=== PATIENT | female | born 1970 | race Caucasian/White ===

== ENCOUNTER 2016-12-17 01:32 | Inpatient (IN) ==
--- OUTSIDE RECORDS SUMMARY | 2016-12-17 03:22 | External Medical Summary ---
:1970 Author Organization eClinicalWorks Care Team Providers Name Role Phone Inocencio Christian Provider Role Unavailable Allergies No Known Allergies Problems Problem Type Condition Code Onset Dates Condition Status Problem Suppurative otitis media of both 382.4 Active ears Problem Bronchitis 490 Active Problem DM type 2 (diabetes mellitus, type E11.9 Active 2) Problem Cellulitis and abscess of 682.9 Active unspecified site Problem Left ankle injury 959.7 Active Problem Left ankle swelling 719.07 Active Medications No Known Medications Results No Known Results Summary Purpose eClinicalWorks Submission
--- OUTSIDE RECORDS SUMMARY | 2016-12-17 03:22 | External Medical Summary ---
:1970 Author Organization [facility] Address [address] [place], [place] [address] Care Team Providers Name Role Phone Agata Khoury Unavailable Unavailable PROBLEMS Type Condition ICD9-CM [id number] Onset Condition SNOMED Code Code Code Dates Status Problem HLD E78.5 Active 85679371 (hyperlipidemia) Problem Sleep apnea G47.30 Active 76882019 Problem Diabetes type 2, E11.65 Active 987093527 uncontrolled Problem Heart murmur R01.1 Active 10196150 Problem Peripheral G62.9 Active 461186423 neuropathy Problem Diabetic ulcer of E11.621 Active 8768769323407 right foot Problem High blood I10 Active 90635842 pressure Problem Depression F32.9 Active 253407230 Problem Diabetic E11.43 Active 939827204 gastroparesis Problem High cholesterol E78.0 Active 30570334 Problem Acid reflux K21.9 Active 050607280 ALLERGIES Unknown Allergies SOCIAL HISTORY No smoking Hx information available PLAN OF CARE VITAL SIGNS MEDICATIONS Medication Instructions Dosage Frequency Start End Date Duration Status Date Bactrim DS Orally Twice a 1 tablet 12h 26 July, 5 Rubén, 10 day(s) Active 800-160 MG day 2016 2016 RESULTS No Results PROCEDURES No Known procedures IMMUNIZATIONS No Known Immunizations
--- OUTSIDE RECORDS SUMMARY | 2016-12-17 03:22 | External Medical Summary ---
:1970 Author Name [facility] Care Team Providers Name Role Phone FRIEND, DESIRAE JASMINE Primary Care Provider [phone] Reason For Visit Reason for Visit from 08/10/2016 1:04 PM:Pt Stated Reason for Adm : infusion Chief Complaint DIABETIC FOOT ULCER, INFECTED Social History Functional Status Functional Status from 08/16/2016 8:21 AM:LOC : AlertOriented To : Person,Place, Time,EventFunctional Status from 08/15/2016 8:08 AM:LOC : AlertOriented To : Person,Place,Time,EventFunctional Status from 08/14/2016 8:46 AM:LOC : AlertOriented To : Person,Place,Time,EventFunctional Status from 08/13/2016 8:20 PM:LOC : AlertOriented To : Person,Place,Time,EventFunctional Status from 2016 7:37 AM:LOC : AlertOriented To : Person,Place,Time,EventFunctional Status from 08/12/2016 8:10 PM:LOC : AlertOriented To : Person,Place,Time, EventFunctional Status from 08/12/2016 7:43 AM:LOC : AlertOriented To : Person, Place,Time,EventFunctional Status from 08/11/2016 10:09 AM:LOC : AlertOriented To : Person,Place,Time,EventFunctional Status from 08/10/2016 1:04 PM:LOC : AlertOriented To : Person,Place,Time,Event Vital Signs Hospital Vital Signs from 08/16/2016 8:28 PM:Height : 5/6 ft,inTemperature : 98.6 FPulse : 83Respirations : 18BP : 141/83Hospital Vital Signs from 08/16/2016 8:18 AM:Height : 5/6 ft,inTemperature : 97.0 FPulse : 84Respirations : 18BP : 144/76Hospital Vital Signs from 08/15/2016 8:08 AM:Height : 5/6 ft,inTemperature : 98.2 FPulse : 80Respirations : 18BP : 112/70Hospital Vital Signs from 2016 8:42 AM:Height : 5/6 ft,inTemperature : 97.3 FPulse : 98Respirations : 18BP : 130/81Hospital Vital Signs from 08/13/2016 8:20 PM:Height : 5/6 ft, inTemperature : 97.3 FPulse : 78Respirations : 18BP : 176/78Hospital Vital Signs from 08/13/2016 8:26 AM:Height : 5/6 ft,inTemperature : 96.9 FPulse : 70Respirations : 20BP : 132/67Hospital Vital Signs from 08/12/2016 8:10 PM: Height : 5/6 ft,inTemperature : 98.2 FPulse : 78Respirations : 20BP : 146/ 70Hospital Vital Signs from 08/12/2016 7:43 AM:Height : 5/6 ft,inTemperature : 96.9 FPulse : 70Respirations : 18BP : 147/83Hospital Vital Signs from 08/11/2016 11:25 PM:Height : 5/6 ft,inTemperature : 98.1 FPulse : 72Respirations : 18BP : 138/68Hospital Vital Signs from 08/11/2016 7:50 PM:Height : 5/6 ft,inTemperature : 98.9 FPulse : 96Respirations : 18BP : 134/62Hospital Vital Signs from 2016 7:43 AM:Height : 5/6 ft,inTemperature : 97.6 FPulse : 80Respirations : 18BP : 117/74Hospital Vital Signs from 08/11/2016 12:25 AM:Height : 5/6 ft, inTemperature : 97.8 FPulse : 76Respirations : 18BP : 121/63Hospital Vital Signs from 08/10/2016 8:10 PM:Height : 5/6 ft,inTemperature : 98.1 FPulse : 87Respirations : 18BP : 115/71Hospital Vital Signs from 08/10/2016 1:04 PM: Weight : 267/ lbs,ozHeight : 5/6 ft,inHospital Vital Signs from 08/10/2016 8:20 AM:Height : 5/6 ft,inTemperature : 97.8 FPulse : 105Respirations : 18BP : 134/81 Results Chemistry from 08/12/2016 8:03 [id number] MMOL/L (136-145 MMOL/L) POTASSIUM4.2 MMOL/L (3.5-5.1 MMOL/L) [id number] MMOL/L H (98-107 MMOL/L) MAV135.1 MMOL/L (21.0-32.0 MMOL/L) *ANION GAP10.9 MMOL/L (8.0-16.0 MMOL/L) BUN20 MG/DL H (7-18 MG/DL) CREATININE1.02 MG/DL (0.55-1.02 MG/DL) *BUN/CREATININE RATIO19.6 H (9.1-17.0 ) YBMACQV898 MG/DL H (65-99 MG/DL) *GFR EST NON AFR [id number] ML/MIN (Reference Range: not available) *GFR EST AFR AMER75 ML/MIN (Reference Range: not available) CALCIUM8.9 MG/DL (8.5-10.1 MG/DL) VANCOMYCIN TKEYSN08.8 MCG/ML (10.0-20.0 MCG/ML) Problems Encounter Diagnosis No relevant problems exist. Encounters Encounter Diagnosis No relevant problems exist. Plan of Care Procedures No relevant procedures performed. Immunizations No immunizations administered or ordered. Hospital Course Hospital Discharge Instructions Allergies, Adverse Reactions, Alerts This section is construction representative of the current allergy information, at the time of the CCD generation. In the case of regeneration of the CCD, the allergy information may not reflect the state of known allergies at the time of the CCD' s subject visit. clindamycin causes Moderate Hives.Penicillins causes unspecified.Tetracyclines causes unspecified.No Latex Allergy.No IV Contrast Allergy.No Known Food Allergies. Medication Medication reconciliation has not been performed.
--- OUTSIDE RECORDS SUMMARY | 2016-12-17 03:22 | External Medical Summary ---
:1970 Author Organization eClinicalWorks Care Team Providers Name Role Phone Friend, Lakisha Provider Role Unavailable Allergies, Adverse Reactions, Alerts Substance Reaction Event Type Tetracycline Info Not Available Non Drug Allergy Penicillins Info Not Available Non Drug Allergy Problems Problem Type Condition Code Onset Dates Condition Status Problem Heart murmur R01.1 Active Problem HLD (hyperlipidemia) E78.5 Active Problem Peripheral neuropathy G62.9 Active Problem High cholesterol E78.0 Active Problem Acid reflux K21.9 Active Problem High blood pressure I10 Active Problem Sleep apnea G47.30 Active Problem Diabetes type 2, uncontrolled E11.65 Active Problem Depression F32.9 Active Problem Diabetic gastroparesis E11.43 Active Assessment Diabetes type 2, uncontrolled E11.65 Active Assessment High blood pressure I10 Active Problem DM type 2 (diabetes mellitus, type E11.9 Active 2) Medications Medication Code Code Instructions Start End Date Status Dosage System Date Potassium [facility] 80569-29 550 MG Orally 1 tablet Gluconate 797 Once a day GlipiZIDE [facility] 39273-78 10 MG Orally Oct 12, 1 tablet 50-00 Once a day 2015 Stool Softener [facility] 34531-03 250 MG Orally 1 capsule as 64-01 Once a day needed Magnesium [facility] 23436-58 500 MG Orally 1 tablet 999 Once a day with a meal Vitamin B-12 [facility] 20345-96 1000 MCG Orally 5 tablet 17-01 Once a day Vitamin C [facility] 12429-37 1000 MG Orally 2 tablets 79-20 Once a day Lisinopril [facility] 99615-77 40 mg Orally Oct 12, 1 tablet 70-01 Once a day at 2016 bedtime Aspirin [facility] 81272-93 325 MG Orally 1 tablet 16-[address] [place] [address]-40 300 MG Orally 2 capsules 79-26 Once a day Lovastatin [facility] 55470-17 40 mg Orally Aug 12, 1 tablet 28-06 Once a day 2015 with a meal Metformin HCl [facility] 91693-65 1000 MG Orally Aug 12, 1 tablet 14-01 Twice a day 2015 with meals Cinnamon NDC 86123-05 500 MG Orally not defined 77-24 Fish Oil [facility] 78366-92 1200 MG Orally 1 capsule 922 Once a day Lisinopril [facility] 89444-56 40 MG Orally Oct 12, 1 tablet 70-01 Once a day at 2016 bedtime Ginkgo Biloba [facility] 90097-72 400 MG Orally not defined 092 Biotin [facility] 90914-84 1000 MCG Orally 1 tablet 900 Once a day Amlodipine [facility] 90921-77 5 MG Orally Once Dec 12, 1 tablet Besylate -22 a day at bedtime 2015 Procedures Procedure Coding System Code Date OFFICE VISIT EST PATIENT LEVEL 3 CPT-4 86134 Dec 13, 2015 Vital Signs Date/Time: Dec 13, 2015 BMI 45.03 Index Weight 279 lbs Height 5 ft 6 in in Blood Pressure Diastolic 102 mm Hg Blood Pressure Systolic 166 mm Hg Cardiac Monitoring Heart Rate 93 /min Temperature 98.1 F Oximetry 98 % Respiratory Rate 20 /min Results No Known Results Summary Purpose eClinicalWorks Submission
--- OUTSIDE RECORDS SUMMARY | 2016-12-17 03:22 | External Medical Summary ---
:1970 Author Organization [employer]ClinicalWorks Care Team Providers Name Role Phone Friend, Lakisha Provider Role Unavailable Allergies No Known Allergies Problems Problem Type Condition Code Onset Dates Condition Status Problem Heart murmur R01.1 Active Problem HLD (hyperlipidemia) E78.5 Active Problem Peripheral neuropathy G62.9 Active Problem DM type 2 (diabetes mellitus, type E11.9 Active 2) Problem High cholesterol E78.0 Active Problem Acid reflux K21.9 Active Problem High blood pressure I10 Active Problem Sleep apnea G47.30 Active Problem Diabetes type 2, uncontrolled E11.65 Active Problem Depression F32.9 Active Problem Diabetic gastroparesis E11.43 Active Medications Medication Code System Code Instructions Start Date End Date Status Dosage Cephalexin [facility] 74194-765 500 MG Orally Oct 17, capsule 7-01 Twice a day 2015 Results No Known Results Summary Purpose eClinicalWorks Submission
--- OUTSIDE RECORDS SUMMARY | 2016-12-17 03:22 | External Medical Summary ---
:1970 Author Organization eClinicalWorks Care Team Providers Name Role Phone Cecilia Monroy Provider Role Unavailable Allergies No Known Allergies [...]
--- OUTSIDE RECORDS SUMMARY | 2016-12-17 03:22 | External Medical Summary ---
:1970 Author Organization [facility] Address [address] [place], [place] [id number] Care Team Providers Name Role Phone Agata Khoury Unavailable Unavailable PROBLEMS Type Condition ICD9-CM [id number] Onset Condition SNOMED Code Code Code Dates Status Problem HLD E78.5 Active 79772700 (hyperlipidemia) Problem Sleep apnea G47.30 Active 73037522 Problem Diabetes type 2, E11.65 Active 617492333 uncontrolled Problem Heart murmur R01.1 Active 14459642 Problem Peripheral G62.9 Active 415836877 neuropathy Problem Diabetic ulcer of E11.621 Active 7137672952957 right foot Problem High blood I10 Active 25042611 pressure Problem Depression F32.9 Active 686417739 Problem Diabetic E11.43 Active 923356142 gastroparesis Problem High cholesterol E78.0 Active 02040072 Problem Acid reflux K21.9 Active 642247299 ALLERGIES Substance Reaction Event Type Date Status Clindamycin hivers over entire body Drug Allergy July, Active Tetracycline burning rash Non Drug Allergy July, Active Penicillins hives over 100% of body Non Drug Allergy July, Active SOCIAL HISTORY No smoking Hx information available PLAN OF CARE Activity Details Follow Up 1 Week Reason:null VITAL SIGNS Height 5 ft 6 in in 2016-07-30 Weight 273 lbs 2016-07-30 BMI 44.06 kg/m2 2016-07-30 Temperature 97.8 degrees Fahrenheit 2016-07-30 Heart Rate 122 /min 2016-07-30 Respiratory Rate 22 /min 2016-07-30 Oximetry 97 % 2016-07-30 Blood pressure systolic 136 mm Hg 2016-07-30 Blood pressure diastolic 76 mm Hg 2016-07-30 MEDICATIONS Medication Instructions Dosage Frequency Start End Duration Status Date Date Vitamin B-12 5000 MCG Orally Once a 1 tablet 24h Active day Stool Softener 250 MG Orally Once a 1 capsule as 24h Active day needed Lisinopril 20 MG Orally Once a 2 tablets 30 days Active day at bedtime Ginkgo Biloba 400 MG Orally once a 1 capsule 24h Active day Biotin 1000 MCG Orally Once a 1 tablet 24h Active day Lovastatin 40 mg Orally Once a 1 tablet with 24h 12 30 day(s) Active day a meal Oct, 2015 Aspirin 325 MG Orally Once a 1 tablet 24h Active day Nystatin 413437 Externally 1 application 12h 25 24 30 days Active UNIT/GM Twice a day to affected July, GlipiZIDE 10 MG Orally twice a 2 tablets am 12h Active day and 1 tablet pm Metformin HCl 1000 MG Orally Twice a 1 tablet with 12h 12 Active day meals Oct, 2015 Hydrochlorothiazide Orally Once a 1 tablet 14 30 day(s) Active 25 MG day in the Apr, Amlodipine Besylate Orally Once a 1 tablet 24h 15 30 day(s) Active 10 MG day Jan, 2016 [facility] [place] 300 MG Orally twice a 2 capsules am 12h Active day 1 capsule pm Bactrim DS 800-160 MG Orally Twice a 1 tablet 12h 26 5 10 day(s) Active day July,Aug, 20162016 Fish Oil 1200 MG Orally Once a 1 capsule 24h Active day Potassium Gluconate Orally Once a 1 tablet 24h Active 550 MG day Clindamycin HCl 300 Orally every 8 1 capsule 8h 22 1 10 days Active MG hrs July,Aug, 20162016 Vitamin C 1000 MG Orally Once a 2 tablets 24h Active day Magnesium 500 MG Orally Once a 1 tablet with 24h Active day a meal PredniSONE 20 MG Orally Once a 2 tablets 24h 30 4 05 days Active day July,Aug, 20162016 RESULTS No Results PROCEDURES Procedure Date Ordered Related Diagnosis Body Site OFFICE VISIT EST PATIENT LEVEL 3 July 30, 2016 IMMUNIZATIONS No Known Immunizations
--- OUTSIDE RECORDS SUMMARY | 2016-12-17 03:22 | External Medical Summary ---
:1970 Author Organization [facility] Address [address] [place], [place] [address] Care Team Providers Name Role Phone Cecilia Monroy Unavailable Unavailable PROBLEMS Type Condition ICD9-CM [id number] Onset Condition SNOMED Code Code Code Dates Status Problem HLD E78.5 Active 61435078 (hyperlipidemia) Problem Sleep apnea G47.30 Active 69617418 Problem Diabetes type 2, E11.65 Active 292663949 uncontrolled Problem Heart murmur R01.1 Active 29676657 Problem Peripheral G62.9 Active 356425888 neuropathy Problem Diabetic ulcer of E11.621 Active 3611020445377 right foot Problem High blood I10 Active 20780701 pressure Problem Depression F32.9 Active 249230032 Problem Diabetic E11.43 Active 239480130 gastroparesis Problem High cholesterol E78.0 Active 63099919 Problem Acid reflux K21.9 Active 234747089 ALLERGIES Unknown Allergies SOCIAL HISTORY No smoking Hx information available PLAN OF CARE VITAL SIGNS MEDICATIONS Unknown Medications RESULTS No Results PROCEDURES No Known procedures IMMUNIZATIONS No Known Immunizations
--- OUTSIDE RECORDS SUMMARY | 2016-12-17 03:22 | External Medical Summary ---
:1970 Author Name [facility] Care Team Providers Name Role Phone MD HOMA, FABRICIO MOSQUERA Primary Care Provider [phone] Reason For Visit Chief Complaint FOOT PAIN Social History Functional Status Vital Signs Results Chemistry from 08/06/2016 10:00 [id number] MMOL/L (136-145 MMOL/L) POTASSIUM4.4 MMOL/L (3.5-5.1 MMOL/L) [id number] MMOL/L (98-107 MMOL/L) GTK936.4 MMOL/L (21.0-32.0 MMOL/L) *ANION GAP9.6 MMOL/L (8.0-16.0 MMOL/L) BUN24 MG/DL H (7-18 MG/DL) CREATININE1.20 MG/DL H (0.55-1.02 MG/DL) *BUN/CREATININE RATIO20.0 H (9.1-17.0 ) SSVFFWE308 MG/DL H (65-99 MG/DL) *GFR EST NON AFR BEZLZZGV52 ML/MIN (Reference Range: not available) *GFR EST AFR AMER62 ML/MIN (Reference Range: not available) CALCIUM9.5 MG/DL (8.5-10.1 MG/DL) BILIRUBIN TOTAL0.40 MG/DL (0.20-1.00 MG/DL) TOTAL PROTEIN8.1 GM/DL (6.4-8.2 GM/DL) ALBUMIN4.1 GM/DL (3.4-5.0 GM/DL) *GLOBULIN4.0 GM/DL H (2.3-3.5 GM/DL) *A/G RATIO1.0 MG/DL L (1.5-2.2 MG/DL) ALK HRGF291 U/L H (46-116 U/L) ALT (SGPT)41 U/L (16-63 U/L) AST (SGOT)16 U/L (15-37 U/L) MAGNESIUM2.0 MG/DL (1.8-2.4 MG/DL) PHOSPHORUS4.0 MG/DL (2.6-4.7 MG/DL) LACTIC ACID1.3 mmol/L (0.9-1.7 mmol/L) PROCALCITONIN<0.05 NG/ML (0.05-0.50 NG/ML)Hematology from 08/06/2016 10:00 PMWBC15.3 X10e3/UL H (3.6-11.2 X10e3/UL) RBC4.53 X10e6/UL (3.63-4.92 X10e6/UL) FBKLFYBHJT42.8 G/DL (11.0-14.3 G/DL) PDAIZECJWS51.4 % (31.2-41.9 %) *MCV91.3 FL (79.0-98.0 FL) *MCH30.5 PG (27.0-33.0 PG) *MCHC33.5 G/DL (32.0-36.0 G/DL) *RDW13.1 % (12.3-17.0 %) *RDWSD42.0 (37.1-47.8 ) OTMYDNUJ438 X10e3/UL (159-386 X10e3/UL) *MPV9.2 FL (7.4-10.4 FL) *MANUAL DIFFPERFORMED (Reference Range: not available) SEGS40.0 % (Reference Range: not available) *BANDS2.0 % (Reference Range: not available) *KKNARJRRAMF07.0 % (Reference Range: not available) *MONOCYTES4.0 % (Reference Range: not available) *SWGLGSOLZPQ13.0 % (Reference Range: not available) *BASOPHILS1.0 % (Reference Range: not available) METAMYELOCYTES1.0 % (Reference Range: not available) *ABSOLUTE NEUTROPHILS6.58 X10e3/UL (1.80-7.80 X10e3/UL) *ABSOLUTE LYMPHOCYTES6.43 X10e3/UL H (1.00-3.00 X10e3/UL) *ABSOLUTE MONOCYTES0.61 X10e3/UL (0.30-1.00 X10e3/UL) *ABSOLUTE EOSINOPHILS1.53 X10e3/UL H (0.00-0.50 X10e3/UL) *ABSOLUTE BASOPHILS0.15 X10e3/UL (0.00-0.20 X10e3/UL)Microbiology from 08/06/2016 10:08 PMCULTURE BLOOD (Preliminary Result) Specimen Number: [id number] Sample Collection Date/Time: 08/06/2016 10:08 PM Specimen Source: Blood Peripheral CULTURE BLOOD: No growth after 24 hours of incubation, testing to continue for an additional 96 hours. Microbiology from 08/06/2016 10:00 PMCULTURE BLOOD (Preliminary Result) Specimen Number: [id number] Sample Collection Date/Time: 08/06/2016 10:00 PM Specimen Source: Blood Peripheral CULTURE BLOOD: No growth after 24 hours of incubation, testing to continue for an additional 96 hours. DX Radiology from 08/06/2016 11:27 PMCHEST 1 VIEWHistory: diabetic ulcer Priors: None Findings: The cardiac silhouette and pulmonary vasculature are within normal limits. There are no acute infiltrates or effusions. Impression: No acute cardiopulmonary disease. Electronically signed by: William Gusman MD Dictated: 08/07/2016 10:14 (Reference Range: not available) Problems Encounter Diagnosis No relevant problems exist. Encounters Encounter Diagnosis No relevant problems exist. Plan of Care Procedures No relevant procedures performed. Immunizations No immunizations administered or ordered. Hospital Course Hospital Discharge Instructions Allergies, Adverse Reactions, Alerts This section is sales representative marine supplies of the current allergy information, at the time of the CCD generation. In the case of regeneration of the CCD, the allergy information may not reflect the state of known allergies at the time of the CCD' s subject visit. clindamycin causes Moderate Hives.Penicillins causes unspecified.Tetracyclines causes unspecified.Latex Allergy has not been assessed.IV Contrast Allergy has not been assessed. Medication Medication reconciliation has not been performed.
--- OUTSIDE RECORDS SUMMARY | 2016-12-17 03:23 | External Medical Summary ---
:1970 Author Organization eClinicalWorks Care Team Providers Name Role Phone Cecilia Monroy Provider Role Unavailable Allergies, Adverse Reactions, Alerts Substance Reaction Event Type Tetracycline Info Not Available Non Drug Allergy Penicillins Info Not Available Non Drug Allergy Statin Info Not Available Non Drug Allergy Problems Problem Type Condition Code Onset Dates Condition Status Assessment DM type 2 (diabetes mellitus, type E11.9 Active 2) Problem Suppurative otitis media of both 382.4 Active ears Problem Bronchitis 490 Active Problem DM type 2 (diabetes mellitus, type E11.9 Active 2) Problem Cellulitis and abscess of 682.9 Active unspecified site Assessment Dysuria R30.0 Active Problem Left ankle injury 959.7 Active Problem Left ankle swelling 719.07 Active Medications Medication Code Code Instructions Start End Date Status Dos[place] [address]-59 500 MG Orally September 28, 1 tablet 48-01 Twice a day 2015 with meals Magnesium NDC 14956-88 500 MG Orally 1 tablet 999 Once a day with a meal Cinnamon NDC 25770-64 500 MG Orally not 77-24 defined Vitamin C NDC 31576-40 1000 MG Orally 1 tablet 79-20 Once a day Potassium NDC 09421-80 75 MG Orally 1 tablet 30-60 Once a day Aspirin NDC 84009-08 325 MG Orally 1 tablet 16-78 [place] [address]-69 400 MG Orally not 092 defined Stool Softener NDC 78535-57 250 MG Orally 1 capsule 64-01 Once a day as needed Fish Oil NDC 78943-82 1000 MG Orally 1 capsule 71-40 Once a day Ciprofloxacin HCl NDC 77785-28 500 MG Orally September 28Oct 03, 1 tablet 37-01 Twice a day [address] [place] W[place] NDC 00225-76 300 MG Orally 1 capsule 79-26 Once a day Procedures Procedure Coding System Code Date GLUCOSE BLOOD TEST CPT-4 26242 September 29, 2015 CAPILLARY BLOOD DRAW CPT-4 99899 September 29, 2015 URINALYSIS NONAUTO WO SCOPE CPT-4 22237 September 29, 2015 OFFICE VISIT EST PATIENT LEVEL 4 CPT-4 98528 September 29, 2015 URINE CULTURECOLONY COUNT CPT-4 16623 September 29, 2015 COMPLETE CBC WAUTO DIFF WBC CPT-4 15108 September 29, 2015 GLYCOSYLATED HEMOGLOBIN TEST CPT-4 34321 September 29, 2015 ROUTINE VENIPUNCTURE CPT-4 89211 September 29, 2015 COMPREHEN METABOLIC PANEL CPT-4 22388 September 29, 2015 Vital Signs Date/Time: September 29, 2015 BMI 44.42 Index Weight 275 lb 4 oz lbs Height 5 ft 6 in in Oximetry 98 % Blood Pressure Diastolic 98 mm Hg Blood Pressure Systolic 158 mm Hg Cardiac Monitoring Heart Rate 97 /min Results Name Result Date Reference Range Unit Abnormality Flag Venipuncture ACCU-CHECK GLUCOSE ----Glucose 391 20150929 Hemoglobin A1C - IH ----Hemoglobin A1c 12.5 19195559 4.0 - 6.0 Urinalysis (UA) - IH ----Nitrates neg 20150929 ----Specific [place] 1.025 20150929 ----Urobilirubin 0.2 31200336 0.2 - 1 ----Ketones 40mg 42625798 0 - 0 ----Leukocytes neg 20150929 ----Protein 100mg 92471638 0 - 0 ----pH 5.5 20150929 ----Glucose 500mg 72598763 0 - 0 ----Bilirubin neg 20150929 ----Character cloudy 20150929 ----Blood large 20150929 ----Color yellow 20150929 eGFR ----eGFR >60 46667553 >60 mL/min CBC With Platelet and Differential ----RDW 12.6 49363853 11.5-14.5 % ----MCHC 35.0 94912951 32.0-36.0 g/dL ----MCH 31.3 39429650 27.0-32.0 pg ----MCV 89.2 08958245 82.0-99.0 fL ----HCT 41.4 45364846 37.0-47.0 % ----HGB 14.5 36789169 12.0-18.0 g/dL ----Eosinophils 2 95902885 0-4 % ----RBC 4.64 11518154 4.00-5.20 10*6/uL ----WBC 8.8 08372597 4.8-10.8 K/uL ----Basophils 1 18315947 0-2 % ----Lymphocytes 37 30225913 20-46 % ----Absolute Monocytes 0.42 12051925 0.30-1.00 10*3 ----Monocytes 5 87436458 4-11 % ----Absolute Eosinophils 0.20 03727066 0.00-0.50 10*3 ----Absolute Basophils 0.04 80252048 0.00-0.20 10*3 ----Neutrophils 55 84967407 51-75 % ----Platelet Count 300 18010092 150-400 K/uL ----Immature Granulocytes 0.5 82472205 0.0-1.0 % ----Absolute Neutrophils 4.86 71999909 1.90-7.00 10*3 ----Absolute Lymphocytes 3.21 83656907 0.80-3.30 10*3 ----MPV 11.8 01526713 8.8-14.8 fL Comprehensive Metabolic Panel (CMP) ----Creatinine 0.81 62480623 0.57-1.11 mg/dL ----BUN 13 20150929 7-19 mg/dL ----Sodium 135 59450959 135-144 mEq/L ----Calcium 9.5 36748375 8.9-10.5 mg/dL ----Chloride 100 57229088 99-111 mEq/L ----Potassium 4.0 21077976 3.5-5.2 mEq/L ----Albumin 4.4 51721899 3.5-5.0 g/dL ----CO2 23 62227180 22-31 mEq/L ----Bilirubin Total 0.6 12817455 0.2-1.2 mg/dL ----Protein 7.0 74945841 6.1-7.7 g/dL ----Alkaline Phosphatase 117 36503238 40-150 U/L ----AST (SGOT) 15 80665609 5-34 U/L ----ALT (SGPT) 29 20150929 0-55 U/L ----Globulin 2.6 20150929 1.8-4.0 g/dL ----Glucose 464 20150929 70-99 mg/dL CH ----Anion Gap 12 20150929 3-20 Summary Purpose eClinicalWorks Submission
--- OUTSIDE RECORDS SUMMARY | 2016-12-17 03:23 | External Medical Summary ---
:[address] [facility] Address [address] [place], [place] [address] Care Team Providers Name Role Phone Agata Khoury Unavailable Unavailable PROBLEMS Type Condition ICD9-CM [id number] Onset Condition SNOMED Code Code Code Dates Status Problem HLD E78.5 Active 14044662 (hyperlipidemia) Problem Sleep apnea G47.30 Active 76238133 Problem Diabetes type 2, E11.65 Active 908005863 uncontrolled Problem Heart murmur R01.1 Active 24270672 Problem Peripheral G62.9 Active 419921766 neuropathy Problem Diabetic ulcer of E11.621 Active 1509299244126 right foot Problem High blood I10 Active 02549036 pressure Problem Depression F32.9 Active 186374680 Problem Diabetic E11.43 Active 548386791 gastroparesis Problem High cholesterol E78.0 Active 28457642 Problem Acid reflux K21.9 Active 557081886 ALLERGIES Unknown Allergies SOCIAL HISTORY No smoking Hx information available PLAN OF CARE VITAL SIGNS MEDICATIONS Unknown Medications RESULTS No Results PROCEDURES No Known procedures IMMUNIZATIONS No Known Immunizations
--- OUTSIDE RECORDS SUMMARY | 2016-12-17 03:23 | External Medical Summary ---
:1970 Author Organization [facility] Address [address] [place], [place] [address] Care Team Providers Name Role Phone Agata Khoury Unavailable Unavailable PROBLEMS Type Condition ICD9-CM [id number] Onset Condition SNOMED Code Code Code Dates Status Problem HLD E78.5 Active 46960685 (hyperlipidemia) Problem Sleep apnea G47.30 Active 10788329 Problem Diabetes type 2, E11.65 Active 911655356 uncontrolled Assessment Cutaneous B37.2 25 July, Active 173454866 candidiasis 2017 Assessment Diabetic ulcer of E11.621 25 July, Active 6275071821397 right foot 2017 Problem Heart murmur R01.1 Active 97221390 Problem Peripheral G62.9 Active 668009570 neuropathy Problem Diabetic ulcer of E11.621 Active 3780585972082 right foot Problem High blood I10 Active 98462887 pressure Problem Depression F32.9 Active 362087496 Problem Diabetic E11.43 Active 522679485 gastroparesis Problem High cholesterol E78.0 Active 39368541 Problem Acid reflux K21.9 Active 391465059 ALLERGIES Substance Reaction Event Type Date Status Tetracycline burning rash Non Drug Allergy July, Active Penicillins hives over 100% of body Non Drug Allergy July, Active SOCIAL HISTORY No smoking Hx information available PLAN OF CARE VITAL SIGNS MEDICATIONS Medication Instructions Dosage Frequency Start End Duration Status Date Date Fish Oil 1200 MG Orally Once a 1 capsule 24h Active day Amlodipine Besylate Orally Once a 1 tablet 24h 15 30 day(s) Active 10 MG day Jan, 2016 Vitamin C 1000 MG Orally Once a 2 tablets 24h Active day Ginkgo Biloba 400 MG Orally once a 1 capsule 24h Active day Vitamin B-12 5000 MCG Orally Once a 1 tablet 24h Active day Magnesium 500 MG Orally Once a 1 tablet with 24h Active day a meal GlipiZIDE 10 MG Orally twice a 2 tablets am 12h Active day and 1 tablet pm Metformin HCl 1000 MG Orally Twice a 1 tablet with 12h 12 Active day meals Oct, 2015 Biotin 1000 MCG Orally Once a 1 tablet 24h Active day Hydrochlorothiazide Orally Once a 1 tablet 14 30 day(s) Active 25 MG day in the Apr, Lovastatin 40 mg Orally Once a 1 tablet with 24h 12 30 day(s) Active day a meal Oct, 2015 [facility] [place] Wort 300 MG Orally twice a 2 capsules am 12h Active day 1 capsule pm Lisinopril 20 MG Orally Once a 2 tablets 30 days Active day at bedtime Stool Softener 250 MG Orally Once a 1 capsule as 24h Active day needed Potassium Gluconate Orally Once a 1 tablet 24h Active 550 MG day Clindamycin HCl 300 Orally every 8 1 capsule 8h 22 1 10 days Active MG hrs July,Aug, 20162016 Aspirin 325 MG Orally Once a 1 tablet 24h Active day Nystatin 269874 Externally 1 application 12h 25 24 30 days Active UNIT/GM Twice a day to affected July,, 2016 RESULTS No Results PROCEDURES Procedure Date Ordered Related Diagnosis Body Site Ceftriaxone (Rocephin) 1000mg July 25, 2016 THERPROPHDIAG INJ, SCIM July 25, 2016 IMMUNIZATIONS Vaccine Route Administration Date Status Ceftriaxone (Rocephin) 1000mg IM Intramuscular July 25, 2016 Administered
--- OUTSIDE RECORDS SUMMARY | 2016-12-17 03:23 | External Medical Summary ---
:1970 Author Organization eClinicalWorks Care Team Providers Name Role Phone Friend, Lakisha Provider Role Unavailable Allergies No Known Allergies Problems Problem Type Condition Code Onset Dates Condition Status Problem Heart murmur R01.1 Active Problem HLD (hyperlipidemia) E78.5 Active Problem Peripheral neuropathy G62.9 Active Assessment HTN (hypertension) I10 Active Problem DM type 2 (diabetes mellitus, type E11.9 Active 2) Problem High cholesterol E78.0 Active Problem Acid reflux K21.9 Active Problem High blood pressure I10 Active Problem Sleep apnea G47.30 Active Problem Diabetes type 2, uncontrolled E11.65 Active Problem Depression F32.9 Active Problem Diabetic gastroparesis E11.43 Active Medications Medication Code Code Instructions Start End Date Status Dosage System Date Magnesium [facility] 42368-75 500 MG Orally 1 tablet 999 Once [place] [address]-24 40 mg Orally Oct 12, 1 tablet 28-06 Once a day 2015 [place] [address]-35 Orally not defined [address] [facility] 01391-17 250 MG Orally 1 capsule as 64-01 Once a day needed Fish Oil [facility] 17254-28 1200 MG Orally 1 capsule [address] [facility] 10285-70 5 MG Orally Once Oct 12, 1 tablet 49-00 a day 2015 Vitamin B-12 [facility] 26649-28 1000 MCG Orally 5 tablet 17-01 Once a day Biotin [facility] 56937-27 1000 MCG Orally 1 tablet 900 [place] [address]-24 400 MG Orally not defined 092 [place] [address]-63 1000 MG Orally 2 tablets 79-20 [place] [address]-30 1000 MG Orally Oct 12, 1 tablet 14-01 Twice a day 2015 with meals Cinnamon NDC 53384-41 500 MG Orally not defined 77-[place] [address]-41 550 MG Orally 1 tablet Gluconate [address] [place] [address]-39 300 MG Orally 2 capsules 79-26 [address] [facility] 70308-01 20 MG Orally Oct 12, 1 tablet 68-01 Once a day at [address] [facility] 97583-45 325 MG Orally 1 tablet 16-78 Once a day Procedures Procedure Coding System Code Date NURSE VISIT- NO CHARGE CPT-4 76525 Dec 13, 2015 BLOOD PRESSURE, MEASURED CPT-4 2000F Dec 13, 2015 Vital Signs Date/Time: Dec 13, 2015 BMI 45.29 Index Weight 280.6 lbs Height 5 ft 6 in in Blood Pressure Diastolic 89 mm Hg Blood Pressure Systolic 174 mm Hg Cardiac Monitoring Heart Rate 87 /min Temperature 98.8 F Oximetry 99 % Respiratory Rate 20 /min Results No Known Results Summary Purpose eClinicalWorks Submission
--- OUTSIDE RECORDS SUMMARY | 2016-12-17 03:23 | External Medical Summary ---
[...] Active Problem Diabetic gastroparesis E11.43 Active Assessment Hypertension, uncontrolled I10 Active Assessment Peripheral neuropathy G62.9 Active Assessment Dysuria R30.0 Active Assessment Diabetes type 2, uncontrolled E11.65 Active Assessment HLD (hyperlipidemia) E78.5 Active Problem DM type 2 (diabetes mellitus, type E11.9 Active 2) Medications Medication Code Code Instructions Start End Date Status Dosage System Date Ginkgo Biloba [facility] 84539-78 400 MG Orally not defined 092 Fish Oil [facility] 46525-74 1200 MG Orally 1 capsule 922 Once a day Lisinopril [facility] 49211-56 20 MG Orally Oct 12, 1 tablet 68-01 Once a day at 2016 bedtime Biotin [facility] 20096-80 1000 MCG Orally 1 tablet [address] [place] Wort [facility] 18548-25 300 MG Orally 2 capsules 79-26 [place] [address]-43 40 mg Orally Oct 12, 1 tablet 28-06 Once a day 2016 [place] [address]-71 250 MG Orally 1 capsule as 64-01 Once a day needed GlipiZIDE [facility] 69476-34 5 MG Orally Once Oct 12, 1 tablet 49-00 a day 2016 Probiotic [facility] 38382-40 Orally not defined 543 [place] B-[place] [address]-88 1000 MCG Orally 5 tablet 17-01 [place] [address]-45 550 MG Orally 1 tablet Gluconate 797 Once a day Vitamin C [facility] 25620-79 1000 MG Orally 2 tablets 79-20 Once a day Aspirin [facility] 11287-62 325 MG Orally 1 tablet 16-78 Once a day Magnesium [facility] 61350-50 500 MG Orally 1 tablet 999 Once a day with a meal Cephalexin [facility] 50374-15 500 MG Orally Oct 17, 1 capsule 47-01 Twice a day 2015 Cinnamon [facility] 02115-07 500 MG Orally not defined 77-24 Metformin HCl [facility] 90399-81 1000 MG Orally Oct 12, 1 tablet 14-01 Twice a day 2016 with meals Procedures Procedure Coding System Code Date MICROALBUMIN, SEMIQUANT CPT-4 70972 Oct 13, 2015 OFFICE VISIT EST PATIENT LEVEL 4 CPT-4 45909 Oct 13, 2015 URINALYSIS NONAUTO WO SCOPE CPT-4 68747 Oct 13, 2015 URINE CULTURECOLONY COUNT CPT-4 74980 Oct 13, 2015 Vital Signs Date/Time: Oct 13, 2015 BMI 44.51 Index Weight 275.8 lbs Height 5 ft 6 in in Blood Pressure Diastolic 116 mm Hg Blood Pressure Systolic 182 mm Hg Cardiac Monitoring Heart Rate 105 /min Temperature 98.1 F Oximetry 98 % Respiratory Rate 20 /min Results Name Result Date Reference Range Unit Abnormality Flag Urinalysis (UA) - IH ----Nitrates neg 20151013 ----Protein 100mg 53302308 0 - 0 ----Blood small 20151013 ----Glucose 250mg 26789520 0 - 0 ----Bilirubin small 20151013 ----Ketones 15mg 70826776 0 - 0 ----Specific [place] 1.030 20151013 ----pH 5.5 20151013 ----Leukocytes trace 20151013 ----Color yellow 20151013 ----Urobilirubin 0.2 80258333 0.2 - 1 ----Character clear 20151013 Microalbumin ----Creatinine, Urine 300 20151013 ----Microalbum.,U,[place] 150 20151013 om ----Microalb/Creat 30-300 20151013 Ratio Urine Culture ----Urine Culture Source: Urine [id number] Collected: 10/13/15 14:17 Summary Purpose eClinicalWorks Submission
--- OUTSIDE RECORDS SUMMARY | 2016-12-17 03:23 | External Medical Summary ---
[...] Start End Date Status Dosage System Date Lovastatin [facility] 43496-95 40 mg Orally Oct 12, 1 tablet 28-06 Once a day 2015 [place] [address]-49 325 MG Orally 1 tablet 16-78 Once a day Potassium [facility] 43036-90 550 MG Orally 1 tablet Gluconate 797 Once a day Ginkgo Biloba [facility] 10246-51 400 MG Orally not defined 092 Metformin HCl [facility] 59469-43 1000 MG Orally Oct 12, 1 tablet 14-01 Twice a day 2015 [place] [address]-20 20 MG Orally Oct 12, 1 tablet 68-01 Once a day at 2016 bedtime Biotin [facility] 97911-49 1000 MCG Orally 1 tablet 900 [place] [address]-35 1000 MCG Orally 5 tablet 17-01 [place] [address]-63 250 MG Orally 1 capsule as 64-01 [place] [address]-77 1000 MG Orally 2 tablets 79-20 Once a day GlipiZIDE [facility] 21794-34 5 MG Orally Once Oct 12, 1 tablet 49-00 a day 2015 [place] [address]-27 500 MG Orally not defined 77-24 Probiotic [facility] 29769-83 Orally not defined [address] [place] [address]-11 500 MG Orally 1 tablet 999 Once a day with a meal [facility] Santos Wort [facility] 47602-90 300 MG Orally 2 capsules 79-26 Once a day Fish Oil [facility] 91852-21 1200 MG Orally 1 capsule 922 Once a day Procedures Procedure Coding System Code Date BLOOD PRESSURE, MEASURED CPT-4 Nov 10, 2015 Vital Signs Date/Time: Nov 10, 2015 BMI 44.67 Index Weight 276.8 lbs Height 5 ft 6 in in Blood Pressure Diastolic 105 mm Hg Blood Pressure Systolic 177 mm Hg Cardiac Monitoring Heart Rate 85 /min Temperature 99.4 F Oximetry 97 % Respiratory Rate 20 /min Results No Known Results Summary Purpose eClinicalWorks Submission
--- OUTSIDE RECORDS SUMMARY | 2016-12-17 03:23 | External Medical Summary ---
:1970 Author Organization [facility] Address [address] [place], [place] [address] Care Team Providers Name Role Phone Friend, Lakisha Unavailable Unavailable PROBLEMS Type Condition ICD9-CM [id number] Onset Condition SNOMED Code Code Code Dates Status Problem HLD E78.5 Active 44612218 (hyperlipidemia) Problem Sleep apnea G47.30 Active 34539605 Problem Diabetes type 2, E11.65 Active 343930979 uncontrolled Assessment Callus of foot L84 May, Active 692809137 2017 Assessment Upper respiratory J06.9 May, Active 08987299 infection 2017 Problem Heart murmur R01.1 Active 80450783 Problem Peripheral G62.9 Active 011723511 neuropathy Problem Diabetic ulcer of E11.621 Active 6917384270378 right foot Problem High blood I10 Active 02083574 pressure Problem Depression F32.9 Active 464607249 Problem Diabetic E11.43 Active 002294146 gastroparesis Problem High cholesterol E78.0 Active 00889718 Problem Acid reflux K21.9 Active 953205125 ALLERGIES Substance Reaction Event Type Date Status Tetracycline burning rash Non Drug Allergy May, Active Penicillins hives over 100% of body Non Drug Allergy May, Active SOCIAL HISTORY No smoking Hx information available PLAN OF CARE VITAL SIGNS Height 66 in 2016-05-10 Weight 270 lbs 2016-05-10 BMI 43.57 kg/m2 2016-05-10 Temperature 97.9 degrees Fahrenheit 2016-05-10 Heart Rate 114 /min 2016-05-10 Respiratory Rate 20 /min 2016-05-10 Oximetry 97 % 2016-05-10 Blood pressure systolic 142 mm Hg 2016-05-10 Blood pressure diastolic 90 mm Hg 2016-05-10 MEDICATIONS Medication Instructions Dosage Frequency Start End Duration Status Date Date Vitamin C 1000 MG Orally Once a 2 tablets 24h Active day Potassium Gluconate Orally Once a 1 tablet 24h Active 550 MG day Ginkgo Biloba 400 MG Orally once a 1 capsule 24h Active day Stool Softener 250 MG Orally Once a 1 capsule as 24h Active day needed Vitamin B-12 5000 MCG Orally Once a 1 tablet 24h Active day [facility] Wort 300 MG Orally twice a 2 capsules am 12h Active day 1 capsule pm Lisinopril 20 MG Orally Once a 2 tablets 30 days Active day at bedtime Silver Sulfadiazine 1 Externally 1 application 24h 14 15 30 days Active % Once a day to affected Apr,, 2016 Hydrochlorothiazide Orally Once a 1 tablet 14 30 day(s) Active 25 MG day in the Apr, Biotin 1000 MCG Orally Once a 1 tablet 24h Active day Lovastatin 40 mg Orally Once a 1 tablet with 24h 12 30 day(s) Active day a meal Oct, 2015 Azithromycin 250 MG Orally Once a 2 tablets on 24h 10 15 5 day(s) Active day the first May,, then 2016 tablet daily for 4 days GlipiZIDE 10 MG Orally twice a 2 tablets am 12h Active day and 1 tablet pm Fish Oil 1200 MG Orally Once a 1 capsule 24h Active day Aspirin 325 MG Orally Once a 1 tablet 24h Active day Amlodipine Besylate Orally Once a 1 tablet 24h 15 30 day(s) Active 10 MG day Jan, 2016 Magnesium 500 MG Orally Once a 1 tablet with 24h Active day a meal Metformin HCl 1000 MG Orally Twice a 1 tablet with 12h 12 Active day meals Oct, 2015 RESULTS No Results PROCEDURES Procedure Date Ordered Related Diagnosis Body Site SURG-TRIM SKIN LESION (CORN OR CALLUS); 2016-05-10 N/A SINGLE PARING OR CUTTING OF CORN OR CALLUS; May 10, 2016 SINGLE LESION OFFICE VISIT EST PATIENT LEVEL 3 May 10, 2016 IMMUNIZATIONS No Known Immunizations
--- OUTSIDE RECORDS SUMMARY | 2016-12-17 03:23 | External Medical Summary ---
[...] Instructions Start Date End Date Status Dosage Lisinopril [facility] 79912-732 20 MG Orally Once Dec 12, 2 tablets 8-01 a day at bedtime 2015 Results No Known Results Summary Purpose eClinicalWorks Submission
--- OUTSIDE RECORDS SUMMARY | 2016-12-17 03:23 | External Medical Summary ---
:1970 Author Organization e[employer] Care Team Providers Name Role Phone Friend, Lakisha Provider Role Unavailable Allergies, Adverse Reactions, Alerts Substance Reaction Event Type Tetracycline Info Not Available Non Drug Allergy Penicillins Info Not Available Non Drug Allergy Problems Problem Type Condition Code Onset Dates Condition Status Problem Peripheral neuropathy G62.9 Active Problem Diabetes type 2, uncontrolled E11.65 Active Problem HLD (hyperlipidemia) E78.5 Active Problem High blood pressure I10 Active Problem High cholesterol E78.0 Active Problem Hypertension, uncontrolled I10 Active Problem Diabetic gastroparesis E11.43 Active Problem Sleep apnea G47.30 Active Problem Acid reflux K21.9 Active Problem Depression F32.9 Active Assessment Diabetes type 2, uncontrolled E11.65 Active Assessment Peripheral neuropathy G62.9 Active Assessment Needs flu shot Z23 Active Problem DM type 2 (diabetes mellitus, type E11.9 Active 2) Assessment Hypertension, uncontrolled I10 Active Problem Heart murmur R01.1 Active Medications Medication Code Code Instructions Start End Date Status Dosage System Date Fish Oil [facility] 90517-00 1200 MG Orally 1 capsule 922 Once a day Ginkgo Biloba [facility] 10957-87 400 MG Orally not defined [address] [place] [address]-37 300 MG Orally 2 capsules 79-26 Once a day Amlodipine [facility] 89448-67 10 MG Orally Jan 15, 1 tablet Besylate - Once a day [address] [facility] 43503-77 325 MG Orally 1 tablet 16-78 [place] [address]-48 1000 MCG Orally 5 tablet 17-01 [place] [address]-25 500 MG Orally 1 tablet 999 Once [place] [address]-71 40 mg Orally Oct 12, 1 tablet 28-06 Once a day 2015 [place] [address]-37 10 MG Orally 1 tablet 50-00 [place] [address]-81 250 MG Orally 1 capsule as 64-01 Once a day needed Vitamin C [facility] 98755-40 1000 MG Orally 2 tablets 79-20 Once a day Lisinopril [facility] 90431-91 40 MG Orally 1 tablet 70-01 Once a day at bedtime Metformin HCl [facility] 27046-68 1000 MG Orally Oct 12, 1 tablet - Twice a day 2015 with meals Potassium [facility] 15810-40 550 MG Orally 1 tablet Gluconate 797 Once a day Biotin [facility] 03119-88 1000 MCG Orally 1 tablet 900 Once a day Procedures Procedure Coding System Code Date OFFICE VISIT EST PATIENT LEVEL 3 CPT-4 14987 Jan 16, 2016 IMMUNIZATION ADMIN CPT-4 11827 Jan 16, 2016 IN-H GLYCOSYLATED HEMOGLOBIN TEST CPT-4 04817 Jan 16, 2016 METABOLIC PANEL TOTAL CA CPT-4 78766 Jan 16, 2016 FLU VACC 4 ANTONIO 3 YRS PLUS IM CPT-4 27199 Jan 16, 2016 ROUTINE VENIPUNCTURE CPT-4 00431 Jan 16, 2016 Vital Signs Date/Time: Jan 16, 2016 BMI 44.61 Index Weight 276.4 lbs Height 5 ft 6 in in Blood Pressure Diastolic 98 mm Hg Blood Pressure Systolic 140 mm Hg Cardiac Monitoring Heart Rate 96 /min Temperature 97.9 F Oximetry 94 % Respiratory Rate 20 /min Results Name Result Date Reference Range Unit Abnormality Flag eGFR ----eGFR >60 [id number] >60 mL/min Venipuncture Hemoglobin A1C - IH ----Hemoglobin A1c 8.0 [id number] 4.0 - 6.0 Basic Metabolic Panel (BMP) ----Chloride 103 [id number] 99-111 mEq/L ----Potassium 4.1 [id number] 3.5-5.2 mEq/L ----Anion Gap 12 [id number] 3-20 ----CO2 25 [id number] 22-31 mEq/L ----Calcium 9.6 55489423 8.9-10.5 mg/dL ----Sodium 140 14715374 135-144 mEq/L ----BUN 14 71081948 7-19 mg/dL ----Creatinine 0.69 [id number] 0.57-1.11 mg/dL ----Glucose 202 96634375 70-99 mg/dL H OTHER-IMMUNIZATION ADMIN Immunizations Vaccine Administration Date *Fluzone, private, 3+ yrs, 0.5mL, quad vial, Jan 16, 2016 Summary Purpose eClinicalWorks Submission
--- OUTSIDE RECORDS SUMMARY | 2016-12-17 03:23 | External Medical Summary ---
:1970 Author Organization [facility] Address [address] [place], [place] [address] Care Team Providers Name Role Phone Agata Khoury Unavailable Unavailable PROBLEMS Type Condition ICD9-CM [id number] Onset Condition SNOMED Code Code Code Dates Status Problem HLD E78.5 Active 41007220 (hyperlipidemia) Problem Sleep apnea G47.30 Active 56049706 Problem Diabetes type 2, E11.65 Active 740818447 uncontrolled Assessment Infection of L08.9 22 July, Active 973006147 right foot 2017 Problem Heart murmur R01.1 Active 40336814 Problem Peripheral G62.9 Active 935423566 neuropathy Problem Diabetic ulcer of E11.621 Active 4527173769800 right foot Problem High blood I10 Active 90578949 pressure Problem Depression F32.9 Active 885551239 Problem Diabetic E11.43 Active 065823330 gastroparesis Problem High cholesterol E78.0 Active 39783291 Problem Acid reflux K21.9 Active 733058917 ALLERGIES Substance Reaction Event Type Date Status Tetracycline burning rash Non Drug Allergy July, Active Penicillins hives over 100% of body Non Drug Allergy July, Active SOCIAL HISTORY No smoking Hx information available PLAN OF CARE Activity Details Pending Test Wound Culture (Aerobic and Anaerobic) 1 Week,Reason: VITAL SIGNS Height 5 ft 6 in in 2016-07-22 Weight 174 lbs 2016-07-22 BMI 28.08 kg/m2 2016-07-22 Temperature 98.3 degrees Fahrenheit 2016-07-22 Heart Rate 116 /min 2016-07-22 Respiratory Rate 20 /min 2016-07-22 Oximetry 97 % 2016-07-22 Blood pressure systolic 136 mm Hg 2016-07-22 Blood pressure diastolic 82 mm Hg 2016-07-22 MEDICATIONS Medication Instructions Dosage Frequency Start End Duration Status Date Date Aspirin 325 MG Orally Once a 1 tablet 24h Active day Vitamin B-12 5000 MCG Orally Once a 1 tablet 24h Active day Stool Softener 250 MG Orally Once a 1 capsule 24h Active day as needed Vitamin C 1000 MG Orally Once a 2 tablets 24h Active day Biotin 1000 MCG Orally Once a 1 tablet 24h Active day Amlodipine Besylate Orally Once a 1 tablet 24h Jan, day(s) Active 10 MG day 2015 Metformin HCl 1000 MG Orally Twice a 1 tablet 12h 12 Oct, Active day with meals 2015 Potassium Gluconate Orally Once a 1 tablet 24h Active 550 MG day Lovastatin 40 mg Orally Once a 1 tablet 24h Oct, day(s) Active day with a 2015 meal Hydrochlorothiazide Orally Once a 1 tablet Apr, day(s) Active 25 MG day in the [address] [place] Wort 300 MG Orally twice a 2 capsules 12h Active day am 1 capsule pm Clindamycin HCl 300 Orally every 8 1 capsule 8h 22 July, 1 Aug, 10 days Active MG hrs 2016 2016 Ginkgo Biloba 400 MG Orally once a 1 capsule 24h Active day Fish Oil 1200 MG Orally Once a 1 capsule 24h Active day Lisinopril 20 MG Orally Once a 2 tablets 30 days Active day at bedtime Magnesium 500 MG Orally Once a 1 tablet 24h Active day with a meal GlipiZIDE 10 MG Orally twice a 2 tablets 12h Active day am and 1 tablet pm RESULTS No Results PROCEDURES Procedure Date Ordered Related Diagnosis Body Site X-RAY EXAM OF FOOT July 22, 2016 CULTR BACTERIA, EXCEPT BLOOD July 22, 2016 OFFICE VISIT EST PATIENT LEVEL 3 July 22, 2016 CULTURE OTHR SPECIMN AEROBIC July 22, 2016 IMMUNIZATIONS No Known Immunizations
--- OUTSIDE RECORDS SUMMARY | 2016-12-17 03:23 | External Medical Summary ---
:1970 Author Name GENERATED, SYSTEM Care Team Providers Name Role Phone MD HOMA, FABRICOI MOSQUERA Primary Care Provider [phone] Reason For Visit Chief Complaint HYPERTENSIVE URGENCY Social History Functional Status Vital Signs Results Chemistry from 12/12/2015 11:15 PMTROPONIN-I<0.017 NG/ML (0.000-0.056 NG/ML) Chemistry from 12/12/2015 8:25 [id number] MMOL/L (136-145 MMOL/L) POTASSIUM3.6 MMOL/L (3.5-5.1 MMOL/L) [id number] MMOL/L (98-107 MMOL/L) IAO019.5 MMOL/L (21.0-32.0 MMOL/L) *ANION GAP8.5 MMOL/L (8.0-16.0 MMOL/L) BUN16 MG/DL (7-18 MG/DL) CREATININE0.69 MG/DL (0.55-1.02 MG/DL) *BUN/CREATININE RATIO23.2 H (9.1-17.0 ) [id number] MG/DL H (65-99 MG/DL) *GFR EST NON AFR SPANISH>90 ML/MIN *GFR EST AFR AMER>90 ML/MIN CALCIUM9.3 MG/DL (8.5-10.1 MG/DL) BILIRUBIN TOTAL0.40 MG/DL (0.20-1.00 MG/DL) TOTAL PROTEIN7.7 GM/DL (6.4-8.2 GM/DL) ALBUMIN4.1 GM/DL (3.4-5.0 GM/DL) *GLOBULIN3.6 GM/DL H (2.3-3.5 GM/DL) *A/G RATIO1.1 MG/DL L (1.5-2.2 MG/DL) ALK PHOS90 U/L (46-116 U/L) ALT (SGPT)29 U/L (16-63 U/L) AST (SGOT)15 U/L (15-37 U/L) TROPONIN-I<0.017 NG/ML (0.000-0.056 NG/ML)Hematology from 12/12/2015 8:25 PMWBC11.0 X10e3/UL (3.6-11.2 X10e3/UL) RBC4.53 X10e6/UL (3.63-4.92 X10e6/UL) JHQZWGUPNY19.5 G/DL H (11.0-14.3 G/DL) ULBBCSLTWC77.6 % (31.2-41.9 %) *MCV91.7 FL (79.0-98.0 FL) *MCH32.1 PG (27.0-33.0 PG) *MCHC35.0 G/DL (32.0-36.0 G/DL) *RDW12.6 % (12.3-17.0 %) *RDWSD40.3 (37.1-47.8 ) [id number] X10e3/UL (159-386 X10e3/UL) *MPV8.9 FL (7.4-10.4 FL) AUTOMATED DIFFPERFORMED SEGS46.8 % *SVEWYPIHAPL31.5 % *MONOCYTES5.2 % *EOSINOPHILS2.7 % *BASOPHILS0.8 % *ABSOLUTE NEUTROPHILS5.10 X10e3/UL (1.80-7.80 X10e3/UL) *ABSOLUTE LYMPHOCYTES4.90 X10e3/UL H (1.00-3.00 X10e3/UL) *ABSOLUTE MONOCYTES0.60 X10e3/UL (0.30-1.00 X10e3/UL) *ABSOLUTE EOSINOPHILS0.30 X10e3/UL (0.00-0.50 X10e3/UL) *ABSOLUTE BASOPHILS0.10 X10e3/UL (0.00-0.20 X10e3/UL)Urinalysis from 12/12/2015 9:05 PM*URINE COLORYELLOW (STRAW/YELL/DK YELL ) *URINE APPEARANCECLEAR (CLEAR ) URINE PH5.5 (5.0-8.0 ) URINE SPECIFIC GRAVITY>1.030 (<=1.005->=1.030 ) *URINE GLUCOSENEGATIVE MG/DL (NEGATIVE MG/DL) *URINE BILIRUBINNEGATIVE (NEGATIVE ) *URINE KETONESTRACE MG/DL A (NEGATIVE MG/DL) *URINE BLOODNEGATIVE (NEGATIVE ) *URINE PROTEINNEGATIVE MG/DL (NEGATIVE MG/DL) *URINE UROBILINOGEN1.0 EU/DL (0.2-1.0 EU/DL) *URINE NITRITESNEGATIVE (NEGATIVE ) *URINE LEUKOCYTESNEGATIVE (NEGATIVE ) *MICROSCOPIC EXAM PERFORMEDPERFORMED *WBC URINE0-1 /HPF (0-5 /HPF) *SQUAMOUS EP. CELLSMANY /LPF A (NEG-FEW /LPF) *MUCOUS THREADSMANY /LPF A (NEGATIVE /LPF) *BACTERIAFEW /HPF A (NEGATIVE /HPF) *CALCIUM OXAL. FIDELINA.MODERATE /HPF A (NEGATIVE /HPF) Problems Encounter Diagnosis No relevant problems exist. Encounters Encounter Diagnosis No relevant problems exist. Plan of Care Procedures No relevant procedures performed. Immunizations No immunizations administered or ordered. Hospital Course Hospital Discharge Instructions Allergies, Adverse Reactions, Alerts Latex Allergy has not been assessed.IV Contrast Allergy has not been assessed. Medication Medication reconciliation has not been performed.
--- OUTSIDE RECORDS SUMMARY | 2016-12-17 03:23 | External Medical Summary ---
[...] Active Problem Diabetic gastroparesis E11.43 Active Assessment Encounter for screening colonoscopy Z12.11 Active Assessment Visit for screening mammogram Z12.31 Active Problem DM type 2 (diabetes mellitus, type E11.9 Active 2) Medications No Known Medications Results Name Result Date Reference Range Unit Abnormality Flag Mammogram, screening bilat (12586, non-Medicare) Colonoscopy Summary Purpose eClinicalWorks Submission
--- OUTSIDE RECORDS SUMMARY | 2016-12-17 03:23 | External Medical Summary ---
:1970 Author Organization [facility] Address [address] [place], [place] [address] Care Team Providers Name Role Phone Friend, Lakisha Unavailable Unavailable PROBLEMS Type Condition ICD9-CM [id number] Onset Condition SNOMED Code Code Code Dates Status Problem HLD E78.5 Active 17233291 (hyperlipidemia) Problem Sleep apnea G47.30 Active 94923421 Problem Diabetes type 2, E11.65 Active 922928958 uncontrolled Assessment High blood I10 Apr, Active 73580630 pressure 2017 Problem Heart murmur R01.1 Active 72858836 Problem Peripheral G62.9 Active 560129812 neuropathy Problem Diabetic ulcer of E11.621 Active 9861508693600 right foot Problem High blood I10 Active 06320836 pressure Problem Depression F32.9 Active 814895176 Problem Diabetic E11.43 Active 572974213 gastroparesis Problem High cholesterol E78.0 Active 27613190 Problem Acid reflux K21.9 Active 791476569 ALLERGIES Substance Reaction Event Type Date Status Tetracycline burning rash Non Drug Allergy Apr, Active Penicillins hives over 100% of body Non Drug Allergy Apr, Active SOCIAL HISTORY No smoking Hx information available PLAN OF CARE VITAL SIGNS Height 66 in 2016-04-30 Weight 269.4 lbs 2016-04-30 BMI 43.48 kg/m2 2016-04-30 Temperature 98.0 degrees Fahrenheit 2016-04-30 Heart Rate 80 /min 2016-04-30 Respiratory Rate 20 /min 2016-04-30 Blood pressure systolic 138 mm Hg 2016-04-30 Blood pressure diastolic 86 mm Hg 2016-04-30 MEDICATIONS Medication Instructions Dosage Frequency Start End Duration Status Date Date Metformin HCl 1000 MG Orally Twice a 1 tablet with 12h 12 Active day meals Oct, 2015 Vitamin C 1000 MG Orally Once a 2 tablets 24h Active day GlipiZIDE 10 MG Orally twice a 2 tablets am 12h Active day and 1 tablet pm Silver Sulfadiazine 1 Externally 1 application 24h 14 15 30 days Active % Once a day to affected Apr, Stool Softener 250 MG Orally Once a 1 capsule as 24h Active day needed Lovastatin 40 mg Orally Once a 1 tablet with 24h 12 30 day(s) Active day a meal Oct, 2015 Biotin 1000 MCG Orally Once a 1 tablet 24h Active day Ginkgo Biloba 400 MG Orally once a 1 capsule 24h Active day Fish Oil 1200 MG Orally Once a 1 capsule 24h Active day Aspirin 325 MG Orally Once a 1 tablet 24h Active day Amlodipine Besylate Orally Once a 1 tablet 24h 15 30 day(s) Active 10 MG day Jan, 2016 Potassium Gluconate Orally Once a 1 tablet 24h Active 550 MG day Magnesium 500 MG Orally Once a 1 tablet with 24h Active day a meal [facility] [place] Wort 300 MG Orally twice a 2 capsules am 12h Active day 1 capsule pm Hydrochlorothiazide Orally Once a 1 tablet 14 30 day(s) Active 25 MG day in the Apr, Lisinopril 20 MG Orally Once a 2 tablets 30 days Active day at bedtime Vitamin B-12 5000 MCG Orally Once a 1 tablet 24h Active day RESULTS No Results PROCEDURES Procedure Date Ordered Related Diagnosis Body Site OFFICE VISIT EST PATIENT LEVEL 3 Apr 30, 2016 IMMUNIZATIONS No Known Immunizations
--- NOTE | 2016-12-17 03:52 | History & Physical Report ---
<Kevyn Gilbert - Last Filed: 12/17/16 03:49> History of Present Illness Date: 12/17/16 Chief complaint: foot wound HPI: The pt is a noncompliant diabetic 46 yo with a one month hx of a non-healing wound on the plantar aspect of the right foot. She has a several year hx of the foot having wounds but this wound / ulcer started about a month ago and she has been trying to heal it at home until she says the drainage of yellow and smell became too bad and so she went to her PCP, Dr. Au in [place], [place]. She was placed on Bactrim one week ago DS BID, and came to the [facility], to have it evaluated. Review of Systems All systems PM: 10-point ROS was reviewed, no additional remarkable complaints except - Constitutional Constitutional: Present: chills, fever(s), night sweats, weight loss Comments: fevers of 103 at home - Cardiovascular Cardiovascular: Absent: chest pain, edema - Respiratory Respiratory: Present: cough. Absent: wheezing - Gastrointestinal Gastrointestinal: Absent: abdominal pain, change in bowel habits, constipation, diarrhea, nausea, vomiting - Musculoskeletal Musculoskeletal: Present: joint swelling, muscle weakness. Absent: back pain - Integumentary/Breasts Integumentary: Present: non-healing lesions, wounds PFSH IDDM, last hgb A1C was one week ago and was 10.1 HTN, GONZALEZ, Dyslipidemia, ENEDINA, Diabetic gastroparesis Family History: diabetes in both parents with complications - Social History Smoking status: Never smoker Substance use type: does not use Alcohol intake frequency: does not drink Housing: apartment Household members: none Current occupational status: unemployed Exam - Constitutional Present: no acute distress, well nourished, well developed - Routine Neck Exam Present: supple - Routine Respiratory Exam Present: CTA bilaterally. Absent: wheezes - Routine Cardiovascular Exam Present: RRR, no murmur - Routine Abdominal Exam Present: soft, normoactive bowel sounds - Routine Extremities Exam Present: joint swelling Comments: right foot with changes consistant with Charcot rodrigue foot, nonhealing, mildly erythematous plantar surgace with large 3 cm nonhealing, drainage ulceration - Routine Skin Exam Present: wounds - Routine Neurological Exam Present: alert, oriented X3 Assessment and Plan (1) Cellulitis of foot without toes, right Current visit: Yes Status: Acute 12/17/16 03:59 starting on IVF< IV vanco with pharmacy consulted, wound nurse, MRI of foot, consider ortho/ gen surgery consult, or ID consult. (2) Diabetes mellitus, insulin dependent (IDDM), uncontrolled Current visit: Yes Status: Acute 12/17/16 04:00 consistent carb diet, insulin SS, will not repeat A1C due to recently checked and elevated, consider further diabetic education. (3) HTN (hypertension) Current visit: Yes Status: Acute 12/17/16 04:01 monitor, restart home med. (4) Gastroparesis due to DM Current visit: Yes Status: Acute DVT Prophylaxis: SCD's, Lovenox GI Prophylaxis: Protonix Resuscitation Status: Full Code Hospital Course Summary Disclaimer: The visit summary below is not to be considered part of the above Progress Note. <Cassius Disla - Last Filed: 12/17/16 10:53> History of Present Illness Date: 12/17/16 [facility] Patient Stated Medical History Peripheral Neuropathy Yes Other HEENT Yes: RECENT CHANGES IN VISION Heart Murmur Yes Other Cardiology Yes: ENLARGED HEART Bronchitis Yes Sleep Apnea Yes: POSSIBLY RESOLVED Diabetes Mellitus Type 2 Yes Other GI Yes: DIABETIC GASTROPARESIS Hx Incontinence Yes MRSA Yes Depression Yes Painful Menstruation Yes Other Reproductive Yes: CURRENTLY MENOPAUSAL Exam Vital Signs: Temperature 97.6 F 12/17/16 07:47 Pulse Rate 88 12/17/16 07:47 Respiratory Rate 20 12/17/16 07:47 Blood Pressure 137/66 12/17/16 07:47 Pulse Oximetry 97 12/17/16 07:47 Height/Weight/BMI: Height 1.7 m Weight 126.5 kg Body Mass Index 43.7 Results - Labs CBC & Chem 7: 12/17/16 03:53 12/17/16 03:53 Microbiology Results: Microbiology 12/17/16 04:56 Foot,Right Gram Stain - Final 12/17/16 04:56 Foot,Right Superficial Wound Culture - Preliminary Culture Initiated - Results Pending Assessment and Plan (1) Cellulitis of foot without toes, right Current visit: Yes Status: Acute (2) Diabetes mellitus, insulin dependent (IDDM), uncontrolled Current visit: Yes Status: Acute (3) HTN (hypertension) Current visit: Yes Status: Acute (4) Gastroparesis due to DM Current visit: Yes Status: Acute Assessment and Plan: I have independently interviewed and examined pt. Chart reviewed. Reviewed above note and concur. CC: Right foot wound with increased drainage and odor, fever chills. HPI: 46 y/o female with uncontrolled DM admitted secondary to diabetic foot wound failing outpatient treatment. Developed ulcer on right foot about 1 month ago. Progressive with time. Did see PCP 1 week ago as wound was starting to have increased drainage and smelling. Started on Bactrim DS for antimicrobial coverage. By the started to have fever which increased on the . [place] very weak, like she would pass out. More sick at stomach. Symptoms progressed and presented to ED in [place] yesterday evening (does NOT like [facility] ). Admitted to [facility] as no Wound Care at [facility]. PMHx: Type II DM, Gastroparesis, HTN, HDL, GONZALEZ, ENEDINA, Morbid obesity ALL: clinda, penicillin, tetracycline Meds: see MAY - patient was to start on Toujeo Shx: Single. No smoke/Etoh, Lives in [facility] Dr Friend PCP FHx: Father at 67 of supranuclear palsy 10 years after Dx. Mother of kidney failure from DM. Brother suicide 2 years ago. ROS: As above. Notes cough for last month-tickle in throat. Increased acid reflux for the past year. Urinary urgency with incontinence in afternoon. Stools variable but stable. No chest pain or pressure. Remainder of 10 point ROS discussed and negative Exam Gen: WDWNWF awake and alert HEENT: NC/AT PERRLA EOMI MMM Neck: supple, midline. No tracheal deviation Lungs: clear bilaterally. No crackles, wheezes, or distress CV: regular rate and rhythm without murmur AB: soft Obese nt/nd BS decreased EXT: Radial pulses normal bilaterally. Trace LE edema. Right food wound wrapped. NEURO: CN II-XII intact, no focal motor deficits Psych: awake alert appropriate. Thoughts linear. MS: normal muscle strength ant mass in all ext Lab: reviewed, TSH normal. Assessment Right diabetic foot ulcer with surrounding cellulitis failing outpatient treatment Leukocytosis Type II DM - uncontrolled Diabetic gastroparesis HTN HDL GERD Morbid Obesity with BMI 43.7 Plan Inpatient admission to [facility] for treatment of diabetic foot ulcer failing outpatient treatment, anticipate greater than 2 midnights of care needed. Vancomycin for antimicrobial coverage. Wound Team consult for help with would care. Will consult Dr Richter to potential debridement. MRI of foot to assess for osteomyelitis. Continue home medications. Monitor sugars - ISS ordered to help with glycemic control. Will consult Diabetic education and dietary. Lovenox 40mg SQ daily with SCD for DVT prevention. Start Protonix 40mg daily due to persistent reflux. Initiate Lisinopril 10mg at night due to HTN and DM. Monitor lab. Discussed code status with patient - requests full resuscitation. Order written. Care to return to Dr Au at time of discharge from [facility]. Hospital Course Summary Disclaimer: The visit summary below is not to be considered part of the above Progress Note. Hospital Course: 12/17/16 Admission Assessment Right diabetic foot ulcer with surrounding cellulitis failing outpatient treatment Leukocytosis Type II DM - uncontrolled Diabetic gastroparesis HTN HDL GERD Morbid Obesity with BMI 43.7 Plan Inpatient admission to [facility] for treatment of diabetic foot ulcer failing outpatient treatment, anticipate greater than 2 midnights of care needed. Vancomycin for antimicrobial coverage. Wound Team consult for help with would care. Will consult Dr Richter to potential debridement. MRI of foot to assess for osteomyelitis. Continue home medications. Monitor sugars - ISS ordered to help with glycemic control. Will consult Diabetic education and dietary. Lovenox 40mg SQ daily with SCD for DVT prevention. Start Protonix 40mg daily due to persistent reflux. Initiate Lisinopril 10mg at night due to HTN and DM. Monitor lab. Discussed code status with patient - requests full resuscitation. Order written. Care to return to Dr Au at time of discharge from [facility].
[2016-12-17 03:58] VITALS: BMI 43.7
[2016-12-17] MEDS ORDERED: DEXTROSE 50% SYRINGE 50ml (1 AMP) IVP PRN (04:02)
[2016-12-17] MEDS: NS 1,000 ML IV SCH (04:33)
[2016-12-17] MEDS: PANTOPRAZOLE 40 MG TABLET PO SCH (06:24)
[2016-12-17] MEDS: INSULIN REGULAR, HUMAN 100 UNIT/ML INJECTION SQ PRN ×4 (06:24→21:08)
[2016-12-17] MEDS ORDERED: VANCOMYCIN - PHARMACY CONSULT MC ONE (08:30)
[2016-12-17] MEDS ORDERED: ENOXAPARIN 120 MG/0.8 ML INJECTION SQ SCH (09:00)
[2016-12-17] MEDS: BISACODYL 10 MG SUPPOSITORY RECTALLY SCH ×2 (09:58→09:59)
[2016-12-17] MEDS ORDERED: BISACODYL 10 MG SUPPOSITORY RECTALLY PRN (10:19)
[2016-12-17] MEDS ORDERED: POLYETHYL GLYCOL 3350 17gm PACKET PO PRN (10:20)
[2016-12-17] MEDS: MAGNESIUM OXIDE 400 MG TABLET PO SCH (11:01)
[2016-12-17] MEDS: AMLODIPINE 10 MG TABLET PO SCH (11:01)
[2016-12-17] MEDS: ENOXAPARIN 40 MG/0.4 ML INJECTION SQ SCH (11:02)
--- NOTE | 2016-12-17 11:26 | Pharmacy Consult-Antibiotics ---
Pharmacy Consult-Vancomycin - Laboratory Information WBC 14.6 T/MM3 (4.5-11.0) H 12/17/16 03:53 BUN 21.0 MG/DL (7-17) H 12/17/16 03:53 Creatinine 0.9 MG/DL (0.7-1.2) 12/17/16 03:53 VANCOMYCIN CONSULT: Dx: Diabetic Foot Ulcer The pt is a noncompliant diabetic 46 yo with a one month hx of a non-healing wound on the plantar aspect of the right foot. She has a several year hx of the foot having wounds but this wound / ulcer started about a month ago and she has been trying to heal it at home until she says the drainage of yellow and smell became too bad and so she went to her PCP, Dr. Au in [place], [place]. She was placed on Bactrim one week ago DS BID, and came to the [facility], to have it evaluated. Current Renal Function: S Cr = 0.9 mg/dL. Estimated Cr Cl ~ 105 mL/min WBC's = 14.6 T/mm3 (elevated) 24-h T-max = 97.6 I will continue the Vancomycin @ 1,250 mg IV q8hrs (0100/0900/1700). I will order a Vancomycin trough before the 0900 dose tomorrow.The pharmacy will continue to monitor and adjust regimen to maintain therapeutic levels. Thank you for the Vancomycin Consult, Ridge Álvarez, Pharmacist.
--- NOTE | 2016-12-17 11:52 | General Surgery Consult Note ---
Consult date: 12/18/16 Attending Physician: Cassius Disla MD Reason for consult: wound care [facility] Patient Stated Medical History Peripheral Neuropathy Yes Other HEENT Yes: RECENT CHANGES IN VISION Heart Murmur Yes Other Cardiology Yes: ENLARGED HEART Bronchitis Yes Sleep Apnea Yes: POSSIBLY RESOLVED Diabetes Mellitus Type 2 Yes Other GI Yes: DIABETIC GASTROPARESIS Hx Incontinence Yes MRSA Yes Depression Yes Painful Menstruation Yes Other Reproductive Yes: CURRENTLY MENOPAUSAL Gastroparesis Charcot foot right Family History: Father -Progressive supranuclear palsy Mother - DM, stroke. 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 Current residence: Apartment/Private Home Medications Home Medications Medication Instructions Recorded Confirmed Type Amlodipine [Norvasc] 10 mg PO DAILY 12/17/16 12/17/16 History Aspirin [ASA] 325 mg PO 12/17/16 History GlipiZIDE 10 mg BIDWM 12/17/16 12/17/16 History HydroCHLOROthiazide [Hydrodiuril] 1 tab PO WB 12/17/16 12/17/16 History Lovastatin [Mevacor] 40 mg PO HS 12/17/16 12/17/16 History Magnesium Oxide [Magnesium] 1 tab PO DAILY 12/17/16 12/17/16 History Mecobalamin [B-12] 5,000 mcg PO 12/17/16 History Metformin [Glucophage] 1 tab PO BIDWM 12/17/16 12/17/16 History Potassium Gluconate [Potassium] 99 mg PO 12/17/16 History [place]'s Wort 12/17/16 History Vit C/Ascorbate Calcium,Sodium 500 mg PO 12/17/16 History [Vitamin C 500 mg/15 ml Liquid] Allergies Allergy/AdvReac Type Severity Reaction Status Date / Time clindamycin Allergy Verified 12/17/16 04:00 Penicillins Allergy Verified 12/17/16 04:00 tetracycline Allergy Verified 12/17/16 04:00 Review of Systems 10-point ROS: negative except for HPI and the following: - General General: Present: fever, chills - Gastrointestinal Gastrointestinal: Present: diarrhea, other (gastoparesis) - Musculoskeletal Musculoskeletal: Present: back pain (ifshe standsforlongperiodsoftime,states"my lowest disc is bulging), joint pain - Neurological Neurological: Present: muscle weakness - Endocrine Endocrine: Present: diabetes - Vital Signs Last Vital Signs Temp 97.6 F 12/17/16 07:47 Pulse 88 12/17/16 07:47 Resp 20 12/17/16 07:47 BP 137/66 12/17/16 07:47 Pulse Ox 97 12/17/16 07:47 - Laboratory Result Diagrams: 12/18/16 03:56 12/18/16 03:56 - Microbiogy Microbiology 12/17/16 04:56 Foot,Right Gram Stain - Final 12/17/16 04:56 Foot,Right Superficial Wound Culture - Preliminary Culture Initiated - Results Pending Wound/Stoma/Drain Assessment - Wound Management Right Foot Wound Type: Diabetic Foot Ulcer Wound Present on Admission?: Yes Wound Staging: Stage III Wound Length: 1 Wound Width: 1 Tunneling: Yes (>2 CM) Wound Surrounding Tissue Appearance: Tunnelling Wound Drainage Description: Yellow Wound Drainage Amount: Large Wound Drainage Odor: Foul Odor Wound Dressing Status: Changed Primary Dressing: Drain Sponge Secondary Dressing: Gauze Roll/Wrap Dressing Change Patient Tolerance: Tolerated Well General Surgery Results - Results Labs: 12/17/16 03:53 12/17/16 03:53 Microbiology: Microbiology 12/17/16 04:56 Foot,Right Gram Stain - Final 12/17/16 04:56 Foot,Right Superficial Wound Culture - Preliminary Culture Initiated - Results Pending Hospital Course Summary Disclaimer: The visit summary below is not to be considered part of the above Progress Note. Hospital Course: 12/17/16 Admission Assessment Right diabetic foot ulcer with surrounding cellulitis failing outpatient treatment Leukocytosis Type II DM - uncontrolled Diabetic gastroparesis HTN HDL GERD Morbid Obesity with BMI 43.7 Plan Inpatient admission to [facility] [place] treatment of diabetic foot ulcer failing outpatient treatment, anticipate greater than 2 midnights of care needed. Vancomycin for antimicrobial coverage. Wound Team consult for help with would care. Will consult Dr Richter to potential debridement. MRI of foot to assess for osteomyelitis. Continue home medications. Monitor sugars - ISS ordered to help with glycemic control. Will consult Diabetic education and dietary. Lovenox 40mg SQ daily with SCD for DVT prevention. Start Protonix 40mg daily due to persistent reflux. Initiate Lisinopril 10mg at night due to HTN and DM. Monitor lab. Discussed code status with patient - requests full resuscitation. Order written. Care to return to Dr Au at time of discharge from [facility].
[2016-12-17] MEDS: ACETAMINOPHEN 325 MG TABLET PO PRN ×2 (12:12→23:59)
[2016-12-17] MEDS ORDERED: INFLUENZA VAC QIV 2017-18 (Fluarix*)(>=3yo) 0.5ml IM ONE (12:39)
[2016-12-17] MEDS ORDERED: PNEUMOCOCCAL 13 VACCINE 0.5ml INJECTION IM ONE (12:39)
[2016-12-17] MEDS ORDERED: INFLUENZA VAC. INJ. ADMIN CHARGE INJ ONE (13:00)
[2016-12-17] MEDS ORDERED: PNEUMOCOCCAL VAC ADMIN CHARGE INJ ONE (13:00)
[2016-12-17] MEDS ORDERED: GADOTERIDOL 279.3mg/ml - 17ml SYRINGE IVP ONE (15:33)
[2016-12-17] MEDS ORDERED: SALINE FLUSH 10ml SYRINGE ONE (15:33)
--- NOTE | 2016-12-17 17:17 | Magnetic Resonance Report ---
Indication: cellulitis-diabetic foot PROCEDURE: MR foot RT wo/w con: Encounter: Initial Comparison: Radiographs dated December 17, 2016 Technique: Multiplanar multisequence MR imaging of the right foot was performed with and without contrast. Contrast: 25 mL ProHance Findings: Abnormal alignment with a divergent Lisfranc dislocation. Second through fifth metatarsal shafts are dislocated laterally relative to the tarsal bones. First metatarsal is dislocated dorsally with abnormal rotation of the medial cuneiform bone. There are pockets of hypointense signal adjacent to the fifth metatarsal shaft corresponding with apparent subcutaneous gas seen on the radiographic comparison study. There is diffuse abnormal T2 hyperintense signal in the bones of the midfoot involving the cuneiform bones and metatarsal bases. Skin ulcer is marked underlying the second metatarsal base region. There is diffuse soft tissue induration and edema overlying this area of defect. There is diffuse edema throughout the foot musculature especially in the midfoot. There are pockets of rim-enhancing fluid seen in the plantar aspect of the midfoot above the area of wound which tracks to the cuboid bone. The largest fluid pocket seen on coronal postcontrast image #4 measures 2.4 x 1.4 cm in size. Impression: Mid foot ulcer with plantar abscesses and osteomyelitis of the mid foot. Osteomyelitis definitely involves the cuboid bone. There is disorganization of the mid foot with a Lisfranc dislocation. It is difficult to determine how much of the other mid foot signal abnormalities are from the dislocation or could be due to a neuropathic foot or osteomyelitis. .
[2016-12-17] MEDS: METOCLOPRAMIDE 10mg/2ml INJECTION IVP PRN (17:55)
[2016-12-17] MEDS: GlipiZIDE 5 MG TABLET PO SCH (17:56)
[2016-12-17] MEDS: METFORMIN 1,000 MG TABLET PO SCH (17:56)
[2016-12-17] MEDS: HYDROCODONE/APAP 7.5 MG/325 MG TABLET PO PRN (18:22)
[2016-12-17] MEDS: NS IV SCH (21:05)
[2016-12-17] MEDS: CEFTAROLINE IV SCH (21:05)
[2016-12-17] MEDS: INSULIN GLARGINE 100unit/ml INJECTION SQ SCH (21:07)
[2016-12-17] MEDS: LISINOPRIL 5 MG TABLET PO SCH (21:08)
[2016-12-17] MEDS: LOVASTATIN 40 MG TABLET PO SCH (21:08)
[2016-12-18] MEDS: HYDROCODONE/APAP 7.5 MG/325 MG TABLET PO PRN ×3 (03:36→22:58)
[2016-12-18] MEDS: METOCLOPRAMIDE 10mg/2ml INJECTION IVP PRN ×3 (03:43→22:35)
[2016-12-18] MEDS: PANTOPRAZOLE 40 MG TABLET PO SCH (06:39)
--- NOTE | 2016-12-18 08:49 | Consultation ---
DATE OF CONSULTATION 12/17/2016 FINDINGS Mrs. Aguirre is a 46-year-old female whom I was asked to see earlier today as a result of her history for a right diabetic foot ulcer. The patient informs me that she has had diabetes mellitus over the last 14 years. She has had the misfortune of developing osteoarthropathy/Charcot's foot. The patient states that in August of this year her "foot fell apart." The patient states that she has been "walking a little bit on the side of the foot" as a result of this deformity involving her right foot. The patient states she has recently obtained some new shoes which does help with ambulation. The patient states that about a month ago she began to notice some drainage coming forth from the right foot as well as a small wound. The patient states over the last month this wound has progressively become more severe in nature. The patient states that she then began to develop some fever and chills. She states that she was going to go into the [facility] but that they required "money up front." The patient states that she did not have these resources and therefore presented to [facility] for further evaluation. She states that [facility] told her that that she needed to be admitted to the hospital but that they did not have a "wound team." The patient subsequently presented to our facility for further care. The patient states that her blood sugars have been elevated over the last several days. She states that she did have a fever recently to 102.9. The patient also has had a fair amount of chills. As a result of her significant neuropathy, the patient denies severe pain involving her right foot. PAST MEDICAL HISTORY Performed by my nurse practitionerRu. PAST SURGICAL HISTORY Performed by my nurse practitionerRu. MEDICATIONS Performed by my nurse practitionerRu. ALLERGIES Performed by my nurse practitionerRu. SOCIAL HISTORY Performed by my nurse practitionerRu. FAMILY HISTORY Performed by my nurse practitionerRu. REVIEW OF SYSTEMS Performed by my nurse practitionerRu. PHYSICAL EXAMINATION Mrs. Aguirre is a 46-year-old female who this evening does not appear to be in acute distress. VITALS: Temperature 99.0, pulse 97, respirations 18, blood pressure 147/71, SaO2 98% on room air. HEENT: Normocephalic. Pupils are equal, round and reactive to light and accommodation. CHEST: Clear to auscultation bilaterally. HEART: Regular rate and rhythm. Normal S1 and S2 without gallops, murmurs or clicks. ABDOMEN: Palpation of the abdomen reveals it to be soft and nontender. I do not appreciate any evidence for hepatosplenomegaly or abnormal masses. EXTREMITIES: Attention was focused to her right foot. The foot is quite erythematous and edematous in nature. She does have osteoarthropathy/Charcot deformity of her foot and ankle. Her foot is medially rotated. Upon the plantar aspect of the foot somewhat out laterally, the patient does have an open wound which is draining judson purulent material. The open portion of the wound is on the order of about 8 mm in diameter. A sterile Q-tip was placed within the wound and the Q-tip was able be advanced proximally and distally perhaps about 3-4 cm in both directions. The foot is edematous enough that I am unable to palpate any evidence for dorsalis pedis or posterior tibial pulse. NEURO: Cranial nerves II-XII grossly intact. Patient with decreased sensation involving her lower extremities as a result of peripheral neuropathy. LABORATORY/RADIOGRAPH EVALUATION CBC was obtained on admission and her white count was elevated at 14.6. Hemoglobin is low at 10.8. CMP was obtained and her glucose was elevated at 357. Hemoglobin A1c was elevated at 11.4. CRP was obtained and elevated at 237.4. The patient had an MRI obtained of her foot. MRI did return revealing evidence for plantar abscesses and osteomyelitis of the midfoot. Gram stain and wound cultures have been obtained. Gram stain did reveal gram-positive cocci in pairs well as gram-positive rods. ASSESSMENT 46-year-old diabetic female with a Gonzalez grade 3 right diabetic foot ulcer. PLAN At the bedside this evening I did place a sterile hemostat within the wound and the opening of the wound was extended both anteriorly and posteriorly to allow better drainage of the underlying purulent material. This was carried out with a 15-blade. The wound was then packed with Nu Gauze moistened in normal saline. Tomorrow we will obtain an arterial duplex scan to assess her vascularity. Will go ahead make the patient n.p.o. in preparation for surgery tomorrow. It would be my recommendation that we explore the wound and proceed with excisional surgical debridement as indicated tomorrow. Would then recommend applying a VeraFlo wound VAC. I agree with the current management of this patient. She has been placed on broad-spectrum antibiotic therapy consisting of vancomycin. May wish to add Zosyn in addition to vancomycin. Will change antibiotics pending culture results. The above plan was discussed with the patient. She understood and agreed. JENNIFER
[2016-12-18] MEDS ORDERED: VANCOMYCIN - PHARMACY CONSULT MC ONE (09:21)
[2016-12-18] MEDS ORDERED: ENOXAPARIN 40 MG/0.4 ML INJECTION SQ ONE (09:30)
[2016-12-18] MEDS: GlipiZIDE 5 MG TABLET PO SCH ×2 (09:32→17:34)
[2016-12-18] MEDS: MAGNESIUM OXIDE 400 MG TABLET PO SCH (09:32)
[2016-12-18] MEDS: AMLODIPINE 10 MG TABLET PO SCH (09:32)
[2016-12-18] MEDS: METFORMIN 1,000 MG TABLET PO SCH ×2 (09:32→17:34)
[2016-12-18] MEDS: NS IV SCH (09:33)
[2016-12-18] MEDS: CEFTAROLINE IV SCH (09:33)
--- NOTE | 2016-12-18 10:01 | Ultrasound Report ---
Indication: oseomyeliltis with necrotic diabetic foot ulcer PROCEDURE: US arterial duplex LE RT: Technique: Grayscale color and duplex Doppler imaging was performed of the arterial tree of the right leg. Findings: RIGHT LEG (cm/sec) Common Femoral 174 Superficial Femoral Proximal 172 Mid 182 Distal 162 Popliteal 147 JOSE ROBERTO-prox 126 GATE WATCH-prox 128 JOSE ROBERTO-dist 72 GATE WATCH-dist 121 Mildly dampened waveforms seen throughout the right lower extremity arteries without focal velocity elevation. No arterial occlusion. IMPRESSION: Dampened waveforms throughout the right lower extremity arteries suggesting a more proximal mild to moderate stenosis in the pelvis. No focal stenosis seen in the leg. .
[2016-12-18] MEDS: INSULIN REGULAR, HUMAN 100 UNIT/ML INJECTION SQ PRN ×3 (11:24→21:00)
[2016-12-18] MEDS ORDERED: TETANUS, DIPHTHERIA, a PERTUSSIS (Tdap) 0.5ml INJECTION IM ONE (11:24)
--- NOTE | 2016-12-18 11:43 | Progress Note ---
- Date 12/18/16 Subjective: The patient was seen at 11:15 AM. She reports she is feeling much better today. She reports yesterday she was having fevers, chills, nausea and vomiting. She reports that the symptoms have resolved. She does not have recorded fevers on her vital sign flow sheet from admission. Her surgery for today has been postponed until tomorrow. She is scheduled to have an excisional surgical debridement by Dr. Richter tomorrow. She reports her blood sugars remain high, her last one was 290. Her blood sugars have been high at home as well. She does report she is current on her flu vaccine and pneumococcal vaccine which were both given yesterday. She does not recall when her last Tdap was. 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 She does report she has intermittent problems with constipation and her last bowel movement was on Friday. She acknowledged since she is on [place] that she may need something for bowel movement today. She does report she has an occasional dry cough which has started recently. She reports allergies to penicillin, tetracyclines, and clindamycin. She reports that she took amoxicillin in the 1980s and had hives involving her throat, and the other meds cause hives as well. She denies having tried any other penicillin derivatives since that time. She reports a year ago she was hospitalized with a foot infection as well and received vancomycin and trimethoprim sulfa at that time. Blood cultures sent in [place] on December 16 are growing a gram-positive cocci appears in chains, it is unclear how many blood cultures were drawn. The luminary identification is enterococcus. Objective Vital signs: Temperature 96.8 F 12/18/16 08:00 Pulse Rate 88 12/18/16 08:00 Respiratory Rate 18 12/18/16 08:00 Blood Pressure 133/68 12/18/16 08:00 Pulse Oximetry 95 12/18/16 08:00 Height/Weight/BMI: Height 5 ft 7 in Weight 278 lb 14.156 oz Body Mass Index 43.7 - Additional findings Additional findings: In general, the patient is alert and oriented 3, cooperative with exam, and in no respiratory distress. HEENT: Head is atraumatic, normocephalic, no conjunctival petechiae, no oral thrush, mucous membranes are moist and pink. Lungs: Clear to auscultation without wheezes, crackles or rhonchi CV: Regular rate and rhythm without obvious murmur Abdomen: Soft, nontender, bowel sounds are present, there is no guarding no rebound. She is obese. Extremities: No clubbing, no cyanosis, no edema. Right foot dressing in place, this was not removed. Skin: Warm and dry, no sign of rash Neuro: Patient is alert Results - Labs CBC & Chem 7: 12/18/16 03:56 12/18/16 03:56 Labs: Laboratory Tests 12/17/16 12/17/16 12/17/16 03:53 03:53 10:12 WBC 14.6 H Hgb 10.8 L Plt Count 283 Glucometer 298 Hemoglobin A1c 11.4 H C-Reactive Protein 237.4 H 12/17/16 12/17/16 12/18/16 16:13 20:36 03:56 WBC 13.6 H Hgb 10.3 L Plt Count 313 Glucometer 197 295 Hemoglobin A1c C-Reactive Protein 12/18/16 06:12 WBC Hgb Plt Count Glucometer 210 Hemoglobin A1c C-Reactive Protein Microbiology Results: Microbiology 12/18/16 09:34 Peripheral/Iv Start Blood Culture - Preliminary Culture Initiated - Results Pending 12/18/16 09:35 Peripheral/Iv Start Blood Culture - Preliminary Culture Initiated - Results Pending 12/17/16 04:56 Foot,Right Gram Stain - moderate gram-positive cocci in pairs , few gram-positive rods, few epithelial cells seen, moderate neutrophils seen 12/17/16 04:56 Foot,Right Superficial Wound Culture - Preliminary No Growth After 1 Day Blood culture done in [place] on December 16-with gram-positive cocci in pairs and chains suggestive of enterococcus. - Impressions US arterial duplex lower extremity right: Mildly dampened waveforms seen throughout the right lower extremity arteries without local velocity elevation. No arterial occlusion. Impression: Dampened waveforms throughout the right lower extremity arteries suggesting a more proximal mild to moderate stenosis in the pelvis. No focal stenosis in the leg. MRI done 12/17/2016 of the right foot with and without contrast: Midfoot ulcer with plantar abscesses and osteomyelitis of the mid foot. Osteomyelitis definitely involves cuboid bone. There is disorganization of the mid foot with a Lisfranc dislocation. It is difficult to determine how much of the other midfoot signal abnormalities are from the dislocation or could be due to a neuropathic foot or osteomyelitis. The MRI was reviewed by me. Assessment and Plan (1) Diabetes mellitus, insulin dependent (IDDM), uncontrolled Current visit: Yes Status: Chronic 12/18/16 12:00 blood sugars remain elevated and erratic secondary to NPO for surgery which has subsequently been delayed until tomorrow. (2) HTN (hypertension) Current visit: Yes Status: Chronic (3) Gastroparesis due to DM Current visit: Yes Status: Chronic (4) Osteomyelitis of ankle or foot Current visit: Yes Status: Acute (5) Bacteremia due to Enterococcus Current visit: Yes Status: Acute DVT Prophylaxis: Lovenox Resuscitation Status: Full Code Assessment and Plan: Assessment Right diabetic foot ulcer with surrounding cellulitis and osteomyelitis with subsequent enterococcus bacteremia, failing outpatient treatment Leukocytosis secondary to above Penicillin allergy causing hives Type II DM - uncontrolled Diabetic gastroparesis HTN HDL GERD Morbid Obesity with BMI 43.7 Plan Will have pharmacy dose vancomycin to treat enterococcus as the patient is allergic to penicillin. Repeat blood cultures to rule out persistent enterococcus bacteremia. Await further microbiology results, and meantime we'll discontinue ceftaroline and change to ceftriaxone for gram-negative rods and metronidazole for anaerobes. Wound Team consult for help with would care. Scheduled for wound debridement tomorrow Continue home medications. Monitor sugars - ISS ordered to help with glycemic control. Diabetic education and dietary consulted. Lovenox 40mg SQ daily with SCD for DVT prevention. On Protonix 40mg daily due to persistent reflux. On Lisinopril 10mg at night due to HTN and DM. Monitor lab. Because of persistent cough will check chest x-ray We'll obtain baseline plain films of both feet to rule out foreign body Patient needs a Tdap Hospital Course Summary Disclaimer: The visit summary below is not to be considered part of the above Progress Note. Hospital Course: 12/17/16 Admission Assessment Right diabetic foot ulcer with surrounding cellulitis failing outpatient treatment Leukocytosis Type II DM - uncontrolled Diabetic gastroparesis HTN HDL GERD Morbid Obesity with BMI 43.7 Plan Inpatient admission to [facility] for treatment of diabetic foot ulcer failing outpatient treatment, anticipate greater than 2 midnights of care needed. Vancomycin for antimicrobial coverage. Wound Team consult for help with would care. Will consult Dr Richter to potential debridement. MRI of foot to assess for osteomyelitis. Continue home medications. Monitor sugars - ISS ordered to help with glycemic control. Will consult Diabetic education and dietary. Lovenox 40mg SQ daily with SCD for DVT prevention. Start Protonix 40mg daily due to persistent reflux. Initiate Lisinopril 10mg at night due to HTN and DM. Monitor lab. Discussed code status with patient - requests full resuscitation. Order written. Care to return to Dr Au at time of discharge from [facility]. 12/18/16 12:14 Assessment Right diabetic foot ulcer with surrounding cellulitis and osteomyelitis with subsequent enterococcus bacteremia, failing outpatient treatment Leukocytosis secondary to above Penicillin allergy causing hives Type II DM - uncontrolled Diabetic gastroparesis HTN HDL GERD Morbid Obesity with BMI 43.7 Plan Will have pharmacy dose vancomycin to treat enterococcus as the patient is allergic to penicillin. Repeat blood cultures to rule out persistent enterococcus bacteremia. Await further microbiology results, and meantime we'll discontinue ceftaroline and change to ceftriaxone for gram-negative rods and metronidazole for anaerobes. Wound Team consult for help with would care. Scheduled for wound debridement tomorrow Continue home medications. Monitor sugars - ISS ordered to help with glycemic control. Diabetic education and dietary consulted. Lovenox 40mg SQ daily with SCD for DVT prevention. On Protonix 40mg daily due to persistent reflux. On Lisinopril 10mg at night due to HTN and DM. Monitor lab. Because of persistent cough will check chest x-ray We'll obtain baseline plain films of both feet to rule out foreign body Patient needs a Tdap
--- NOTE | 2016-12-18 13:09 | XRay Report ---
INDICATION: cough PROCEDURE: CHEST 2-VIEWS UPRIGHT (PA & LAT) Encounter: Initial COMPARISON: December 16, 2016 FINDINGS: Increased density in the retrocardiac region seen on the lateral view. This is not definitely confirmed on the frontal view. The remaining lung laird are clear. No pleural effusion or pneumothorax. Heart size and mediastinal contours are stable. Pulmonary vascularity appears normal. Mild degenerative change in the spine. Impression: Mild retrocardiac airspace opacity could represent prominent pulmonary vasculature or a small region of acute infiltrate. Radiographic follow-up is recommended. .
--- NOTE | 2016-12-18 13:14 | XRay Report ---
Indication: osteomyelitis of right foot PROCEDURE: XR foot BI 3V: Encounter: Initial Comparison: Right foot radiographs dated December 17, 2016 and MRI from the same date Findings: Right foot: Divergent Lisfranc dislocation is redemonstrated. There is subcutaneous gas along the fifth metatarsal base. There is also gas seen in the plantar and dorsal soft tissues with severe soft tissue swelling. Gas tracks to the region of the cuboid bone on the lateral view. First metatarsal is dislocated dorsally with abnormal position and dislocation of the medial cuneiform bone as well. Chronic appearing deformity in the second toe proximal phalanx. Left foot: Irregularity of the second toe proximal phalanx base appears to represent subacute fracture. No additional area concerning for acute or subacute fracture. No dislocation. Mild degenerative change in the midfoot. Calcaneal spurs. Impression: Right foot: Findings as above Left foot: Subacute fracture of the second toe proximal phalanx. .
[2016-12-18] MEDS: CEFTRIAXONE 1 G in NS 100 ML IV SCH ×2 (13:34→23:44)
[2016-12-18] MEDS ORDERED: Tdap VACCINE ADMINISTR CHARGE INJ ONE (13:35)
--- NOTE | 2016-12-18 14:11 | Progress Note ---
DATE 12/18/2016 FINDINGS Mrs. Aguirre was in good spirits today. She did state that she has noted a little bit more discomfort involving her right ankle, especially with standing. The patient has been up to go to the bathroom. OBJECTIVE VITALS: Afebrile. Normotensive. Last recorded vitals include temperature 96.8 , pulse 80, respirations 18, blood pressure 133/68, SaO2 95% on room air. HEENT: Normocephalic. Pupils are equally round and react to light and accommodation. CHEST: Clear to auscultation bilaterally. HEART: Regular rate and rhythm. Normal S1, S2, without gallops, murmurs or clicks. EXTREMITIES: Attention was focused to the right foot. Dressing is in place. Dressing was pulled back. The erythema and edema have begun to slowly dissipate. There is ongoing purulent drainage from the opening upon the plantar aspect of her foot. LABORATORY/RADIOGRAPHIC EVALUATION The patient's white count is slightly down today at 13.6. BMP was obtained and found to be within normal limits. Blood sugar is improved at 178. Patient did undergo an arterial duplex scan today. There was some dampening of the waveforms suggesting a possible more proximal occlusion. There was however no evidence for stenosis or vascular disease involving the right lower extremity. ASSESSMENT 46-year-old female with Gonzalez grade 3 right diabetic foot ulcer. PLAN I had initially planned on proceeding with surgical intervention today. Scheduling-barrera this was not able to be accomplished. I do not feel that we are dealing with that of an emergent issue and the patient was placed on the OR schedule tomorrow to undergo exploration of her right foot with excisional surgical debridement and application of wound VAC. I do believe the patient has made clinical progress from yesterday after initiating broad-spectrum antibiotics. Will continue with current care at this time. JENNIFER
[2016-12-18] MEDS: MetroNIDAZOLE PB 500 MG/100 ML BAG IV SCH (14:52)
[2016-12-18] MEDS: NS 1,000 ML IV SCH ×2 (16:42)
[2016-12-18] MEDS: ACETAMINOPHEN 325 MG TABLET PO PRN ×2 (16:44→22:35)
[2016-12-18] MEDS: LISINOPRIL 5 MG TABLET PO SCH (20:59)
[2016-12-18] MEDS: LOVASTATIN 40 MG TABLET PO SCH (20:59)
[2016-12-18] MEDS: INSULIN GLARGINE 100unit/ml INJECTION SQ SCH (20:59)
[2016-12-19] MEDS: MetroNIDAZOLE PB 500 MG/100 ML BAG IV SCH ×2 (00:40→14:55)
[2016-12-19] MEDS: PANTOPRAZOLE 40 MG TABLET PO SCH (05:48)
[2016-12-19] MEDS: SALINE FLUSH 10ml SYRINGE IV PRN ×3 (06:10→23:37)
[2016-12-19] MEDS: METOCLOPRAMIDE 10mg/2ml INJECTION IVP PRN ×3 (06:10→22:32)
[2016-12-19] MEDS: NS 1,000 ML IV SCH ×3 (07:24→14:54)
[2016-12-19] MEDS: GlipiZIDE 5 MG TABLET PO SCH ×2 (08:42→17:56)
[2016-12-19] MEDS: METFORMIN 1,000 MG TABLET PO SCH ×2 (08:42→17:56)
[2016-12-19] MEDS: MAGNESIUM OXIDE 400 MG TABLET PO SCH (08:43)
[2016-12-19] MEDS: HYDROCODONE/APAP 7.5 MG/325 MG TABLET PO PRN ×2 (08:43→17:07)
[2016-12-19] MEDS: AMLODIPINE 10 MG TABLET PO SCH (08:43)
[2016-12-19] MEDS: INSULIN REGULAR, HUMAN 100 UNIT/ML INJECTION SQ PRN ×2 (10:45→21:46)
[2016-12-19] MEDS: CEFTRIAXONE 1 G in NS 100 ML IV SCH ×2 (11:22→23:37)
--- NOTE | 2016-12-19 11:56 | Anesthesia Preoperative Report ---
Anesthesia Preoperative Record - Date and Time Date: 12/19/16 Preoperative Diagnosis: Diabetic wound ulcer,sepsis Proposed Procedure: Right foot I&D with wound vac NPO Since Date: 12/19/16 NPO Since Time: 00:00 Allergies/Adverse Reactions: Allergies Allergy/AdvReac Type Severity Reaction Status Date / Time clindamycin Allergy Verified 12/17/16 04:00 Penicillins Allergy Verified 12/17/16 04:00 tetracycline Allergy Verified 12/17/16 04:00 - Vital Signs Vital Signs: Temperature 99.7 F 12/19/16 07:17 Pulse Rate 91 12/19/16 07:17 Respiratory Rate 16 12/19/16 07:17 Blood Pressure 131/68 12/19/16 07:17 Pulse Oximetry 98 12/19/16 07:17 Height and Weight: Height 1.7 m Weight 127.8 kg Body Mass Index 43.7 - Medications Inpatient Medications: Current Medications Acetaminophen (Tylenol) 325 - 650 mg PO Q5H PRN PRN Reason: Discomfort Last Admin: 12/18/16 22:35 Dose: 650 mg Hydrocodone Bitart/Acetaminophen (Alford 7.5/325) 1 tab PO Q6H PRN PRN Reason: Pain Last Admin: 12/19/16 08:43 Dose: 1 tab Amlodipine Besylate (Norvasc) 10 mg PO DAILY [facility] Last Admin: 12/19/16 08:43 Dose: 10 mg Bisacodyl (Dulcolax) 10 mg RECTALLY DAILY PRN PRN Reason: Constipation Dextrose (D50%W) 1 ml IVP PRN PRN PRN Reason: Hypoglycemia Enoxaparin Sodium (Lovenox) 40 mg SQ DAILY [facility] Last Admin: 12/17/16 11:02 Dose: 40 mg Glipizide (Glucotrol) 10 mg PO BIDWM [facility] Last Admin: 12/19/16 08:42 Dose: 10 mg Sodium Chloride (Normal Saline) 1,000 mls @ 75 mls/hr IV .[id number] [facility] Last Admin: 12/19/16 08:06 Dose: 75 mls/hr Ceftriaxone Sodium 1 g/ Sodium (Chloride) 100 mls @ 200 mls/hr IV Q12H [facility] Last Admin: 12/19/16 11:22 Dose: 200 mls/hr Metronidazole/Sodium Chloride (Flagyl Iv Premix) 500 mg in 100 mls @ 100 mls/ hr IV Q12H [facility] Last Infusion: 12/19/16 01:40 Dose: Infused Insulin Glargine (Lantus) 15 unit SQ HS [facility] Last Admin: 12/18/16 20:59 Dose: 15 unit Insulin Human Regular (Novolin R) 0 unit SQ SS PRN; Protocol PRN Reason: Hyperglycemia Last Admin: 12/19/16 10:45 Dose: 7 unit Lisinopril (Prinivil) 5 mg PO HS [facility] Last Admin: 12/18/16 20:59 Dose: 5 mg Lovastatin (Mevacor) 40 mg PO HS [facility] Last Admin: 12/18/16 20:59 Dose: 40 mg Magnesium Hydroxide (Mom) 30 ml PO DAILY PRN PRN Reason: Constipation Last Admin: 12/18/16 19:44 Dose: 30 ml Magnesium Oxide (Magox) 400 mg PO DAILY [facility] Last Admin: 12/19/16 08:43 Dose: 400 mg Metformin HCl (Glucophage) 1,000 mg PO BIDWM [facility] Last Admin: 12/19/16 08:42 Dose: 1,000 mg Metoclopramide HCl (Reglan) 5 mg IVP Q6H PRN Last Admin: 12/19/16 06:10 Dose: 5 mg Morphine Sulfate (Morphine Sulfate Inj) 1 - 2 mg IVP Q2H PRN PRN Reason: Pain Pantoprazole Sodium (Protonix Tab) 40 mg PO ACB [facility] Last Admin: 12/19/16 05:48 Dose: 40 mg Polyethylene Glycol (Miralax) 17 gm PO DAILY PRN PRN Reason: Constipation Senna/Docusate Sodium (Senna Plus Tablet) 1 tab PO BID PRN PRN Reason: Constipation Sodium Chloride (Iv Flush) 10 - 80 ml IV PRN PRN PRN Reason: Flushing Last Admin: 12/19/16 06:10 Dose: 20 ml Home Medications: Home Medications Medication Instructions Recorded Confirmed Type Amlodipine [Norvasc] 10 mg PO DAILY 12/17/16 12/17/16 History Aspirin [ASA] 325 mg PO 12/17/16 History GlipiZIDE 10 mg BIDWM 12/17/16 12/17/16 History HydroCHLOROthiazide [Hydrodiuril] 1 tab PO WB 12/17/16 12/17/16 History Lovastatin [Mevacor] 40 mg PO HS 12/17/16 12/17/16 History Magnesium Oxide [Magnesium] 1 tab PO DAILY 12/17/16 12/17/16 History Mecobalamin [B-12] 5,000 mcg PO 12/17/16 History Metformin [Glucophage] 1 tab PO BIDWM 12/17/16 12/17/16 History Potassium Gluconate [Potassium] 99 mg PO 12/17/16 History [place]'s Wort 12/17/16 History Vit C/Ascorbate Calcium,Sodium 500 mg PO 12/17/16 History [Vitamin C 500 mg/15 ml Liquid] Is Patient on Beta Marlena?: No - Medical History Cardiovascular: Reports: Hypertension, High Cholesterol Gastrointestional: Reports: Morbid Obesity Renal/Endocrine: Reports: Diabetes Mellitus Type 1 (With vision issues and lower extremity neuropathy) - Surgical History Respiratory Surgery/Treatments: Reports: CPAP Use (PREVIOUSLY) Musculoskeletal Surgery/Tx: Reports: Other (LEFT ULNA NERVE RELEASE) Anesthesia Reactions: None Hx Family Anesthesia Reaction: No History of Motion Sickness: No - Social History Smoking Status: Never smoker Hx Chewing Tobacco Use: No Second Hand Exposure: No Substance Use Type: does not use Alcohol Intake Frequency: does not drink - Pertinent Findings Laboratory: CBC and BMP 12/19/16 04:24 12/19/16 04:24 BMP 12/19/16 04:24 Sodium 140 Potassium 4.0 Chloride 104 Carbon Dioxide 27 BUN 11.0 Creatinine 0.7 Glucose 266 H Calcium 8.8 EKG: Sinus Rhythm - Physical Exam Respiratory Exam: Present: lungs clear Cardiovascular Exam: Present: regular rate and rhythm - Airway Assessment Mallampati Score: II TMD: 3 Fingerbreadths Neck Extension: fair Overall Assessment: may be difficult mask vent, may be difficult intubation - ASA ASA Score: 3 - Plan Anesthesia: General TIVA - Discussion Discussion: Discussed risks/options/alternatives of anesthesia and questions answered. Patient consents. Nursing pain assessment noted. Present for Discussion: family member Attestation Statement: Prior to the delivery of any anesthetic medication, I examined the patient, developed the plan, obtained the patient's consent and discussed the risk and benefits of the procedure with the patient/guardian. - Additional Information Seen by Anesthesia: Yes
[2016-12-19] MEDS ORDERED: BUPIVACAINE 0.5%/EPI 1:200,000 INJ 30ml SDV ONE (12:25)
[2016-12-19] MEDS ORDERED: PROPOFOL 500 MG/50 ML VIAL IV ONE (12:46)
[2016-12-19] MEDS ORDERED: PROPOFOL 20 ML ONE (12:46)
[2016-12-19] MEDS ORDERED: PROPOFOL 40 ML ONE (13:10)
[2016-12-19] MEDS ORDERED: BUPIVACAINE 0.5%/EPI 1:200,000 INJ 30ml SDV INFIL ONE (13:59)
--- NOTE | 2016-12-19 14:32 | General Surgery Procedure Note ---
Date of Procedure: 12/19/16 Surgeon: Rober Postoperative Diagnosis: right foot necrotic diabetic foot ulcer with osteomyelitis Procedure: Debridement right foot muscle and bone. Estimated Blood Loss: See Anesthesia Record.
--- NOTE | 2016-12-19 15:37 | Operative Note ---
DATE OF SERVICE 12/19/2016 SURGEON Mac Richter MD PREOPERATIVE DIAGNOSIS Gonzalez grade 3 right diabetic foot ulcer. POSTOPERATIVE DIAGNOSIS Gonzalez grade 3 right diabetic foot ulcer. PROCEDURE Exploration of right diabetic foot ulceration with excisional surgical debridement of skin, subcutaneous tissues, fascia and bone. ANESTHESIA TIVA/local. BRIEF HISTORY/INDICATIONS Mrs. Aguirre is a 46-year-old female who has a longstanding history for diabetes mellitus. She unfortunately has developed significant neuropathic osteoarthropathy/Charcot's foot. She does have a Lisfranc dislocation. The patient recently had developed an ulceration involving the plantar aspect of her foot about a month ago. Lately this ulceration became more severe and the patient developed significant surrounding cellulitis and swelling of her right foot. Patient began also to develop a component of fever and chills and presented to our facility for further evaluation. The patient was subsequently admitted. MRI has been obtained and the patient was found to have evidence for osteomyelitis. One can place a sterile Q-tip within the opening upon the plantar aspect of the foot. The opening itself is only on the order of about 1 cm in diameter. The sterile Q-tip, however, can be advanced in both an anterior and posterior fashion several centimeters. It was recommended to the patient that she undergo exploration of this wound with excisional surgical debridement as indicated pending intraoperative findings. For completeness please refer to notes included in the patient's chart. NARRATIVE OF PROCEDURE After informed consent was obtained the patient was brought to the operative suite and placed on the table in supine fashion. The right lower extremity was then prepped and draped in sterile fashion. 0.25% Marcaine with epinephrine was injected adjacent to the opening upon the midportion of the plantar aspect of the foot. Hemostat was then introduced into the opening and advanced posteriorly towards the calcaneus. A 4-5 cm incision was then made overlying the area of analgesia as well as overlying the hemostat. The Hemostat was then advanced into the wound and advanced anteriorly towards the base of the metatarsals. Additional 0.25% Marcaine with epinephrine was injected at this location and the incision was then extended in this fashion overlying the hemostat. Underlying subcutaneous tissues and muscle were then carefully inspected. Nonviable tissues were debrided sharply. It did appear that the cuboid bone was somewhat dislocated and protruding into the wound to a greater extent than the surrounding structures. The cuboid bone did appear to have a component of osteomyelitis involving the outer cortex. Utilizing a rongeur, the bone which appeared to be consistent with that of osteomyelitis was debrided sharply until normal-appearing bone began to be present/visible. The bone that was debrided was sent for pathologic evaluation as well as for bone culture. Once all grossly infected subcutaneous tissues, fascia and bone had been debrided sharply, attention was then direct towards closure. Meticulous hemostasis was obtained with use of electrocautery. A VeraFlo was then applied. Foam was placed within the depth of the wound followed by Steri- Drape. The patient is in the process of awakening from her anesthetic will be sent back to the recovery room once deemed in stable condition. JENNIFER
--- NOTE | 2016-12-19 17:17 | Progress Note ---
<Maryam Collazo V - Last Filed: 12/19/16 17:13> - Date 12/19/16 Subjective: Alona is seen this afternoon following surgical debridement of foot wound and placement of wound VAC. She is having significant nausea currently but she attributes to her foot pain. She denies feeling short of breath or chest pain. Wound Vac intact. Objective Vital signs: Temperature 99.4 F 12/19/16 15:55 Pulse Rate 97 12/19/16 16:25 Respiratory Rate 18 12/19/16 16:25 Blood Pressure 148/79 H 12/19/16 16:25 Pulse Oximetry 94 12/19/16 16:25 Height/Weight/BMI: Height 1.7 m Weight 127.8 kg Body Mass Index 43.7 - Constitutional Present: mild distress, well nourished, well developed - Routine HEENT Exam Eye: Present: EOMI ENT: Present: mucous membranes moist, dentition normal - Routine Respiratory Exam Present: CTA bilaterally. Absent: wheezes - Routine Cardiovascular Exam Present: RRR, S1, S2. Absent: murmur - Routine Abdominal Exam Present: soft, non distended. Absent: normoactive bowel sounds (hypoactive), tenderness - Routine Extremities Exam Present: edema (right foot), pulses intact Comments: Wound Vac intact to the right foot - Routine Skin Exam Present: dry, warm - Routine Neurological Exam Present: alert, oriented X3, CN II-XII intact - Routine Lymphatic Exam Lymphatic: Absent: adenopathy - Routine Psychiatric Exam Present: normal affect, cooperative Results - Labs CBC & Chem 7: 12/19/16 04:24 12/19/16 04:24 Microbiology Results: Microbiology 12/19/16 13:20 Foot, Right, Bone Surgical Culture - Preliminary Culture Initiated - Results Pending 12/17/16 04:56 Foot,Right Gram Stain - Final 12/17/16 04:56 Foot,Right Superficial Wound Culture - Preliminary Enterococcus species Streptococcus viridans group 12/18/16 09:34 Peripheral/Iv Start Blood Culture - Preliminary No Growth After 1 Day 12/18/16 09:35 Peripheral/Iv Start Blood Culture - Preliminary No Growth After 1 Day Assessment and Plan (1) Diabetes mellitus, insulin dependent (IDDM), uncontrolled Current visit: Yes Status: Chronic 12/18/16 12:00 blood sugars remain elevated and erratic secondary to NPO for surgery which has subsequently been delayed until tomorrow. (2) HTN (hypertension) Current visit: Yes Status: Chronic 12/17/16 04:01 monitor, restart home med. (3) Gastroparesis due to DM Current visit: Yes Status: Chronic (4) Osteomyelitis of ankle or foot Current visit: Yes Status: Acute (5) Bacteremia due to Enterococcus Current visit: Yes Status: Acute Assessment and Plan: Assessment Right diabetic foot ulcer with surrounding cellulitis and osteomyelitis with subsequent enterococcus bacteremia, failing outpatient treatment Leukocytosis secondary to above Penicillin allergy causing hives Type II DM - uncontrolled Diabetic gastroparesis HTN HDL GERD Morbid Obesity with BMI 43.7 Plan Continue with IV Rocephin and IV Flagyl for antimicrobial coverage. Surgical debridement and specimen culture were completed by Dr. Richter today. Will work on glycemic control. Continue with oral agents as well as sliding scale insulin Diabetic education and dietary consulted given elevated A1c at time of admission. Given. Acute nausea. Will give IV Zofran and Reglan. May utilize IV morphine and Soper for pain control Monitor blood pressure and continue on home dose of lisinopril. Lovenox 40mg SQ daily with SCD for DVT prevention. Recheck CBC and BMP tomorrow morning to follow blood counts, renal function and electrolytes Plan of care discussed with attending, Dr. Wood Hospital Course Summary Disclaimer: The visit summary below is not to be considered part of the above Progress Note. Hospital Course: 12/17/16 Admission Assessment Right diabetic foot ulcer with surrounding cellulitis failing outpatient treatment Leukocytosis Type II DM - uncontrolled Diabetic gastroparesis HTN HDL GERD Morbid Obesity with BMI 43.7 Plan Inpatient admission to [facility] for treatment of diabetic foot ulcer failing outpatient treatment, anticipate greater than 2 midnights of care needed. Vancomycin for antimicrobial coverage. Wound Team consult for help with would care. Will consult Dr Richter to potential debridement. MRI of foot to assess for osteomyelitis. Continue home medications. Monitor sugars - ISS ordered to help with glycemic control. Will consult Diabetic education and dietary. Lovenox 40mg SQ daily with SCD for DVT prevention. Start Protonix 40mg daily due to persistent reflux. Initiate Lisinopril 10mg at night due to HTN and DM. Monitor lab. Discussed code status with patient - requests full resuscitation. Order written. Care to return to Dr Au at time of discharge from [facility]. 12/18/16 12:14 Assessment Right diabetic foot ulcer with surrounding cellulitis and osteomyelitis with subsequent enterococcus bacteremia, failing outpatient treatment Leukocytosis secondary to above Penicillin allergy causing hives Type II DM - uncontrolled Diabetic gastroparesis HTN HDL GERD Morbid Obesity with BMI 43.7 Plan Will have pharmacy dose vancomycin to treat enterococcus as the patient is allergic to penicillin. Repeat blood cultures to rule out persistent enterococcus bacteremia. Await further microbiology results, and meantime we'll discontinue ceftaroline and change to ceftriaxone for gram-negative rods and metronidazole for anaerobes. Wound Team consult for help with would care. Scheduled for wound debridement tomorrow Continue home medications. Monitor sugars - ISS ordered to help with glycemic control. Diabetic education and dietary consulted. Lovenox 40mg SQ daily with SCD for DVT prevention. On Protonix 40mg daily due to persistent reflux. On Lisinopril 10mg at night due to HTN and DM. Monitor lab. Because of persistent cough will check chest x-ray We'll obtain baseline plain films of both feet to rule out foreign body 12/19/16 Plan Continue with IV Rocephin and IV Flagyl for antimicrobial coverage. Surgical debridement and specimen culture were completed by Dr. Richter today. Will work on glycemic control. Continue with oral agents as well as sliding scale insulin Diabetic education and dietary consulted given elevated A1c at time of admission. Given. Acute nausea. Will give IV Zofran and Reglan. May utilize IV morphine and Soper for pain control Monitor blood pressure and continue on home dose of lisinopril. Lovenox 40mg SQ daily with SCD for DVT prevention. Recheck CBC and BMP tomorrow morning to follow blood counts, renal function and electrolytes Plan of care discussed with attending, Dr. Wood <Pat Wood - Last Filed: 12/19/16 17:48> - Date 12/19/16 Objective Vital signs: Temperature 99.0 F 12/19/16 17:25 Pulse Rate 90 12/19/16 17:25 Respiratory Rate 18 12/19/16 17:25 Blood Pressure 152/89 H 12/19/16 17:25 Pulse Oximetry 96 12/19/16 17:25 Height/Weight/BMI: Height 5 ft 7 in Weight 281 lb 12.012 oz Body Mass Index 43.7 Results - Labs CBC & Chem 7: 12/19/16 04:24 12/19/16 04:24 Microbiology Results: Microbiology 12/19/16 13:20 Foot, Right, Bone Surgical Culture - Preliminary Culture Initiated - Results Pending 12/17/16 04:56 Foot,Right Gram Stain - Final 12/17/16 04:56 Foot,Right Superficial Wound Culture - Preliminary Enterococcus species Streptococcus viridans group 12/18/16 09:34 Peripheral/Iv Start Blood Culture - Preliminary No Growth After 1 Day 12/18/16 09:35 Peripheral/Iv Start Blood Culture - Preliminary No Growth After 1 Day Assessment and Plan (1) Diabetes mellitus, insulin dependent (IDDM), uncontrolled Current visit: Yes Status: Chronic (2) HTN (hypertension) Current visit: Yes Status: Chronic (3) Gastroparesis due to DM Current visit: Yes Status: Chronic (4) Osteomyelitis of ankle or foot Current visit: Yes Status: Acute (5) Bacteremia due to Enterococcus Current visit: Yes Status: Acute Assessment and Plan: I have independently evaluated and examined this patient. I reviewed the chart, the patient's history, and the FOUNDER CEO & PRESIDENT/PA's documented findings as above. We discussed and formulated the assessment and plan as above with additions as below. Patient was seen at 1710. Pt seen post operatively- currently feels warm, nauseated and complains of foot pain. Her sister is at bedside In general, the patient is alert and oriented 3, cooperative with exam, and in no respiratory distress. HEENT: Head is atraumatic, normocephalic, no conjunctival petechiae, no oral thrush, mucous membranes are moist and pink. Lungs: Clear to auscultation without wheezes, crackles or rhonchi CV: Regular rate and rhythm without murmur Abdomen: Soft, nontender, bowel sounds are present, there is no guarding no rebound. Extremities: No clubbing, no cyanosis, no edema. Dressing on right foot. Skin: Warm and dry, no sign of rash Neuro: Patient is alert Surgical cultures reviewed microbiology data pending. Plan: Agree with above. Apparently the patient has not received her IV Vanco as ordered yesterday, this was discussed with pharmacy. The initial dose will be given stat. Because of the patient's nausea will reassess her insulin needs in the morning. Hospital Course Summary Disclaimer: The visit summary below is not to be considered part of the above Progress Note.
[2016-12-19] MEDS: ONDANSETRON 4 MG/2 ML INJECTION IVP PRN (17:21)
[2016-12-19] MEDS: MORPHINE SULFATE 4mg INJECTION IVP PRN (17:21)
[2016-12-19] MEDS ORDERED: SCOPOLAMINE 1.5 MG PATCH TD SCH (18:30)
[2016-12-19] MEDS: ACETAMINOPHEN 325 MG TABLET PO PRN (18:57)
[2016-12-19] MEDS: LISINOPRIL 5 MG TABLET PO SCH (21:44)
[2016-12-19] MEDS: LOVASTATIN 40 MG TABLET PO SCH (21:45)
[2016-12-19] MEDS: INSULIN GLARGINE 100unit/ml INJECTION SQ SCH (21:45)
--- NOTE | 2016-12-19 22:50 | Progress Note ---
DATE OF SERVICE 12/19/2016 FINDINGS Ms. Aguirre was seen on evening rounds. She denied much in the way of right foot pain. Her primary complaint was that of a headache. EXAM VITAL SIGNS: Afebrile, normotensive. Please refer to EMR. EXTREMITIES: Attention was focused to the right foot. Wound VAC is in place and functioning. No evidence for significant bleeding. 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 Status post excisional surgical debridement. Application of wound VAC. Patient currently doing well. PLAN I did review her plain films today for her right foot as well as assess the degree of her neuropathic osteoarthropathy at the time of her surgery. I question whether or not the patient will have a stable foot for ambulation purposes given the degree of her neuropathic osteoarthropathy noted radiographically and intraoperatively. The patient does have fairly significant dislocation and her cuboid bone is quite displaced. We will consult Orthopedics for a "second opinion" in regards to this difficult case. From an infectious standpoint I do believe that her foot is "salvageable". I am more concerned, as stated above, in regards to the degree of neuropathic osteoarthropathy/dislocation. Will consult Dr. Lee from an orthopedic standpoint. The patient may ultimately best be served by undergoing a right [id number] amputation. JENNIFER
[2016-12-20] MEDS: ONDANSETRON 4 MG/2 ML INJECTION IVP PRN ×4 (00:11→21:36)
[2016-12-20] MEDS: MetroNIDAZOLE PB 500 MG/100 ML BAG IV SCH ×2 (00:14→13:36)
[2016-12-20] MEDS: METOCLOPRAMIDE 10mg/2ml INJECTION IVP PRN ×2 (04:28→18:24)
[2016-12-20] MEDS: INSULIN REGULAR, HUMAN 100 UNIT/ML INJECTION SQ PRN ×2 (06:33→12:08)
[2016-12-20] MEDS: PANTOPRAZOLE 40 MG TABLET PO SCH (06:34)
[2016-12-20] MEDS: GlipiZIDE 5 MG TABLET PO SCH ×3 (07:47→18:13)
[2016-12-20] MEDS: METFORMIN 1,000 MG TABLET PO SCH ×2 (07:47→18:12)
[2016-12-20] MEDS: SALINE FLUSH 10ml SYRINGE IV PRN ×2 (07:58→21:38)
[2016-12-20] MEDS: MORPHINE SULFATE 4mg INJECTION IVP PRN ×3 (07:58→23:57)
[2016-12-20] MEDS: NS 1,000 ML IV SCH (09:44)
[2016-12-20] MEDS: AMLODIPINE 10 MG TABLET PO SCH (09:47)
[2016-12-20] MEDS: MAGNESIUM OXIDE 400 MG TABLET PO SCH (09:47)
[2016-12-20] MEDS: HYDROCODONE/APAP 7.5 MG/325 MG TABLET PO PRN (09:49)
--- NOTE | 2016-12-20 11:43 | Orthopedic Consult Note ---
Orthopedic Consultation HPI - Consultation Info Consult Date: 12/20/16 Attending Physician: Pat Wood MD Consult Reason: other (right foot diabetic foot ulcer with osteomyelitis and Charcot neuropathy) Review of Systems - Constitutional Constitutional: Absent: chills, fever(s), night sweats - Cardiovascular Cardiovascular: Absent: chest pain, palpitations - Respiratory Respiratory: Absent: cough, dyspnea - Gastrointestinal Gastrointestinal: Absent: abdominal pain, nausea, vomiting - Genitourinary Genitourinary Female: Absent: dysuria - Musculoskeletal Musculoskeletal: Present: as per HPI - Integumentary/Breasts Integumentary: Present: lesions. Absent: rash - Neurological Neurological: Present: numbness PFSH Patient Stated Medical History Peripheral Neuropathy Yes Other HEENT Yes: RECENT CHANGES IN VISION Heart Murmur Yes Hypertension Yes Other Cardiology Yes: ENLARGED HEART Bronchitis Yes Sleep Apnea Yes: YEARS AGO-HAD A CPAP Diabetes Mellitus Type 1 Yes: With vision issues and lower extremity neuropathy Diabetes Mellitus Type 2 Yes Other GI Yes: DIABETIC GASTROPARESIS Hx Incontinence Yes MRSA Yes Depression Yes Painful Menstruation Yes Other Reproductive Yes: CURRENTLY MENOPAUSAL - Social History Smoking status: Never smoker Does patient use chewing tobacco?: No Medications Home Medications Medication Instructions Recorded Confirmed Type Amlodipine [Norvasc] 10 mg PO DAILY 12/17/16 12/17/16 History Aspirin [ASA] 325 mg PO 12/17/16 History GlipiZIDE 10 mg BIDWM 12/17/16 12/17/16 History HydroCHLOROthiazide [Hydrodiuril] 1 tab PO WB 12/17/16 12/17/16 History Lovastatin [Mevacor] 40 mg PO HS 12/17/16 12/17/16 History Magnesium Oxide [Magnesium] 1 tab PO DAILY 12/17/16 12/17/16 History Mecobalamin [B-12] 5,000 mcg PO 12/17/16 History Metformin [Glucophage] 1 tab PO BIDWM 12/17/16 12/17/16 History Potassium Gluconate [Potassium] 99 mg PO 12/17/16 History Alden's Wort 12/17/16 History Vit C/Ascorbate Calcium,Sodium 500 mg PO 12/17/16 History [Vitamin C 500 mg/15 ml Liquid] Allergies Allergy/AdvReac Type Severity Reaction Status Date / Time clindamycin Allergy Verified 12/17/16 04:00 Penicillins Allergy Verified 12/17/16 04:00 tetracycline Allergy Verified 12/17/16 04:00 Orthopedic Exam Vital signs: Temperature 97.4 F 12/20/16 07:44 Pulse Rate 97 12/20/16 07:44 Respiratory Rate 20 12/20/16 07:44 Blood Pressure 156/83 H 12/20/16 07:44 Pulse Oximetry 92 12/20/16 07:44 - Constitutional General Appearance: Present: no acute distress, well developed, well nourished - Respiratory Exam Present: non-labored - Extremities Exam Present: edema (right foot) Comments: Severe rocker bottom deformity to right foot with wound VAC and placed the plantar wound. Wound VAC has a good suction. Severe edema dorsally on the foot. - Integumentary Exam Present: pink, warm, dry - Lymphatic Lymphatic: Absent: adenopathy - Neurological Exam Present: intact to light touch, no deficits - Psychiatric Exam Present: alert, normal affect - Labs Result Diagrams: 12/20/16 04:11 12/20/16 04:11 Abnormal lab results 12/19/16 12/20/16 12/20/16 Range/Units 04:24 04:11 04:11 WBC 14.9 H (4.5-11.0) T/MM3 RBC 3.09 L (4.00-5.20) M/MM3 Hgb 9.3 L (12-16) GM/DL Hct 29.2 L (36-46) % Neut % (Auto) 78.3 H (33-66) % Lymph % (Auto) 14.9 L (23-45) % Neut # (Auto) 11.7 H (1.8-7.7) T/MM3 Abs Immat Gran (auto) 0.07 H (0.00-0.03) T/MM3 ESR 112 H (0-23) mm/h Creatinine 0.6 L (0.7-1.2) MG/DL Glucose 189 H (65-110) MG/DL Specimen Hemolysis 32 H (0-25) H & H 12/17/16 12/18/16 12/19/16 Range/Units 03:53 03:56 04:24 Hgb 10.8 L 10.3 L 9.7 L (12-16) GM/DL Hct 32.3 L 32.2 L 30.0 L (36-46) % 12/20/16 Range/Units 04:11 Hgb 9.3 L (12-16) GM/DL Hct 29.2 L (36-46) % - Diagnostic results Ankle/Foot x-ray: image reviewed Ankle/Foot MRI: image reviewed Impression and Recommendation (1) Osteomyelitis of ankle or foot Current visit: Yes Status: Acute Given her age I recommended everything be tried to save her from a below-the- knee amputation at this time. I do feel she will likely require a below-the- knee amputation in the future. I recommended continued treatment of the osteomyelitis with IV antibiotics and surgical debridements as needed. Once she is stable and does not need to be an inpatient I would have her follow up with foot and ankle specialist to discuss surgical options including exostectomy and fusion. She also needs to be seen by an orthopedist for fitting a [place] walker. If she feels the same processes starting on her left foot a total contact cast would be appropriate. Hospital Course Summary Disclaimer: The visit summary below is not to be considered part of the above Progress Note. Hospital Course: 12/17/16 Admission Assessment Right diabetic foot ulcer with surrounding cellulitis failing outpatient treatment Leukocytosis Type II DM - uncontrolled Diabetic gastroparesis HTN HDL GERD Morbid Obesity with BMI 43.7 Plan [place] [facility] [place] diabetic foot ulcer failing outpatient treatment, anticipate greater than 2 midnights of care needed. Vancomycin for antimicrobial coverage. Wound Team consult for help with would care. Will consult Dr Richter to potential debridement. MRI of foot to assess for osteomyelitis. Continue home medications. Monitor sugars - ISS ordered to help with glycemic control. Will consult Diabetic education and dietary. Lovenox 40mg SQ daily with SCD for DVT prevention. Start Protonix 40mg daily due to persistent reflux. Initiate Lisinopril 10mg at night due to HTN and DM. Monitor lab. Discussed code status with patient - requests full resuscitation. Order written. Care to return to Dr Au at time of discharge [place] [facility] [place] 12/18/16 12:14 Assessment Right diabetic foot ulcer with surrounding cellulitis and osteomyelitis with subsequent enterococcus bacteremia, failing outpatient treatment Leukocytosis secondary to above Penicillin allergy causing hives Type II DM - uncontrolled Diabetic gastroparesis HTN HDL GERD Morbid Obesity with BMI 43.7 Plan Will have pharmacy dose vancomycin to treat enterococcus as the patient is allergic to penicillin. Repeat blood cultures to rule out persistent enterococcus bacteremia. Await further microbiology results, and meantime we'll discontinue ceftaroline and change to ceftriaxone for gram-negative rods and metronidazole for anaerobes. Wound Team consult for help with would care. Scheduled for wound debridement tomorrow Continue home medications. Monitor sugars - ISS ordered to help with glycemic control. Diabetic education and dietary consulted. Lovenox 40mg SQ daily with SCD for DVT prevention. On Protonix 40mg daily due to persistent reflux. On Lisinopril 10mg at night due to HTN and DM. Monitor lab. Because of persistent cough will check chest x-ray We'll obtain baseline plain films of both feet to rule out foreign body 12/19/16 Plan Continue with IV Rocephin and IV Flagyl for antimicrobial coverage. Surgical debridement and specimen culture were completed by Dr. Richter today. Will work on glycemic control. Continue with oral agents as well as sliding scale insulin Diabetic education and dietary consulted given elevated A1c at time of admission. Given. Acute nausea. Will give IV Zofran and Reglan. May utilize IV morphine and [place] for pain control Monitor blood pressure and continue on home dose of lisinopril. Lovenox 40mg SQ daily with SCD for DVT prevention. Recheck CBC and BMP tomorrow morning to follow blood counts, renal function and electrolytes Plan of care discussed with attending, Dr. Wood
[2016-12-20] MEDS: CEFTRIAXONE 1 G in NS 100 ML IV SCH (12:07)
[2016-12-20] MEDS: ENOXAPARIN 40 MG/0.4 ML INJECTION SQ SCH (13:36)
--- NOTE | 2016-12-20 15:45 | Progress Note ---
- Date 12/20/16 Subjective: The patient was seen at 1530. She complains of nausea and vomiting. The nurses at her bedside. She has been able to keep a few clear liquids down today. She also complains of constipation and requests a suppository. Her temperatures [place] better. Objective Vital signs: Temperature 97.2 F 12/20/16 12:00 Pulse Rate 85 12/20/16 12:00 Respiratory Rate 16 12/20/16 12:00 Blood Pressure 137/85 12/20/16 12:00 Pulse Oximetry 94 12/20/16 12:00 Height/Weight/BMI: Height 5 ft 7 in Weight 281 lb 12.012 oz Body Mass Index 43.7 - Additional findings Additional findings: In general, the patient is alert and oriented 3, cooperative with exam, and in no respiratory distress. She does however have a large amount of emesis at the end of the exam. HEENT: Head is atraumatic, normocephalic, no conjunctival petechiae, no oral thrush, mucous membranes dry. Lungs: Clear to auscultation without wheezes, crackles or rhonchi CV: Regular rate and rhythm without murmur Abdomen: Soft, nontender, bowel sounds are present, there is no guarding no rebound. She is obese, slightly distended with slight tenderness in the midepigastric area. Extremities: No clubbing, no cyanosis, no edema. She has a wound VAC on her right foot with marked swelling noted of her foot and ankle, there is no erythema and no fluctuance. She has deformities of her left leg suggestive of Charcot joint as well. Skin: Warm and dry no sign of rash Neuro: Patient is alert Results - Labs CBC & Chem 7: 12/20/16 04:11 12/20/16 04:11 Microbiology Results: Microbiology 12/19/16 13:20 Foot, Right, Bone Gram Stain - Final 12/19/16 13:20 Foot, Right, Bone Surgical Culture - Preliminary Culture Initiated - Results Pending 12/18/16 09:34 Peripheral/Iv Start Blood Culture - Preliminary No Growth After 2 Days 12/18/16 09:35 Peripheral/Iv Start Blood Culture - Preliminary No Growth After 2 Days 12/17/16 04:56 Foot,Right Gram Stain - Final 12/17/16 04:56 Foot,Right Superficial Wound Culture - Final Enterococcus faecalis Streptococcus viridans group Coag negative Staphylococcus Assessment and Plan (1) Diabetes mellitus, insulin dependent (IDDM), uncontrolled Current visit: Yes Status: Chronic (2) HTN (hypertension) Current visit: Yes Status: Chronic (3) Gastroparesis due to DM Current visit: Yes Status: Chronic (4) Osteomyelitis of ankle or foot Current visit: Yes Status: Acute (5) Bacteremia due to Enterococcus Current visit: Yes Status: Acute Assessment and Plan: Impression: Right diabetic foot ulcer with surrounding cellulitis and osteomyelitis with subsequent enterococcus bacteremia, failing outpatient treatment Enterococcus bacteremia secondary to above Leukocytosis secondary to above Penicillin allergy causing hives Type II DM - uncontrolled Diabetic gastroparesis with severe nausea and vomiting postoperatively. HTN stable HDL GERD Morbid Obesity with BMI 43.7 Plan: Persistent nausea, we'll continue Zofran and Reglan. Recheck lab in the morning including a lipase. Appreciate Dr. Lee's consult. We'll continue vancomycin, metronidazole, and ceftriaxone for treatment of her right diabetic foot ulcer. She may benefit from consultation Dr. Peggy Flores next week to facilitate outpatient follow-up. Hospital Course Summary Disclaimer: The visit summary below is not to be considered part of the above Progress Note. Hospital Course: 12/17/16 Admission Assessment Right diabetic foot ulcer with surrounding cellulitis failing outpatient treatment Leukocytosis Type II DM - uncontrolled Diabetic gastroparesis HTN HDL GERD Morbid Obesity with BMI 43.7 Plan [place]patient admission [place] [facility] [place] of diabetic foot ulcer failing outpatient treatment, anticipate greater than 2 midnights of care needed. Vancomycin for antimicrobial coverage. Wound Team consult for help with would care. Will consult Dr Richter to potential debridement. MRI of foot to assess for osteomyelitis. Continue home medications. Monitor sugars - ISS ordered to help with glycemic control. Will consult Diabetic education and dietary. Lovenox 40mg SQ daily with SCD for DVT prevention. Start Protonix 40mg daily due to persistent reflux. Initiate Lisinopril 10mg at night due to HTN and DM. Monitor lab. Discussed code status with patient - requests full resuscitation. Order written. Care to return to Dr Au at time of discharge from [facility] [place] 12/18/16 12:14 Assessment Right diabetic foot ulcer with surrounding cellulitis and osteomyelitis with subsequent enterococcus bacteremia, failing outpatient treatment Leukocytosis secondary to above Penicillin allergy causing hives Type II DM - uncontrolled Diabetic gastroparesis HTN HDL GERD Morbid Obesity with BMI 43.7 Plan Will have pharmacy dose vancomycin to treat enterococcus as the patient is allergic to penicillin. Repeat blood cultures to rule out persistent enterococcus bacteremia. Await further microbiology results, and meantime we'll discontinue ceftaroline and change to ceftriaxone for gram-negative rods and metronidazole for anaerobes. Wound Team consult for help with would care. Scheduled for wound debridement tomorrow Continue home medications. Monitor sugars - ISS ordered to help with glycemic control. Diabetic education and dietary consulted. Lovenox 40mg SQ daily with SCD for DVT prevention. On Protonix 40mg daily due to persistent reflux. On Lisinopril 10mg at night due to HTN and DM. Monitor lab. Because of persistent cough will check chest x-ray We'll obtain baseline plain films of both feet to rule out foreign body 12/19/16 Plan Continue with IV Rocephin and IV Flagyl for antimicrobial coverage. Surgical debridement and specimen culture were completed by Dr. Richter today. Will work on glycemic control. Continue with oral agents as well as sliding scale insulin Diabetic education and dietary consulted given elevated A1c at time of admission. Given. Acute nausea. Will give IV Zofran and Reglan. May utilize IV morphine and [place] for pain control Monitor blood pressure and continue on home dose of lisinopril. Lovenox 40mg SQ daily with SCD for DVT prevention. Recheck CBC and BMP tomorrow morning to follow blood counts, renal function and electrolytes Plan of care discussed with attending, Dr. Wood
--- NOTE | 2016-12-20 17:06 | Progress Note ---
DATE OF SERVICE 12/20/2016 FINDINGS Ms. Aguirre this late afternoon was complaining of a component of nausea. She denies significant pain involving her foot. EXAM VITAL SIGNS: T-max 100.1. Current vitals include temperature 97.2, pulse 85, respirations 16, blood pressure 137/85. CHEST: Clear to auscultation bilaterally. HEART: Regular rate and rhythm. Normal S1 and S2 without gallops, murmurs or clicks. EXTREMITIES: Attention was focused to the right foot. Right foot continues to be quite edematous and erythematous in nature. Wound VAC is in place and functioning without difficulty. I do believe that perhaps some of the erythema has begun to dissipate. LABORATORY/RADIOGRAPHIC EVALUATION Initial gram stain is revealing enterococcus, streptococcus and coag-negative staph. Peripheral blood cultures have been negative to date. CBC was obtained and her white count is stable at 14.9. BMP obtained and found to be without marked abnormalities. ASSESSMENT 46-year-old female with Gonzalez grade 3 right diabetic foot ulcer. Patient with significant neuropathic osteoarthropathy/Charcot's foot. Wound cultures polymicrobial in nature. PLAN Continue with current antibiotic regimen. Antibiotics have been switched to Rocephin and Flagyl. Dr. Lee did see the patient as a second opinion from an orthopedic standpoint. He has recommended that we continue with current treatment and on an outpatient basis have the patient see a foot/ankle surgeon for further evaluation of her severe neuropathic osteoarthropathy/Charcot's foot. Will continue with ongoing negative wound pressure therapy with fluid instillation. I am not planning on seeing the patient over the course of the weekend. Will see the patient upon my return on Friday. If any surgical care is needed, please contact Dr. Chaudhari who will be covering for me over the course of the weekend. [facility]
[2016-12-20] MEDS: INSULIN GLARGINE 100unit/ml INJECTION SQ SCH (23:19)
[2016-12-20] MEDS: LOVASTATIN 40 MG TABLET PO SCH (23:20)
[2016-12-20] MEDS: LISINOPRIL 5 MG TABLET PO SCH (23:20)
[2016-12-21] MEDS: HYDROCODONE/APAP 7.5 MG/325 MG TABLET PO PRN ×5 (02:37→23:11)
[2016-12-21] MEDS: MetroNIDAZOLE PB 500 MG/100 ML BAG IV SCH ×2 (02:39→13:31)
[2016-12-21] MEDS: PANTOPRAZOLE 40 MG TABLET PO SCH (06:41)
[2016-12-21] MEDS: NS 1,000 ML IV SCH ×2 (06:42→07:05)
[2016-12-21] MEDS: METFORMIN 1,000 MG TABLET PO SCH ×3 (06:59→16:32)
[2016-12-21] MEDS: SALINE FLUSH 10ml SYRINGE IV PRN ×4 (08:28→20:35)
[2016-12-21] MEDS: ONDANSETRON 4 MG/2 ML INJECTION IVP PRN ×3 (08:28→23:16)
[2016-12-21] MEDS: GlipiZIDE 5 MG TABLET PO SCH ×2 (10:14→16:32)
[2016-12-21] MEDS: INSULIN REGULAR, HUMAN 100 UNIT/ML INJECTION SQ PRN ×2 (10:19→14:15)
[2016-12-21] MEDS: ENOXAPARIN 40 MG/0.4 ML INJECTION SQ SCH (10:20)
[2016-12-21] MEDS: MAGNESIUM OXIDE 400 MG TABLET PO SCH (10:20)
[2016-12-21] MEDS: AMLODIPINE 10 MG TABLET PO SCH (10:20)
[2016-12-21] MEDS: CEFTRIAXONE 1 G in NS 100 ML IV SCH ×3 (12:33→23:17)
--- NOTE | 2016-12-21 13:59 | Progress Note ---
<Maryam Collazo V - Last Filed: 12/21/16 13:52> - Date 12/21/16 Subjective: Alona seen this morning in follow-up while resting. She needs to have persistent nausea, however, is able to eat some dried Cheerios today. She reports that she changed dosing times and this helped some with nausea however it is persistence. Denies abdominal pain. Patient reports that her bowels did move, however, only a small smear is charted. Wound VAC remains intact to foot. Objective Vital signs: Temperature 97.7 F 12/21/16 07:39 Pulse Rate 85 12/21/16 07:39 Respiratory Rate 18 12/21/16 07:39 Blood Pressure 145/71 H 12/21/16 07:39 Pulse Oximetry 91 12/21/16 07:39 Height/Weight/BMI: Height 1.7 m Weight 129.5 kg Body Mass Index 43.7 - Constitutional Present: no acute distress, well nourished, well developed - Routine HEENT Exam Eye: Present: EOMI ENT: Present: mucous membranes moist, dentition normal - Routine Respiratory Exam Present: CTA bilaterally. Absent: wheezes - Routine Cardiovascular Exam Present: RRR, S1, S2. Absent: murmur - Routine Abdominal Exam Present: soft, normoactive bowel sounds, non distended. Absent: tenderness - Routine Extremities Exam Present: edema (Right foot swelling), pulses intact Comments: Wound vac to right foot - Routine Skin Exam Present: intact, dry, warm - Routine Neurological Exam Present: alert, oriented X3, CN II-XII intact - Routine Lymphatic Exam Lymphatic: Absent: adenopathy - Routine Psychiatric Exam Present: normal affect Results - Labs CBC & Chem 7: 12/21/16 05:37 12/21/16 05:37 Microbiology Results: Microbiology 12/18/16 09:34 Peripheral/Iv Start Blood Culture - Preliminary No Growth After 3 Days 12/18/16 09:35 Peripheral/Iv Start Blood Culture - Preliminary No Growth After 3 Days 12/19/16 13:20 Foot, Right, Bone Gram Stain - Final 12/19/16 13:20 Foot, Right, Bone Surgical Culture - Preliminary Early growth 12/17/16 04:56 Foot,Right Gram Stain - Final 12/17/16 04:56 Foot,Right Superficial Wound Culture - Final Enterococcus faecalis Streptococcus viridans group Coag negative Staphylococcus Assessment and Plan (1) Diabetes mellitus, insulin dependent (IDDM), uncontrolled Current visit: Yes Status: Chronic 12/18/16 12:00 blood sugars remain elevated and erratic secondary to NPO for surgery which has subsequently been delayed until tomorrow. (2) HTN (hypertension) Current visit: Yes Status: Chronic 12/17/16 04:01 monitor, restart home med. (3) Gastroparesis due to DM Current visit: Yes Status: Chronic (4) Osteomyelitis of ankle or foot Current visit: Yes Status: Acute (5) Bacteremia due to Enterococcus Current visit: Yes Status: Acute Assessment and Plan: Impression Right diabetic foot ulcer with surrounding cellulitis and osteomyelitis with subsequent enterococcus bacteremia, failing outpatient treatment Enterococcus bacteremia secondary to above Leukocytosis secondary to above Penicillin allergy causing hives Type II DM - uncontrolled Diabetic gastroparesis with severe nausea and vomiting postoperatively. HTN stable HDL GERD Morbid Obesity with BMI 43.7 Plan Nausea, appears to be slightly better controlled. Continue with Reglan, Zofran and scopolamine patch Persistent nausea, we'll continue Zofran and Reglan. Continue with wound vac care and appreciate Dr Lee orthopedic consultation for wound management Continue with vancomycin, metronidazole, and ceftriaxone for to microbial coverage. Continue with glycemic management, glipizide, Lantus, sliding scale insulin. Monitor blood pressure and continue on lisinopril and Norvasc- 145/71 this am Persistent leukocytosis, Recheck CBC and BMP tomorrow morning to follow blood counts, renal function and electrolytes. Hospital Course Summary Disclaimer: The visit summary below is not to be considered part of the above Progress Note. Hospital Course: 12/17/16 Admission Assessment Right diabetic foot ulcer with surrounding cellulitis failing outpatient treatment Leukocytosis Type II DM - uncontrolled Diabetic gastroparesis HTN HDL GERD Morbid Obesity with BMI 43.7 Plan Inpatient admission to [facility] for treatment of diabetic foot ulcer failing outpatient treatment, anticipate greater than 2 midnights of care needed. Vancomycin for antimicrobial coverage. Wound Team consult for help with would care. Will consult Dr Richter to potential debridement. MRI of foot to assess for osteomyelitis. Continue home medications. Monitor sugars - ISS ordered to help with glycemic control. Will consult Diabetic education and dietary. Lovenox 40mg SQ daily with SCD for DVT prevention. Start Protonix 40mg daily due to persistent reflux. Initiate Lisinopril 10mg at night due to HTN and DM. Monitor lab. Discussed code status with patient - requests full resuscitation. Order written. Care to return to Dr Au at time of discharge from [facility]. 12/18/16 12:14 Assessment Right diabetic foot ulcer with surrounding cellulitis and osteomyelitis with subsequent enterococcus bacteremia, failing outpatient treatment Leukocytosis secondary to above Penicillin allergy causing hives Type II DM - uncontrolled Diabetic gastroparesis HTN HDL GERD Morbid Obesity with BMI 43.7 Plan Will have pharmacy dose vancomycin to treat enterococcus as the patient is allergic to penicillin. Repeat blood cultures to rule out persistent enterococcus bacteremia. Await further microbiology results, and meantime we'll discontinue ceftaroline and change to ceftriaxone for gram-negative rods and metronidazole for anaerobes. Wound Team consult for help with would care. Scheduled for wound debridement tomorrow Continue home medications. Monitor sugars - ISS ordered to help with glycemic control. Diabetic education and dietary consulted. Lovenox 40mg SQ daily with SCD for DVT prevention. On Protonix 40mg daily due to persistent reflux. On Lisinopril 10mg at night due to HTN and DM. Monitor lab. Because of persistent cough will check chest x-ray We'll obtain baseline plain films of both feet to rule out foreign body 12/19/16 Plan Continue with IV Rocephin and IV Flagyl for antimicrobial coverage. Surgical debridement and specimen culture were completed by Dr. Richter today. Will work on glycemic control. Continue with oral agents as well as sliding scale insulin Diabetic education and dietary consulted given elevated A1c at time of admission. Given. Acute nausea. Will give IV Zofran and Reglan. May utilize IV morphine and [place] for pain control Monitor blood pressure and continue on home dose of lisinopril. Lovenox 40mg SQ daily with SCD for DVT prevention. Recheck CBC and BMP tomorrow morning to follow blood counts, renal function and electrolytes Plan of care discussed with attending, Dr. Wood 12/21/16 Plan Nausea, appears to be slightly better controlled. Continue with Reglan, Zofran and scopolamine patch Persistent nausea, we'll continue Zofran and Reglan. Continue with wound vac care and appreciate Dr Lee orthopedic consultation for wound management Continue with vancomycin, metronidazole, and ceftriaxone for to microbial coverage. Continue with glycemic management, glipizide, Lantus, sliding scale insulin. Monitor blood pressure and continue on lisinopril and Norvasc- 145/71 this am Persistent leukocytosis, Recheck CBC and BMP tomorrow morning to follow blood counts, renal function and electrolytes. <Pat Wood - Last Filed: 12/21/16 16:59> - Date 12/21/16 Objective Vital signs: Temperature 97.8 F 12/21/16 15:25 Pulse Rate 80 12/21/16 15:25 Respiratory Rate 20 12/21/16 15:25 Blood Pressure 159/69 H 12/21/16 15:25 Pulse Oximetry 90 12/21/16 15:25 Height/Weight/BMI: Height 5 ft 7 in Weight 285 lb 7.978 oz Body Mass Index 43.7 Results - Labs CBC & Chem 7: 12/21/16 05:37 12/21/16 05:37 Microbiology Results: Microbiology 12/18/16 09:34 Peripheral/Iv Start Blood Culture - Preliminary No Growth After 3 Days 12/18/16 09:35 Peripheral/Iv Start Blood Culture - Preliminary No Growth After 3 Days 12/19/16 13:20 Foot, Right, Bone Gram Stain - Final 12/19/16 13:20 Foot, Right, Bone Surgical Culture - Preliminary Early growth 12/17/16 04:56 Foot,Right Gram Stain - Final 12/17/16 04:56 Foot,Right Superficial Wound Culture - Final Enterococcus faecalis Streptococcus viridans group Coag negative Staphylococcus Assessment and Plan (1) Diabetes mellitus, insulin dependent (IDDM), uncontrolled Current visit: Yes Status: Chronic (2) HTN (hypertension) Current visit: Yes Status: Chronic (3) Gastroparesis due to DM Current visit: Yes Status: Chronic (4) Osteomyelitis of ankle or foot Current visit: Yes Status: Acute (5) Bacteremia due to Enterococcus Current visit: Yes Status: Acute Assessment and Plan: I have independently evaluated and examined this patient. I reviewed the chart, the patient's history, and the [employer]/PA's documented findings as above. We discussed and formulated the assessment and plan as above with additions as below. The patient continues to have problems with nausea and vomiting. She is just returned from the bathroom and had a small episode of emesis during my visit. She has had difficulty taking her oral hypoglycemic agents secondary to her nausea and vomiting she agrees to taking her Lantus this evening. Plans a pain in her right foot and has just taken her [place]. In general, the patient is obese, alert and oriented 3, cooperative with exam, and in no respiratory distress sitting on the edge of the bed. HEENT: Head is atraumatic, normocephalic, no conjunctival petechiae, no oral thrush Lungs: Clear to auscultation without wheezes, crackles or rhonchi CV: Regular rate and rhythm without murmur Abdomen: Soft, nontender, bowel sounds are present, there is no guarding no rebound. Extremities: Wound VAC to right foot, Charcot joint changes noted in both feet Skin: Warm and dry no sign of rash Neuro: Patient is alert Agree with plans as outlined above. We'll continue current therapy for her nausea and vomiting suspect her gastroparesis is playing a role in this as well. Hospital Course Summary Disclaimer: The visit summary below is not to be considered part of the above Progress Note.
[2016-12-21] MEDS: METOCLOPRAMIDE 10mg/2ml INJECTION IVP PRN (14:15)
[2016-12-21] MEDS: METOCLOPRAMIDE 10mg/2ml INJECTION IVP SCH ×2 (15:33→20:34)
[2016-12-21] MEDS: INSULIN GLARGINE 100unit/ml INJECTION SQ SCH (16:37)
[2016-12-21] MEDS: LISINOPRIL 5 MG TABLET PO SCH (21:36)
[2016-12-21] MEDS: LOVASTATIN 40 MG TABLET PO SCH (21:36)
[2016-12-22] MEDS: MetroNIDAZOLE PB 500 MG/100 ML BAG IV SCH ×2 (00:54→12:42)
[2016-12-22] MEDS: NS 1,000 ML IV SCH ×2 (02:49→02:50)
[2016-12-22] MEDS: METOCLOPRAMIDE 10mg/2ml INJECTION IVP SCH ×4 (04:52→20:55)
[2016-12-22] MEDS: HYDROCODONE/APAP 7.5 MG/325 MG TABLET PO PRN ×2 (04:56→14:37)
[2016-12-22] MEDS: PANTOPRAZOLE 40 MG TABLET PO SCH (06:53)
[2016-12-22] MEDS: METFORMIN 1,000 MG TABLET PO SCH ×2 (08:57→17:11)
[2016-12-22] MEDS: MAGNESIUM OXIDE 400 MG TABLET PO SCH (08:57)
[2016-12-22] MEDS: ENOXAPARIN 40 MG/0.4 ML INJECTION SQ SCH (08:57)
[2016-12-22] MEDS: GlipiZIDE 5 MG TABLET PO SCH ×2 (08:57→17:11)
[2016-12-22] MEDS: AMLODIPINE 10 MG TABLET PO SCH (08:57)
[2016-12-22] MEDS: ONDANSETRON 4 MG/2 ML INJECTION IVP PRN (09:48)
[2016-12-22] MEDS: SALINE FLUSH 10ml SYRINGE IV PRN ×2 (09:49→14:38)
--- NOTE | 2016-12-22 09:52 | Progress Note ---
<Maryam Collazo V - Last Filed: 12/22/16 09:49> - Date 12/22/16 Subjective: Alona is seen today in follow up following a bed bath. She is up on the side of the bed today, states that overall her nausea feels a little better. She denies having any abdominal pain or shortness of breath. Right foot continues to have 2-3+ edema. Wound VAC is intact and draining. We did discuss importance of elevating the foot. The pressure this morning was slightly elevated 162/72. Objective Vital signs: Temperature 97.4 F 12/22/16 08:28 Pulse Rate 77 12/22/16 08:28 Respiratory Rate 16 12/22/16 08:28 Blood Pressure 161/72 H 12/22/16 08:28 Pulse Oximetry 90 12/22/16 08:28 Height/Weight/BMI: Height 1.7 m Weight 130.5 kg Body Mass Index 43.7 - Constitutional Present: no acute distress, well nourished, well developed - Routine HEENT Exam Eye: Present: EOMI ENT: Present: mucous membranes moist, dentition normal - Routine Respiratory Exam Present: CTA bilaterally. Absent: wheezes - Routine Cardiovascular Exam Present: RRR, S1, S2. Absent: murmur - Routine Abdominal Exam Present: soft, normoactive bowel sounds, non distended. Absent: tenderness - Routine Extremities Exam Present: normal capillary refill Comments: 2-3+ edema right foot, wound VAC intact medially - Routine Back/Spine/Pelvis Exam Back/Spine: Present: full ROM - Routine Skin Exam Present: intact, dry, warm - Routine Neurological Exam Present: alert, oriented X3, CN II-XII intact - Routine Lymphatic Exam Lymphatic: Absent: adenopathy - Routine Psychiatric Exam Present: normal affect, cooperative Results - Labs CBC & Chem 7: 12/21/16 05:37 12/21/16 05:37 Microbiology Results: Microbiology 12/18/16 09:34 Peripheral/Iv Start Blood Culture - Preliminary No Growth After 4 Days 12/18/16 09:35 Peripheral/Iv Start Blood Culture - Preliminary No Growth After 4 Days 12/19/16 13:20 Foot, Right, Bone Gram Stain - Final 12/19/16 13:20 Foot, Right, Bone Surgical Culture - Preliminary Early growth 12/17/16 04:56 Foot,Right Gram Stain - Final 12/17/16 04:56 Foot,Right Superficial Wound Culture - Final Enterococcus faecalis Streptococcus viridans group Coag negative Staphylococcus Assessment and Plan (1) Diabetes mellitus, insulin dependent (IDDM), uncontrolled Current visit: Yes Status: Chronic 12/18/16 12:00 blood sugars remain elevated and erratic secondary to NPO for surgery which has subsequently been delayed until tomorrow. (2) HTN (hypertension) Current visit: Yes Status: Chronic 12/17/16 04:01 monitor, restart home med. (3) Gastroparesis due to DM Current visit: Yes Status: Chronic (4) Osteomyelitis of ankle or foot Current visit: Yes Status: Acute (5) Bacteremia due to Enterococcus Current visit: Yes Status: Acute Assessment and Plan: Impression Right diabetic foot ulcer with surrounding cellulitis failing outpatient treatment Leukocytosis Type II DM - uncontrolled Diabetic gastroparesis HTN HDL GERD Morbid Obesity with BMI 43.7 Plan Overall, nausea, appears to be slightly better today. Will continue on scheduled Reglan is suspicion nausea may be related to gastroparesis. Continue with scopolamine patch, and Zofran. At this time continue with IV Vanco, Rocephin and IV Flagyl for coverage of gram -negative and anaerobes. This may also be contributing to some of her nausea. Lucy with management of foot wound as per wound team and Dr. Lee. Monitor Accu-Cheks and continue with metformin, glipizide, Lantus 15 units at at bedtime and sliding scale insulin. Monitor blood pressure. She was borderline elevated this morning. May need to consider increasing lisinopril dose. At this time will continue to monitor. Olin for pain control Lovenox subcutaneous daily for DVT prophylaxis Orders and plan of care discussed with attending, Dr. Parker Hospital Course Summary Disclaimer: The visit summary below is not to be considered part of the above Progress Note. Hospital Course: 12/17/16 Admission Assessment Right diabetic foot ulcer with surrounding cellulitis failing outpatient treatment Leukocytosis Type II DM - uncontrolled Diabetic gastroparesis HTN HDL GERD Morbid Obesity with BMI 43.7 Plan Inpatient admission to [facility] for treatment of diabetic foot ulcer failing outpatient treatment, anticipate greater than 2 midnights of care needed. Vancomycin for antimicrobial coverage. Wound Team consult for help with would care. Will consult Dr Richter to potential debridement. MRI of foot to assess for osteomyelitis. Continue home medications. Monitor sugars - ISS ordered to help with glycemic control. Will consult Diabetic education and dietary. Lovenox 40mg SQ daily with SCD for DVT prevention. Start Protonix 40mg daily due to persistent reflux. Initiate Lisinopril 10mg at night due to HTN and DM. Monitor lab. Discussed code status with patient - requests full resuscitation. Order written. Care to return to Dr Au at time of discharge from [facility]. 12/18/16 12:14 Assessment Right diabetic foot ulcer with surrounding cellulitis and osteomyelitis with subsequent enterococcus bacteremia, failing outpatient treatment Leukocytosis secondary to above Penicillin allergy causing hives Type II DM - uncontrolled Diabetic gastroparesis HTN HDL GERD Morbid Obesity with BMI 43.7 Plan Will have pharmacy dose vancomycin to treat enterococcus as the patient is allergic to penicillin. Repeat blood cultures to rule out persistent enterococcus bacteremia. Await further microbiology results, and meantime we'll discontinue ceftaroline and change to ceftriaxone for gram-negative rods and metronidazole for anaerobes. Wound Team consult for help with would care. Scheduled for wound debridement tomorrow Continue home medications. Monitor sugars - ISS ordered to help with glycemic control. Diabetic education and dietary consulted. Lovenox 40mg SQ daily with SCD for DVT prevention. On Protonix 40mg daily due to persistent reflux. On Lisinopril 10mg at night due to HTN and DM. Monitor lab. Because of persistent cough will check chest x-ray We'll obtain baseline plain films of both feet to rule out foreign body 12/19/16 Plan Continue with IV Rocephin and IV Flagyl for antimicrobial coverage. Surgical debridement and specimen culture were completed by Dr. Richter today. Will work on glycemic control. Continue with oral agents as well as sliding scale insulin Diabetic education and dietary consulted given elevated A1c at time of admission. Given. Acute nausea. Will give IV Zofran and Reglan. May utilize IV morphine and Olin for pain control Monitor blood pressure and continue on home dose of lisinopril. Lovenox 40mg SQ daily with SCD for DVT prevention. Recheck CBC and BMP tomorrow morning to follow blood counts, renal function and electrolytes Plan of care discussed with attending, Dr. Wood 12/21/16 Plan Nausea, appears to be slightly better controlled. Continue with Reglan, Zofran and scopolamine patch Persistent nausea, we'll continue Zofran and Reglan. Continue with wound vac care and appreciate Dr Lee orthopedic consultation for wound management Continue with vancomycin, metronidazole, and ceftriaxone for to microbial coverage. Continue with glycemic management, glipizide, Lantus, sliding scale insulin. Monitor blood pressure and continue on lisinopril and Norvasc- 145/71 this am Persistent leukocytosis, Recheck CBC and BMP tomorrow morning to follow blood counts, renal function and electrolytes. 12/22/16Plan Overall, nausea, appears to be slightly better today. Will continue on scheduled Reglan is suspicion nausea may be related to gastroparesis. Continue with scopolamine patch, and Zofran. At this time continue with IV Vanco, Rocephin and IV Flagyl for coverage of gram -negative and anaerobes. This may also be contributing to some of her nausea. Lucy with management of foot wound as per wound team and Dr. Lee. Monitor Accu-Cheks and continue with metformin, glipizide, Lantus 15 units at at bedtime and sliding scale insulin. Monitor blood pressure. She was borderline elevated this morning. May need to consider increasing lisinopril dose. At this time will continue to monitor. Olin for pain control Lovenox subcutaneous daily for DVT prophylaxis Orders and plan of care discussed with attending, Dr. Parker <Bhanu Parker - Last Filed: 12/22/16 14:04> - Date 12/22/16 Objective Vital signs: Temperature 97.4 F 12/22/16 08:28 Pulse Rate 77 12/22/16 08:28 Respiratory Rate 16 12/22/16 08:28 Blood Pressure 161/72 H 12/22/16 08:28 Pulse Oximetry 90 12/22/16 08:28 Height/Weight/BMI: Height 1.7 m Weight 130.5 kg Body Mass Index 43.7 Results - Labs CBC & Chem 7: 12/22/16 10:29 12/22/16 10:29 Microbiology Results: Microbiology 12/19/16 13:20 Foot, Right, Bone Gram Stain - Final 12/19/16 13:20 Foot, Right, Bone Surgical Culture - Preliminary Corynebacterium species 12/18/16 09:34 Peripheral/Iv Start Blood Culture - Preliminary No Growth After 4 Days 12/18/16 09:35 Peripheral/Iv Start Blood Culture - Preliminary No Growth After 4 Days 12/17/16 04:56 Foot,Right Gram Stain - Final 12/17/16 04:56 Foot,Right Superficial Wound Culture - Final Enterococcus faecalis Streptococcus viridans group Coag negative Staphylococcus Assessment and Plan Assessment and Plan: Patient evaluated [id number], Maryam hickey also evaluated patient. We then discussed the patient and plan of care was created in agreement. Patient was resting comfortably with wound VAC in place. Lungs are clear to auscultation, cardiac regular rate and rhythm with no murmur heard. Wound is covered, foot and leg do not appear to be cellulitic. Plan was developed conjunction with Maryam Collazo. We both are in agreement with this. Overall, nausea, appears to be slightly better today. Will continue on scheduled Reglan is suspicion nausea may be related to gastroparesis. Continue with scopolamine patch, and Zofran. At this time continue with IV Vanco, Rocephin and IV Flagyl for coverage of gram -negative and anaerobes. This may also be contributing to some of her nausea. Lucy with management of foot wound as per wound team and Dr. Lee. Monitor Accu-Cheks and continue with metformin, glipizide, Lantus 15 units at at bedtime and sliding scale insulin. Monitor blood pressure. She was borderline elevated this morning. May need to consider increasing lisinopril dose. At this time will continue to monitor. Olin for pain control Lovenox subcutaneous daily for DVT prophylaxis Bhanu Parker M.D. Hospital Course Summary Disclaimer: The visit summary below is not to be considered part of the above Progress Note.
[2016-12-22] MEDS: INSULIN REGULAR, HUMAN 100 UNIT/ML INJECTION SQ PRN ×2 (11:25→14:38)
[2016-12-22] MEDS: CEFTRIAXONE 1 G in NS 100 ML IV SCH ×2 (12:07→23:31)
--- NOTE | 2016-12-22 13:23 | Pharmacy Consult-Antibiotics ---
Pharmacy Consult-Vancomycin - Laboratory Information WBC 14.7 T/MM3 (4.5-11.0) H 12/22/16 10:29 BUN 9.0 MG/DL (7-17) 12/22/16 10:29 Creatinine 0.5 MG/DL (0.7-1.2) L 12/22/16 10:29 Vancomycin Trough 11.78 UG/ML (15-20) L 12/21/16 10:00 VANCOMYCIN CONSULT: (Late Entry from 12/21/16) EMILIANA is a 46 yo female, who is a non-complaint diabetic with a one month history of on a non-healing wound on the plantar aspect of the right food. Vancomycin Trough = 11.78 mcg/ml. Today's S Cr = 0.5 mg/dl. Estimated Cr Cl > 120 I changed the Vancomycin to 2,000 mg IV q8hrs. The new estimated trough should be around 16.5 mcg/mL. The pharmacy will continue to monitor and make adjustments accordingly. Thank you for Vancomycin Protocol, Ridge Álvarez, Pharmacist.
[2016-12-22] MEDS: INSULIN GLARGINE 100unit/ml INJECTION SQ SCH (20:54)
[2016-12-22] MEDS: LISINOPRIL 5 MG TABLET PO SCH (20:55)
[2016-12-22] MEDS: LOVASTATIN 40 MG TABLET PO SCH (20:56)
[2016-12-22] MEDS: ACETAMINOPHEN 325 MG TABLET PO PRN (20:56)
[2016-12-23] MEDS: MetroNIDAZOLE PB 500 MG/100 ML BAG IV SCH ×2 (00:18→14:10)
[2016-12-23] MEDS: METOCLOPRAMIDE 10mg/2ml INJECTION IVP SCH ×4 (03:43→22:06)
[2016-12-23] MEDS: NS 1,000 ML IV SCH ×2 (05:13→08:37)
[2016-12-23] MEDS: SALINE FLUSH 10ml SYRINGE IV PRN ×2 (05:29→18:00)
[2016-12-23] MEDS: PANTOPRAZOLE 40 MG TABLET PO SCH (05:30)
[2016-12-23] MEDS: HYDROCODONE/APAP 7.5 MG/325 MG TABLET PO PRN (07:28)
[2016-12-23] MEDS: AMLODIPINE 10 MG TABLET PO SCH (08:38)
[2016-12-23] MEDS: ENOXAPARIN 40 MG/0.4 ML INJECTION SQ SCH (08:38)
[2016-12-23] MEDS: METFORMIN 1,000 MG TABLET PO SCH (08:38)
[2016-12-23] MEDS: MAGNESIUM OXIDE 400 MG TABLET PO SCH (08:38)
[2016-12-23] MEDS: GlipiZIDE 5 MG TABLET PO SCH ×2 (08:38→18:00)
[2016-12-23] MEDS: INSULIN REGULAR, HUMAN 100 UNIT/ML INJECTION SQ PRN (10:32)
[2016-12-23] MEDS: CEFTRIAXONE 1 G in NS 100 ML IV SCH (13:14)
--- NOTE | 2016-12-23 13:30 | Pharmacy Consult-Antibiotics ---
Pharmacy Consult-Vancomycin - Laboratory Information WBC 14.0 T/MM3 (4.5-11.0) H 12/23/16 04:32 BUN 7.0 MG/DL (7-17) 12/23/16 04:32 Creatinine 0.5 MG/DL (0.7-1.2) L 12/23/16 04:32 Vancomycin Trough 18.88 UG/ML (15-20) 12/23/16 09:10 VANCOMYCIN CONSULT: AK is a 46 yo female, who is a non-complaint diabetic with a one month history of on a non-healing wound on the plantar aspect of the right food. Vancomycin Trough = 18.88 mcg/ml. Today's S Cr = 0.5 mg/dl. Estimated Cr Cl > 120 mL/min I continued the Vancomycin 2,000 mg IV q8hrs. The trough was a little higher at 18.88 mcg/mL than the 16.5 mcg/mL predicted, but I will continue the vancomycin as ordered. The pharmacy will continue to monitor and make adjustments accordingly. Thank you for Vancomycin Protocol, Ridge Álvarez, Pharmacist.
--- NOTE | 2016-12-23 15:24 | Progress Note ---
- Date 12/23/16 Subjective: F/U: Right diabetic foot ulcer with surrounding cellulitis and osteomyelitis, uncontrolled Type II DM Doing better this afternoon-notes less nausea. Oral drive still decreased, but not feeling as sick at stomach. No stools. Breathing stable-SOA overnight, needing O2. No chest pain. Foot pain varies, tries to use [place] sparingly. No F/ C. Objective Vital signs: Temperature 97.8 F 12/22/16 23:38 Pulse Rate 93 12/23/16 07:03 Respiratory Rate 24 12/23/16 07:03 Blood Pressure 141/63 H 12/22/16 23:38 Pulse Oximetry 93 12/23/16 07:03 Height/Weight/BMI: Height 1.7 m Weight 129.9 kg Body Mass Index 43.7 - Constitutional Present: well nourished, well developed, morbidly obese, cooperative - Routine HEENT Exam Head: Present: normocephalic, atraumatic Eye: Present: EOMI, PERRL ENT: Present: mucous membranes moist - Routine Respiratory Exam Present: CTA bilaterally. Absent: rales, respiratory distress, rhonchi, wheezes , crackles - Routine Cardiovascular Exam Present: RRR, no murmur - Routine Abdominal Exam Present: soft, normoactive bowel sounds, non distended, non tender - Routine Extremities Exam Present: edema (+1 BLE ), pulses intact. Absent: cyanosis, clubbing - Routine Musculoskeletal Exam Musculoskeletal: Present: no clubbing or cyanosis, normal strength - Routine Skin Exam Present: intact, dry, warm, wounds (LE wound wrapped with JOHNATHON ) - Routine Neurological Exam Present: alert, oriented X3, CN II-XII intact, moving all extremities, vision grossly intact, hearing grossly intact. Absent: motor deficit, altered mental status - Routine Psychiatric Exam Present: normal affect, normal thought process, cooperative. Absent: anxious Results - Labs CBC & Chem 7: 12/23/16 04:32 12/23/16 04:32 Microbiology Results: Microbiology 12/18/16 09:34 Peripheral/Iv Start Blood Culture - Final No Growth After 5 Days 12/18/16 09:35 Peripheral/Iv Start Blood Culture - Final No Growth After 5 Days 12/19/16 13:20 Foot, Right, Bone Gram Stain - Final 12/19/16 13:20 Foot, Right, Bone Surgical Culture - Preliminary Coag negative Staphylococcus Corynebacterium species 12/17/16 04:56 Foot,Right Gram Stain - Final 12/17/16 04:56 Foot,Right Superficial Wound Culture - Final Enterococcus faecalis Streptococcus viridans group Coag negative Staphylococcus Assessment and Plan (1) Osteomyelitis of ankle or foot Current visit: Yes Status: Acute (2) Bacteremia due to Enterococcus Current visit: Yes Status: Acute (3) Diabetes mellitus, insulin dependent (IDDM), uncontrolled Current visit: Yes Status: Chronic (4) HTN (hypertension) Current visit: Yes Status: Chronic (5) Gastroparesis due to DM Current visit: Yes Status: Chronic DVT Prophylaxis: Lovenox Resuscitation Status: Full Code Assessment and Plan: Assessment Right diabetic foot ulcer with surrounding cellulitis and osteomyelitis with subsequent enterococcus bacteremia, failing outpatient treatment Enterococcus bacteremia secondary to above (positive BC from [facility]) Leukocytosis secondary to above Penicillin allergy causing hives Type II DM - uncontrolled Diabetic gastroparesis with severe nausea and vomiting postoperatively. HTN HDL GERD Hypokalemia (not POA) Elevated LFT (not POA) Morbid Obesity with BMI 43.7 Plan Continue IV Vanco, Rocephin and IV Flagyl for coverage of gram-negative and anaerobes. Continue wound vac and wound care. Will increase lisinopril to 10mg nightly to help blood pressure control. Oral potassium given this am as potassium decreased to 3.2. Will recheck in am and check Mg. D/C IVF - weight up from admission. Blood sugars stable - continue current medications. Consult with Dr Flores for antibiotic recommendation and course length. Monitor lab. Time spent with patient care 25 minutes. - Time spent with patient Time with patient PN: 25 minutes Hospital Course Summary Disclaimer: The visit summary below is not to be considered part of the above Progress Note. Hospital Course: 12/17/16 Admission Assessment Right diabetic foot ulcer with surrounding cellulitis failing outpatient treatment Leukocytosis Type II DM - uncontrolled Diabetic gastroparesis HTN HDL GERD Morbid Obesity with BMI 43.7 Plan [place] [facility] [place] of diabetic foot ulcer failing outpatient treatment, anticipate greater than 2 midnights of care needed. Vancomycin for antimicrobial coverage. Wound Team consult for help with would care. Will consult Dr Richter to potential debridement. MRI of foot to assess for osteomyelitis. Continue home medications. Monitor sugars - ISS ordered to help with glycemic control. Will consult Diabetic education and dietary. Lovenox 40mg SQ daily with [facility] for DVT prevention. Start Protonix 40mg daily due to persistent reflux. Initiate Lisinopril 10mg at night due to HTN and DM. Monitor lab. Discussed code status with patient - requests full resuscitation. Order written. Care to return to Dr Au at time of discharge [place] [facility] 12/18/16 Dr Nina MEDINA from [facility] positive. Will have pharmacy dose vancomycin to treat enterococcus as the patient is allergic to penicillin. Repeat blood cultures to rule out persistent enterococcus bacteremia. Await further microbiology results, and meantime we'll discontinue ceftaroline and change to ceftriaxone for gram-negative rods and metronidazole for anaerobes. Wound Team consult for help with would care. Scheduled for wound debridement tomorrow Continue home medications. Monitor sugars - ISS ordered to help with glycemic control. Diabetic education and dietary consulted. Lovenox 40mg SQ daily with [facility] for DVT prevention. On Protonix 40mg daily due to persistent reflux. On Lisinopril 10mg at night due to HTN and DM. Monitor lab. Because of persistent cough will check chest x-ray We'll obtain baseline plain films of both feet to rule out foreign body 12/19/16 Continue with IV Rocephin and IV Flagyl for antimicrobial coverage. Surgical debridement and specimen culture were completed by Dr. Richter today. Will work on glycemic control. Continue with oral agents as well as sliding scale insulin Diabetic education and dietary consulted given elevated A1c at time of admission. Given. Acute nausea. Will give IV Zofran and Reglan. May utilize IV morphine and [place] for pain control Monitor blood pressure and continue on home dose of lisinopril. Lovenox 40mg SQ daily with [facility] for DVT prevention. Recheck CBC and BMP tomorrow morning to follow blood counts, renal function and electrolytes 12/20/16 Persistent nausea, we'll continue Zofran and Reglan. Recheck lab in the morning including a lipase. Appreciate Dr. Lee's consult. We'll continue vancomycin, metronidazole, and ceftriaxone for treatment of her right diabetic foot ulcer. She may benefit from consultation Dr. Peggy Flores next week to facilitate outpatient follow-up. 12/21/16 Nausea, appears to be slightly better controlled. Continue with Reglan, Zofran and scopolamine patch Persistent nausea, we'll continue Zofran and Reglan. Continue with wound vac care and appreciate Dr Lee orthopedic consultation for wound management. Continue with vancomycin, metronidazole, and ceftriaxone for to microbial coverage. Continue with glycemic management, glipizide, Lantus, sliding scale insulin. Monitor blood pressure and continue on lisinopril and Norvasc - 145/71 this am. Persistent leukocytosis, Recheck CBC and BMP tomorrow morning to follow blood counts, renal function and electrolytes. 12/22/16 Overall, nausea, appears to be slightly better today. Will continue on scheduled Reglan is suspicion nausea may be related to gastroparesis. Continue with scopolamine patch, and Zofran. At this time continue with IV Vanco, Rocephin and IV Flagyl for coverage of gram -negative and anaerobes. This may also be contributing to some of her nausea. Lucy with management of foot wound as per wound team and Dr. Lee. Monitor Accu-Cheks and continue with metformin, glipizide, Lantus 15 units at at bedtime and sliding scale insulin. Monitor blood pressure. She was borderline elevated this morning. May need to consider increasing lisinopril dose. At this time will continue to monitor. [place] for pain control Lovenox subcutaneous daily for DVT prophylaxis 12/23/16 Continue IV Vanco, Rocephin and IV Flagyl for coverage of gram-negative and anaerobes. WBC persistently elevated at 14. Continue wound vac and wound care. Will increase lisinopril to 10mg nightly to help blood pressure control. Oral potassium given this am as potassium decreased to 3.2. Will recheck in am and check Mg. D/C IVF - weight up from admission. Nausea decreasing. Blood sugars stable - continue current medications. Consult with Dr Flores for antibiotic recommendation and course length.
--- NOTE | 2016-12-23 16:44 | Wound Care Progress Note ---
Wound Management - Wound Right Foot Wound Type: Diabetic Foot Ulcer Wound Present on Admission?: Yes Length: 8.5 Width: 2.5 Depth: 3.5 Wound Bed Appearance: Beefy Red, Slough Aura Wound Appearance: Macerated Tunneling: Yes (3 oclock - 5cm) Undermining: No Drainage Description: Serosanguineous Drainage Odor: No Odor Dressing Status: Changed Packing Type: Woundvac Sponge Number of Packing Pieces Placed?: 4 Primary Dressing: Transparent Drape Secondary Dressing: Trac Pad Dressing Change Date: 12/23/16 (n) Dressing Change Time: 16:43 Dressing Change Patient Tolerance: Tolerated Well Microbiology: Microbiology 12/18/16 09:34 Peripheral/Iv Start Blood Culture - Final No Growth After 5 Days 12/18/16 09:35 Peripheral/Iv Start Blood Culture - Final No Growth After 5 Days 12/19/16 13:20 Foot, Right, Bone Gram Stain - Final 12/19/16 13:20 Foot, Right, Bone Surgical Culture - Preliminary Coag negative Staphylococcus Corynebacterium species
--- NOTE | 2016-12-23 17:33 | Progress Note ---
DATE 12/23/2016 FINDINGS Ms. Aguirre today stated that she was feeling better than she has for several days. She was upright and sitting in the chair. She was more conversant than she has been in the past. EXAM VITAL SIGNS: Afebrile, normotensive. Please refer to EMR. EXTREMITIES: Attention was focused to the right lower extremity. VAC is in place and remains functioning. The edema and erythema are beginning to dissipate to some extent. LABORATORY/RADIOGRAPHIC EVALUATION The patient has CBC and her white count is stable at 14,000. Slight left shift with 68% neutrophils. CRP was elevated at 125.4. IMPRESSION 46-year-old diabetic female status post excisional surgical debridement of Gonzalez grade 3 right diabetic foot ulcer. Patient showing slow improvement. PLAN I reviewed pathology report that revealed mild acute chronic inflammation with focal necrosis. There was inflammatory infiltrate extending into small fragments of bone tissue consistent with osteomyelitis. Will continue with intravenous antibiotics and negative wound pressure therapy. As stated previously, the patient will need to see a foot/ankle surgeon on an outpatient basis once she has been discharged from our facility for further evaluation and recommendations. Given her degree of neuropathic osteoarthropathy, the patient may ultimately require amputation. JENNIFER
[2016-12-23] MEDS: INSULIN GLARGINE 100unit/ml INJECTION SQ SCH (20:54)
[2016-12-23] MEDS ORDERED: LISINOPRIL 10 MG TABLET PO SCH (21:00)
[2016-12-24] MEDS: CEFTRIAXONE 1 G in NS 100 ML IV SCH ×3 (00:34→23:57)
[2016-12-24] MEDS: SALINE FLUSH 10ml SYRINGE IV PRN ×5 (00:34→20:11)
[2016-12-24] MEDS: NS FLUSH BAG 500ml IV PRN (00:35)
[2016-12-24] MEDS: MetroNIDAZOLE PB 500 MG/100 ML BAG IV SCH ×2 (01:28→12:42)
[2016-12-24] MEDS: METOCLOPRAMIDE 10mg/2ml INJECTION IVP SCH ×4 (03:09→20:30)
[2016-12-24] MEDS: PANTOPRAZOLE 40 MG TABLET PO SCH (06:06)
[2016-12-24] MEDS: ENOXAPARIN 40 MG/0.4 ML INJECTION SQ SCH (09:10)
[2016-12-24] MEDS: AMLODIPINE 10 MG TABLET PO SCH (09:10)
[2016-12-24] MEDS: GlipiZIDE 5 MG TABLET PO SCH ×2 (09:10→17:21)
[2016-12-24] MEDS: MAGNESIUM OXIDE 400 MG TABLET PO SCH (09:11)
[2016-12-24] MEDS: INSULIN REGULAR, HUMAN 100 UNIT/ML INJECTION SQ PRN ×2 (10:14→14:52)
--- NOTE | 2016-12-24 11:23 | CT Scan Report ---
Indication: Slurred speech CT head/brain wo con: Comparison: None Technique: Nonenhanced axial imaging with brain and bone window evaluation and dose reduction imaging technology. Findings: Patient shows normal size ventricles, cisterns and sulci. No hemorrhage, midline shift or mass is identified. The bone windows showed no acute bony abnormality. Sinuses and mastoids were clear. Impression: 1. No acute findings appreciated. 2. No suggestion of hemorrhage, midline shift, mass or bony skull fracture seen. .
--- NOTE | 2016-12-24 12:48 | Progress Note ---
DATE 12/24/2016 FINDINGS Ms. Aguirre this morning informed me that she was slurring her speech and had some weakness in her right hand. Nurse informs me that she had just gotten back from an MRI of her brain. The patient denied much in way of pain involving her right foot. OBJECTIVE VITALS: Afebrile. Normotensive. Please refer to EMR. EXTREMITIES: Attention was focused to her right foot. The erythema and edema continue to improve. Wound VAC is in place and functioning. ASSESSMENT 46-year-old female with right diabetic foot ulceration, Gonzalez grade 3. PLAN The patient is stable from a wound standpoint. Will defer further evaluation of TIA symptomatology to hospitalist system. Will continue to follow along from a wound standpoint. JENNIFER
--- NOTE | 2016-12-24 17:06 | Progress Note ---
- Date 12/24/16 Subjective: F/U: Right diabetic foot ulcer with surrounding cellulitis and osteomyelitis, uncontrolled Type II DM had rough afternoon. Was eating lunch and felt weak to right hand/arm and speech slurred. Improving, but right hand still not feeling 100%. No headache or head pain. No associated nausea. Oral drive has been increasing. No stool output. Less flatus today. Urinating well. Feels edema with slight decrease since IVF stopped. Breathing well-not SOA or congested. No f/c. Objective Vital signs: Temperature 97.7 F 12/24/16 14:45 Pulse Rate 82 12/24/16 14:45 Respiratory Rate 18 12/24/16 14:45 Blood Pressure 159/86 H 12/24/16 14:45 Pulse Oximetry 94 12/24/16 14:45 Height/Weight/BMI: Height 1.7 m Weight 132.2 kg Body Mass Index 43.7 - Constitutional Present: well nourished, well developed, morbidly obese, cooperative. Absent: combative, agitated - Routine HEENT Exam Head: Present: normocephalic, atraumatic Eye: Present: EOMI ENT: Present: mucous membranes moist - Routine Respiratory Exam Present: CTA bilaterally. Absent: rales, respiratory distress, rhonchi, wheezes , crackles - Routine Cardiovascular Exam Present: RRR, no murmur - Routine Abdominal Exam Present: soft, normoactive bowel sounds, non distended, non tender - Routine Extremities Exam Present: edema (+1 BLE ). Absent: cyanosis, clubbing - Routine Musculoskeletal Exam Musculoskeletal: Present: no clubbing or cyanosis, normal strength - Routine Skin Exam Present: warm, wounds (Wound on foot wrapped ) - Routine Neurological Exam Present: alert, oriented X3, CN II-XII intact, moving all extremities, vision grossly intact, hearing grossly intact. Absent: motor deficit, altered mental status - Routine Psychiatric Exam Present: normal affect, normal thought process, cooperative, good insight, good judgment Results - Labs CBC & Chem 7: 12/24/16 03:45 12/24/16 03:45 Microbiology Results: Microbiology 12/19/16 13:20 Foot, Right, Bone Gram Stain - Final 12/19/16 13:20 Foot, Right, Bone Surgical Culture - Final Coag negative Staphylococcus Corynebacterium species 12/18/16 09:34 Peripheral/Iv Start Blood Culture - Final No Growth After 5 Days 12/18/16 09:35 Peripheral/Iv Start Blood Culture - Final No Growth After 5 Days 12/17/16 04:56 Foot,Right Gram Stain - Final 12/17/16 04:56 Foot,Right Superficial Wound Culture - Final Enterococcus faecalis Streptococcus viridans group Coag negative Staphylococcus Assessment and Plan (1) Osteomyelitis of ankle or foot Current visit: Yes Status: Acute (2) Bacteremia due to Enterococcus Current visit: Yes Status: Acute (3) Diabetes mellitus, insulin dependent (IDDM), uncontrolled Current visit: Yes Status: Chronic (4) HTN (hypertension) Current visit: Yes Status: Chronic (5) Gastroparesis due to DM Current visit: Yes Status: Chronic Assessment and Plan: Assessment Right diabetic foot ulcer with surrounding cellulitis and osteomyelitis with subsequent enterococcus bacteremia, failing outpatient treatment Enterococcus bacteremia secondary to above (positive BC from [facility]) Leukocytosis secondary to above Penicillin allergy causing hives Type II DM - uncontrolled Diabetic gastroparesis with severe nausea and vomiting postoperatively. HTN HDL GERD Hypokalemia (not POA) Elevated LFT (not POA) Transient weakness to right hand/arm and slurred speech. ? TIA (12/24/16) Constipation Morbid Obesity with BMI 43.7 Plan Transient weakness to right hand/arm and slurred speech. ? TIA CT scan of brain not showing any acute bleed or mass. Will check Lipid profile due to DM. Check carotid doppler and Echo. Continue IV Vanco, Rocephin and IV Flagyl for coverage of gram-negative and anaerobes. WBC with decrease to 12.1. Continue wound vac and wound care. Blood pressure still showing elevation. Will increase lisinopril to 20mg nightly. Potassium decreased to 3.1. Oral potassium at noon and evening meal today. Start routine Mirlax for constipation - PRN medications not being used. Repeat CBC in am due to leukocytosis. Check BMP due to medication use and hypokalemia. Case discussed with CM. Time spent with patient care 25 minutes. DVT Prophylaxis: Lovenox Resuscitation Status: Full Code Hospital Course Summary Disclaimer: The visit summary below is not to be considered part of the above Progress Note. Hospital Course: 12/17/16 Admission Assessment Right diabetic foot ulcer with surrounding cellulitis failing outpatient treatment Leukocytosis Type II DM - uncontrolled Diabetic gastroparesis HTN HDL GERD Morbid Obesity with BMI 43.7 Plan [place] [facility] [place] foot ulcer failing outpatient treatment, anticipate greater than 2 midnights of care needed. Vancomycin for antimicrobial coverage. Wound Team consult for help with would care. Will consult Dr Richter to potential debridement. MRI of foot to assess for osteomyelitis. Continue home medications. Monitor sugars - ISS ordered to help with glycemic control. Will consult Diabetic education and dietary. Lovenox 40mg SQ daily with [facility] for DVT prevention. Start Protonix 40mg daily due to persistent reflux. Initiate Lisinopril 10mg at night due to HTN and DM. Monitor lab. Discussed code status with patient - requests full resuscitation. Order written. Care to return to Dr Au at [place] of [place] [facility] 12/18/16 Dr Nina MEDINA from [facility] positive. Will have pharmacy dose vancomycin to treat enterococcus as the patient is allergic to penicillin. Repeat blood cultures to rule out persistent enterococcus bacteremia. Await further microbiology results, and meantime we'll discontinue ceftaroline and change to ceftriaxone for gram-negative rods and metronidazole for anaerobes. Wound Team consult for help with would care. Scheduled for wound debridement tomorrow Continue home medications. Monitor sugars - ISS ordered to help with glycemic control. Diabetic education and dietary consulted. Lovenox 40mg SQ daily with [facility] for DVT prevention. On Protonix 40mg daily due to persistent reflux. On Lisinopril 10mg at night due to HTN and DM. Monitor lab. Because of persistent cough will check chest x-ray We'll obtain baseline plain films of both feet to rule out foreign body 12/19/16 Continue with IV Rocephin and IV Flagyl for antimicrobial coverage. Surgical debridement and specimen culture were completed by Dr. Richter today. Will work on glycemic control. Continue with oral agents as well as sliding scale insulin Diabetic education and dietary consulted given elevated A1c at time of admission. Given. Acute nausea. Will give IV Zofran and Reglan. May utilize IV morphine and [place] for pain control Monitor blood pressure and continue on home dose of lisinopril. Lovenox 40mg SQ daily with [facility] for DVT prevention. Recheck CBC and BMP tomorrow morning to follow blood counts, renal function and electrolytes 12/20/16 Persistent nausea, we'll continue Zofran and Reglan. Recheck lab in the morning including a lipase. Appreciate Dr. Lee's consult. We'll continue vancomycin, metronidazole, and ceftriaxone for treatment of her right diabetic foot ulcer. She may benefit from consultation Dr. Peggy Flores next week to facilitate outpatient follow-up. 12/21/16 Nausea, appears to be slightly better controlled. Continue with Reglan, Zofran and scopolamine patch Persistent nausea, we'll continue Zofran and Reglan. Continue with wound vac care and appreciate Dr Lee orthopedic consultation for wound management. Continue with vancomycin, metronidazole, and ceftriaxone for to microbial coverage. Continue with glycemic management, glipizide, Lantus, sliding scale insulin. Monitor blood pressure and continue on lisinopril and Norvasc - 145/71 this am. Persistent leukocytosis, Recheck CBC and BMP tomorrow morning to follow blood counts, renal function and electrolytes. 12/22/16 Overall, nausea, appears to be slightly better today. Will continue on scheduled Reglan is suspicion nausea may be related to gastroparesis. Continue with scopolamine patch, and Zofran. At this time continue with IV Vanco, Rocephin and IV Flagyl for coverage of gram -negative and anaerobes. This may also be contributing to some of her nausea. Lucy with management of foot wound as per wound team and Dr. Lee. Monitor Accu-Cheks and continue with metformin, glipizide, Lantus 15 units at at bedtime and sliding scale insulin. Monitor blood pressure. She was borderline elevated this morning. May need to consider increasing lisinopril dose. At this time will continue to monitor. [place] for pain control Lovenox subcutaneous daily for DVT prophylaxis 12/23/16 Continue IV Vanco, Rocephin and IV Flagyl for coverage of gram-negative and anaerobes. WBC persistently elevated at 14. Continue wound vac and wound care. Will increase lisinopril to 10mg nightly to help blood pressure control. Oral potassium given this am as potassium decreased to 3.2. Will recheck in am and check Mg. D/C IVF - weight up from admission. Liver enzymes with slight elevation - hold metformin and lovastatin. Nausea decreasing. Blood sugars stable. Consult with Dr Flores for antibiotic recommendation and course length. 12/24/16 Transient weakness to right hand/arm and slurred speech. ? TIA CT scan of brain not showing any acute bleed or mass. Will check Lipid profile due to DM. Check carotid doppler and Echo. Continue IV Vanco, Rocephin and IV Flagyl for coverage of gram-negative and anaerobes. WBC with decrease to 12.1. Continue wound vac and wound care. Blood pressure still showing elevation. Will increase lisinopril to 20mg nightly. Potassium decreased to 3.1. Oral potassium at noon and evening meal today. Start routine Mirlax for constipation - PRN medications not being used.
[2016-12-24] MEDS: LISINOPRIL 20 MG TABLET PO SCH (20:07)
[2016-12-24] MEDS: INSULIN GLARGINE 100unit/ml INJECTION SQ SCH (20:07)
[2016-12-25] MEDS: MetroNIDAZOLE PB 500 MG/100 ML BAG IV SCH ×2 (00:38→14:17)
[2016-12-25] MEDS: METOCLOPRAMIDE 10mg/2ml INJECTION IVP SCH ×4 (04:51→21:58)
[2016-12-25] MEDS: PANTOPRAZOLE 40 MG TABLET PO SCH (06:04)
--- NOTE | 2016-12-25 08:06 | General Surgery Progress Note ---
Subjective Narrative: She had some TIA like symptoms yesterday, right hand and arm weakness and slurred speech. She indicates the speech is a little better but the right side weakness is no better and she feels that the right hand and arm are "less coordinated" today. 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 Right arm wants to drift down more than left when held in front of her. - Normal Exam General: awake, alert, oriented Cardiovascular: regular rhythm, regular rate Respiratory: clear bilaterally, equal bilaterally, no labored breathing Abdominal: soft, non-tender Psychiatric: normal affect Wound/Stoma/Drain Assessment - Wound Management Right Foot Wound Type: Diabetic Foot Ulcer Wound Present on Admission?: Yes Wound Staging: Stage III Wound Length: 8.5 Wound Width: 2.5 Wound Depth: 3.5 Wound Packing Type: Woundvac Sponge (in tact and not removed) Number of Packing Pieces Placed?: 4 Primary Dressing: Transparent Drape Secondary Dressing: Trac Pad Dressing Change Date: 12/23/16 (n) Dressing Change Time: 16:43 Assessment and Plan (1) Cellulitis of foot without toes, right Current Visit: Yes Status: Acute (2) Osteomyelitis of ankle or foot Current Visit: Yes Status: Acute Plan: Continue wound vac and ABX. Appreciate Hospitalist team addressing medical concerns. Hospital Course Summary Disclaimer: The visit summary below is not to be considered part of the above Progress Note. Hospital Course: 12/17/16 Admission Assessment Right diabetic foot ulcer with surrounding cellulitis failing outpatient treatment Leukocytosis Type II DM - uncontrolled Diabetic gastroparesis HTN HDL GERD Morbid Obesity with BMI 43.7 Plan Inpatient admission to [facility] for treatment of diabetic foot ulcer failing outpatient treatment, anticipate greater than 2 midnights of care needed. Vancomycin for antimicrobial coverage. Wound Team consult for help with would care. Will consult Dr Richter to potential debridement. MRI of foot to assess for osteomyelitis. Continue home medications. Monitor sugars - ISS ordered to help with glycemic control. Will consult Diabetic education and dietary. Lovenox 40mg SQ daily with SCD for DVT prevention. Start Protonix 40mg daily due to persistent reflux. Initiate Lisinopril 10mg at night due to HTN and DM. Monitor lab. Discussed code status with patient - requests full resuscitation. Order written. Care to return to Dr Au at time of discharge from [facility]. 12/18/16 Dr Wood BC from [place] ED positive. Will have pharmacy dose vancomycin to treat enterococcus as the patient is allergic to penicillin. Repeat blood cultures to rule out persistent enterococcus bacteremia. Await further microbiology results, and meantime we'll discontinue ceftaroline and change to ceftriaxone for gram-negative rods and metronidazole for anaerobes. Wound Team consult for help with would care. Scheduled for wound debridement tomorrow Continue home medications. Monitor sugars - ISS ordered to help with glycemic control. Diabetic education and dietary consulted. Lovenox 40mg SQ daily with SCD for DVT prevention. On Protonix 40mg daily due to persistent reflux. On Lisinopril 10mg at night due to HTN and DM. Monitor lab. Because of persistent cough will check chest x-ray We'll obtain baseline plain films of both feet to rule out foreign body 12/19/16 Continue with IV Rocephin and IV Flagyl for antimicrobial coverage. Surgical debridement and specimen culture were completed by Dr. Richter today. Will work on glycemic control. Continue with oral agents as well as sliding scale insulin Diabetic education and dietary consulted given elevated A1c at time of admission. Given. Acute nausea. Will give IV Zofran and Reglan. May utilize IV morphine and Oliver for pain control Monitor blood pressure and continue on home dose of lisinopril. Lovenox 40mg SQ daily with SCD for DVT prevention. Recheck CBC and BMP tomorrow morning to follow blood counts, renal function and electrolytes 12/20/16 Persistent nausea, we'll continue Zofran and Reglan. Recheck lab in the morning including a lipase. Appreciate Dr. Lee's consult. We'll continue vancomycin, metronidazole, and ceftriaxone for treatment of her right diabetic foot ulcer. She may benefit from consultation Dr. Peggy Flores next week to facilitate outpatient follow-up. 12/21/16 Nausea, appears to be slightly better controlled. Continue with Reglan, Zofran and scopolamine patch Persistent nausea, we'll continue Zofran and Reglan. Continue with wound vac care and appreciate Dr Lee orthopedic consultation for wound management. Continue with vancomycin, metronidazole, and ceftriaxone for to microbial coverage. Continue with glycemic management, glipizide, Lantus, sliding scale insulin. Monitor blood pressure and continue on lisinopril and Norvasc - 145/71 this am. Persistent leukocytosis, Recheck CBC and BMP tomorrow morning to follow blood counts, renal function and electrolytes. 12/22/16 Overall, nausea, appears to be slightly better today. Will continue on scheduled Reglan is suspicion nausea may be related to gastroparesis. Continue with scopolamine patch, and Zofran. At this time continue with IV Vanco, Rocephin and IV Flagyl for coverage of gram -negative and anaerobes. This may also be contributing to some of her nausea. Lucy with management of foot wound as per wound team and Dr. Lee. Monitor Accu-Cheks and continue with metformin, glipizide, Lantus 15 units at at bedtime and sliding scale insulin. Monitor blood pressure. She was borderline elevated this morning. May need to consider increasing lisinopril dose. At this time will continue to monitor. Oliver for pain control Lovenox subcutaneous daily for DVT prophylaxis 12/23/16 Continue IV Vanco, Rocephin and IV Flagyl for coverage of gram-negative and anaerobes. WBC persistently elevated at 14. Continue wound vac and wound care. Will increase lisinopril to 10mg nightly to help blood pressure control. Oral potassium given this am as potassium decreased to 3.2. Will recheck in am and check Mg. D/C IVF - weight up from admission. Liver enzymes with slight elevation - hold metformin and lovastatin. Nausea decreasing. Blood sugars stable. Consult with Dr Flores for antibiotic recommendation and course length. 12/24/16 Transient weakness to right hand/arm and slurred speech. ? TIA CT scan of brain not showing any acute bleed or mass. Will check Lipid profile due to DM. Check carotid doppler and Echo. Continue IV Vanco, Rocephin and IV Flagyl for coverage of gram-negative and anaerobes. WBC with decrease to 12.1. Continue wound vac and wound care. Blood pressure still showing elevation. Will increase lisinopril to 20mg nightly. Potassium decreased to 3.1. Oral potassium at noon and evening meal today. Start routine Mirlax for constipation - PRN medications not being used.
[2016-12-25] MEDS ORDERED: SALINE FLUSH *Sterile* 10 ML SYRINGE ONE (08:17)
[2016-12-25] MEDS: AMLODIPINE 10 MG TABLET PO SCH (08:33)
[2016-12-25] MEDS: ENOXAPARIN 40 MG/0.4 ML INJECTION SQ SCH (08:33)
[2016-12-25] MEDS: GlipiZIDE 5 MG TABLET PO SCH ×2 (08:33→17:50)
[2016-12-25] MEDS: MAGNESIUM OXIDE 400 MG TABLET PO SCH (08:33)
[2016-12-25] MEDS: SALINE FLUSH 10ml SYRINGE IV PRN ×4 (08:56→22:10)
[2016-12-25] MEDS: SENNA + DOCUSATE TABLET PO PRN (09:06)
[2016-12-25] MEDS: ACETAMINOPHEN 325 MG TABLET PO PRN (09:06)
--- NOTE | 2016-12-25 09:21 | Infectious Disease Consult ---
Infectious Disease Consult Date of Consultation: 12/25/16 Requesting Physician: Cassius Disla Reason for Consultation: antibiotic recs History of Present Illness: Ms. Aguirre is a 46 yo diabetic woman who reports that she's had a wound on her right foot for at least a month. She's not sure how this started. It continued to worsen, so she went to her PCP, Dr. Au in [place], [place]. She was placed on Bactrim one week prior to admission. It continued to worsen, so she presented to the ED in [place] on 12/16 to have it evaluated. She was transferred here for admission. One of her blood cultures drawn in [place] is positive for Enterococcus per report. She's been on Vancomycin, ceftaroline , and flagyl, and is currently on Vanco, ceftriaxone and flagyl. Blood cultures here on 12/18 are negative. Wound cultures are noted below. She was taken to the OR on 12/19 for debridement and was noted to have osteo involving the cuboid bone. Bone cultures grew CoNS and corynebacterium. There has been some discussion regarding referring her to a Foot and Ankle Orthopedic surgeon. She has been seen by Dr. Lee, who recommends trying to avoid a BKA. I've been asked to help with IV antibiotics. Medications Home Medications Medication Instructions Recorded Confirmed Type Amlodipine [Norvasc] 10 mg PO DAILY 12/17/16 12/17/16 History Aspirin [ASA] 325 mg PO 12/17/16 History GlipiZIDE 10 mg BIDWM 12/17/16 12/17/16 History HydroCHLOROthiazide [Hydrodiuril] 1 tab PO WB 12/17/16 12/17/16 History Lovastatin [Mevacor] 40 mg PO HS 12/17/16 12/17/16 History Magnesium Oxide [Magnesium] 1 tab PO DAILY 12/17/16 12/17/16 History Mecobalamin [B-12] 5,000 mcg PO 12/17/16 History Metformin [Glucophage] 1 tab PO BIDWM 12/17/16 12/17/16 History Potassium Gluconate [Potassium] 99 mg PO 12/17/16 History Olga's Wort 12/17/16 History Vit C/Ascorbate Calcium,Sodium 500 mg PO 12/17/16 History [Vitamin C 500 mg/15 ml Liquid] Allergies Allergy/AdvReac Type Severity Reaction Status Date / Time clindamycin Allergy Verified 12/17/16 04:00 Penicillins Allergy Verified 12/17/16 04:00 tetracycline Allergy Verified 12/17/16 04:00 [facility]LY [facility] Patient Stated Medical History Peripheral Neuropathy Yes Other HEENT Yes: RECENT CHANGES IN VISION Heart Murmur Yes Hypertension Yes Other Cardiology Yes: ENLARGED HEART Bronchitis Yes Sleep Apnea Yes: YEARS AGO-HAD A CPAP Diabetes Mellitus Type 1 Yes: With vision issues and lower extremity neuropathy Diabetes Mellitus Type 2 Yes Other GI Yes: DIABETIC GASTROPARESIS Hx Incontinence Yes MRSA Yes Depression Yes Painful Menstruation Yes Other Reproductive Yes: CURRENTLY MENOPAUSAL IDDM, last hgb A1C was one week ago and was 10.1 HTN, GONZALEZ, Dyslipidemia, ENEDINA, Diabetic gastroparesis Surgical History: I&D R foot ulcer/osteo 12/19/16 Family History: diabetes in both parents with complications - Social History Smoking status: Never smoker Does patient use chewing tobacco?: No Review of Systems All systems PM: 10-point ROS was reviewed, no additional remarkable complaints except - Constitutional Constitutional: Absent: chills, fever(s) - EENMT Eyes: Absent: change in vision Mouth/Throat: Absent: sore throat - Cardiovascular Cardiovascular: Absent: chest pain - Respiratory Respiratory: Absent: cough, dyspnea - Gastrointestinal Gastrointestinal: Present: nausea (improved), vomiting (improved). Absent: diarrhea - Genitourinary Genitourinary: Absent: dysuria - Musculoskeletal Musculoskeletal: Present: deformity (R foot, Charcot deformity). Absent: myalgias - Integumentary/Breasts Integumentary: Absent: rash - Neurological Neurological: Absent: headache(s) Neurological Comments: Yesterday she had difficulty using her R hand and had difficulty speaking, so she had a CT head Exam Vital Signs: Temperature 96.8 F 12/25/16 08:23 Pulse Rate 86 12/25/16 09:01 Respiratory Rate 18 12/25/16 08:23 Blood Pressure 157/98 H 12/25/16 09:01 Pulse Oximetry 98 12/25/16 08:23 Height/Weight/BMI: Height 1.7 m Weight 130.4 kg Body Mass Index 43.7 - Constitutional Present: no acute distress, well nourished, well developed - Routine HEENT Exam Head: Present: normocephalic, atraumatic Eye: Present: EOMI, PERRL ENT: Present: mucous membranes moist, dentition normal - Routine Neck Exam Present: supple - Routine Respiratory Exam Present: CTA bilaterally. Absent: accessory muscle use - Routine Cardiovascular Exam Present: RRR. Absent: murmur - Routine Abdominal Exam Present: soft, normoactive bowel sounds, non distended, non tender. Absent: rebound, guarding - Routine Extremities Exam Present: edema (R foot). Absent: cyanosis, clubbing Comments: R foot is wrapped with wound VAC in place - Routine Skin Exam Present: intact. Absent: rash - Routine Neurological Exam Present: alert, oriented X3, CN II-XII intact. Absent: motor deficit - Routine Psychiatric Exam Present: normal affect Results - Labs CBC & Chem 7: 12/25/16 04:17 12/25/16 04:17 Microbiology Results: Microbiology 12/19/16 13:20 Foot, Right, Bone Gram Stain - Final 12/19/16 13:20 Foot, Right, Bone Surgical Culture - Final Coag negative Staphylococcus Corynebacterium species 12/18/16 09:34 Peripheral/Iv Start Blood Culture - Final No Growth After 5 Days 12/18/16 09:35 Peripheral/Iv Start Blood Culture - Final No Growth After 5 Days 12/17/16 04:56 Foot,Right Gram Stain - Final 12/17/16 04:56 Foot,Right Superficial Wound Culture - Final Enterococcus faecalis Streptococcus viridans group Coag negative Staphylococcus - Impressions MRI: Mid foot ulcer with plantar abscesses and osteomyelitis of the mid foot. Osteomyelitis definitely involves the cuboid bone. There is disorganization of the mid foot with a Lisfranc dislocation. It is difficult to determine how much of the other mid foot signal abnormalities are from the dislocation or could be due to a neuropathic foot or osteomyelitis. Impression: Right diabetic foot ulcer with surrounding cellulitis and osteomyelitis of the cuboid bone, s/p I&D 12/19, bone culture with CoNS Enterococcus bacteremia, presumed secondary to skin/musculoskeletal source. (+ BC from 12/16). Leukocytosis Penicillin allergy causing hives Type II DM, IR, poorly controlled Diabetic gastroparesis with severe nausea and vomiting postoperatively. HTN HLD GERD Transient weakness to right hand/arm and slurred speech. ? TIA (12/24/16) Constipation Morbid Obesity with BMI 43.7 Recommendation: Continue Vancomycin, ceftriaxone and flagyl for now. I discussed with her that osteomyelitis is typically treated with debridement and 6 weeks of IV antibiotics. I'm not very optimistic that a long course of IV antibiotics will cure this infection, and she might need a BKA. PICC has been ordered for today.
--- NOTE | 2016-12-25 10:28 | Ultrasound Report ---
EXAM: US carotid doppler LOCATION OF DICTATION: [facility]. HISTORY: ? TIA COMPARISON: None available. TECHNIQUE: Ultrasound evaluation of both the right and left carotid arteries was performed using 2D, chavira-scale imaging and realtime, color Doppler flow, and spectral analysis. FINDINGS: There is mild atherosclerotic plaquing noted. PEAK VELOCITIES (cm/s) CCA: RIGHT: 108 cm/s LEFT: 90 cm/s ICA: RIGHT: 100 cm/s LEFT: 132 cm/s ECA: RIGHT: 162 cm/s LEFT: 179 cm/s ICA/CCA Ratio: RIGHT: 0.9 LEFT: 1.5 VERT: RIGHT: Antegrade. LEFT: Antegrade. COMMENTS: The velocities obtained are in the less than 50% stenosis range ARTERIES. This is based on the consensus panel criteria. IMPRESSION: No hemodynamically significant stenosis within either ICA. .
[2016-12-25] MEDS: INSULIN REGULAR, HUMAN 100 UNIT/ML INJECTION SQ PRN ×3 (11:08→21:57)
--- NOTE | 2016-12-25 12:06 | Progress Note ---
<Maryam Collazo V - Last Filed: 12/25/16 12:02> - Date 12/25/16 Subjective: Alona is seen today in follow up. She continues to reports having right arm weakness. She is able to lift arms bilaterally in the air on command. Hand grasp is slightly weaker on the right. She is unable to do [id number]. All CN 2-12 are intact otherwise. No visual changes, She does think that her speech is slurred. I do not appreciate any slurring during exam. Denies nausea or abdominal pain. Objective Vital signs: Temperature 96.8 F 12/25/16 08:23 Pulse Rate 86 12/25/16 09:01 Respiratory Rate 18 12/25/16 08:23 Blood Pressure 157/98 H 12/25/16 09:01 Pulse Oximetry 98 12/25/16 08:23 Height/Weight/BMI: Height 1.7 m Weight 130.4 kg Body Mass Index 43.7 - Constitutional Present: no acute distress, well nourished, well developed - Routine HEENT Exam Eye: Present: EOMI ENT: Present: mucous membranes moist, dentition normal - Routine Respiratory Exam Present: CTA bilaterally. Absent: wheezes - Routine Cardiovascular Exam Present: RRR, S1, S2. Absent: murmur - Routine Abdominal Exam Present: soft, normoactive bowel sounds, non distended. Absent: tenderness - Routine Extremities Exam Present: pulses intact Comments: Right arm strength- 2/5 Left arm strength- 5/5 - Routine Back/Spine/Pelvis Exam Back/Spine: Present: full ROM - Routine Skin Exam Present: intact, dry, warm - Routine Neurological Exam Present: alert, oriented X3, CN II-XII intact, motor deficit (right hand weakness), vision grossly intact, hearing grossly intact - Routine Lymphatic Exam Lymphatic: Absent: adenopathy - Routine Psychiatric Exam Present: normal affect, cooperative Results - Labs CBC & Chem 7: 12/25/16 04:17 12/25/16 04:17 Microbiology Results: Microbiology 12/19/16 13:20 Foot, Right, Bone Gram Stain - Final 12/19/16 13:20 Foot, Right, Bone Surgical Culture - Final Coag negative Staphylococcus Corynebacterium species 12/18/16 09:34 Peripheral/Iv Start Blood Culture - Final No Growth After 5 Days 12/18/16 09:35 Peripheral/Iv Start Blood Culture - Final No Growth After 5 Days 12/17/16 04:56 Foot,Right Gram Stain - Final 12/17/16 04:56 Foot,Right Superficial Wound Culture - Final Enterococcus faecalis Streptococcus viridans group Coag negative Staphylococcus Assessment and Plan (1) Diabetes mellitus, insulin dependent (IDDM), uncontrolled Current visit: Yes Status: Chronic (2) HTN (hypertension) Current visit: Yes Status: Chronic (3) Gastroparesis due to DM Current visit: Yes Status: Chronic (4) Osteomyelitis of ankle or foot Current visit: Yes Status: Acute (5) Bacteremia due to Enterococcus Current visit: Yes Status: Acute Assessment and Plan: Assessment Right diabetic foot ulcer with surrounding cellulitis and osteomyelitis with subsequent enterococcus bacteremia, failing outpatient treatment Enterococcus bacteremia secondary to above (positive BC from [facility]) Leukocytosis secondary to above Penicillin allergy causing hives Type II DM - uncontrolled Diabetic gastroparesis with severe nausea and vomiting postoperatively. HTN HDL GERD Hypokalemia (not POA) Elevated LFT (not POA) Transient weakness to right hand/arm and slurred speech. ? TIA (12/24/16) Constipation Morbid Obesity with BMI 43.7 Plan Transient weakness to right hand/arm and slurred speech continue intermittent. CT head and carotid doppler were negative. Lipid panel pending ECHO pending read Have placed PT/OT consults to evaluate right hand weakness Continue with IV vancomycin, Rocephin and Flagyl for coverage of gram-negative and anaerobes. Appreciate Dr Flores consultation Wound Vac as per wound team Continue to monitor blood sugars. Recheck CBC and CMP tomorrow Hospital Course Summary Disclaimer: The visit summary below is not to be considered part of the above Progress Note. Hospital Course: 12/17/16 Admission Assessment Right diabetic foot ulcer with surrounding cellulitis failing outpatient treatment Leukocytosis Type II DM - uncontrolled Diabetic gastroparesis HTN HDL GERD Morbid Obesity with BMI 43.7 Plan Inpatient admission to [facility] [place] of diabetic foot ulcer failing outpatient treatment, anticipate greater than 2 midnights of care needed. Vancomycin for antimicrobial coverage. Wound Team consult for help with would care. Will consult Dr Richter to potential debridement. MRI of foot to assess for osteomyelitis. Continue home medications. Monitor sugars - ISS ordered to help with glycemic control. Will consult Diabetic education and dietary. Lovenox 40mg SQ daily with SCD for DVT prevention. Start Protonix 40mg daily due to persistent reflux. Initiate Lisinopril 10mg at night due to HTN and DM. Monitor lab. Discussed code status with patient - requests full resuscitation. Order written. Care to return to Dr Au at time of discharge from [facility]. 12/18/16 Dr Nina MEDINA from [facility] positive. Will have pharmacy dose vancomycin to treat enterococcus as the patient is allergic to penicillin. Repeat blood cultures to rule out persistent enterococcus bacteremia. Await further microbiology results, and meantime we'll discontinue ceftaroline and change to ceftriaxone for gram-negative rods and metronidazole for anaerobes. Wound Team consult for help with would care. Scheduled for wound debridement tomorrow Continue home medications. Monitor sugars - ISS ordered to help with glycemic control. Diabetic education and dietary consulted. Lovenox 40mg SQ daily with SCD for DVT prevention. On Protonix 40mg daily due to persistent reflux. On Lisinopril 10mg at night due to HTN and DM. Monitor lab. Because of persistent cough will check chest x-ray We'll obtain baseline plain films of both feet to rule out foreign body 12/19/16 Continue with IV Rocephin and IV Flagyl for antimicrobial coverage. Surgical debridement and specimen culture were completed by Dr. Richter today. Will work on glycemic control. Continue with oral agents as well as sliding scale insulin Diabetic education and dietary consulted given elevated A1c at time of admission. Given. Acute nausea. Will give IV Zofran and Reglan. May utilize IV morphine and [place] for pain control Monitor blood pressure and continue on home dose of lisinopril. Lovenox 40mg SQ daily with SCD for DVT prevention. Recheck CBC and BMP tomorrow morning to follow blood counts, renal function and electrolytes 12/20/16 Persistent nausea, we'll continue Zofran and Reglan. Recheck lab in the morning including a lipase. Appreciate Dr. Lee's consult. We'll continue vancomycin, metronidazole, and ceftriaxone for treatment of her right diabetic foot ulcer. She may benefit from consultation Dr. Peggy Flores next week to facilitate outpatient follow-up. 12/21/16 Nausea, appears to be slightly better controlled. Continue with Reglan, Zofran and scopolamine patch Persistent nausea, we'll continue Zofran and Reglan. Continue with wound vac care and appreciate Dr Lee orthopedic consultation for wound management. Continue with vancomycin, metronidazole, and ceftriaxone for to microbial coverage. Continue with glycemic management, glipizide, Lantus, sliding scale insulin. Monitor blood pressure and continue on lisinopril and Norvasc - 145/71 this am. Persistent leukocytosis, Recheck CBC and BMP tomorrow morning to follow blood counts, renal function and electrolytes. 12/22/16 Overall, nausea, appears to be slightly better today. Will continue on scheduled Reglan is suspicion nausea may be related to gastroparesis. Continue with scopolamine patch, and Zofran. At this time continue with IV Vanco, Rocephin and IV Flagyl for coverage of gram -negative and anaerobes. This may also be contributing to some of her nausea. Lucy with management of foot wound as per wound team and Dr. Lee. Monitor Accu-Cheks and continue with metformin, glipizide, Lantus 15 units at at bedtime and sliding scale insulin. Monitor blood pressure. She was borderline elevated this morning. May need to consider increasing lisinopril dose. At this time will continue to monitor. [place] for pain control Lovenox subcutaneous daily for DVT prophylaxis 12/23/16 Continue IV Vanco, Rocephin and IV Flagyl for coverage of gram-negative and anaerobes. WBC persistently elevated at 14. Continue wound vac and wound care. Will increase lisinopril to 10mg nightly to help blood pressure control. Oral potassium given this am as potassium decreased to 3.2. Will recheck in am and check Mg. D/C IVF - weight up from admission. Liver enzymes with slight elevation - hold metformin and lovastatin. Nausea decreasing. Blood sugars stable. Consult with Dr Flores for antibiotic recommendation and course length. 12/24/16 Transient weakness to right hand/arm and slurred speech. ? TIA CT scan of brain not showing any acute bleed or mass. Will check Lipid profile due to DM. Check carotid doppler and Echo. Continue IV Vanco, Rocephin and IV Flagyl for coverage of gram-negative and anaerobes. WBC with decrease to 12.1. Continue wound vac and wound care. Blood pressure still showing elevation. Will increase lisinopril to 20mg nightly. Potassium decreased to 3.1. Oral potassium at noon and evening meal today. Start routine Mirlax for constipation - PRN medications not being used. 12/25/16- Consult to PT/OT for right hand weakness. Continue with ABX, awaiting of recommendations by Dr Flores. ECHO pending. <Cassius Disla D - Last Filed: 12/25/16 19:19> - Date 12/25/16 Objective Vital signs: Temperature 97.7 F 12/25/16 16:01 Pulse Rate 87 12/25/16 16:57 Respiratory Rate 18 12/25/16 15:43 Blood Pressure 166/91 H 12/25/16 16:57 Pulse Oximetry 99 12/25/16 15:43 Height/Weight/BMI: Height 1.7 m Weight 130.4 kg Body Mass Index 43.7 Results - Labs CBC & Chem 7: 12/25/16 04:17 12/25/16 04:17 Microbiology Results: Microbiology 12/19/16 13:20 Foot, Right, Bone Gram Stain - Final 12/19/16 13:20 Foot, Right, Bone Surgical Culture - Final Coag negative Staphylococcus Corynebacterium species 12/18/16 09:34 Peripheral/Iv Start Blood Culture - Final No Growth After 5 Days 12/18/16 09:35 Peripheral/Iv Start Blood Culture - Final No Growth After 5 Days 12/17/16 04:56 Foot,Right Gram Stain - Final 12/17/16 04:56 Foot,Right Superficial Wound Culture - Final Enterococcus faecalis Streptococcus viridans group Coag negative Staphylococcus Assessment and Plan (1) Osteomyelitis of ankle or foot Current visit: Yes Status: Acute (2) Bacteremia due to Enterococcus Current visit: Yes Status: Acute (3) Diabetes mellitus, insulin dependent (IDDM), uncontrolled Current visit: Yes Status: Chronic (4) HTN (hypertension) Current visit: Yes Status: Chronic (5) Gastroparesis due to DM Current visit: Yes Status: Chronic Assessment and Plan: Assessment Right diabetic foot ulcer with surrounding cellulitis and osteomyelitis with subsequent enterococcus bacteremia, failing outpatient treatment Enterococcus bacteremia secondary to above (positive BC from [facility]) Leukocytosis secondary to above Penicillin allergy causing hives Type II DM - uncontrolled Diabetic gastroparesis with severe nausea and vomiting postoperatively. HTN HDL GERD Hypokalemia (not POA) Elevated LFT (not POA) Weakness to right hand/arm and slurred speech - MRI showing CVA (10/25) Constipation Morbid Obesity with BMI 43.7 Have independently interviewed and examined pt. Chart reviewed. Case discussed with CM and my [employer] SUPERVIS[employer]. Care plan developed with my supervision; agree with above. Still having weakness and coordination problems to right arm. Speech off. MRI does show stroke changes. Nausea decreasing-able to eat better. Pt report BP higher as upset with sister (had arguments on phone). Breathing stable. Lungs: clear, no distress CV: regular MSE: awake alert Neuro: incoordination and weakness to RUE Lab: Potassium normal at 3.6. WBC with decrease to 11.6 and CRP decreasing. Plan: Add Plavix to to CVA. PT/OT to help functional status. Will restart lovastatin due to stroke. Consult with Neurology. PICC line placed today. ID recommending 6 weeks of IV antibiotics. Continue wound vac. Monitor lab. DVT Prophylaxis: Lovenox Resuscitation Status: Full Code Hospital Course Summary Disclaimer: The visit summary below is not to be considered part of the above Progress Note.
[2016-12-25] MEDS: CEFTRIAXONE 1 G in NS 100 ML IV SCH (13:42)
--- NOTE | 2016-12-25 14:14 | Fluoroscopy Report ---
Indication:IV ANTIBIOTICS Procedure:FL guided PICC insertion PICC LINE INSERTION: After discussing the details of the procedure, including risks, the patient wished to proceed. Informed consent was obtained. A preprocedural timeout was performed to confirm the correct patient and procedure. Sterile technique, local Xylocaine anesthesia, and sonographic guidance was used to access the left basilic vein. A .018 guidewire was advanced into the vein. Then using fluoroscopic guidance, a single lumen 4 Fr PICC line was advanced with the tip placed within the SVC. Catheter length is 50 cm. A fluoroscopic image was then taken and archived. I was able to aspirate blood and inject freely through the port. The procedure was completed without complication. Following this, the patient was taken back to her room on the medical floor in stable condition. Impression:Successful left-sided PICC line placement with the tip residing near the cavoatrial junction. Fluoroscopy dose: 8.12 mGy (Cumulative air kerma) Keron Stubbs RPA/DANIS performed this under my personal supervision. .
--- NOTE | 2016-12-25 17:46 | Magnetic Resonance Report ---
Indication: ? CVA, Right hand weakness, slurred speech PROCEDURE: MR head/brain wo con: Encounter: Initial Comparisons: Head CT dated December 24, 2016 Technique: Multiplanar, multisequence, MR imaging of the head without contrast was acquired. FINDINGS: The ventricles are of normal size, shape, and contour for the patient's age. Multifocal small areas of acute diffusion restriction in the left frontal and parietal lobes involving the periventricular and subcortical white matter. Some of the territory involved is in the watershed between the MCA and CANDY BUTCHER. No areas of diffusion restriction noted in the right cerebral hemisphere. The areas of acute infarction have expected T2/FLAIR hyperintensity. There is an area of T1 and T2 hyperintensity in the right posterior aspect of the external capsule best seen on axial FLAIR image #13 measuring 7 mm in anteroposterior length. This corresponds to an area of high attenuation on the comparison CT study on axial image #22 of that exam. The brain stem, cerebellum, and cerebral hemispheres have a normal morphologic appearance as well as MR signal intensity on all pulse sequences. There is no evidence of an intracranial mass lesion, intracranial hemorrhage, or hydrocephalus. The visualized portions of the orbits, calvarium, paranasal sinuses, and skull base demonstrate no significant abnormality. IMPRESSION: 1. Areas of acute infarct predominantly in the left MCA territory involving the frontal and parietal lobes with some areas of watershed ischemia. 2. Area of T1 and T2 hyperintensity which had a hyperdense appearance on recent CT scan. This could represent a punctate area of hemorrhage or calcification. Follow-up head CT may be helpful to document stability. .
[2016-12-25] MEDS: POLYETHYL GLYCOL 3350 17gm PACKET PO SCH (17:50)
[2016-12-25] MEDS: CLOPIDOGREL 75 MG TABLET PO SCH (18:20)
[2016-12-25] MEDS: INSULIN GLARGINE 100unit/ml INJECTION SQ SCH (21:57)
[2016-12-25] MEDS: LISINOPRIL 20 MG TABLET PO SCH (22:02)
[2016-12-25] MEDS: LOVASTATIN 40 MG TABLET PO SCH (22:08)
[2016-12-26] MEDS: CEFTRIAXONE 1 G in NS 100 ML IV SCH ×2 (00:22→11:58)
[2016-12-26] MEDS: ACETAMINOPHEN 325 MG TABLET PO PRN (00:54)
[2016-12-26] MEDS: MetroNIDAZOLE PB 500 MG/100 ML BAG IV SCH ×2 (01:08→12:46)
[2016-12-26] MEDS: METOCLOPRAMIDE 10mg/2ml INJECTION IVP SCH ×4 (03:55→22:14)
[2016-12-26] MEDS: PANTOPRAZOLE 40 MG TABLET PO SCH (05:37)
[2016-12-26] MEDS: INSULIN REGULAR, HUMAN 100 UNIT/ML INJECTION SQ PRN ×4 (07:29→22:25)
[2016-12-26] MEDS: CLOPIDOGREL 75 MG TABLET PO SCH (08:31)
[2016-12-26] MEDS: AMLODIPINE 10 MG TABLET PO SCH (08:31)
[2016-12-26] MEDS: POLYETHYL GLYCOL 3350 17gm PACKET PO SCH ×2 (08:31→15:55)
[2016-12-26] MEDS: MAGNESIUM OXIDE 400 MG TABLET PO SCH (08:32)
[2016-12-26] MEDS: GlipiZIDE 5 MG TABLET PO SCH ×2 (08:32→16:58)
[2016-12-26] MEDS: ENOXAPARIN 40 MG/0.4 ML INJECTION SQ SCH (08:33)
[2016-12-26] MEDS: SALINE FLUSH 10ml SYRINGE IV PRN ×3 (08:41→22:29)
[2016-12-26] MEDS: LISINOPRIL 20 MG TABLET PO SCH ×2 (09:44→22:14)
--- NOTE | 2016-12-26 10:41 | Pharmacy Consult-Antibiotics ---
Pharmacy Consult-Vancomycin - Laboratory Information WBC 12.6 T/MM3 (4.5-11.0) H 12/26/16 04:33 BUN 5.0 MG/DL (7-17) L 12/26/16 04:33 Creatinine 0.5 MG/DL (0.7-1.2) L 12/26/16 04:33 Vancomycin Trough 20.68 UG/ML (15-20) H 12/26/16 01:37 - Consult Information Reduced vancomycin to 1750mg IV q8h. Will continue to monitor and adjust if necessary. Thank you.
--- NOTE | 2016-12-26 10:52 | CT Scan Report ---
EXAM: CT head/brain wo con HISTORY: concern for bleeding COMPARISON: Prior examination dated 12/24/2016. Contiguous axial images of the brain without intravenous contrast were performed. The current CT scan was performed using radiation dose-reduction techniques. FINDINGS: The cortical sulci are well-maintained. The ventricles are midline and appear normal in size and configuration demonstrating no evidence of mass effect or midline shift. Normal chavira-white matter differentiation is seen and there is no evidence of acute intracranial hemorrhage or acute transcortical infarct. There is a stable tiny hyperdense focus in the right basal ganglia likely representing physiologic calcification. There is mild periventricular white matter hypoattenuation likely reflecting mild chronic small vessel ischemic change. No extra-axial masses or fluid collections are identified. The visualized bony calvarium appears intact and the paranasal sinuses are clear. There are stable subcentimeter lymph nodes along the posterior occipital scalp region and in the region of both parotid glands. When compared to the prior examination is no significant interval change. IMPRESSION: 1. Stable appearance of the noncontrast CT scan of the head again showing no definite acute intracranial process. 2. Mild periventricular white matter chronic small vessel ischemic change. .
[2016-12-26] MEDS: HYDRALAZINE 10 MG TABLET PO PRN (11:00)
--- NOTE | 2016-12-26 12:00 | Consultation ---
DATE: 12/26/16 REFERRING PHYSICIAN: Dr. Disla CHIEF COMPLAINT: Right-sided weakness and dysarthria. HISTORY OF PRESENT ILLNESS Patient is a 46-year-old female who was initially admitted to [facility] for right foot wound treatment and amputation associated with history of diabetes. The patient is known to have diabetic neuropathy and hypertension. During her admission the patient had sudden onset of right upper extremity weakness and coordination problem. She also had dysarthria and difficulty finding words. Her symptoms gradually improved over the course of her admission. She had a CT of the head initially that showed a small calcification or bleeding in the right hemisphere. The patient then had an MRI of the brain that showed acute ischemic stroke involving the left middle cerebral artery distribution. The potential bleed or calcification did increase slightly in size since then. The patient was having increased blood pressure in the 180/90 range. This had been triggered by stress and anxiety. The patient described having a moderate headache which later improved. Currently the patient continues to have some mild right upper extremity weakness and coordination problem. Her speech is still dysarthric and slow. She reports no headache at present time. PHYSICAL EXAMINATION The patient was awake, alert, oriented x3. Pupils were round, reactive and equal. Extraocular muscles were intact. Visual field was full. Speech was slow and dysarthric. Facial motor and sensory were affected on the right compared to the left. Her motor examination on the right upper extremity was 4/ 5; on the left upper extremity was 5-/5, on the lower extremities on the right it was 4+ to 5-/5, on the left it was 5-/5. Sensory was diminished in the legs up to the knees and in the hands bilaterally. Deep tendon reflexes were 2/4. Plantar reflex on the left was normal. On the right it was not obtained due to amputation of the foot. Coordination for [id number] was abnormal on the right compared to the left. ASSESSMENT 1. Acute ischemic stroke involving the left middle cerebral artery distribution. This has been complicated by a potential bleed or calcification in the right hemisphere. This could have been also the result of morbid hypertension. The patient was taking a regular aspirin at home prior to her admission for stroke prevention. She was started on Plavix in addition to Lovenox for DVT prophylaxis. She continues to have problem with blood pressure. The patient had her stroke after the wound cleaning surgery which can introduce a risk for fatty embolus. The patient is known to have a history of heart murmur and no known PFOs or other opening is in the heart. PLAN 1. Obtain a CT scan of the head to assess any increase in the bleed size or change in the calcification size. 2. Continue Plavix if the CT of the head is unremarkable. 3. Switch from Plavix to baby aspirin if there is evidence of a small hemorrhage. 4. Avoid any anticoagulation if there is any increase in the size of bleed until problem resolves. 5. Optimize treatment for hypertension and keep it in the 150/80 range. 6. Follow up on the results of the echocardiogram and consider having a NILS to check for PFOs and other heart opening problems. 7. Monitored the patient for any potential risk for arrhythmia in the heart which can increase her risk for stroke. JENNIFER
--- NOTE | 2016-12-26 12:06 | Progress Note ---
<aMryam Collazo V - Last Filed: 12/26/16 12:03> - Date 12/26/16 Subjective: Alona is seen today in follow up this morning. She reports overall she is feeling good. She does having some mild slurred speech and does continue to have right hand weakness. No chest pain or shortness of breath. No abdominal pain or nausea. BP has continued to be increased 170's-180's. Objective Vital signs: Temperature 97.3 F 12/26/16 08:00 Pulse Rate 83 12/26/16 09:32 Respiratory Rate 16 12/26/16 08:00 Blood Pressure 178/81 H 12/26/16 10:44 Pulse Oximetry 98 12/26/16 08:00 Height/Weight/BMI: Height 1.7 m Weight 125.7 kg Body Mass Index 43.7 - Constitutional Present: no acute distress, well nourished, well developed - Routine HEENT Exam Eye: Present: EOMI ENT: Present: mucous membranes moist, dentition normal - Routine Respiratory Exam Present: CTA bilaterally. Absent: wheezes - Routine Cardiovascular Exam Present: RRR, S1, S2. Absent: murmur - Routine Abdominal Exam Present: soft, normoactive bowel sounds, non distended. Absent: tenderness - Routine Extremities Exam Present: pulses intact Comments: Right foot wound vac - Routine Skin Exam Present: dry, warm - Routine Neurological Exam Present: alert, oriented X3, CN II-XII intact, motor deficit (Right hand), moving all extremities, vision grossly intact, hearing grossly intact Slurred speech - Routine Lymphatic Exam Lymphatic: Absent: adenopathy - Routine Psychiatric Exam Present: normal affect Results - Labs CBC & Chem 7: 12/26/16 04:33 12/26/16 04:33 Microbiology Results: Microbiology 12/19/16 13:20 Foot, Right, Bone Gram Stain - Final 12/19/16 13:20 Foot, Right, Bone Surgical Culture - Final Coag negative Staphylococcus Corynebacterium species 12/18/16 09:34 Peripheral/Iv Start Blood Culture - Final No Growth After 5 Days 12/18/16 09:35 Peripheral/Iv Start Blood Culture - Final No Growth After 5 Days 12/17/16 04:56 Foot,Right Gram Stain - Final 12/17/16 04:56 Foot,Right Superficial Wound Culture - Final Enterococcus faecalis Streptococcus viridans group Coag negative Staphylococcus Assessment and Plan (1) Diabetes mellitus, insulin dependent (IDDM), uncontrolled Current visit: Yes Status: Chronic (2) HTN (hypertension) Current visit: Yes Status: Chronic (3) Gastroparesis due to DM Current visit: Yes Status: Chronic (4) Osteomyelitis of ankle or foot Current visit: Yes Status: Acute (5) Bacteremia due to Enterococcus Current visit: Yes Status: Acute Assessment and Plan: Assessment Right diabetic foot ulcer with surrounding cellulitis and osteomyelitis with subsequent enterococcus bacteremia, failing outpatient treatment Enterococcus bacteremia secondary to above (positive BC from [facility]) Leukocytosis secondary to above Penicillin allergy causing hives Type II DM - uncontrolled Diabetic gastroparesis with severe nausea and vomiting postoperatively. HTN HDL GERD Hypokalemia (not POA) Elevated LFT (not POA) Weakness to right hand/arm and slurred speech - MRI showing CVA (12/25) Constipation Morbid Obesity with BMI 43.7 Plan Appreciate neurology consultation by Dr Saenz. He recommended recheck CT head to rule out hemorrhage. Fortunately this is normal without evidence of intracranial bleeding. He recommends continuing on Lovenox and Plavix. Will work on blood pressure control. Control on Norvasc 10 milligrams and lisinopril 20 milligrams. We will increased the Cymbalta 20 milligrams twice a day and start that now. Will also add hydralazine as needed for persistent systolic blood pressure greater than 170. Dr. Saenz recommends goal blood pressure 150-160 systolic. Mild Hypokalemia will give oral potassium supplementation- 20 MEQ now then continue [address] Flores recommends to continue vancomycin, Rocephin and Flagyl, will likely need 6 weeks. Encourage ongoing work with PT/OT for strengthening of right hand weakness Will need to discuss discharge plans with Hospital Course Summary Disclaimer: The visit summary below is not to be considered part of the above Progress Note. Hospital Course: 12/17/16 Admission Assessment Right diabetic foot ulcer with surrounding cellulitis failing outpatient treatment Leukocytosis Type II DM - uncontrolled Diabetic gastroparesis HTN HDL GERD Morbid Obesity with BMI 43.7 Plan [place]patient [place] [facility] [place] of diabetic foot ulcer failing outpatient treatment, anticipate greater than 2 midnights of care needed. Vancomycin for antimicrobial coverage. Wound Team consult for help with would care. Will consult Dr Richter to potential debridement. MRI of foot to assess for osteomyelitis. Continue home medications. Monitor sugars - ISS ordered to help with glycemic control. Will consult Diabetic education and dietary. Lovenox 40mg SQ daily with [facility] for D[place] prevention. Start Protonix 40mg daily due to persistent reflux. Initiate Lisinopril 10mg at night due to HTN and DM. Monitor lab. Discussed code status with patient - requests full resuscitation. Order written. Care to return to Dr Au at time of discharge from [facility]. 12/18/16 Dr Nina MEDINA from [facility] positive. Will have pharmacy dose vancomycin to treat enterococcus as the patient is allergic to penicillin. Repeat blood cultures to rule out persistent enterococcus bacteremia. Await further microbiology results, and meantime we'll discontinue ceftaroline and change to ceftriaxone for gram-negative rods and metronidazole for anaerobes. Wound Team consult for help with would care. Scheduled for wound debridement tomorrow Continue home medications. Monitor sugars - ISS ordered to help with glycemic control. Diabetic education and dietary consulted. Lovenox 40mg SQ daily with [facility] for DVT prevention. On Protonix 40mg daily due to persistent reflux. On Lisinopril 10mg at night due to HTN and DM. Monitor lab. Because of persistent cough will check chest x-ray We'll obtain baseline plain films of both feet to rule out foreign body 12/19/16 Continue with IV Rocephin and IV Flagyl for antimicrobial coverage. Surgical debridement and specimen culture were completed by Dr. Richter today. Will work on glycemic control. Continue with oral agents as well as sliding scale insulin Diabetic education and dietary consulted given elevated A1c at time of admission. Given. Acute nausea. Will give IV Zofran and Reglan. May utilize IV morphine and [place] for pain control Monitor blood pressure and continue on home dose of lisinopril. Lovenox 40mg SQ daily with [facility] for DVT prevention. Recheck CBC and BMP tomorrow morning to follow blood counts, renal function and electrolytes 12/20/16 Persistent nausea, we'll continue Zofran and Reglan. Recheck lab in the morning including a lipase. Appreciate Dr. Lee's consult. We'll continue vancomycin, metronidazole, and ceftriaxone for treatment of her right diabetic foot ulcer. She may benefit from consultation Dr. Peggy Flores next week to facilitate outpatient follow-up. 12/21/16 Nausea, appears to be slightly better controlled. Continue with Reglan, Zofran and scopolamine patch Persistent nausea, we'll continue Zofran and Reglan. Continue with wound vac care and appreciate Dr Lee orthopedic consultation for wound management. Continue with vancomycin, metronidazole, and ceftriaxone for to microbial coverage. Continue with glycemic management, glipizide, Lantus, sliding scale insulin. Monitor blood pressure and continue on lisinopril and Norvasc - 145/71 this am. Persistent leukocytosis, Recheck CBC and BMP tomorrow morning to follow blood counts, renal function and electrolytes. 12/22/16 Overall, nausea, appears to be slightly better today. Will continue on scheduled Reglan is suspicion nausea may be related to gastroparesis. Continue with scopolamine patch, and Zofran. At this time continue with IV Vanco, Rocephin and IV Flagyl for coverage of gram -negative and anaerobes. This may also be contributing to some of her nausea. Lucy with management of foot wound as per wound team and Dr. Lee. Monitor Accu-Cheks and continue with metformin, glipizide, Lantus 15 units at at bedtime and sliding scale insulin. Monitor blood pressure. She was borderline elevated this morning. May need to consider increasing lisinopril dose. At this time will continue to monitor. [place] for pain control Lovenox subcutaneous daily for DVT prophylaxis 12/23/16 Continue IV Vanco, Rocephin and IV Flagyl for coverage of gram-negative and anaerobes. WBC persistently elevated at 14. Continue wound vac and wound care. Will increase lisinopril to 10mg nightly to help blood pressure control. Oral potassium given this am as potassium decreased to 3.2. Will recheck in am and check Mg. D/C IVF - weight up from admission. Liver enzymes with slight elevation - hold metformin and lovastatin. Nausea decreasing. Blood sugars stable. Consult with Dr Flores for antibiotic recommendation and course length. 12/24/16 Transient weakness to right hand/arm and slurred speech. ? TIA CT scan of brain not showing any acute bleed or mass. Will check Lipid profile due to DM. Check carotid doppler and Echo. Continue IV Vanco, Rocephin and IV Flagyl for coverage of gram-negative and anaerobes. WBC with decrease to 12.1. Continue wound vac and wound care. Blood pressure still showing elevation. Will increase lisinopril to 20mg nightly. Potassium decreased to 3.1. Oral potassium at noon and evening meal today. Start routine Mirlax for constipation - PRN medications not being used. 12/25/16- Consult to PT/OT for right hand weakness. Continue with ABX, awaiting of recommendations by Dr Flores. ECHO pending. 12/26/16 Plan Appreciate neurology consultation by Dr Saenz. He recommended recheck CT head to rule out hemorrhage. Fortunately this is normal without evidence of intracranial bleeding. He recommends continuing on Lovenox and Plavix. Will work on blood pressure control. Control on Norvasc 10 milligrams and lisinopril 20 milligrams. We will increased the Cymbalta 20 milligrams twice a day and start that now. Will also add hydralazine as needed for persistent systolic blood pressure greater than 170. Dr. Saenz recommends goal blood pressure 150-160 systolic. Mild Hypokalemia will give oral potassium supplementation- 20 MEQ now then continue [address] Flores recommends to continue vancomycin, Rocephin and Flagyl, will likely need 6 weeks. Encourage ongoing work with PT/OT for strengthening of right hand weakness Will need to discuss discharge plans with CM <Michael Davidson IV - Last Filed: 12/26/16 15:43> - Date 12/26/16 Objective Vital signs: Temperature 97.3 F 12/26/16 08:00 Pulse Rate 83 12/26/16 09:32 Respiratory Rate 16 12/26/16 08:00 Blood Pressure 178/81 H 12/26/16 10:44 Pulse Oximetry 98 12/26/16 08:00 Height/Weight/BMI: Height 5 ft 7 in Weight 125.7 kg Body Mass Index 43.7 Results - Labs CBC & Chem 7: 12/26/16 04:33 12/26/16 04:33 Microbiology Results: Microbiology 12/19/16 13:20 Foot, Right, Bone Gram Stain - Final 12/19/16 13:20 Foot, Right, Bone Surgical Culture - Final Coag negative Staphylococcus Corynebacterium species 12/18/16 09:34 Peripheral/Iv Start Blood Culture - Final No Growth After 5 Days 12/18/16 09:35 Peripheral/Iv Start Blood Culture - Final No Growth After 5 Days 12/17/16 04:56 Foot,Right Gram Stain - Final 12/17/16 04:56 Foot,Right Superficial Wound Culture - Final Enterococcus faecalis Streptococcus viridans group Coag negative Staphylococcus Assessment and Plan (1) Diabetes mellitus, insulin dependent (IDDM), uncontrolled Current visit: Yes Status: Chronic (2) HTN (hypertension) Current visit: Yes Status: Chronic (3) Gastroparesis due to DM Current visit: Yes Status: Chronic (4) Osteomyelitis of ankle or foot Current visit: Yes Status: Acute (5) Bacteremia due to Enterococcus Current visit: Yes Status: Acute Assessment and Plan: I have independently interviewed and examined the patient. I have reviewed the medical record. The plan has been discussed and formulated with BRACELET FORMER as above with the additions below. Patient c/o right side weakness and difficulty speaking. She denies right foot pain. Says she is not eating much. Says her last stool was Friday. Lungs clear Heart regular abdomen s/nt/nd neuro ax0, weakness RUE, RLE MRI reveals L MCA stroke. Repeat CT does not show bleed. Continue Plavix. Lisinopril increased and hydralazine added to better control BP. Continue metformin and sliding scale Hospital Course Summary Disclaimer: The visit summary below is not to be considered part of the above Progress Note. Hospital Course: CT did not show bleeding 12/26/16 15:43
--- NOTE | 2016-12-26 16:25 | Wound Care Progress Note ---
Wound Management - Patient Status Premedicated Prior to Dressing Change: No - Wound Posterior Foot Wound Type: Diabetic Foot Ulcer Wound Present on Admission?: No Length: 8 Width: 3.2 Depth: 3 Tunneling Location (o'clock): 2 (5.5) Wound Bed Appearance: Beefy Red, [place], [place] Aura Wound Appearance: Edematous, Macerated Tunneling: Yes Undermining: No Drainage Description: Serosanguineous Drainage Amount: Moderate Drainage Odor: Slight Odor Dressing Status: Changed Packing Type: Woundvac Sponge Number of Packing Pieces Removed?: 2 Number of Packing Pieces Placed?: 2 Primary Dressing: Transparent Drape Secondary Dressing: Trac Pad Dressing Change Date: 12/26/16 Dressing Change Time: 16:27
[2016-12-26] MEDS: INSULIN GLARGINE 100unit/ml INJECTION SQ SCH (22:13)
[2016-12-26] MEDS: LOVASTATIN 40 MG TABLET PO SCH (22:14)
[2016-12-26] MEDS: NS FLUSH BAG 500ml IV PRN (22:26)
[2016-12-27] MEDS: CEFTRIAXONE 1 G in NS 100 ML IV SCH ×3 (00:46→23:57)
[2016-12-27] MEDS: MetroNIDAZOLE PB 500 MG/100 ML BAG IV SCH ×2 (01:23→12:44)
[2016-12-27] MEDS: METOCLOPRAMIDE 10mg/2ml INJECTION IVP SCH ×4 (02:38→21:37)
[2016-12-27] MEDS: SALINE FLUSH 10ml SYRINGE IV PRN ×2 (04:38→21:39)
[2016-12-27] MEDS: PANTOPRAZOLE 40 MG TABLET PO SCH (06:37)
[2016-12-27] MEDS: INSULIN REGULAR, HUMAN 100 UNIT/ML INJECTION SQ PRN ×2 (06:37→21:53)
[2016-12-27] MEDS: GlipiZIDE 5 MG TABLET PO SCH ×2 (08:48→17:58)
[2016-12-27] MEDS: CLOPIDOGREL 75 MG TABLET PO SCH (08:49)
[2016-12-27] MEDS: AMLODIPINE 10 MG TABLET PO SCH (08:49)
[2016-12-27] MEDS: POLYETHYL GLYCOL 3350 17gm PACKET PO SCH ×2 (08:50→10:00)
[2016-12-27] MEDS: MAGNESIUM OXIDE 400 MG TABLET PO SCH (08:50)
[2016-12-27] MEDS: ENOXAPARIN 40 MG/0.4 ML INJECTION SQ SCH (08:50)
[2016-12-27] MEDS ORDERED: POLYETHYL. GLYCOL 3350 BOTTLE 238 GM PO SCH (09:00)
[2016-12-27] MEDS: LISINOPRIL 20 MG TABLET PO SCH ×2 (10:00→21:37)
--- NOTE | 2016-12-27 10:00 | Progress Note ---
Subjective Date: 12/27/16 Subjective: Ms. Aguirre states she's doing ok. Thinks the redness on her foot is better. She is still having weakness in her R arm. Denies nausea, vomiting or diarrhea. Reports pain from her neuropathy. Exam Vital Signs: Temperature 96.5 F L 12/27/16 08:00 Pulse Rate 93 12/27/16 08:00 Respiratory Rate 16 12/27/16 08:00 Blood Pressure 173/69 H 12/27/16 08:00 Pulse Oximetry 98 12/27/16 08:00 Height/Weight/BMI: Height 1.7 m Weight 124.3 kg Body Mass Index 43.7 - Constitutional Present: no acute distress, well nourished, well developed, obese - Routine HEENT Exam Head: Present: normocephalic, atraumatic Eye: Present: EOMI, PERRL ENT: Present: mucous membranes moist - Routine Neck Exam Present: supple - Routine Respiratory Exam Present: CTA bilaterally. Absent: accessory muscle use - Routine Cardiovascular Exam Present: RRR - Routine Abdominal Exam Present: soft, normoactive bowel sounds, non distended, non tender. Absent: rebound, guarding - Routine Extremities Exam Present: edema (trace LE). Absent: cyanosis, clubbing - Routine Skin Exam Present: wounds (R foot, wrapped and covered with a VAC). Absent: rash - Routine Neurological Exam Present: alert, oriented X3, CN II-XII intact speech seems slightly slurred - Routine Psychiatric Exam Present: normal affect Results - Labs CBC & Chem 7: 12/27/16 04:30 12/27/16 04:30 Microbiology Results: Microbiology 12/19/16 13:20 Foot, Right, Bone Gram Stain - Final 12/19/16 13:20 Foot, Right, Bone Surgical Culture - Final Coag negative Staphylococcus Corynebacterium species 12/18/16 09:34 Peripheral/Iv Start Blood Culture - Final No Growth After 5 Days 12/18/16 09:35 Peripheral/Iv Start Blood Culture - Final No Growth After 5 Days 12/17/16 04:56 Foot,Right Gram Stain - Final 12/17/16 04:56 Foot,Right Superficial Wound Culture - Final Enterococcus faecalis Streptococcus viridans group Coag negative Staphylococcus Impression: Right diabetic foot ulcer with surrounding cellulitis and osteomyelitis of the cuboid bone, s/p I&D 12/19, bone culture with CoNS Enterococcus bacteremia, presumed secondary to skin/musculoskeletal source. (+ BC from 12/16). Leukocytosis Penicillin allergy causing hives Type II DM, IR, poorly controlled Diabetic gastroparesis with severe nausea and vomiting postoperatively. HTN HLD GERD Acute ischemic stroke involving the left middle cerebral artery distribution. Constipation Morbid Obesity with BMI 43.7 Recommendation: Continue Vancomycin, ceftriaxone and flagyl for now. I discussed with her that osteomyelitis is typically treated with debridement and 6 weeks of IV antibiotics. I'm not very optimistic that a long course of IV antibiotics will cure this infection, and she might need a BKA.
--- NOTE | 2016-12-27 11:05 | Progress Note ---
<Monae Valdes D - Last Filed: 12/27/16 10:55> - Date 12/27/16 Subjective: Alona is slowly improving. She is still weak in the right arm and has decreased fine motor control (of course, she's right hand dominant). She thinks her speech is improving, though still slurs and admits to having some mild expressive aphasia from time to time. She noticed increased RLE pain and realized that she hasn't been on her usual Vitamin B12 that helps control her neuropathic pain. She has gastroparesis but denies nausea/vomiting. She started developing loose stools and she reports that sometimes it's a balancing act between loose stools and constipation. Objective Vital signs: Temperature 96.5 F L 12/27/16 08:00 Pulse Rate 93 12/27/16 08:00 Respiratory Rate 16 12/27/16 08:00 Blood Pressure 163/72 H 12/27/16 10:07 Pulse Oximetry 98 12/27/16 08:00 Height/Weight/BMI: Height 1.7 m Weight 124.3 kg Body Mass Index 43.7 - Constitutional Present: no acute distress, well nourished, well developed, morbidly obese - Routine HEENT Exam ENT: Present: mucous membranes moist, oropharynx clear - Routine Respiratory Exam Present: CTA bilaterally - Routine Cardiovascular Exam Present: RRR, S1, S2, murmur (2/6) - Routine Abdominal Exam Present: soft, normoactive bowel sounds, non distended, non tender - Routine Extremities Exam Present: edema (b/l) - Routine Skin Exam Present: dry, warm, wounds (rt foot wound vac) - Routine Neurological Exam Present: alert, oriented X3, motor deficit (rt arm weakness; decreased fine motor control right hand). Absent: normal speech (dysarthria) - Routine Psychiatric Exam Present: normal affect, normal thought process, cooperative Results - Labs CBC & Chem 7: 12/27/16 04:30 12/27/16 04:30 Microbiology Results: Microbiology 12/19/16 13:20 Foot, Right, Bone Gram Stain - Final 12/19/16 13:20 Foot, Right, Bone Surgical Culture - Final Coag negative Staphylococcus Corynebacterium species 12/18/16 09:34 Peripheral/Iv Start Blood Culture - Final No Growth After 5 Days 12/18/16 09:35 Peripheral/Iv Start Blood Culture - Final No Growth After 5 Days 12/17/16 04:56 Foot,Right Gram Stain - Final 12/17/16 04:56 Foot,Right Superficial Wound Culture - Final Enterococcus faecalis Streptococcus viridans group Coag negative Staphylococcus Assessment and Plan (1) Diabetes mellitus, insulin dependent (IDDM), uncontrolled Current visit: Yes Status: Chronic (2) HTN (hypertension) Current visit: Yes Status: Chronic (3) Gastroparesis due to DM Current visit: Yes Status: Chronic (4) Osteomyelitis of ankle or foot Current visit: Yes Status: Acute (5) Bacteremia due to Enterococcus Current visit: Yes Status: Acute Assessment and Plan: Assessment Right diabetic foot ulcer with surrounding cellulitis and osteomyelitis with subsequent enterococcus bacteremia, failing outpatient treatment Enterococcus bacteremia secondary to above (positive BC from [place] ED) Leukocytosis secondary to above Penicillin allergy causing hives Type II DM - uncontrolled (A1c 10.1%) Diabetic gastroparesis with severe nausea and vomiting postoperatively. HTN HDL GERD Hypokalemia (not POA) Elevated LFT (not POA) Weakness to right hand/arm, dysarthria, mild expressive aphasia - MRI showing CVA (12/25) Constipation Morbid Obesity with BMI 43.7 Plan BP still elevated - will increase BB dose (HR would tolerate an increase). Continue lisinopril and amlodipine. Hydralazine PRN. Decrease frequency of MiraLAX d/t loose stools. Vitamin B12 5000 mcg daily per home dose (reports this helps with neuropathy). Continue secondary prevention for stroke (Plavix, statin); echo pending. Leukocytosis resolved. Continue Flagyl + Rocephin + wound vac. Chemistry panel stable; K up to normal range. Persistently elevated BG >200 yesterday. She's getting routine SSI between 4-7 U. Start regular insulin 5U with meals. Consider endocrinology consult. D/W CM - looking into IRU in [place]. Hospital Course Summary Disclaimer: The visit summary below is not to be considered part of the above Progress Note. Hospital Course: Hospital Course: 12/17/16 Admission Assessment Right diabetic foot ulcer with surrounding cellulitis failing outpatient treatment Leukocytosis Type II DM - uncontrolled Diabetic gastroparesis HTN HDL GERD Morbid Obesity with BMI 43.7 Plan Inpatient admission to [facility] for treatment of diabetic foot ulcer failing outpatient treatment, anticipate greater than 2 midnights of care needed. Vancomycin for antimicrobial coverage. Wound Team consult for help with would care. Will consult Dr Richter to potential debridement. MRI of foot to assess for osteomyelitis. Continue home medications. Monitor sugars - ISS ordered to help with glycemic control. Will consult Diabetic education and dietary. Lovenox 40mg SQ daily with [facility] for DVT prevention. Start Protonix 40mg daily due to persistent reflux. Initiate Lisinopril 10mg at night due to HTN and DM. Monitor lab. Discussed code status with patient - requests full resuscitation. Order written. Care to return to Dr Au at time of discharge from [facility]. 12/18/16 Dr Nina MEDINA from [place] ED positive. Will have pharmacy dose vancomycin to treat enterococcus as the patient is allergic to penicillin. Repeat blood cultures to rule out persistent enterococcus bacteremia. Await further microbiology results, and meantime we'll discontinue ceftaroline and change to ceftriaxone for gram-negative rods and metronidazole for anaerobes. Wound Team consult for help with would care. Scheduled for wound debridement tomorrow Continue home medications. Monitor sugars - ISS ordered to help with glycemic control. Diabetic education and dietary consulted. Lovenox 40mg SQ daily with [facility] for DVT prevention. On Protonix 40mg daily due to persistent reflux. On Lisinopril 10mg at night due to HTN and DM. Monitor lab. Because of persistent cough will check chest x-ray We'll obtain baseline plain films of both feet to rule out foreign body 12/19/16 Continue with IV Rocephin and IV Flagyl for antimicrobial coverage. Surgical debridement and specimen culture were completed by Dr. Richter today. Will work on glycemic control. Continue with oral agents as well as sliding scale insulin Diabetic education and dietary consulted given elevated A1c at time of admission. Given. Acute nausea. Will give IV Zofran and Reglan. May utilize IV morphine and [place] for pain control Monitor blood pressure and continue on home dose of lisinopril. Lovenox 40mg SQ daily with [facility] for DVT prevention. Recheck CBC and BMP tomorrow morning to follow blood counts, renal function and electrolytes 12/20/16 Persistent nausea, we'll continue Zofran and Reglan. Recheck lab in the morning including a lipase. Appreciate Dr. Lee's consult. We'll continue vancomycin, metronidazole, and ceftriaxone for treatment of her right diabetic foot ulcer. She may benefit from consultation Dr. Peggy Flores next week to facilitate outpatient follow-up. 12/21/16 Nausea, appears to be slightly better controlled. Continue with Reglan, Zofran and scopolamine patch Persistent nausea, we'll continue Zofran and Reglan. Continue with wound vac care and appreciate Dr Lee orthopedic consultation for wound management. Continue with vancomycin, metronidazole, and ceftriaxone for to microbial coverage. Continue with glycemic management, glipizide, Lantus, sliding scale insulin. Monitor blood pressure and continue on lisinopril and Norvasc - 145/71 this am. Persistent leukocytosis, Recheck CBC and BMP tomorrow morning to follow blood counts, renal function and electrolytes. 12/22/16 Overall, nausea, appears to be slightly better today. Will continue on scheduled Reglan is suspicion nausea may be related to gastroparesis. Continue with scopolamine patch, and Zofran. At this time continue with IV Vanco, Rocephin and IV Flagyl for coverage of gram -negative and anaerobes. This may also be contributing to some of her nausea. Lucy with management of foot wound as per wound team and Dr. Lee. Monitor Accu-Cheks and continue with metformin, glipizide, Lantus 15 units at at bedtime and sliding scale insulin. Monitor blood pressure. She was borderline elevated this morning. May need to consider increasing lisinopril dose. At this time will continue to monitor. [place] for pain control Lovenox subcutaneous daily for DVT prophylaxis 12/23/16 Continue IV Vanco, Rocephin and IV Flagyl for coverage of gram-negative and anaerobes. WBC persistently elevated at 14. Continue wound vac and wound care. Will increase lisinopril to 10mg nightly to help blood pressure control. Oral potassium given this am as potassium decreased to 3.2. Will recheck in am and check Mg. D/C IVF - weight up from admission. Liver enzymes with slight elevation - hold metformin and lovastatin. Nausea decreasing. Blood sugars stable. Consult with Dr Flores for antibiotic recommendation and course length. 12/24/16 Transient weakness to right hand/arm and slurred speech. ? TIA CT scan of brain not showing any acute bleed or mass. Will check Lipid profile due to DM. Check carotid doppler and Echo. Continue IV Vanco, Rocephin and IV Flagyl for coverage of gram-negative and anaerobes. WBC with decrease to 12.1. Continue wound vac and wound care. Blood pressure still showing elevation. Will increase lisinopril to 20mg nightly. Potassium decreased to 3.1. Oral potassium at noon and evening meal today. Start routine Mirlax for constipation - PRN medications not being used. 12/25/16- Consult to PT/OT for right hand weakness. Continue with ABX, awaiting of recommendations by Dr Flores. ECHO pending. 12/26/16 Appreciate neurology consultation by Dr Saenz. He recommended recheck CT head to rule out hemorrhage. Fortunately this is normal without evidence of intracranial bleeding. He recommends continuing on Lovenox and Plavix. Will work on blood pressure control. Control on Norvasc 10 milligrams and lisinopril 20 milligrams. We will increased the Cymbalta 20 milligrams twice a day and start that now. Will also add hydralazine as needed for persistent systolic blood pressure greater than 170. Dr. Saenz recommends goal blood pressure 150-160 systolic. Mild Hypokalemia will give oral potassium supplementation- 20 MEQ now then continue [address] Flores recommends to continue vancomycin, Rocephin and Flagyl, will likely need 6 weeks. 12/27/16 BP still elevated - will increase BB dose (HR would tolerate an increase). Continue lisinopril and amlodipine. Hydralazine PRN. Decrease frequency of MiraLAX d/t loose stools. Vitamin B12 5000 mcg daily per home dose (reports this helps with neuropathy). Continue secondary prevention for stroke (Plavix, statin); echo pending. Leukocytosis resolved. Continue Flagyl + Rocephin + wound vac. Chemistry panel stable; K up to normal range. Persistently elevated BG >200 yesterday. She's getting routine SSI between 4-7 U. Start regular insulin 5U with meals. Consider endocrinology consult. D/W CM - looking into IRU in [place]. <Michael Davidson IV - Last Filed: 12/27/16 13:51> - Date 12/27/16 Objective Vital signs: Temperature 96.5 F L 12/27/16 08:00 Pulse Rate 81 12/27/16 08:00 Respiratory Rate 16 12/27/16 08:00 Blood Pressure 163/72 H 12/27/16 10:07 Pulse Oximetry 98 12/27/16 08:00 Height/Weight/BMI: Height 5 ft 7 in Weight 124.3 kg Body Mass Index 43.7 Results - Labs CBC & Chem 7: 12/27/16 04:30 12/27/16 04:30 Microbiology Results: Microbiology 12/19/16 13:20 Foot, Right, Bone Gram Stain - Final 12/19/16 13:20 Foot, Right, Bone Surgical Culture - Final Coag negative Staphylococcus Corynebacterium species 12/18/16 09:34 Peripheral/Iv Start Blood Culture - Final No Growth After 5 Days 12/18/16 09:35 Peripheral/Iv Start Blood Culture - Final No Growth After 5 Days 12/17/16 04:56 Foot,Right Gram Stain - Final 12/17/16 04:56 Foot,Right Superficial Wound Culture - Final Enterococcus faecalis Streptococcus viridans group Coag negative Staphylococcus Assessment and Plan (1) Diabetes mellitus, insulin dependent (IDDM), uncontrolled Current visit: Yes Status: Chronic (2) HTN (hypertension) Current visit: Yes Status: Chronic (3) Gastroparesis due to DM Current visit: Yes Status: Chronic (4) Osteomyelitis of ankle or foot Current visit: Yes Status: Acute (5) Bacteremia due to Enterococcus Current visit: Yes Status: Acute Assessment and Plan: I have independently interviewed and examined the patient. I have reviewed the medical record. The plan has been discussed and formulated with [employer] as above with the additions below. Patient up to a chair and says she is feeling better. Says she is tired after working with therapy. Says she had 2 stools yesterday, and she does not need scheduled Miralax now. Lungs clear. Heart regular. Abdomen s/nt/nd +BS. +edema. Increase BB for HTN. Schedule insulin for uncontrolled DM2 Hospital Course Summary Disclaimer: The visit summary below is not to be considered part of the above Progress Note.
--- NOTE | 2016-12-27 11:21 | Echocardiogram ---
DATE 12/25/2016 INDICATION TIA. TECHNICAL QUALITY: Technically good 2D, M-mode and Doppler echocardiographic images were submitted for interpretation. FINDINGS 1. CARDIAC CHAMBERS. All cardiac chamber measurements are normal except mild left atrial enlargement, measures 4.7 cm. Aortic root diameter is normal. RV size and contractility appear normal. 2. LV FUNCTION. Analysis reveals concentric LVH. The septal wall measured 14.5 mm. Posterior wall measured 14.2 mm. Wall motion analysis is normal. LV systolic function is normal. EF of 60-65%. Diastolic function parameters show E /A ratio of 1.1, E/E' of 16.7, MVDT 245 milliseconds. These findings, combined with the left atrial enlargement, are suggestive of Grade II/IV diastolic dysfunction (pseudo-normal pattern). 3. VALVES. Aortic and tricuspid valves structure and motion appear normal, normal valve excursion. There is posterior mitral annular calcification present. Very mild anterior annular calcification is present and leaflet exhibits minimal sclerosis with normal valve opening. 4. DOPPLER. Doppler shows trace pulmonic insufficiency, trace tricuspid regurgitation with PA pressure estimated at 48 mmHg suggestive of mild pulmonary hypertension. Trace mitral regurgitation. There is trace aortic regurgitation present. Mean gradient across the mitral valve of only 3 mmHg. No significant aortic valve stenosis or mitral stenosis present. 5. No evidence of intracardial masses, thrombi, vegetations or shunts. Bubble study was not performed. Central venous pressure is estimated to be high normal. IMPRESSION 1. Normal cardiac chamber size except for mild left atrial enlargement, measures 4.7 cm. 2. Mild concentric LVH with normal systolic function. 3. Diastolic dysfunction Grade II/IV is present (pseudo-normal pattern). 4. Mitral annular calcification without significant valvular dysfunction. 5. Mild pulmonary hypertension with normal RV size and systolic function. 6. No evidence of intracardiac masses, thrombi, vegetations or shunts. 7. Patient is in sinus rhythm during the study. 8. If cardiac source of embolus is suspected, transesophageal echocardiogram may have a better sensitivity and specificity. [facility]
[2016-12-27] MEDS ORDERED: CYANOCOBALAMIN (B-12) 500mcg TABLET PO SCH (11:30)
[2016-12-27] MEDS: CYANOCOBALAMIN (B-12) 500mcg TABLET PO SCH ×4 (13:14→21:37)
[2016-12-27] MEDS: INSULIN ASPART 100unit/ml INJECTION SQ SCH ×2 (13:14→18:30)
--- NOTE | 2016-12-27 14:40 | Progress Note ---
DATE OF VISIT 12/27/2016 FINDINGS Mrs. Aguirre was sitting upright in the recliner today. She denied much in the way of pain involving her right foot. The patient states that she believes that her right foot is improving. She still is experiencing some weakness involving her right hand. VITALS: Afebrile. Normotensive. Please refer to EMR. EXTREMITIES: Attention was focused to the right foot. Bg wrap was removed and the foot was inspected. The edema and erythema has markedly improved involving the dorsum of the foot. The wound VAC is in place and functioning without difficulty. Periwound area adjacent to the VAC is without evidence for necrosis or marked erythema. ASSESSMENT 46-year-old female with Gonzalez Grade 3 diabetic foot ulceration. Status post excisional surgical debridement and application of wound VAC. The patient is improving from a wound standpoint. PLAN From a wound standpoint I would recommend that we continue with ongoing antibiotic therapy given her finding of osteomyelitis and continuation of negative wound pressure therapy. I do believe the patient would be best served by going to a long-term acute care type of facility for her ongoing care. As stated previously, the patient would also benefit from seeing a foot and ankle specialist for further evaluation of her severe neuropathic osteoarthropathy. JENNIFER
[2016-12-27] MEDS: LOVASTATIN 40 MG TABLET PO SCH (21:37)
[2016-12-27] MEDS: INSULIN GLARGINE 100unit/ml INJECTION SQ SCH (21:38)
[2016-12-27] MEDS: NS FLUSH BAG 500ml IV PRN (21:39)
[2016-12-28] MEDS: MetroNIDAZOLE PB 500 MG/100 ML BAG IV SCH ×2 (00:42→12:18)
[2016-12-28] MEDS: SALINE FLUSH 10ml SYRINGE IV PRN ×2 (03:13→04:57)
[2016-12-28] MEDS: METOCLOPRAMIDE 10mg/2ml INJECTION IVP SCH ×4 (03:13→21:33)
[2016-12-28] MEDS: INSULIN REGULAR, HUMAN 100 UNIT/ML INJECTION SQ PRN ×4 (06:49→21:36)
[2016-12-28] MEDS: PANTOPRAZOLE 40 MG TABLET PO SCH (06:49)
[2016-12-28] MEDS: LISINOPRIL 20 MG TABLET PO SCH ×2 (08:11→21:35)
[2016-12-28] MEDS: GlipiZIDE 5 MG TABLET PO SCH ×2 (08:11→17:10)
[2016-12-28] MEDS: ENOXAPARIN 40 MG/0.4 ML INJECTION SQ SCH (08:11)
[2016-12-28] MEDS: CYANOCOBALAMIN (B-12) 500mcg TABLET PO SCH ×5 (08:12→21:34)
[2016-12-28] MEDS: MAGNESIUM OXIDE 400 MG TABLET PO SCH (08:12)
[2016-12-28] MEDS: CLOPIDOGREL 75 MG TABLET PO SCH (08:12)
[2016-12-28] MEDS: AMLODIPINE 10 MG TABLET PO SCH (08:13)
[2016-12-28] MEDS: INSULIN ASPART 100unit/ml INJECTION SQ SCH ×3 (09:38→18:09)
[2016-12-28] MEDS: CEFTRIAXONE 1 G in NS 100 ML IV SCH ×2 (11:25→23:53)
--- NOTE | 2016-12-28 13:04 | Progress Note ---
<Monae Valdes D - Last Filed: 12/28/16 12:59> - Date 12/28/16 Subjective: Alona is seeing some neurovascular improvements today. For example, she has better control of her right hand, and was able to use her fork and spoon at breakfast with greater dexterity. She also reports that she was able to brush her hair with her right hand. She thinks her speech is also improving, and hasn' t noticed as much slurring. She states that she went on a walk yesterday evening , but cut short because she was worried she might get in trouble by Dr. Richter. Her neuropathic pain has improved since starting back on vitamin B12. Denies any shortness of breath, chest pain, or new abdominal symptoms. She continues to have loose stools today. Objective Vital signs: Temperature 97.4 F 12/28/16 08:00 Pulse Rate 83 12/28/16 08:00 Respiratory Rate 18 12/28/16 08:00 Blood Pressure 155/94 H 12/28/16 08:00 Pulse Oximetry 96 12/28/16 08:00 Height/Weight/BMI: Height 1.7 m Weight 88 kg Body Mass Index 43.7 - Constitutional Present: no acute distress, well nourished, well developed, obese - Routine HEENT Exam Head: Present: normocephalic ENT: Present: oropharynx clear - Routine Respiratory Exam Present: CTA bilaterally - Routine Cardiovascular Exam Present: RRR, S1, S2 - Routine Abdominal Exam Present: soft, normoactive bowel sounds, non tender - Routine Extremities Exam Present: edema (b/l, R>L) - Routine Skin Exam Present: dry, warm, wounds (wound vac and kerlex dressing to right foot) - Routine Neurological Exam Present: alert, oriented X3, facial asymmetry (subtle loss of right nasolabial fold), normal speech (no slurring noted today. Rarely she had subtle difficulty finding the right word.). 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 compared to left), tremors b/l amblyopia - chronic per pt Still has difficulty with rapid alternating/finger to thumb on right hand - Routine Psychiatric Exam Present: normal affect, normal thought process, cooperative Results - Labs CBC & Chem 7: 12/28/16 04:19 12/28/16 04:19 Microbiology Results: Microbiology 12/19/16 13:20 Foot, Right, Bone Gram Stain - Final 12/19/16 13:20 Foot, Right, Bone Surgical Culture - Final Coag negative Staphylococcus Corynebacterium species 12/18/16 09:34 Peripheral/Iv Start Blood Culture - Final No Growth After 5 Days 12/18/16 09:35 Peripheral/Iv Start Blood Culture - Final No Growth After 5 Days 12/17/16 04:56 Foot,Right Gram Stain - Final 12/17/16 04:56 Foot,Right Superficial Wound Culture - Final Enterococcus faecalis Streptococcus viridans group Coag negative Staphylococcus Assessment and Plan (1) Diabetes mellitus, insulin dependent (IDDM), uncontrolled Current visit: Yes Status: Chronic (2) HTN (hypertension) Current visit: Yes Status: Chronic (3) Gastroparesis due to DM Current visit: Yes Status: Chronic (4) Osteomyelitis of ankle or foot Current visit: Yes Status: Acute (5) Bacteremia due to Enterococcus Current visit: Yes Status: Acute Assessment and Plan: Assessment Right diabetic foot ulcer with surrounding cellulitis and osteomyelitis with subsequent enterococcus bacteremia, failing outpatient treatment Enterococcus bacteremia secondary to above (positive BC from [place] ED) Leukocytosis secondary to above Penicillin allergy causing hives Type II DM - uncontrolled (A1c 10.1%) Diabetic gastroparesis with severe nausea and vomiting postoperatively. HTN HDL GERD Hypokalemia (not POA) Elevated LFT (not POA) Weakness to right hand/arm, dysarthria, mild expressive aphasia - MRI showing CVA (12/25) Constipation - resolved; now with loose stools Morbid Obesity with BMI 43.7 Plan BP still elevated but trending down - monitor today and consider increasing BB dose. Fasting hyperglycemia >200 - increase Lantus from 15U to 17U HS. Also persistently hyperglycemic >200 after meals, even after 5U of insulin was introduced at lunch yesterday. Continue glipizide and restart metformin. Consider increasing NovoLog if metformin doesn't improve postprandial sugars. Encourage activity; continue PT - ambulated 120 feet yesterday. WBC up to 11.4. Continue Flagyl + Rocephin + wound vac. Dr. Richter evaluated yesterday and noted improvement. DVT Prophylaxis: [facility] Hospital Course Summary Disclaimer: The visit summary below is not to be considered part of the above Progress Note. Hospital Course: Hospital Course: 12/17/16 Admission Assessment Right diabetic foot ulcer with surrounding cellulitis failing outpatient treatment Leukocytosis Type II DM - uncontrolled Diabetic gastroparesis HTN HDL GERD Morbid Obesity with BMI 43.[address] admission to [facility] for treatment of diabetic foot ulcer failing outpatient treatment, anticipate greater than 2 midnights of care needed. Vancomycin for antimicrobial coverage. Wound Team consult for help with would care. Will consult Dr Richter to potential debridement. MRI of foot to assess for osteomyelitis. Continue home medications. Monitor sugars - ISS ordered to help with glycemic control. Will consult Diabetic education and dietary. Lovenox 40mg SQ daily with SCD for DVT prevention. Start Protonix 40mg daily due to persistent reflux. Initiate Lisinopril 10mg at night due to HTN and DM. Monitor lab. Discussed code status with patient - requests full resuscitation. Order written. Care to return to Dr Au at time of discharge from [facility]. 12/18/16 Dr Nina MEDINA from [place] ED positive. Will have pharmacy dose vancomycin to treat enterococcus as the patient is allergic to penicillin. Repeat blood cultures to rule out persistent enterococcus bacteremia. Await further microbiology results, and meantime we'll discontinue ceftaroline and change to ceftriaxone for gram-negative rods and metronidazole for anaerobes. Wound Team consult for help with would care. Scheduled for wound debridement tomorrow Continue home medications. Monitor sugars - ISS ordered to help with glycemic control. Diabetic education and dietary consulted. Lovenox 40mg SQ daily with SCD for DVT prevention. On Protonix 40mg daily due to persistent reflux. On Lisinopril 10mg at night due to HTN and DM. Monitor lab. Because of persistent cough will check chest x-ray We'll obtain baseline plain films of both feet to rule out foreign body 12/19/16 Continue with IV Rocephin and IV Flagyl for antimicrobial coverage. Surgical debridement and specimen culture were completed by Dr. Richter today. Will work on glycemic control. Continue with oral agents as well as sliding scale insulin Diabetic education and dietary consulted given elevated A1c at time of admission. Given. Acute nausea. Will give IV Zofran and Reglan. May utilize IV morphine and [place] for pain control Monitor blood pressure and continue on home dose of lisinopril. Lovenox 40mg SQ daily with SCD for DVT prevention. Recheck CBC and BMP tomorrow morning to follow blood counts, renal function and electrolytes 12/20/16 Persistent nausea, we'll continue Zofran and Reglan. Recheck lab in the morning including a lipase. Appreciate Dr. Lee's consult. We'll continue vancomycin, metronidazole, and ceftriaxone for treatment of her right diabetic foot ulcer. She may benefit from consultation Dr. Peggy Flores next week to facilitate outpatient follow-up. 12/21/16 Nausea, appears to be slightly better controlled. Continue with Reglan, Zofran and scopolamine patch Persistent nausea, we'll continue Zofran and Reglan. Continue with wound vac care and appreciate Dr Lee orthopedic consultation for wound management. Continue with vancomycin, metronidazole, and ceftriaxone for to microbial coverage. Continue with glycemic management, glipizide, Lantus, sliding scale insulin. Monitor blood pressure and continue on lisinopril and Norvasc - 145/71 this am. Persistent leukocytosis, Recheck CBC and BMP tomorrow morning to follow blood counts, renal function and electrolytes. 12/22/16 Overall, nausea, appears to be slightly better today. Will continue on scheduled Reglan is suspicion nausea may be related to gastroparesis. Continue with scopolamine patch, and Zofran. At this time continue with IV Vanco, Rocephin and IV Flagyl for coverage of gram -negative and anaerobes. This may also be contributing to some of her nausea. Lucy with management of foot wound as per wound team and Dr. Lee. Monitor Accu-Cheks and continue with metformin, glipizide, Lantus 15 units at at bedtime and sliding scale insulin. Monitor blood pressure. She was borderline elevated this morning. May need to consider increasing lisinopril dose. At this time will continue to monitor. [place] for pain control Lovenox subcutaneous daily for DVT prophylaxis 12/23/16 Continue IV Vanco, Rocephin and IV Flagyl for coverage of gram-negative and anaerobes. WBC persistently elevated at 14. Continue wound vac and wound care. Will increase lisinopril to 10mg nightly to help blood pressure control. Oral potassium given this am as potassium decreased to 3.2. Will recheck in am and check Mg. D/C IVF - weight up from admission. Liver enzymes with slight elevation - hold metformin and lovastatin. Nausea decreasing. Blood sugars stable. Consult with Dr Flores for antibiotic recommendation and course length. 12/24/16 Transient weakness to right hand/arm and slurred speech. ? TIA CT scan of brain not showing any acute bleed or mass. Will check Lipid profile due to DM. Check carotid doppler and Echo. Continue IV Vanco, Rocephin and IV Flagyl for coverage of gram-negative and anaerobes. WBC with decrease to 12.1. Continue wound vac and wound care. Blood pressure still showing elevation. Will increase lisinopril to 20mg nightly. Potassium decreased to 3.1. Oral potassium at noon and evening meal today. Start routine Mirlax for constipation - PRN medications not being used. 12/25/16- Consult to PT/OT for right hand weakness. Continue with ABX, awaiting of recommendations by Dr Flores. ECHO pending. 12/26/16 Appreciate neurology consultation by Dr Saenz. He recommended recheck CT head to rule out hemorrhage. Fortunately this is normal without evidence of intracranial bleeding. He recommends continuing on Lovenox and Plavix. Will work on blood pressure control. Control on Norvasc 10 milligrams and lisinopril 20 milligrams. We will increased the Cymbalta 20 milligrams twice a day and start that now. Will also add hydralazine as needed for persistent systolic blood pressure greater than 170. Dr. Saenz recommends goal blood pressure 150-160 systolic. Mild Hypokalemia will give oral potassium supplementation- 20 MEQ now then continue [address] Flores recommends to continue vancomycin, Rocephin and Flagyl, will likely need 6 weeks. 12/27/16 BP still elevated - will increase BB dose (HR would tolerate an increase). Continue lisinopril and amlodipine. Hydralazine PRN. Decrease frequency of MiraLAX d/t loose stools. Vitamin B12 5000 mcg daily per home dose (reports this helps with neuropathy). Continue secondary prevention for stroke (Plavix, statin); echo pending. Leukocytosis resolved. Continue Flagyl + Rocephin + wound vac. Chemistry panel stable; K up to normal range. Persistently elevated BG >200 yesterday. She's getting routine SSI between 4-7 U. Start regular insulin 5U with meals. Consider endocrinology consult. D/W CM - looking into IRU in [place]. 12/28/16 Assessment Right diabetic foot ulcer with surrounding cellulitis and osteomyelitis with subsequent enterococcus bacteremia, failing outpatient treatment Enterococcus bacteremia secondary to above (positive BC from [place] ED) Leukocytosis secondary to above Penicillin allergy causing hives Type II DM - uncontrolled (A1c 10.1%) Diabetic gastroparesis with severe nausea and vomiting postoperatively. HTN HDL GERD Hypokalemia (not POA) Elevated LFT (not POA) Weakness to right hand/arm, dysarthria, mild expressive aphasia - MRI showing CVA (12/25) Constipation - resolved; now with loose stools Morbid Obesity with BMI 43.7 Plan BP still elevated but trending down - monitor today and consider increasing BB dose. Fasting hyperglycemia >200 - increase Lantus from 15U to 17U HS. Also persistently hyperglycemic >200 after meals, even after 5U of insulin was introduced at lunch yesterday. Continue glipizide and restart metformin. Consider increasing NovoLog if metformin doesn't improve postprandial sugars. Encourage activity; continue PT - ambulated 120 feet yesterday. WBC up to 11.4. Continue Flagyl + Rocephin + wound vac. Dr. Richter evaluated yesterday and noted improvement. <Michael Davidson IV - Last Filed: 12/28/16 16:08> - Date 12/28/16 Objective Vital signs: Temperature 97.4 F 12/28/16 08:00 Pulse Rate 83 12/28/16 08:00 Respiratory Rate 18 12/28/16 08:00 Blood Pressure 155/94 H 12/28/16 08:00 Pulse Oximetry 96 12/28/16 08:00 Height/Weight/BMI: Height 5 ft 7 in Weight 88 kg Body Mass Index 43.7 Results - Labs CBC & Chem 7: 12/28/16 04:19 12/28/16 04:19 Microbiology Results: Microbiology 12/19/16 13:20 Foot, Right, Bone Gram Stain - Final 12/19/16 13:20 Foot, Right, Bone Surgical Culture - Final Coag negative Staphylococcus Corynebacterium species 12/18/16 09:34 Peripheral/Iv Start Blood Culture - Final No Growth After 5 Days 12/18/16 09:35 Peripheral/Iv Start Blood Culture - Final No Growth After 5 Days 12/17/16 04:56 Foot,Right Gram Stain - Final 12/17/16 04:56 Foot,Right Superficial Wound Culture - Final Enterococcus faecalis Streptococcus viridans group Coag negative Staphylococcus Assessment and Plan (1) Diabetes mellitus, insulin dependent (IDDM), uncontrolled Current visit: Yes Status: Chronic (2) HTN (hypertension) Current visit: Yes Status: Chronic (3) Gastroparesis due to DM Current visit: Yes Status: Chronic (4) Osteomyelitis of ankle or foot Current visit: Yes Status: Acute (5) Bacteremia due to Enterococcus Current visit: Yes Status: Acute Assessment and Plan: I have independently interviewed and examined the patient. I have reviewed the medical record. The plan has been discussed and formulated with INDUSTRIAL ECONOMIST as above with the additions below. Patient says her arm is working better. She says her feet feel better with the B12 restarted. Lungs clear. Heart regular. Abd s/nt/nd +bs. Speech is clear Continue wound VAC along with rocephin, flagyl, vanco. Increase metoprolol to 50 bid. Titrating insulin. Encourage patient to be active. PT/OT following Hospital Course Summary Disclaimer: The visit summary below is not to be considered part of the above Progress Note.
[2016-12-28] MEDS: METFORMIN 1,000 MG TABLET PO SCH (17:09)
[2016-12-28] MEDS: INSULIN GLARGINE 100unit/ml INJECTION SQ SCH (21:35)
[2016-12-28] MEDS: LOVASTATIN 40 MG TABLET PO SCH (21:40)
[2016-12-29] MEDS: MetroNIDAZOLE PB 500 MG/100 ML BAG IV SCH ×2 (00:33→12:04)
[2016-12-29] MEDS: METOCLOPRAMIDE 10mg/2ml INJECTION IVP SCH ×2 (04:30→09:21)
[2016-12-29] MEDS: PANTOPRAZOLE 40 MG TABLET PO SCH (06:13)
[2016-12-29] MEDS: INSULIN REGULAR, HUMAN 100 UNIT/ML INJECTION SQ PRN ×3 (06:34→15:10)
[2016-12-29] MEDS: CLOPIDOGREL 75 MG TABLET PO SCH (08:11)
[2016-12-29] MEDS: GlipiZIDE 5 MG TABLET PO SCH ×2 (08:11→16:41)
[2016-12-29] MEDS: METFORMIN 1,000 MG TABLET PO SCH ×2 (08:12→16:42)
[2016-12-29] MEDS: CYANOCOBALAMIN (B-12) 500mcg TABLET PO SCH ×5 (08:12→20:51)
[2016-12-29] MEDS: AMLODIPINE 10 MG TABLET PO SCH (08:12)
[2016-12-29] MEDS: MAGNESIUM OXIDE 400 MG TABLET PO SCH (08:12)
[2016-12-29] MEDS: LISINOPRIL 20 MG TABLET PO SCH ×2 (08:13→20:51)
[2016-12-29] MEDS: ENOXAPARIN 40 MG/0.4 ML INJECTION SQ SCH (08:13)
[2016-12-29] MEDS: INSULIN ASPART 100unit/ml INJECTION SQ SCH ×3 (09:21→18:18)
[2016-12-29] MEDS: CEFTRIAXONE 1 G in NS 100 ML IV SCH (11:15)
--- NOTE | 2016-12-29 11:19 | Progress Note ---
- Date 12/29/16 Subjective: Alona has been practicing with her right hand. She says it is doing better. She denies any lightheadedness/dizziness. Appetite remains good. No complaints Objective Vital signs: Temperature 96.7 F L 12/29/16 07:59 Pulse Rate 66 12/29/16 08:00 Respiratory Rate 14 12/29/16 07:59 Blood Pressure 165/90 H 12/29/16 07:59 Pulse Oximetry 96 12/29/16 07:59 Height/Weight/BMI: Height 5 ft 7 in Weight 96 kg Body Mass Index 43.7 - Constitutional Present: well nourished, well developed - Routine HEENT Exam Eye: Present: EOMI ENT: Present: mucous membranes moist, dentition normal - Routine Respiratory Exam Present: CTA bilaterally. Absent: wheezes - Routine Cardiovascular Exam Present: RRR. Absent: murmur - Routine Abdominal Exam Present: soft, normoactive bowel sounds, non distended. Absent: tenderness - Routine Extremities Exam Present: edema - Routine Skin Exam Comments: dressing, wound vac in place - Routine Neurological Exam Present: alert, oriented X3, normal speech flare man equal bilaterally Results - Labs CBC & Chem 7: 12/28/16 04:19 12/28/16 04:19 Microbiology Results: Microbiology 12/19/16 13:20 Foot, Right, Bone Gram Stain - Final 12/19/16 13:20 Foot, Right, Bone Surgical Culture - Final Coag negative Staphylococcus Corynebacterium species 12/18/16 09:34 Peripheral/Iv Start Blood Culture - Final No Growth After 5 Days 12/18/16 09:35 Peripheral/Iv Start Blood Culture - Final No Growth After 5 Days 12/17/16 04:56 Foot,Right Gram Stain - Final 12/17/16 04:56 Foot,Right Superficial Wound Culture - Final Enterococcus faecalis Streptococcus viridans group Coag negative Staphylococcus Assessment and Plan (1) Diabetes mellitus, insulin dependent (IDDM), uncontrolled Current visit: Yes Status: Chronic (2) HTN (hypertension) Current visit: Yes Status: Chronic (3) Gastroparesis due to DM Current visit: Yes Status: Chronic (4) Osteomyelitis of ankle or foot Current visit: Yes Status: Acute (5) Bacteremia due to Enterococcus Current visit: Yes Status: Acute Assessment and Plan: Right diabetic foot ulcer with surrounding cellulitis and osteomyelitis with subsequent enterococcus bacteremia, failing outpatient treatment Enterococcus bacteremia secondary to above (positive BC from [facility]) Leukocytosis secondary to above Penicillin allergy causing hives Type II DM - uncontrolled (A1c 10.1%) Diabetic gastroparesis with severe nausea and vomiting postoperatively. HTN HDL GERD Hypokalemia (not POA) Elevated LFT (not POA) Weakness to right hand/arm, dysarthria, mild expressive aphasia - MRI showing CVA (12/25) Constipation - resolved; now with loose stools Morbid Obesity with BMI 43.7 Continue wound VAC along with rocephin, flagyl, vanco. Increased metoprolol to 50 bid and will monitor. Glucose 225-281 yesterday. Lantus was increased and metformin restarted. Monitor today's blood sugars. Encourage patient to be active. PT/OT following. Change Reglan to oral. Hospital Course Summary Disclaimer: The visit summary below is not to be considered part of the above Progress Note. Hospital Course: Hospital Course: 12/17/16 Admission Assessment Right diabetic foot ulcer with surrounding cellulitis failing outpatient treatment Leukocytosis Type II DM - uncontrolled Diabetic gastroparesis HTN HDL GERD Morbid Obesity with BMI 43.7 Plan [place]patient [place] [facility] [place] diabetic foot ulcer failing outpatient treatment, anticipate greater than 2 midnights of care needed. Vancomycin for antimicrobial coverage. Wound Team consult for help with would care. Will consult Dr Richter to potential debridement. MRI of foot to assess for osteomyelitis. Continue home medications. Monitor sugars - ISS ordered to help with glycemic control. Will consult Diabetic education and dietary. Lovenox 40mg SQ daily with SCD for DVT prevention. Start Protonix 40mg daily due to persistent reflux. Initiate Lisinopril 10mg at night due to HTN and DM. Monitor lab. Discussed code status with patient - requests full resuscitation. Order written. Care to return to Dr Au at time of discharge from [facility] 12/18/16 Dr Wood BC from [facility] positive. Will have pharmacy dose vancomycin to treat enterococcus as the patient is allergic to penicillin. Repeat blood cultures to rule out persistent enterococcus bacteremia. Await further microbiology results, and meantime we'll discontinue ceftaroline and change to ceftriaxone for gram-negative rods and metronidazole for anaerobes. Wound Team consult for help with would care. Scheduled for wound debridement tomorrow Continue home medications. Monitor sugars - ISS ordered to help with glycemic control. Diabetic education and dietary consulted. Lovenox 40mg SQ daily with SCD for DVT prevention. On Protonix 40mg daily due to persistent reflux. On Lisinopril 10mg at night due to HTN and DM. Monitor lab. Because of persistent cough will check chest x-ray We'll obtain baseline plain films of both feet to rule out foreign body 12/19/16 Continue with IV Rocephin and IV Flagyl for antimicrobial coverage. Surgical debridement and specimen culture were completed by Dr. Richter today. Will work on glycemic control. Continue with oral agents as well as sliding scale insulin Diabetic education and dietary consulted given elevated A1c at time of admission. Given. Acute nausea. Will give IV Zofran and Reglan. May utilize IV morphine and [place] for pain control Monitor blood pressure and continue on home dose of lisinopril. Lovenox 40mg SQ daily with SCD for DVT prevention. Recheck CBC and BMP tomorrow morning to follow blood counts, renal function and electrolytes 12/20/16 Persistent nausea, we'll continue Zofran and Reglan. Recheck lab in the morning including a lipase. Appreciate Dr. Lee's consult. We'll continue vancomycin, metronidazole, and ceftriaxone for treatment of her right diabetic foot ulcer. She may benefit from consultation Dr. Peggy Flores next week to facilitate outpatient follow-up. 12/21/16 Nausea, appears to be slightly better controlled. Continue with Reglan, Zofran and scopolamine patch Persistent nausea, we'll continue Zofran and Reglan. Continue with wound vac care and appreciate Dr Lee orthopedic consultation for wound management. Continue with vancomycin, metronidazole, and ceftriaxone for to microbial coverage. Continue with glycemic management, glipizide, Lantus, sliding scale insulin. Monitor blood pressure and continue on lisinopril and Norvasc - 145/71 this am. Persistent leukocytosis, Recheck CBC and BMP tomorrow morning to follow blood counts, renal function and electrolytes. 12/22/16 Overall, nausea, appears to be slightly better today. Will continue on scheduled Reglan is suspicion nausea may be related to gastroparesis. Continue with scopolamine patch, and Zofran. At this time continue with IV Vanco, Rocephin and IV Flagyl for coverage of gram -negative and anaerobes. This may also be contributing to some of her nausea. Lucy with management of foot wound as per wound team and Dr. Lee. Monitor Accu-Cheks and continue with metformin, glipizide, Lantus 15 units at at bedtime and sliding scale insulin. Monitor blood pressure. She was borderline elevated this morning. May need to consider increasing lisinopril dose. At this time will continue to monitor. [place] for pain control Lovenox subcutaneous daily for DVT prophylaxis 12/23/16 Continue IV Vanco, Rocephin and IV Flagyl for coverage of gram-negative and anaerobes. WBC persistently elevated at 14. Continue wound vac and wound care. Will increase lisinopril to 10mg nightly to help blood pressure control. Oral potassium given this am as potassium decreased to 3.2. Will recheck in am and check Mg. D/C IVF - weight up from admission. Liver enzymes with slight elevation - hold metformin and lovastatin. Nausea decreasing. Blood sugars stable. Consult with Dr Flores for antibiotic recommendation and course length. 12/24/16 Transient weakness to right hand/arm and slurred speech. ? TIA CT scan of brain not showing any acute bleed or mass. Will check Lipid profile due to DM. Check carotid doppler and Echo. Continue IV Vanco, Rocephin and IV Flagyl for coverage of gram-negative and anaerobes. WBC with decrease to 12.1. Continue wound vac and wound care. Blood pressure still showing elevation. Will increase lisinopril to 20mg nightly. Potassium decreased to 3.1. Oral potassium at noon and evening meal today. Start routine Mirlax for constipation - PRN medications not being used. 12/25/16- Consult to PT/OT for right hand weakness. Continue with ABX, awaiting of recommendations by Dr Flores. ECHO pending. 12/26/16 Appreciate neurology consultation by Dr Saenz. He recommended recheck CT head to rule out hemorrhage. Fortunately this is normal without evidence of intracranial bleeding. He recommends continuing on Lovenox and Plavix. Will work on blood pressure control. Control on Norvasc 10 milligrams and lisinopril 20 milligrams. We will increased the Cymbalta 20 milligrams twice a day and start that now. Will also add hydralazine as needed for persistent systolic blood pressure greater than 170. Dr. Saenz recommends goal blood pressure 150-160 systolic. Mild Hypokalemia will give oral potassium supplementation- 20 MEQ now then continue [address] Flores recommends to continue vancomycin, Rocephin and Flagyl, will likely need 6 weeks. 12/27/16 BP still elevated - will increase BB dose (HR would tolerate an increase). Continue lisinopril and amlodipine. Hydralazine PRN. Decrease frequency of MiraLAX d/t loose stools. Vitamin B12 5000 mcg daily per home dose (reports this helps with neuropathy). Continue secondary prevention for stroke (Plavix, statin); echo pending. Leukocytosis resolved. Continue Flagyl + Rocephin + wound vac. Chemistry panel stable; K up to normal range. Persistently elevated BG >200 yesterday. She's getting routine SSI between 4-7 U. Start regular insulin 5U with meals. Consider endocrinology consult. D/W CM - looking into IRU in [place]. 12/28/16 Assessment Right diabetic foot ulcer with surrounding cellulitis and osteomyelitis with subsequent enterococcus bacteremia, failing outpatient treatment Enterococcus bacteremia secondary to above (positive BC from [facility]) Leukocytosis secondary to above Penicillin allergy causing hives Type II DM - uncontrolled (A1c 10.1%) Diabetic gastroparesis with severe nausea and vomiting postoperatively. HTN HDL GERD Hypokalemia (not POA) Elevated LFT (not POA) Weakness to right hand/arm, dysarthria, mild expressive aphasia - MRI showing CVA (12/25) Constipation - resolved; now with loose stools Morbid Obesity with BMI 43.7 Plan BP still elevated but trending down - monitor today and consider increasing BB dose. Fasting hyperglycemia >200 - increase Lantus from 15U to 17U HS. Also persistently hyperglycemic >200 after meals, even after 5U of insulin was introduced at lunch yesterday. Continue glipizide and restart metformin. Consider increasing NovoLog if metformin doesn't improve postprandial sugars. Encourage activity; continue PT - ambulated 120 feet yesterday. WBC up to 11.4. Continue Flagyl + Rocephin + wound vac. Dr. Richter evaluated yesterday and noted improvement. 12/29/16 11:32 Continue wound VAC along with rocephin, flagyl, vanco. Increased metoprolol to 50 bid and will monitor. Glucose 225-281 yesterday. Lantus was increased and metformin restarted. Monitor today's blood sugars. Encourage patient to be active. PT/OT following. Change Reglan to oral. 12/29/16 11:32
[2016-12-29] MEDS: METOCLOPRAMIDE 5mg TABLET PO SCH ×3 (12:25→20:52)
[2016-12-29] MEDS: SENNA + DOCUSATE TABLET PO PRN (20:51)
[2016-12-29] MEDS: LOVASTATIN 40 MG TABLET PO SCH (20:52)
[2016-12-29] MEDS: INSULIN GLARGINE 100unit/ml INJECTION SQ SCH (20:52)
[2016-12-29] MEDS: NS FLUSH BAG 500ml IV PRN (20:54)
[2016-12-30] MEDS: CEFTRIAXONE 1 G in NS 100 ML IV SCH ×2 (01:07→13:26)
[2016-12-30] MEDS: MetroNIDAZOLE PB 500 MG/100 ML BAG IV SCH ×2 (01:55→11:35)
[2016-12-30] MEDS: INSULIN REGULAR, HUMAN 100 UNIT/ML INJECTION SQ PRN ×4 (07:28→20:40)
[2016-12-30] MEDS: PANTOPRAZOLE 40 MG TABLET PO SCH (07:29)
[2016-12-30] MEDS: METOCLOPRAMIDE 5mg TABLET PO SCH ×4 (07:29→20:39)
[2016-12-30] MEDS: CLOPIDOGREL 75 MG TABLET PO SCH (08:22)
[2016-12-30] MEDS: GlipiZIDE 5 MG TABLET PO SCH ×2 (08:23→17:45)
[2016-12-30] MEDS: METFORMIN 1,000 MG TABLET PO SCH ×2 (08:23→17:45)
[2016-12-30] MEDS: CYANOCOBALAMIN (B-12) 500mcg TABLET PO SCH ×5 (08:24→20:39)
[2016-12-30] MEDS: MAGNESIUM OXIDE 400 MG TABLET PO SCH (08:24)
[2016-12-30] MEDS: LISINOPRIL 20 MG TABLET PO SCH ×2 (08:24→20:44)
[2016-12-30] MEDS: AMLODIPINE 10 MG TABLET PO SCH (08:25)
[2016-12-30] MEDS: ENOXAPARIN 40 MG/0.4 ML INJECTION SQ SCH (08:25)
[2016-12-30] MEDS: INSULIN ASPART 100unit/ml INJECTION SQ SCH ×4 (08:27→19:26)
--- NOTE | 2016-12-30 09:34 | Progress Note ---
Subjective Date: 12/30/16 Subjective: She reports that she's doing pretty well. States that one of the aides thinks her foot is less swollen. Denies N/V. Had some loose stools. Pain is controlled. States she's working on disability application. Exam Vital Signs: Temperature 96.5 F L 12/30/16 07:39 Pulse Rate 70 12/30/16 08:00 Respiratory Rate 19 12/30/16 07:39 Blood Pressure 153/85 H 12/30/16 07:39 Pulse Oximetry 99 12/30/16 07:39 Height/Weight/BMI: Height 1.7 m Weight 121.5 kg Body Mass Index 43.7 - Constitutional Present: no acute distress, well nourished, well developed - Routine HEENT Exam Head: Present: normocephalic, atraumatic Eye: Present: EOMI, PERRL ENT: Present: oropharynx clear - Routine Neck Exam Present: supple - Routine Respiratory Exam Present: CTA bilaterally. Absent: accessory muscle use - Routine Cardiovascular Exam Present: RRR. Absent: murmur - Routine Abdominal Exam Present: soft, normoactive bowel sounds, non distended. Absent: tenderness, rebound, guarding - Routine Extremities Exam Present: edema (R foot). Absent: cyanosis, clubbing Comments: R foot has Charcot changes - Routine Skin Exam Present: intact, wounds (R foot covered with wound VAC and JOHNATHON wrap). Absent: rash - Routine Neurological Exam Present: alert, oriented X3, CN II-XII intact - Routine Psychiatric Exam Present: normal affect Results - Labs CBC & Chem 7: 12/30/16 04:14 12/30/16 04:14 Microbiology Results: Microbiology 12/19/16 13:20 Foot, Right, Bone Gram Stain - Final 12/19/16 13:20 Foot, Right, Bone Surgical Culture - Final Coag negative Staphylococcus Corynebacterium species 12/18/16 09:34 Peripheral/Iv Start Blood Culture - Final No Growth After 5 Days 12/18/16 09:35 Peripheral/Iv Start Blood Culture - Final No Growth After 5 Days 12/17/16 04:56 Foot,Right Gram Stain - Final 12/17/16 04:56 Foot,Right Superficial Wound Culture - Final Enterococcus faecalis Streptococcus viridans group Coag negative Staphylococcus Impression: Right diabetic foot ulcer with surrounding cellulitis and osteomyelitis of the cuboid bone, s/p I&D 12/19, bone culture with CoNS Enterococcus bacteremia, presumed secondary to skin/musculoskeletal source. (+ BC from 12/16). Leukocytosis Penicillin allergy causing hives Type II DM, IR, poorly controlled Diabetic gastroparesis with severe nausea and vomiting postoperatively. HTN HLD GERD Acute ischemic stroke involving the left middle cerebral artery distribution. Constipation Morbid Obesity with BMI 43.7 Recommendation: Continue Vancomycin, ceftriaxone and flagyl. Planning 6 weeks following debridement, which would go through 01/30/17. Continue wound care. She might ultimately need a BKA.
--- NOTE | 2016-12-30 11:35 | Progress Note ---
<Monae Valdes D - Last Filed: 12/30/16 11:28> - Date 12/30/16 Subjective: Alona is about the same. She's been working with her right hand, trying to improve coordination, and she's seen improvement. Her speech also has improved. She continues to have loose stools, which is typical for her. She's not sure if the Reglan has been helpful. She denies abdominal pain. Appetite has been stable. Neuropathy pain has nearly resolved. She has been visiting with her whipped topping finisher and another acquaintance from [facility] who have knowledge about applying for Medicaid and disability - hopes to hear back from them soon. Objective Vital signs: Temperature 96.5 F L 12/30/16 07:39 Pulse Rate 70 12/30/16 08:00 Respiratory Rate 19 12/30/16 07:39 Blood Pressure 153/85 H 12/30/16 07:39 Pulse Oximetry 99 12/30/16 07:39 Height/Weight/BMI: Height 1.7 m Weight 121.5 kg Body Mass Index 43.7 - Constitutional Present: no acute distress, well nourished, well developed, obese - Routine HEENT Exam Eye: Absent: conjunctival icterus ENT: Present: oropharynx clear - Routine Respiratory Exam Present: CTA bilaterally - Routine Cardiovascular Exam Present: RRR, S1, S2 - Routine Abdominal Exam Present: soft, non distended, non tender - Routine Extremities Exam Present: edema (R leg 2+; L leg 1+) - Routine Skin Exam Present: dry, warm Comments: right foot - dressing and wound vac intact - Routine Neurological Exam Present: alert, oriented X3 - Routine Psychiatric Exam Present: normal affect, normal thought process, cooperative Results - Labs CBC & Chem 7: 12/30/16 04:14 12/30/16 04:14 Microbiology Results: Microbiology 12/19/16 13:20 Foot, Right, Bone Gram Stain - Final 12/19/16 13:20 Foot, Right, Bone Surgical Culture - Final Coag negative Staphylococcus Corynebacterium species 12/18/16 09:34 Peripheral/Iv Start Blood Culture - Final No Growth After 5 Days 12/18/16 09:35 Peripheral/Iv Start Blood Culture - Final No Growth After 5 Days 12/17/16 04:56 Foot,Right Gram Stain - Final 12/17/16 04:56 Foot,Right Superficial Wound Culture - Final Enterococcus faecalis Streptococcus viridans group Coag negative Staphylococcus Assessment and Plan (1) Diabetes mellitus, insulin dependent (IDDM), uncontrolled Current visit: Yes Status: Chronic (2) HTN (hypertension) Current visit: Yes Status: Chronic (3) Gastroparesis due to DM Current visit: Yes Status: Chronic (4) Osteomyelitis of ankle or foot Current visit: Yes Status: Acute (5) Bacteremia due to Enterococcus Current visit: Yes Status: Acute Assessment and Plan: IMPRESSION Right diabetic foot ulcer with surrounding cellulitis and osteomyelitis with subsequent enterococcus bacteremia, failing outpatient treatment Enterococcus bacteremia secondary to above (positive BC from [place] [facility]) Leukocytosis secondary to above Penicillin allergy causing hives Type II DM - uncontrolled (A1c 10.1%) Diabetic gastroparesis with severe nausea and vomiting postoperatively. HTN HDL GERD Hypokalemia (not POA) Elevated LFT (not POA) Weakness to right hand/arm, dysarthria, mild expressive aphasia - MRI showing CVA (12/25) Constipation - resolved; now with loose stools Morbid Obesity with BMI 43.7 PLAN Pt is not sure if oral Reglan is helpful; continues to have loose stools; consider discontinuing. Wound VAC to be changed today; continue vancomycin, ceftriaxone and flagyl through 01/30/17. We discussed the grim possibility that if her infection does not heal up with current treatment she may require amputation. BP under better control with increased metoprolol but still suboptimal. HR in the 60-70s with increased BB dosing. She is maxed out on lisinopril & amlodipine & has PRN hydralazine available - ? pheo workup. Will discuss with Dr. Davidson. BG also suboptimal with fasting of 185 this morning and all postoprandials elevated, typically 180 or greater. Increase Lantus to 19U; increase breakfast and lunch insulin to 6U and increase supper NovoLog to 7U. Continue PT/OT. Discussed with Dr. Davidson and CM - will ask IRU to re-screen. Continuing to look into discharge options. Hospital Course Summary Disclaimer: The visit summary below is not to be considered part of the above Progress Note. Hospital Course: Hospital Course: 12/17/16 Admission Assessment Right diabetic foot ulcer with surrounding cellulitis failing outpatient treatment Leukocytosis Type II DM - uncontrolled Diabetic gastroparesis HTN HDL GERD Morbid Obesity with BMI 43.7 Plan Inpatient admission to [facility] for treatment of diabetic foot ulcer failing outpatient treatment, anticipate greater than 2 midnights of care needed. Vancomycin for antimicrobial coverage. Wound Team consult for help with would care. Will consult Dr Richter to potential debridement. MRI of foot to assess for osteomyelitis. Continue home medications. Monitor sugars - ISS ordered to help with glycemic control. Will consult Diabetic education and dietary. Lovenox 40mg SQ daily with SCD for DVT prevention. Start Protonix 40mg daily due to persistent reflux. Initiate Lisinopril 10mg at night due to HTN and DM. Monitor lab. Discussed code status with patient - requests full resuscitation. Order written. Care to return to Dr Au at time of discharge from [facility]. 12/18/16 Dr Nina MEDINA from [facility] positive. Will have pharmacy dose vancomycin to treat enterococcus as the patient is allergic to penicillin. Repeat blood cultures to rule out persistent enterococcus bacteremia. Await further microbiology results, and meantime we'll discontinue ceftaroline and change to ceftriaxone for gram-negative rods and metronidazole for anaerobes. Wound Team consult for help with would care. Scheduled for wound debridement tomorrow Continue home medications. Monitor sugars - ISS ordered to help with glycemic control. Diabetic education and dietary consulted. Lovenox 40mg SQ daily with SCD for DVT prevention. On Protonix 40mg daily due to persistent reflux. On Lisinopril 10mg at night due to HTN and DM. Monitor lab. Because of persistent cough will check chest x-ray We'll obtain baseline plain films of both feet to rule out foreign body 12/19/16 Continue with IV Rocephin and IV Flagyl for antimicrobial coverage. Surgical debridement and specimen culture were completed by Dr. Richter today. Will work on glycemic control. Continue with oral agents as well as sliding scale insulin Diabetic education and dietary consulted given elevated A1c at time of admission. Given. Acute nausea. Will give IV Zofran and Reglan. May utilize IV morphine and Stratham for pain control Monitor blood pressure and continue on home dose of lisinopril. Lovenox 40mg SQ daily with SCD for DVT prevention. Recheck CBC and BMP tomorrow morning to follow blood counts, renal function and electrolytes 12/20/16 Persistent nausea, we'll continue Zofran and Reglan. Recheck lab in the morning including a lipase. Appreciate Dr. Lee's consult. We'll continue vancomycin, metronidazole, and ceftriaxone for treatment of her right diabetic foot ulcer. She may benefit from consultation Dr. Peggy Flores next week to facilitate outpatient follow-up. 12/21/16 Nausea, appears to be slightly better controlled. Continue with Reglan, Zofran and scopolamine patch Persistent nausea, we'll continue Zofran and Reglan. Continue with wound vac care and appreciate Dr Lee orthopedic consultation for wound management. Continue with vancomycin, metronidazole, and ceftriaxone for to microbial coverage. Continue with glycemic management, glipizide, Lantus, sliding scale insulin. Monitor blood pressure and continue on lisinopril and Norvasc - 145/71 this am. Persistent leukocytosis, Recheck CBC and BMP tomorrow morning to follow blood counts, renal function and electrolytes. 12/22/16 Overall, nausea, appears to be slightly better today. Will continue on scheduled Reglan is suspicion nausea may be related to gastroparesis. Continue with scopolamine patch, and Zofran. At this time continue with IV Vanco, Rocephin and IV Flagyl for coverage of gram -negative and anaerobes. This may also be contributing to some of her nausea. Lucy with management of foot wound as per wound team and Dr. Lee. Monitor Accu-Cheks and continue with metformin, glipizide, Lantus 15 units at at bedtime and sliding scale insulin. Monitor blood pressure. She was borderline elevated this morning. May need to consider increasing lisinopril dose. At this time will continue to monitor. Stratham for pain control Lovenox subcutaneous daily for DVT prophylaxis 12/23/16 Continue IV Vanco, Rocephin and IV Flagyl for coverage of gram-negative and anaerobes. WBC persistently elevated at 14. Continue wound vac and wound care. Will increase lisinopril to 10mg nightly to help blood pressure control. Oral potassium given this am as potassium decreased to 3.2. Will recheck in am and check Mg. D/C IVF - weight up from admission. Liver enzymes with slight elevation - hold metformin and lovastatin. Nausea decreasing. Blood sugars stable. Consult with Dr Flores for antibiotic recommendation and course length. 12/24/16 Transient weakness to right hand/arm and slurred speech. ? TIA CT scan of brain not showing any acute bleed or mass. Will check Lipid profile due to DM. Check carotid doppler and Echo. Continue IV Vanco, Rocephin and IV Flagyl for coverage of gram-negative and anaerobes. WBC with decrease to 12.1. Continue wound vac and wound care. Blood pressure still showing elevation. Will increase lisinopril to 20mg nightly. Potassium decreased to 3.1. Oral potassium at noon and evening meal today. Start routine Mirlax for constipation - PRN medications not being used. 12/25/16- Consult to PT/OT for right hand weakness. Continue with ABX, awaiting of recommendations by Dr Flores. ECHO pending. 12/26/16 Appreciate neurology consultation by Dr Saenz. He recommended recheck CT head to rule out hemorrhage. Fortunately this is normal without evidence of intracranial bleeding. He recommends continuing on Lovenox and Plavix. Will work on blood pressure control. Control on Norvasc 10 milligrams and lisinopril 20 milligrams. We will increased the Cymbalta 20 milligrams twice a day and start that now. Will also add hydralazine as needed for persistent systolic blood pressure greater than 170. Dr. Saenz recommends goal blood pressure 150-160 systolic. Mild Hypokalemia will give oral potassium supplementation- 20 MEQ now then continue [address] Flores recommends to continue vancomycin, Rocephin and Flagyl, will likely need 6 weeks. 12/27/16 BP still elevated - will increase BB dose (HR would tolerate an increase). Continue lisinopril and amlodipine. Hydralazine PRN. Decrease frequency of MiraLAX d/t loose stools. Vitamin B12 5000 mcg daily per home dose (reports this helps with neuropathy). Continue secondary prevention for stroke (Plavix, statin); echo pending. Leukocytosis resolved. Continue Flagyl + Rocephin + wound vac. Chemistry panel stable; K up to normal range. Persistently elevated BG >200 yesterday. She's getting routine SSI between 4-7 U. Start regular insulin 5U with meals. Consider endocrinology consult. D/W CM - looking into IRU in [place]. 12/28/16 Assessment Right diabetic foot ulcer with surrounding cellulitis and osteomyelitis with subsequent enterococcus bacteremia, failing outpatient treatment Enterococcus bacteremia secondary to above (positive BC from [place] [facility]) Leukocytosis secondary to above Penicillin allergy causing hives Type II DM - uncontrolled (A1c 10.1%) Diabetic gastroparesis with severe nausea and vomiting postoperatively. HTN HDL GERD Hypokalemia (not POA) Elevated LFT (not POA) Weakness to right hand/arm, dysarthria, mild expressive aphasia - MRI showing CVA (12/25) Constipation - resolved; now with loose stools Morbid Obesity with BMI 43.7 Plan BP still elevated but trending down - monitor today and consider increasing BB dose. Fasting hyperglycemia >200 - increase Lantus from 15U to 17U HS. Also persistently hyperglycemic >200 after meals, even after 5U of insulin was introduced at lunch yesterday. Continue glipizide and restart metformin. Consider increasing NovoLog if metformin doesn't improve postprandial sugars. Encourage activity; continue PT - ambulated 120 feet yesterday. WBC up to 11.4. Continue Flagyl + Rocephin + wound vac. Dr. Richter evaluated yesterday and noted improvement. 12/29/16 11:32 Continue wound VAC along with rocephin, flagyl, vanco. Increased metoprolol to 50 bid and will monitor. Glucose 225-281 yesterday. Lantus was increased and metformin restarted. Monitor today's blood sugars. Encourage patient to be active. PT/OT following. Change Reglan to oral. 12/29/16 11:32 12/30/16 12:05 Pt is not sure if oral Reglan is helpful; continues to have loose stools; consider discontinuing. Wound VAC to be changed today; continue vancomycin, ceftriaxone and flagyl through 01/30/17. We discussed the grim possibility that if her infection does not heal up with current treatment she may require amputation. BP under better control with increased metoprolol but still suboptimal. HR in the 60-70s with increased BB dosing. She is maxed out on lisinopril & amlodipine & has PRN hydralazine available - ? pheo workup. Will discuss with Dr. Davidson. BG also suboptimal with fasting of 185 this morning and all postoprandials elevated, typically 180 or greater. Increase Lantus to 19U; increase breakfast and lunch insulin to 6U and increase supper NovoLog to 7U. Continue PT/OT. Discussed with Dr. Davidson and CM - will ask IRU to re-screen. Continuing to look into discharge options. <Michael Davidson IV - Last Filed: 12/30/16 16:46> - Date 12/30/16 Objective Vital signs: Temperature 98.5 F 12/30/16 15:00 Pulse Rate 91 12/30/16 16:00 Respiratory Rate 18 12/30/16 15:00 Blood Pressure 145/75 H 12/30/16 15:00 Pulse Oximetry 97 12/30/16 15:00 Height/Weight/BMI: Height 5 ft 7 in Weight 121.5 kg Body Mass Index 43.7 Results - Labs CBC & Chem 7: 12/30/16 04:14 12/30/16 04:14 Microbiology Results: Microbiology 12/19/16 13:20 Foot, Right, Bone Gram Stain - Final 12/19/16 13:20 Foot, Right, Bone Surgical Culture - Final Coag negative Staphylococcus Corynebacterium species 12/18/16 09:34 Peripheral/Iv Start Blood Culture - Final No Growth After 5 Days 12/18/16 09:35 Peripheral/Iv Start Blood Culture - Final No Growth After 5 Days 12/17/16 04:56 Foot,Right Gram Stain - Final 12/17/16 04:56 Foot,Right Superficial Wound Culture - Final Enterococcus faecalis Streptococcus viridans group Coag negative Staphylococcus Assessment and Plan (1) Diabetes mellitus, insulin dependent (IDDM), uncontrolled Current visit: Yes Status: Chronic (2) HTN (hypertension) Current visit: Yes Status: Chronic (3) Gastroparesis due to DM Current visit: Yes Status: Chronic (4) Osteomyelitis of ankle or foot Current visit: Yes Status: Acute (5) Bacteremia due to Enterococcus Current visit: Yes Status: Acute Assessment and Plan: I have independently interviewed and examined the patient. I have reviewed the medical record. The plan has been discussed and formulated with BAR MACHINE OPERATOR as above with the additions below. Alona says she has been able to right much better today. She has been filling out paperwork for disability and Medicaid with the assistance of some friends. She says she is doing alright. Lungs clear. Heart regular. Abd s/nt/nd +bs. Speech is clear Continue wound VAC along with rocephin, flagyl, vanco. Abx planned until 01/30. BP a little better today with increased metoprolol. Patient not controlled on 3 agents. Has hypokalemia. Check for primary aldosteronism. Aldosterone, renin ordered. Glucose improving. Increase Lantus to 21 units. Encourage patient to be active. Therapy following Hospital Course Summary Disclaimer: The visit summary below is not to be considered part of the above Progress Note. Hospital Course: 12/30/16 16:25 Continue wound VAC along with rocephin, flagyl, vanco. Abx planned until 01/30. BP a little better today with increased metoprolol. Patient not controlled on 3 agents. Has hypokalemia. Check for primary aldosteronism. Aldosterone, renin ordered. Glucose improving. Increase Lantus to 21 units. Encourage patient to be active. Therapy following
--- NOTE | 2016-12-30 11:41 | Pharmacy Consult-Antibiotics ---
Pharmacy Consult-Vancomycin - Laboratory Information WBC 11.6 T/MM3 (4.5-11.0) H 12/30/16 04:14 BUN 9.0 MG/DL (7-17) 12/30/16 04:14 Creatinine 0.6 MG/DL (0.7-1.2) L 12/30/16 04:14 Vancomycin Trough 20.62 UG/ML (15-20) H 12/30/16 04:14 - Consult Information VANCOMYCIN CONSULT: Vancomycin Trough = 20.6 mcg/ml. Today's SCr = 0.6 mg/dl. Will give Vancomycin 1,500 mg IV q8hrs. Will continue to monitor and make adjustments accordingly. Thank you.
[2016-12-30] MEDS ORDERED: INSULIN GLARGINE 100unit/ml INJECTION SQ SCH (12:05)
--- NOTE | 2016-12-30 16:11 | Wound Care Progress Note ---
Wound Management - Patient Status Premedicated Prior to Dressing Change: No - Wound Right Foot Wound Type: Diabetic Foot Ulcer Wound Present on Admission?: Yes Length: 7.5 Width: 4.5 Depth: 3 Tunneling Location (o'clock): 6 Wound Bed Appearance: Beefy Red Aura Wound Appearance: Shiny, Macerated, Roll Under Edges Tunneling: Yes (3cm @ 6) Undermining: Yes (3cm from 12-3) Drainage Description: Serosanguineous Drainage Amount: Large Drainage Odor: Slight Odor Dressing Status: Changed Packing Type: Woundvac Sponge Number of Packing Pieces Removed?: 1 Number of Packing Pieces Placed?: 1 Primary Dressing: Transparent Drape Secondary Dressing: Trac Pad Dressing Change Date: 12/30/16 Dressing Change Time: 16:10 Dressing Change Patient Tolerance: Tolerated Well (Dr Richter in to see pt)
[2016-12-30] MEDS: LOVASTATIN 40 MG TABLET PO SCH (20:39)
[2016-12-30] MEDS: INSULIN GLARGINE 100unit/ml INJECTION SQ SCH (20:40)
[2016-12-30] MEDS: SALINE FLUSH 10ml SYRINGE IV PRN (22:30)
[2016-12-30] MEDS: NS FLUSH BAG 500ml IV PRN (22:30)
[2016-12-31] MEDS: CEFTRIAXONE 1 G in NS 100 ML IV SCH ×2 (00:45→12:36)
[2016-12-31] MEDS: MetroNIDAZOLE PB 500 MG/100 ML BAG IV SCH ×2 (01:24→13:26)
[2016-12-31] MEDS: METOCLOPRAMIDE 5mg TABLET PO SCH ×4 (05:50→20:02)
[2016-12-31] MEDS: PANTOPRAZOLE 40 MG TABLET PO SCH (05:50)
[2016-12-31] MEDS: LISINOPRIL 20 MG TABLET PO SCH ×2 (09:15→20:02)
[2016-12-31] MEDS: INSULIN ASPART 100unit/ml INJECTION SQ SCH ×3 (09:18→18:29)
--- NOTE | 2016-12-31 09:19 | Progress Note ---
DATE 12/30/2016 FINDINGS Ms. Aguirre was seen earlier this afternoon. She was in good spirits. OBJECTIVE VITALS: Afebrile. Normotensive. Current vitals include temperature 98.5, pulse 91, respirations 18, blood pressure 145/75. HEENT: Normocephalic. Pupils are equally round and react to light and accommodation. CHEST: Clear to auscultation bilaterally. HEART: Regular rate and rhythm. Normal S1, S2, without gallops, murmurs or clicks. EXTREMITIES: Attention was focused to the right foot. Wound VAC was removed. Wound bed was carefully inspected. No residual necrotic tissue present. There was good granulation tissue forming throughout the wound bed. One can still feel/palpate bone within the midportion of the wound upon the plantar aspect of the foot. There does not appear to be any residual visible osteomyelitis. There is good granulation tissue forming overlying this bone. ASSESSMENT 46-year-old female with multiple medical comorbidities with Gonzalez grade 3 right diabetic foot ulcer. PLAN Continuation of antibiotics. From a surgical standpoint, would recommend proceeding with reexploration of her right diabetic foot wound later this week and attempt to perform a delayed primary closure to imbricate the wound edges closer to one another. Ultimately the patient will need to see a foot and ankle surgeon in regards to her severe Charcot's foot/neuropathic osteoarthropathy. JENNIFER
[2016-12-31] MEDS: MAGNESIUM OXIDE 400 MG TABLET PO SCH (09:20)
[2016-12-31] MEDS: METFORMIN 1,000 MG TABLET PO SCH ×2 (09:20→17:40)
[2016-12-31] MEDS: GlipiZIDE 5 MG TABLET PO SCH ×2 (09:21→17:40)
[2016-12-31] MEDS: CYANOCOBALAMIN (B-12) 500mcg TABLET PO SCH ×5 (09:21→20:02)
[2016-12-31] MEDS: CLOPIDOGREL 75 MG TABLET PO SCH (09:21)
[2016-12-31] MEDS: ENOXAPARIN 40 MG/0.4 ML INJECTION SQ SCH (09:22)
[2016-12-31] MEDS: AMLODIPINE 10 MG TABLET PO SCH (09:24)
[2016-12-31] MEDS: INSULIN REGULAR, HUMAN 100 UNIT/ML INJECTION SQ PRN ×2 (10:21→22:10)
--- NOTE | 2016-12-31 11:28 | Progress Note ---
<LucioMonae D - Last Filed: 12/31/16 11:25> - Date 12/31/16 Subjective: Alona was sitting in her bed. She informed me that Dr. Richter no longer wants her walking as much on her foot. It's ok to stand and go to the bathroom but that is the extent of activity for now. She reports that he is worried about her foot not healing as well as hoped. She may have to return to the OR on . She has very minimal pain in her right foot - it only bothers her if she stretches it or moves it often. She states that the dexterity in her right hand has significantly improved and her voice is stronger today. Her words are coming easier now. She denies chest pain or SOA. Continues to have loose stools but denies cramping or nausea. She has been eating "a lot". States that she had oatmeal for BF which is why her BG after BF was >200. Objective Vital signs: Temperature 97.5 F 12/31/16 08:00 Pulse Rate 77 12/31/16 08:00 Respiratory Rate 20 12/31/16 00:00 Blood Pressure 168/90 H 12/31/16 08:00 Pulse Oximetry 97 12/31/16 08:00 Height/Weight/BMI: Height 1.7 m Weight 121.5 kg Body Mass Index 43.7 - Constitutional Present: no acute distress, well nourished, well developed - Routine HEENT Exam Eye: Present: EOMI (amblyopia b/l). Absent: conjunctival icterus, scleral injection - Routine Respiratory Exam Present: CTA bilaterally - Routine Cardiovascular Exam Present: RRR, S1, S2, murmur - Routine Abdominal Exam Present: soft, normoactive bowel sounds, non distended, non tender - Routine Extremities Exam Present: edema (Rt foot) - Routine Musculoskeletal Exam Musculoskeletal: Present: joint swelling (Rt foot) - Routine Skin Exam Present: erythema (Mild to right foot), wounds (wound vac to plantar surface of right foot) - Routine Neurological Exam Present: alert, oriented X3, facial asymmetry (very subtle flattening of right nasolabial fold), normal speech (improving) fine motor coord to right hand continues to improve - Routine Psychiatric Exam Present: normal thought process, cooperative Results - Labs CBC & Chem 7: 12/31/16 08:01 12/31/16 08:01 Microbiology Results: Microbiology 12/19/16 13:20 Foot, Right, Bone Gram Stain - Final 12/19/16 13:20 Foot, Right, Bone Surgical Culture - Final Coag negative Staphylococcus Corynebacterium species 12/18/16 09:34 Peripheral/Iv Start Blood Culture - Final No Growth After 5 Days 12/18/16 09:35 Peripheral/Iv Start Blood Culture - Final No Growth After 5 Days 12/17/16 04:56 Foot,Right Gram Stain - Final 12/17/16 04:56 Foot,Right Superficial Wound Culture - Final Enterococcus faecalis Streptococcus viridans group Coag negative Staphylococcus Assessment and Plan (1) Diabetes mellitus, insulin dependent (IDDM), uncontrolled Current visit: Yes Status: Chronic (2) HTN (hypertension) Current visit: Yes Status: Chronic (3) Gastroparesis due to DM Current visit: Yes Status: Chronic (4) Osteomyelitis of ankle or foot Current visit: Yes Status: Acute (5) Bacteremia due to Enterococcus Current visit: Yes Status: Acute Assessment and Plan: IMPRESSION Right diabetic foot ulcer with surrounding cellulitis and osteomyelitis with subsequent enterococcus bacteremia, failing outpatient treatment Enterococcus bacteremia secondary to above (positive BC from [facility]) Leukocytosis secondary to above Penicillin allergy causing hives Type II DM - uncontrolled (A1c 10.1%) Diabetic gastroparesis with severe nausea and vomiting postoperatively. HTN HDL GERD Hypokalemia (not POA) Elevated LFT (not POA) Weakness to right hand/arm, dysarthria, mild expressive aphasia - MRI showing CVA (12/25) Constipation - resolved; now with loose stools Morbid Obesity with BMI >[address] Richter's note reviewed: recommending re-exploration of her right diabetic foot wound late this week. He recommends for her to see a foot/ankle specialist d/t severe Charcot foot and neuropathic osteoarthropathy. continue vancomycin, ceftriaxone and flagyl through 01/30/17. WBC down to normal range. BG under better control. Had elevated reading after breakfast today but pt reports that she ate oatmeal and expected it to increase. She will select a different breakfast item for tomorrow so will hold off on increasing insulin. BP still high on 3 agents. Will discuss with attending. Aldosterone and renin activity were drawn yesterday (both send-outs). CM working on placement options. Pt has been filling out disability/medicaid forms. DVT Prophylaxis: Lovenox GI Prophylaxis: Protonix Resuscitation Status: Full Code Hospital Course Summary Disclaimer: The visit summary below is not to be considered part of the above Progress Note. Hospital Course: Plan [place]patient [place] [facility] [place] of diabetic foot ulcer failing outpatient treatment, anticipate greater than 2 midnights of care needed. Vancomycin for antimicrobial coverage. Wound Team consult for help with would care. Will consult Dr Richter to potential debridement. MRI of foot to assess for osteomyelitis. Continue home medications. Monitor sugars - ISS ordered to help with glycemic control. Will consult Diabetic education and dietary. Lovenox 40mg SQ daily with SCD for DVT prevention. Start Protonix 40mg daily due to persistent reflux. Initiate Lisinopril 10mg at night due to HTN and DM. Monitor lab. Discussed code status with patient - requests full resuscitation. Order written. Care to return to Dr Au at time of discharge from [facility]. 12/18/16 Dr Wood BC from [facility] positive. Will have pharmacy dose vancomycin to treat enterococcus as the patient is allergic to penicillin. Repeat blood cultures to rule out persistent enterococcus bacteremia. Await further microbiology results, and meantime we'll discontinue ceftaroline and change to ceftriaxone for gram-negative rods and metronidazole for anaerobes. Wound Team consult for help with would care. Scheduled for wound debridement tomorrow Continue home medications. Monitor sugars - ISS ordered to help with glycemic control. Diabetic education and dietary consulted. Lovenox 40mg SQ daily with SCD for DVT prevention. On Protonix 40mg daily due to persistent reflux. On Lisinopril 10mg at night due to HTN and DM. Monitor lab. Because of persistent cough will check chest x-ray We'll obtain baseline plain films of both feet to rule out foreign body 12/19/16 Continue with IV Rocephin and IV Flagyl for antimicrobial coverage. Surgical debridement and specimen culture were completed by Dr. Richter today. Will work on glycemic control. Continue with oral agents as well as sliding scale insulin Diabetic education and dietary consulted given elevated A1c at time of admission. Given. Acute nausea. Will give IV Zofran and Reglan. May utilize IV morphine and Hermann for pain control Monitor blood pressure and continue on home dose of lisinopril. Lovenox 40mg SQ daily with SCD for DVT prevention. Recheck CBC and BMP tomorrow morning to follow blood counts, renal function and electrolytes 12/20/16 Persistent nausea, we'll continue Zofran and Reglan. Recheck lab in the morning including a lipase. Appreciate Dr. Lee's consult. We'll continue vancomycin, metronidazole, and ceftriaxone for treatment of her right diabetic foot ulcer. She may benefit from consultation Dr. Peggy Flores next week to facilitate outpatient follow-up. 12/21/16 Nausea, appears to be slightly better controlled. Continue with Reglan, Zofran and scopolamine patch Persistent nausea, we'll continue Zofran and Reglan. Continue with wound vac care and appreciate Dr Lee orthopedic consultation for wound management. Continue with vancomycin, metronidazole, and ceftriaxone for to microbial coverage. Continue with glycemic management, glipizide, Lantus, sliding scale insulin. Monitor blood pressure and continue on lisinopril and Norvasc - 145/71 this am. Persistent leukocytosis, Recheck CBC and BMP tomorrow morning to follow blood counts, renal function and electrolytes. 12/22/16 Overall, nausea, appears to be slightly better today. Will continue on scheduled Reglan is suspicion nausea may be related to gastroparesis. Continue with scopolamine patch, and Zofran. At this time continue with IV Vanco, Rocephin and IV Flagyl for coverage of gram -negative and anaerobes. This may also be contributing to some of her nausea. Lucy with management of foot wound as per wound team and Dr. Lee. Monitor Accu-Cheks and continue with metformin, glipizide, Lantus 15 units at at bedtime and sliding scale insulin. Monitor blood pressure. She was borderline elevated this morning. May need to consider increasing lisinopril dose. At this time will continue to monitor. Hermann for pain control Lovenox subcutaneous daily for DVT prophylaxis 12/23/16 Continue IV Vanco, Rocephin and IV Flagyl for coverage of gram-negative and anaerobes. WBC persistently elevated at 14. Continue wound vac and wound care. Will increase lisinopril to 10mg nightly to help blood pressure control. Oral potassium given this am as potassium decreased to 3.2. Will recheck in am and check Mg. D/C IVF - weight up from admission. Liver enzymes with slight elevation - hold metformin and lovastatin. Nausea decreasing. Blood sugars stable. Consult with Dr Flores for antibiotic recommendation and course length. 12/24/16 Transient weakness to right hand/arm and slurred speech. ? TIA CT scan of brain not showing any acute bleed or mass. Will check Lipid profile due to DM. Check carotid doppler and Echo. Continue IV Vanco, Rocephin and IV Flagyl for coverage of gram-negative and anaerobes. WBC with decrease to 12.1. Continue wound vac and wound care. Blood pressure still showing elevation. Will increase lisinopril to 20mg nightly. Potassium decreased to 3.1. Oral potassium at noon and evening meal today. Start routine Mirlax for constipation - PRN medications not being used. 12/25/16- Consult to PT/OT for right hand weakness. Continue with ABX, awaiting of recommendations by Dr Flores. ECHO pending. 12/26/16 Appreciate neurology consultation by Dr Saenz. He recommended recheck CT head to rule out hemorrhage. Fortunately this is normal without evidence of intracranial bleeding. He recommends continuing on Lovenox and Plavix. Will work on blood pressure control. Control on Norvasc 10 milligrams and lisinopril 20 milligrams. We will increased the Cymbalta 20 milligrams twice a day and start that now. Will also add hydralazine as needed for persistent systolic blood pressure greater than 170. Dr. Saenz recommends goal blood pressure 150-160 systolic. Mild Hypokalemia will give oral potassium supplementation- 20 MEQ now then continue [address] Flores recommends to continue vancomycin, Rocephin and Flagyl, will likely need 6 weeks. 12/27/16 BP still elevated - will increase BB dose (HR would tolerate an increase). Continue lisinopril and amlodipine. Hydralazine PRN. Decrease frequency of MiraLAX d/t loose stools. Vitamin B12 5000 mcg daily per home dose (reports this helps with neuropathy). Continue secondary prevention for stroke (Plavix, statin); echo pending. Leukocytosis resolved. Continue Flagyl + Rocephin + wound vac. Chemistry panel stable; K up to normal range. Persistently elevated BG >200 yesterday. She's getting routine SSI between 4-7 U. Start regular insulin 5U with meals. Consider endocrinology consult. D/W CM - looking into IRU in [place]. 12/28/16 Assessment Right diabetic foot ulcer with surrounding cellulitis and osteomyelitis with subsequent enterococcus bacteremia, failing outpatient treatment Enterococcus bacteremia secondary to above (positive BC from [facility]) Leukocytosis secondary to above Penicillin allergy causing hives Type II DM - uncontrolled (A1c 10.1%) Diabetic gastroparesis with severe nausea and vomiting postoperatively. HTN HDL GERD Hypokalemia (not POA) Elevated LFT (not POA) Weakness to right hand/arm, dysarthria, mild expressive aphasia - MRI showing CVA (12/25) Constipation - resolved; now with loose stools Morbid Obesity with BMI 43.7 Plan BP still elevated but trending down - monitor today and consider increasing BB dose. Fasting hyperglycemia >200 - increase Lantus from 15U to 17U HS. Also persistently hyperglycemic >200 after meals, even after 5U of insulin was introduced at lunch yesterday. Continue glipizide and restart metformin. Consider increasing NovoLog if metformin doesn't improve postprandial sugars. Encourage activity; continue PT - ambulated 120 feet yesterday. WBC up to 11.4. Continue Flagyl + Rocephin + wound vac. Dr. Richter evaluated yesterday and noted improvement. 12/29/16 11:32 Continue wound VAC along with rocephin, flagyl, vanco. Increased metoprolol to 50 bid and will monitor. Glucose 225-281 yesterday. Lantus was increased and metformin restarted. Change Reglan to oral. 12/30/16 12:05 Pt is not sure if oral Reglan is helpful; continues to have loose stools; consider discontinuing. Wound VAC to be changed today; continue vancomycin, ceftriaxone and flagyl through 01/30/17. We discussed the grim possibility that if her infection does not heal up with current treatment she may require amputation. BP under better control with increased metoprolol but still suboptimal. HR in the 60-70s with increased BB dosing. She is maxed out on lisinopril & amlodipine & has PRN hydralazine available - ? pheo workup. Will discuss with Dr. Davidson. BG also suboptimal with fasting of 185 this morning and all postoprandials elevated, typically 180 or greater. Increase Lantus to 19U; increase breakfast and lunch insulin to 6U and increase supper NovoLog to 7U. Continue PT/OT. Discussed with Dr. Davidson and CM - will ask IRU to re-screen. Continuing to look into discharge options. 12/30/16 16:25 Continue wound VAC along with rocephin, flagyl, vanco. Abx planned until 01/30. BP a little better today with increased metoprolol. Patient not controlled on 3 agents. Has hypokalemia. Check for primary aldosteronism. Aldosterone, renin ordered. Glucose improving. Increase Lantus to 21 units. Encourage patient to be active. Therapy following 12/31/16 IMPRESSION Right diabetic foot ulcer with surrounding cellulitis and osteomyelitis with subsequent enterococcus bacteremia, failing outpatient treatment Enterococcus bacteremia secondary to above (positive BC from [facility]) Leukocytosis secondary to above Penicillin allergy causing hives Type II DM - uncontrolled (A1c 10.1%) Diabetic gastroparesis with severe nausea and vomiting postoperatively. HTN HDL GERD Hypokalemia (not POA) Elevated LFT (not POA) Weakness to right hand/arm, dysarthria, mild expressive aphasia - MRI showing CVA (12/25) Constipation - resolved; now with loose stools Morbid Obesity with BMI >[address] Richter's note reviewed: recommending re-exploration of her right diabetic foot wound late this week. He recommends for her to see a foot/ankle specialist d/t severe Charcot foot and neuropathic osteoarthropathy. continue vancomycin, ceftriaxone and flagyl through 01/30/17. WBC down to normal range. BG under better control. Had elevated reading after breakfast today but pt reports that she ate oatmeal and expected it to increase. She will select a different breakfast item for tomorrow so will hold off on increasing insulin. BP still high on 3 agents. Will discuss with attending. Aldosterone and renin activity were drawn yesterday (both send-outs). CM working on placement options. Pt has been filling out disability/medicaid forms. <Cassius Disla D - Last Filed: 12/31/16 16:24> - Date 12/31/16 Objective Vital signs: Temperature 97.5 F 12/31/16 08:00 Pulse Rate 75 12/31/16 08:00 Respiratory Rate 20 12/31/16 00:00 Blood Pressure 168/90 H 10/31/17 08:00 Pulse Oximetry 97 12/31/16 08:00 Height/Weight/BMI: Height 1.7 m Weight 121.5 kg Body Mass Index 43.7 Results - Labs CBC & Chem 7: 12/31/16 08:01 12/31/16 08:01 Microbiology Results: Microbiology 12/19/16 13:20 Foot, Right, Bone Gram Stain - Final 12/19/16 13:20 Foot, Right, Bone Surgical Culture - Final Coag negative Staphylococcus Corynebacterium species 12/18/16 09:34 Peripheral/Iv Start Blood Culture - Final No Growth After 5 Days 12/18/16 09:35 Peripheral/Iv Start Blood Culture - Final No Growth After 5 Days 12/17/16 04:56 Foot,Right Gram Stain - Final 12/17/16 04:56 Foot,Right Superficial Wound Culture - Final Enterococcus faecalis Streptococcus viridans group Coag negative Staphylococcus Assessment and Plan (1) Osteomyelitis of ankle or foot Current visit: Yes Status: Acute (2) Bacteremia due to Enterococcus Current visit: Yes Status: Acute (3) Diabetes mellitus, insulin dependent (IDDM), uncontrolled Current visit: Yes Status: Chronic (4) HTN (hypertension) Current visit: Yes Status: Chronic (5) Gastroparesis due to DM Current visit: Yes Status: Chronic Assessment and Plan: IMPRESSION Right diabetic foot ulcer with surrounding cellulitis and osteomyelitis with subsequent enterococcus bacteremia, failing outpatient treatment Enterococcus bacteremia secondary to above (positive BC from [facility]) Leukocytosis secondary to above Penicillin allergy causing hives Type II DM - uncontrolled (A1c 10.1%) Diabetic gastroparesis with severe nausea and vomiting postoperatively. HTN HDL GERD Hypokalemia (not POA) Elevated LFT (not POA) Weakness to right hand/arm, dysarthria, mild expressive aphasia - MRI showing CVA (12/25) Constipation - resolved; now with loose stools Morbid Obesity with BMI >40 Have independently interviewed and examined pt. Chart reviewed. Case discussed with CM and my CARDIAC REHABILITATION SPECIALIST. Care plan developed with my supervision; agree with above. Doing okay. Eating well-no nausea or ab pain. Bowels moving. Noting improvement of strength and coordination of right hand-can write better. Speech more fluent. No f/c. Lungs: decreased, no distress CV: regular AB: soft nt/nd +BS MSE: awake alert appropriate Plan: Continue with antibiotic therapy and wound vac - anticipate surgical reexploration in near future. Will add HCTZ 25mg to help BP-monitor potassium. If potassium would decrease may need to change to spironolactone (aldosterone and renin pending). Continue with supportive care. Hospital Course Summary Disclaimer: The visit summary below is not to be considered part of the above Progress Note.
--- NOTE | 2016-12-31 12:39 | Event Note ---
I was able to contact Dr. Saenz through his nurse at the office this morning regarding risk of stroke if we returned to surgery on for additional debridement of the right foot. His office nurse returned my call indicating that Dr. Saenz felt it was safe to return to the operating room for surgical debridement.
[2016-12-31] MEDS: LOVASTATIN 40 MG TABLET PO SCH (20:02)
[2016-12-31] MEDS: INSULIN GLARGINE 100unit/ml INJECTION SQ SCH (22:09)
[2016-12-31] MEDS: SALINE FLUSH 10ml SYRINGE IV PRN (22:11)
[2016-12-31] MEDS: NS FLUSH BAG 500ml IV PRN (22:11)
[2017-01-01] MEDS: CEFTRIAXONE 1 G in NS 100 ML IV SCH ×2 (00:30→11:17)
[2017-01-01] MEDS: MetroNIDAZOLE PB 500 MG/100 ML BAG IV SCH ×2 (01:09→12:04)
[2017-01-01] MEDS: PANTOPRAZOLE 40 MG TABLET PO SCH (05:50)
[2017-01-01] MEDS: METOCLOPRAMIDE 5mg TABLET PO SCH ×4 (05:50→20:40)
[2017-01-01] MEDS: GlipiZIDE 5 MG TABLET PO SCH ×2 (08:06→16:35)
[2017-01-01] MEDS: MAGNESIUM OXIDE 400 MG TABLET PO SCH (08:06)
[2017-01-01] MEDS: LISINOPRIL 20 MG TABLET PO SCH ×2 (08:06→20:38)
[2017-01-01] MEDS: CYANOCOBALAMIN (B-12) 500mcg TABLET PO SCH ×5 (08:06→20:39)
[2017-01-01] MEDS: CLOPIDOGREL 75 MG TABLET PO SCH (08:06)
[2017-01-01] MEDS: METFORMIN 1,000 MG TABLET PO SCH ×2 (08:07→16:36)
[2017-01-01] MEDS: HYDRALAZINE 10 MG TABLET PO PRN (08:07)
[2017-01-01] MEDS: AMLODIPINE 10 MG TABLET PO SCH (08:07)
[2017-01-01] MEDS: ONDANSETRON 4 MG/2 ML INJECTION IVP PRN (08:29)
--- NOTE | 2017-01-01 09:11 | Progress Note ---
Subjective Date: 01/01/17 Subjective: She doesn't feel that great today. Is concerned about her BP being elevated, and some nausea. Her foot is okay. Denies much pain. No diarrhea, but soft stools. Exam Vital Signs: Temperature 96.7 F L 01/01/17 08:37 Pulse Rate 78 01/01/17 08:37 Respiratory Rate 18 01/01/17 08:37 Blood Pressure 162/97 H 01/01/17 08:37 Pulse Oximetry 96 01/01/17 08:37 Height/Weight/BMI: Height 1.7 m Weight 122.7 kg Body Mass Index 43.7 - Constitutional Present: no acute distress, well nourished, well developed - Routine HEENT Exam Head: Present: normocephalic, atraumatic Eye: Present: EOMI, PERRL ENT: Present: mucous membranes moist, dentition normal - Routine Neck Exam Present: supple - Routine Respiratory Exam Present: CTA bilaterally - Routine Cardiovascular Exam Present: RRR. Absent: murmur - Routine Abdominal Exam Present: soft, normoactive bowel sounds, non distended. Absent: tenderness, rebound, guarding - Routine Extremities Exam Absent: cyanosis, clubbing Comments: some edema and charcot foot changes R foot. VAC on. Minimal redness. - Routine Skin Exam Present: intact. Absent: rash - Routine Neurological Exam Present: alert, oriented X3, CN II-XII intact, moving all extremities - Routine Psychiatric Exam Present: normal affect Results - Labs CBC & Chem 7: 01/01/17 04:30 01/01/17 04:30 Microbiology Results: Microbiology 12/19/16 13:20 Foot, Right, Bone Gram Stain - Final 12/19/16 13:20 Foot, Right, Bone Surgical Culture - Final Coag negative Staphylococcus Corynebacterium species 12/18/16 09:34 Peripheral/Iv Start Blood Culture - Final No Growth After 5 Days 12/18/16 09:35 Peripheral/Iv Start Blood Culture - Final No Growth After 5 Days 12/17/16 04:56 Foot,Right Gram Stain - Final 12/17/16 04:56 Foot,Right Superficial Wound Culture - Final Enterococcus faecalis Streptococcus viridans group Coag negative Staphylococcus Impression: Right diabetic foot ulcer with surrounding cellulitis and osteomyelitis of the cuboid bone, s/p I&D 12/19, bone culture with CoNS Enterococcus bacteremia, presumed secondary to skin/musculoskeletal source. (+ BC from 12/16). Leukocytosis Penicillin allergy causing hives Type II DM, IR, poorly controlled Diabetic gastroparesis with severe nausea and vomiting postoperatively. HTN HLD GERD Acute ischemic stroke involving the left middle cerebral artery distribution. Constipation Morbid Obesity with BMI 43.7 Recommendation: Continue Vancomycin, ceftriaxone and flagyl. Planning 6 weeks following debridement, which would go through 01/30/17. Continue wound care. She might ultimately need a BKA. Further wound debridement is planned by Dr. Richter.
[2017-01-01] MEDS: INSULIN ASPART 100unit/ml INJECTION SQ SCH ×3 (09:13→18:38)
[2017-01-01] MEDS: ENOXAPARIN 40 MG/0.4 ML INJECTION SQ SCH (09:14)
[2017-01-01] MEDS: INSULIN REGULAR, HUMAN 100 UNIT/ML INJECTION SQ PRN (11:16)
[2017-01-01] MEDS ORDERED: CHOLESTYRAMINE LIGHT 4 G PACKET PO PRN (13:03)
--- NOTE | 2017-01-01 13:04 | Progress Note ---
<Maryam Collazo V - Last Filed: 01/01/17 13:01> - Date 01/01/17 Subjective: Alona is seen today in follow up and notes that she was up all night urinating which she attributes to starting HCTZ yesterday afternoon. She also reports that she continues to have watery diarrhea. No nausea or abdominal pain. Left hand continues to get stronger and she feels that her speech continues to improve. Objective Vital signs: Temperature 96.7 F L 01/01/17 08:37 Pulse Rate 67 01/01/17 12:07 Respiratory Rate 18 01/01/17 08:37 Blood Pressure 144/88 H 01/01/17 12:07 Pulse Oximetry 96 01/01/17 08:37 Height/Weight/BMI: Height 1.7 m Weight 122.7 kg Body Mass Index 43.7 - Constitutional Present: no acute distress, well nourished, well developed - Routine HEENT Exam Eye: Present: EOMI ENT: Present: mucous membranes moist, dentition normal - Routine Respiratory Exam Present: CTA bilaterally. Absent: wheezes - Routine Cardiovascular Exam Present: RRR, S1, S2. Absent: murmur - Routine Abdominal Exam Present: soft, normoactive bowel sounds, non distended. Absent: tenderness - Routine Extremities Exam Present: edema (Right foot), pulses intact Comments: Wound vac intact - Routine Skin Exam Present: intact, dry, warm - Routine Neurological Exam Present: alert, oriented X3, CN II-XII intact Right hand grasp weaker - Routine Lymphatic Exam Lymphatic: Absent: adenopathy - Routine Psychiatric Exam Present: normal affect Results - Labs CBC & Chem 7: 01/01/17 04:30 01/01/17 04:30 Microbiology Results: Microbiology 12/19/16 13:20 Foot, Right, Bone Gram Stain - Final 12/19/16 13:20 Foot, Right, Bone Surgical Culture - Final Coag negative Staphylococcus Corynebacterium species 12/18/16 09:34 Peripheral/Iv Start Blood Culture - Final No Growth After 5 Days 12/18/16 09:35 Peripheral/Iv Start Blood Culture - Final No Growth After 5 Days 12/17/16 04:56 Foot,Right Gram Stain - Final 12/17/16 04:56 Foot,Right Superficial Wound Culture - Final Enterococcus faecalis Streptococcus viridans group Coag negative Staphylococcus Assessment and Plan (1) Diabetes mellitus, insulin dependent (IDDM), uncontrolled Current visit: Yes Status: Chronic (2) HTN (hypertension) Current visit: Yes Status: Chronic (3) Gastroparesis due to DM Current visit: Yes Status: Chronic (4) Osteomyelitis of ankle or foot Current visit: Yes Status: Acute (5) Bacteremia due to Enterococcus Current visit: Yes Status: Acute Assessment and Plan: IMPRESSION Right diabetic foot ulcer with surrounding cellulitis and osteomyelitis with subsequent enterococcus bacteremia, failing outpatient treatment Enterococcus bacteremia secondary to above (positive BC from [place] ED) Leukocytosis secondary to above Penicillin allergy causing hives Type II DM - uncontrolled (A1c 10.1%) Diabetic gastroparesis with severe nausea and vomiting postoperatively. HTN HDL GERD Hypokalemia (not POA) Elevated LFT (not POA) Weakness to right hand/arm, dysarthria, mild expressive aphasia - MRI showing CVA (12/25) Constipation - resolved; now with loose stools Morbid Obesity with BMI >40 Plan Continue to monitor blood pressure. Currently 144/88. Goal SBP<150-160 Given loose stools will check for C-diff as she has been on antibiotics. Questran as needed to control loose stools Monitor blood sugars Continue with wound management Encourage work with PT and OT for ongoing strengthening Hospital Course Summary Disclaimer: The visit summary below is not to be considered part of the above Progress Note. Hospital Course: Plan Inpatient admission to [facility] for treatment of diabetic foot ulcer failing outpatient treatment, anticipate greater than 2 midnights of care needed. Vancomycin for antimicrobial coverage. Wound Team consult for help with would care. Will consult Dr Richter to potential debridement. MRI of foot to assess for osteomyelitis. Continue home medications. Monitor sugars - ISS ordered to help with glycemic control. Will consult Diabetic education and dietary. Lovenox 40mg SQ daily with SCD for DVT prevention. Start Protonix 40mg daily due to persistent reflux. Initiate Lisinopril 10mg at night due to HTN and DM. Monitor lab. Discussed code status with patient - requests full resuscitation. Order written. Care to return to Dr Au at time of discharge from [facility]. 12/18/16 Dr Wood BC from [place] ED positive. Will have pharmacy dose vancomycin to treat enterococcus as the patient is allergic to penicillin. Repeat blood cultures to rule out persistent enterococcus bacteremia. Await further microbiology results, and meantime we'll discontinue ceftaroline and change to ceftriaxone for gram-negative rods and metronidazole for anaerobes. Wound Team consult for help with would care. Scheduled for wound debridement tomorrow Continue home medications. Monitor sugars - ISS ordered to help with glycemic control. Diabetic education and dietary consulted. Lovenox 40mg SQ daily with SCD for DVT prevention. On Protonix 40mg daily due to persistent reflux. On Lisinopril 10mg at night due to HTN and DM. Monitor lab. Because of persistent cough will check chest x-ray We'll obtain baseline plain films of both feet to rule out foreign body 12/19/16 Continue with IV Rocephin and IV Flagyl for antimicrobial coverage. Surgical debridement and specimen culture were completed by Dr. Richter today. Will work on glycemic control. Continue with oral agents as well as sliding scale insulin Diabetic education and dietary consulted given elevated A1c at time of admission. Given. Acute nausea. Will give IV Zofran and Reglan. May utilize IV morphine and Dixon for pain control Monitor blood pressure and continue on home dose of lisinopril. Lovenox 40mg SQ daily with [facility] for DVT prevention. Recheck CBC and BMP tomorrow morning to follow blood counts, renal function and electrolytes 12/20/16 Persistent nausea, we'll continue Zofran and Reglan. Recheck lab in the morning including a lipase. Appreciate Dr. Lee's consult. We'll continue vancomycin, metronidazole, and ceftriaxone for treatment of her right diabetic foot ulcer. She may benefit from consultation Dr. Peggy Flores next week to facilitate outpatient follow-up. 12/21/16 Nausea, appears to be slightly better controlled. Continue with Reglan, Zofran and scopolamine patch Persistent nausea, we'll continue Zofran and Reglan. Continue with wound vac care and appreciate Dr Lee orthopedic consultation for wound management. Continue with vancomycin, metronidazole, and ceftriaxone for to microbial coverage. Continue with glycemic management, glipizide, Lantus, sliding scale insulin. Monitor blood pressure and continue on lisinopril and Norvasc - 145/71 this am. Persistent leukocytosis, Recheck CBC and BMP tomorrow morning to follow blood counts, renal function and electrolytes. 12/22/16 Overall, nausea, appears to be slightly better today. Will continue on scheduled Reglan is suspicion nausea may be related to gastroparesis. Continue with scopolamine patch, and Zofran. At this time continue with IV Vanco, Rocephin and IV Flagyl for coverage of gram -negative and anaerobes. This may also be contributing to some of her nausea. Lucy with management of foot wound as per wound team and Dr. Lee. Monitor Accu-Cheks and continue with metformin, glipizide, Lantus 15 units at at bedtime and sliding scale insulin. Monitor blood pressure. She was borderline elevated this morning. May need to consider increasing lisinopril dose. At this time will continue to monitor. Dixon for pain control Lovenox subcutaneous daily for DVT prophylaxis 12/23/16 Continue IV Vanco, Rocephin and IV Flagyl for coverage of gram-negative and anaerobes. WBC persistently elevated at 14. Continue wound vac and wound care. Will increase lisinopril to 10mg nightly to help blood pressure control. Oral potassium given this am as potassium decreased to 3.2. Will recheck in am and check Mg. D/C IVF - weight up from admission. Liver enzymes with slight elevation - hold metformin and lovastatin. Nausea decreasing. Blood sugars stable. Consult with Dr Flores for antibiotic recommendation and course length. 12/24/16 Transient weakness to right hand/arm and slurred speech. ? TIA CT scan of brain not showing any acute bleed or mass. Will check Lipid profile due to DM. Check carotid doppler and Echo. Continue IV Vanco, Rocephin and IV Flagyl for coverage of gram-negative and anaerobes. WBC with decrease to 12.1. Continue wound vac and wound care. Blood pressure still showing elevation. Will increase lisinopril to 20mg nightly. Potassium decreased to 3.1. Oral potassium at noon and evening meal today. Start routine Mirlax for constipation - PRN medications not being used. 12/25/16- Consult to PT/OT for right hand weakness. Continue with ABX, awaiting of recommendations by Dr Flores. ECHO pending. 12/26/16 Appreciate neurology consultation by Dr Saenz. He recommended recheck CT head to rule out hemorrhage. Fortunately this is normal without evidence of intracranial bleeding. He recommends continuing on Lovenox and Plavix. Will work on blood pressure control. Control on Norvasc 10 milligrams and lisinopril 20 milligrams. We will increased the Cymbalta 20 milligrams twice a day and start that now. Will also add hydralazine as needed for persistent systolic blood pressure greater than 170. Dr. Saenz recommends goal blood pressure 150-160 systolic. Mild Hypokalemia will give oral potassium supplementation- 20 MEQ now then continue [address] Flores recommends to continue vancomycin, Rocephin and Flagyl, will likely need 6 weeks. 12/27/16 BP still elevated - will increase BB dose (HR would tolerate an increase). Continue lisinopril and amlodipine. Hydralazine PRN. Decrease frequency of MiraLAX d/t loose stools. Vitamin B12 5000 mcg daily per home dose (reports this helps with neuropathy). Continue secondary prevention for stroke (Plavix, statin); echo pending. Leukocytosis resolved. Continue Flagyl + Rocephin + wound vac. Chemistry panel stable; K up to normal range. Persistently elevated BG >200 yesterday. She's getting routine SSI between 4-7 U. Start regular insulin 5U with meals. Consider endocrinology consult. D/W CM - looking into IRU in [place]. 12/28/16 Assessment Right diabetic foot ulcer with surrounding cellulitis and osteomyelitis with subsequent enterococcus bacteremia, failing outpatient treatment Enterococcus bacteremia secondary to above (positive BC from [place] ED) Leukocytosis secondary to above Penicillin allergy causing hives Type II DM - uncontrolled (A1c 10.1%) Diabetic gastroparesis with severe nausea and vomiting postoperatively. HTN HDL GERD Hypokalemia (not POA) Elevated LFT (not POA) Weakness to right hand/arm, dysarthria, mild expressive aphasia - MRI showing CVA (12/25) Constipation - resolved; now with loose stools Morbid Obesity with BMI 43.7 Plan BP still elevated but trending down - monitor today and consider increasing BB dose. Fasting hyperglycemia >200 - increase Lantus from 15U to 17U HS. Also persistently hyperglycemic >200 after meals, even after 5U of insulin was introduced at lunch yesterday. Continue glipizide and restart metformin. Consider increasing NovoLog if metformin doesn't improve postprandial sugars. Encourage activity; continue PT - ambulated 120 feet yesterday. WBC up to 11.4. Continue Flagyl + Rocephin + wound vac. Dr. Richter evaluated yesterday and noted improvement. 12/29/16 11:32 Continue wound VAC along with rocephin, flagyl, vanco. Increased metoprolol to 50 bid and will monitor. Glucose 225-281 yesterday. Lantus was increased and metformin restarted. Change Reglan to oral. 12/30/16 12:05 Pt is not sure if oral Reglan is helpful; continues to have loose stools; consider discontinuing. Wound VAC to be changed today; continue vancomycin, ceftriaxone and flagyl through 01/30/17. We discussed the grim possibility that if her infection does not heal up with current treatment she may require amputation. BP under better control with increased metoprolol but still suboptimal. HR in the 60-70s with increased BB dosing. She is maxed out on lisinopril & amlodipine & has PRN hydralazine available - ? pheo workup. Will discuss with Dr. Davidson. BG also suboptimal with fasting of 185 this morning and all postoprandials elevated, typically 180 or greater. Increase Lantus to 19U; increase breakfast and lunch insulin to 6U and increase supper NovoLog to 7U. Continue PT/OT. Discussed with Dr. Davidson and CM - will ask IRU to re-screen. Continuing to look into discharge options. 12/30/16 16:25 Continue wound VAC along with rocephin, flagyl, vanco. Abx planned until 01/30. BP a little better today with increased metoprolol. Patient not controlled on 3 agents. Has hypokalemia. Check for primary aldosteronism. Aldosterone, renin ordered. Glucose improving. Increase Lantus to 21 units. Encourage patient to be active. Therapy following 12/31/16 IMPRESSION Right diabetic foot ulcer with surrounding cellulitis and osteomyelitis with subsequent enterococcus bacteremia, failing outpatient treatment Enterococcus bacteremia secondary to above (positive BC from [place] ED) Leukocytosis secondary to above Penicillin allergy causing hives Type II DM - uncontrolled (A1c 10.1%) Diabetic gastroparesis with severe nausea and vomiting postoperatively. HTN HDL GERD Hypokalemia (not POA) Elevated LFT (not POA) Weakness to right hand/arm, dysarthria, mild expressive aphasia - MRI showing CVA (12/25) Constipation - resolved; now with loose stools Morbid Obesity with BMI >[address] Richter's note reviewed: recommending re-exploration of her right diabetic foot wound late this week. He recommends for her to see a foot/ankle specialist d/t severe Charcot foot and neuropathic osteoarthropathy. continue vancomycin, ceftriaxone and flagyl through 01/30/17. WBC down to normal range. BG under better control. Had elevated reading after breakfast today but pt reports that she ate oatmeal and expected it to increase. She will select a different breakfast item for tomorrow so will hold off on increasing insulin. BP still high on 3 agents. Will discuss with attending. Aldosterone and renin activity were drawn yesterday (both send-outs). CM working on placement options. Pt has been filling out disability/medicaid forms. 01/01/17 13:27 Plan Continue to monitor blood pressure. Currently 144/88. Goal SBP<150-160 Given loose stools will check for C-diff as she has been on antibiotics. Questran as needed to control loose stools Monitor blood sugars Continue with wound management Encourage work with PT and OT for ongoing strengthening <Cassius Disla D - Last Filed: 01/01/17 19:03> - Date 01/01/17 Objective Vital signs: Temperature 96.4 F L 01/01/17 15:39 Pulse Rate 78 01/01/17 16:00 Respiratory Rate 18 01/01/17 15:39 Blood Pressure 160/86 H 01/01/17 15:39 Pulse Oximetry 98 01/01/17 15:39 Height/Weight/BMI: Height 1.7 m Weight 122.7 kg Body Mass Index 43.7 Results - Labs CBC & Chem 7: 01/01/17 04:30 01/01/17 04:30 Microbiology Results: Microbiology 12/19/16 13:20 Foot, Right, Bone Gram Stain - Final 12/19/16 13:20 Foot, Right, Bone Surgical Culture - Final Coag negative Staphylococcus Corynebacterium species 12/18/16 09:34 Peripheral/Iv Start Blood Culture - Final No Growth After 5 Days 12/18/16 09:35 Peripheral/Iv Start Blood Culture - Final No Growth After 5 Days 12/17/16 04:56 Foot,Right Gram Stain - Final 12/17/16 04:56 Foot,Right Superficial Wound Culture - Final Enterococcus faecalis Streptococcus viridans group Coag negative Staphylococcus Assessment and Plan (1) Osteomyelitis of ankle or foot Current visit: Yes Status: Acute (2) Bacteremia due to Enterococcus Current visit: Yes Status: Acute (3) Diabetes mellitus, insulin dependent (IDDM), uncontrolled Current visit: Yes Status: Chronic (4) HTN (hypertension) Current visit: Yes Status: Chronic (5) Gastroparesis due to DM Current visit: Yes Status: Chronic Assessment and Plan: IMPRESSION Right diabetic foot ulcer with surrounding cellulitis and osteomyelitis with subsequent enterococcus bacteremia, failing outpatient treatment Enterococcus bacteremia secondary to above (positive BC from [place] ED) Leukocytosis secondary to above Penicillin allergy causing hives Type II DM - uncontrolled (A1c 10.1%) Diabetic gastroparesis with severe nausea and vomiting postoperatively. HTN HDL GERD Hypokalemia (not POA) Elevated LFT (not POA) Weakness to right hand/arm, dysarthria, mild expressive aphasia - MRI showing CVA (12/25) Constipation - resolved; now with loose stools Morbid Obesity with BMI >40 Have independently interviewed and examined pt. Chart reviewed. Case discussed with CM, my [employer]NA[employer], and patients sister. Care plan developed with my supervision; agree with above. Doing okay. Slept poorly as needed to urinate all night long. Not feeling nausea , but notes appetite decreased (menu getting old). Breathing well. No f/c. Right arm function improving. Speech improving. Does have worry about potentially losing food - sister worried that this is affecting her mood ( report pt always has struggled with depression, but had been reluctant to seek treatment). Lungs: clear CV: regular MSE: awake alert appropriate. Plan: C diff negative. Continue with antibiotics and wound vac-wound reexploration tomorrow. Continue to monitor lab-potassium stable at 3.9 with addition of HCTZ. Need to be cautious with use of JOHNATHON and oral potassium. Encourage continued work on therapy. CM making arrangements for skilled care for time of discharge. Time spent with patient care 25 minutes. Hospital Course Summary Disclaimer: The visit summary below is not to be considered part of the above Progress Note. Addendum entered and electronically signed by Maryam Collazo APRN 01/01/17 14 :14: Patient requests to be a DNR and this order is written.
[2017-01-01] MEDS: LOVASTATIN 40 MG TABLET PO SCH (20:38)
[2017-01-01] MEDS: INSULIN GLARGINE 100unit/ml INJECTION SQ SCH (20:38)
[2017-01-02] MEDS: CEFTRIAXONE 1 G in NS 100 ML IV SCH ×2 (01:42→11:41)
[2017-01-02] MEDS: MetroNIDAZOLE PB 500 MG/100 ML BAG IV SCH ×2 (02:30→12:46)
[2017-01-02] MEDS: ACETAMINOPHEN 325 MG TABLET PO PRN (04:23)
[2017-01-02] MEDS: METOCLOPRAMIDE 5mg TABLET PO SCH ×4 (06:37→20:44)
[2017-01-02] MEDS: PANTOPRAZOLE 40 MG TABLET PO SCH (06:37)
[2017-01-02] MEDS: INSULIN ASPART 100unit/ml INJECTION SQ SCH ×3 (08:54→18:55)
[2017-01-02] MEDS: GlipiZIDE 5 MG TABLET PO SCH ×2 (08:55→18:54)
[2017-01-02] MEDS: AMLODIPINE 10 MG TABLET PO SCH (08:57)
[2017-01-02] MEDS: MAGNESIUM OXIDE 400 MG TABLET PO SCH (08:58)
[2017-01-02] MEDS: METFORMIN 1,000 MG TABLET PO SCH ×2 (08:59→18:54)
[2017-01-02] MEDS: CYANOCOBALAMIN (B-12) 500mcg TABLET PO SCH ×5 (08:59→20:44)
[2017-01-02] MEDS: CLOPIDOGREL 75 MG TABLET PO SCH (08:59)
[2017-01-02] MEDS: ENOXAPARIN 40 MG/0.4 ML INJECTION SQ SCH (09:00)
[2017-01-02] MEDS: LISINOPRIL 20 MG TABLET PO SCH ×2 (09:10→20:44)
--- NOTE | 2017-01-02 11:36 | Pharmacy Consult-Antibiotics ---
Pharmacy Consult-Vancomycin - Laboratory Information WBC 7.9 T/MM3 (4.5-11.0) 01/02/17 05:33 BUN 11.0 MG/DL (7-17) 01/02/17 05:33 Creatinine 0.6 MG/DL (0.7-1.2) L 01/02/17 05:33 Vancomycin Trough 18.41 UG/ML (15-20) 01/02/17 05:33 - Consult Information Vancomycin trough is in goal range. No changes ordered. Thank you.
[2017-01-02] MEDS: INSULIN REGULAR, HUMAN 100 UNIT/ML INJECTION SQ PRN (11:42)
[2017-01-02] MEDS: SALINE FLUSH 10ml SYRINGE IV PRN ×3 (11:42→21:30)
--- NOTE | 2017-01-02 13:13 | Progress Note ---
<Maryam Collazo V - Last Filed: 01/02/17 13:09> - Date 01/02/17 Subjective: Alona is seen this afternoon in follow up. She states that overall she is feeling good. She if more tired today and feels that her speech is often more slurred when she is tired. She reports that her stools are still loose and she has not had any stool softeners for multiple days. Discussed possible depression. Alona states that this has been a "wake up call" and her depression is much better than prior to hospitalization. Objective Vital signs: Temperature 96 F L 01/02/17 08:20 Pulse Rate 72 01/02/17 08:20 Respiratory Rate 14 01/02/17 08:20 Blood Pressure 147/92 H 01/02/17 08:20 Pulse Oximetry 97 01/02/17 08:20 Rhythm: Normal Sinus Rhythm Height/Weight/BMI: Height 1.7 m Weight 124.1 kg Body Mass Index 43.7 - Constitutional Present: no acute distress, well nourished, well developed - Routine HEENT Exam Eye: Present: EOMI ENT: Present: mucous membranes moist, dentition normal - Routine Respiratory Exam Present: CTA bilaterally. Absent: wheezes - Routine Cardiovascular Exam Present: RRR, S1, S2. Absent: murmur - Routine Abdominal Exam Present: soft, normoactive bowel sounds, non distended. Absent: tenderness - Routine Extremities Exam Present: normal capillary refill Comments: Wound Vac intact - Routine Skin Exam Present: dry, warm - Routine Neurological Exam Present: alert, oriented X3, CN II-XII intact - Routine Lymphatic Exam Lymphatic: Absent: adenopathy - Routine Psychiatric Exam Present: normal affect Results - Labs CBC & Chem 7: 01/02/17 05:33 01/02/17 05:33 Microbiology Results: Microbiology 12/19/16 13:20 Foot, Right, Bone Gram Stain - Final 12/19/16 13:20 Foot, Right, Bone Surgical Culture - Final Coag negative Staphylococcus Corynebacterium species 12/18/16 09:34 Peripheral/Iv Start Blood Culture - Final No Growth After 5 Days 12/18/16 09:35 Peripheral/Iv Start Blood Culture - Final No Growth After 5 Days 12/17/16 04:56 Foot,Right Gram Stain - Final 12/17/16 04:56 Foot,Right Superficial Wound Culture - Final Enterococcus faecalis Streptococcus viridans group Coag negative Staphylococcus Assessment and Plan (1) Diabetes mellitus, insulin dependent (IDDM), uncontrolled Current visit: Yes Status: Chronic (2) HTN (hypertension) Current visit: Yes Status: Chronic (3) Gastroparesis due to DM Current visit: Yes Status: Chronic (4) Osteomyelitis of ankle or foot Current visit: Yes Status: Acute (5) Bacteremia due to Enterococcus Current visit: Yes Status: Acute Assessment and Plan: IMPRESSION Right diabetic foot ulcer with surrounding cellulitis and osteomyelitis with subsequent enterococcus bacteremia, failing outpatient treatment Enterococcus bacteremia secondary to above (positive BC from [facility]) Leukocytosis secondary to above Penicillin allergy causing hives Type II DM - uncontrolled (A1c 10.1%) Diabetic gastroparesis with severe nausea and vomiting postoperatively. HTN HDL GERD Hypokalemia (not POA) Elevated LFT (not POA) Weakness to right hand/arm, dysarthria, mild expressive aphasia - MRI showing CVA (12/25) Constipation - resolved; now with loose stools Morbid Obesity with BMI >40 Plan Planning for further wound evaluation by Dr Richter possibly tomorrow 01/03. Continue with wound Vac and antibiotics. Loose stools seem to be improved, Questran as needed. C-Diff was negative on 01/01. Continue to work on BP control, currently on Norvasc 10 milligrams, hydrochlorothiazide 25, Lopressor 50 twice a day, lisinopril 20 twice a day. Monitor renal function and electrolytes Monitor blood sugars Continue with Plavix, aspirin and statin. Given recent stroke Continued work with PT/OT for strengthening given right hand weakness Hospital Course Summary Disclaimer: The visit summary below is not to be considered part of the above Progress Note. Hospital Course: Plan Inpatient admission to [facility] for treatment of diabetic foot ulcer failing outpatient treatment, anticipate greater than 2 midnights of care needed. Vancomycin for antimicrobial coverage. Wound Team consult for help with would care. Will consult Dr Richter to potential debridement. MRI of foot to assess for osteomyelitis. Continue home medications. Monitor sugars - ISS ordered to help with glycemic control. Will consult Diabetic education and dietary. Lovenox 40mg SQ daily with SCD for DVT prevention. Start Protonix 40mg daily due to persistent reflux. Initiate Lisinopril 10mg at night due to HTN and DM. Monitor lab. Discussed code status with patient - requests full resuscitation. Order written. Care to return to Dr Au at time of discharge from [facility]. 12/18/16 Dr Wood BC from [facility] positive. Will have pharmacy dose vancomycin to treat enterococcus as the patient is allergic to penicillin. Repeat blood cultures to rule out persistent enterococcus bacteremia. Await further microbiology results, and meantime we'll discontinue ceftaroline and change to ceftriaxone for gram-negative rods and metronidazole for anaerobes. Wound Team consult for help with would care. Scheduled for wound debridement tomorrow Continue home medications. Monitor sugars - ISS ordered to help with glycemic control. Diabetic education and dietary consulted. Lovenox 40mg SQ daily with SCD for DVT prevention. On Protonix 40mg daily due to persistent reflux. On Lisinopril 10mg at night due to HTN and DM. Monitor lab. Because of persistent cough will check chest x-ray We'll obtain baseline plain films of both feet to rule out foreign body 12/19/16 Continue with IV Rocephin and IV Flagyl for antimicrobial coverage. Surgical debridement and specimen culture were completed by Dr. Richter today. Will work on glycemic control. Continue with oral agents as well as sliding scale insulin Diabetic education and dietary consulted given elevated A1c at time of admission. Given. Acute nausea. Will give IV Zofran and Reglan. May utilize IV morphine and [place] for pain control Monitor blood pressure and continue on home dose of lisinopril. Lovenox 40mg SQ daily with SCD for DVT prevention. Recheck CBC and BMP tomorrow morning to follow blood counts, renal function and electrolytes 12/20/16 Persistent nausea, we'll continue Zofran and Reglan. Recheck lab in the morning including a lipase. Appreciate Dr. Lee's consult. We'll continue vancomycin, metronidazole, and ceftriaxone for treatment of her right diabetic foot ulcer. She may benefit from consultation Dr. Peggy Flores next week to facilitate outpatient follow-up. 12/21/16 Nausea, appears to be slightly better controlled. Continue with Reglan, Zofran and scopolamine patch Persistent nausea, we'll continue Zofran and Reglan. Continue with wound vac care and appreciate Dr Lee orthopedic consultation for wound management. Continue with vancomycin, metronidazole, and ceftriaxone for to microbial coverage. Continue with glycemic management, glipizide, Lantus, sliding scale insulin. Monitor blood pressure and continue on lisinopril and Norvasc - 145/71 this am. Persistent leukocytosis, Recheck CBC and BMP tomorrow morning to follow blood counts, renal function and electrolytes. 12/22/16 Overall, nausea, appears to be slightly better today. Will continue on scheduled Reglan is suspicion nausea may be related to gastroparesis. Continue with scopolamine patch, and Zofran. At this time continue with IV Vanco, Rocephin and IV Flagyl for coverage of gram -negative and anaerobes. This may also be contributing to some of her nausea. Lucy with management of foot wound as per wound team and Dr. Lee. Monitor Accu-Cheks and continue with metformin, glipizide, Lantus 15 units at at bedtime and sliding scale insulin. Monitor blood pressure. She was borderline elevated this morning. May need to consider increasing lisinopril dose. At this time will continue to monitor. Tesuque for pain control Lovenox subcutaneous daily for DVT prophylaxis 12/23/16 Continue IV Vanco, Rocephin and IV Flagyl for coverage of gram-negative and anaerobes. WBC persistently elevated at 14. Continue wound vac and wound care. Will increase lisinopril to 10mg nightly to help blood pressure control. Oral potassium given this am as potassium decreased to 3.2. Will recheck in am and check Mg. D/C IVF - weight up from admission. Liver enzymes with slight elevation - hold metformin and lovastatin. Nausea decreasing. Blood sugars stable. Consult with Dr Flores for antibiotic recommendation and course length. 12/24/16 Transient weakness to right hand/arm and slurred speech. ? TIA CT scan of brain not showing any acute bleed or mass. Will check Lipid profile due to DM. Check carotid doppler and Echo. Continue IV Vanco, Rocephin and IV Flagyl for coverage of gram-negative and anaerobes. WBC with decrease to 12.1. Continue wound vac and wound care. Blood pressure still showing elevation. Will increase lisinopril to 20mg nightly. Potassium decreased to 3.1. Oral potassium at noon and evening meal today. Start routine Mirlax for constipation - PRN medications not being used. 12/25/16- Consult to PT/OT for right hand weakness. Continue with ABX, awaiting of recommendations by Dr Flores. ECHO pending. 12/26/16 Appreciate neurology consultation by Dr Saenz. He recommended recheck CT head to rule out hemorrhage. Fortunately this is normal without evidence of intracranial bleeding. He recommends continuing on Lovenox and Plavix. Will work on blood pressure control. Control on Norvasc 10 milligrams and lisinopril 20 milligrams. We will increased the Cymbalta 20 milligrams twice a day and start that now. Will also add hydralazine as needed for persistent systolic blood pressure greater than 170. Dr. Saenz recommends goal blood pressure 150-160 systolic. Mild Hypokalemia will give oral potassium supplementation- 20 MEQ now then continue [address] Flores recommends to continue vancomycin, Rocephin and Flagyl, will likely need 6 weeks. 12/27/16 BP still elevated - will increase BB dose (HR would tolerate an increase). Continue lisinopril and amlodipine. Hydralazine PRN. Decrease frequency of MiraLAX d/t loose stools. Vitamin B12 5000 mcg daily per home dose (reports this helps with neuropathy). Continue secondary prevention for stroke (Plavix, statin); echo pending. Leukocytosis resolved. Continue Flagyl + Rocephin + wound vac. Chemistry panel stable; K up to normal range. Persistently elevated BG >200 yesterday. She's getting routine SSI between 4-7 U. Start regular insulin 5U with meals. Consider endocrinology consult. D/W CM - looking into IRU in [place]. 12/28/16 Assessment Right diabetic foot ulcer with surrounding cellulitis and osteomyelitis with subsequent enterococcus bacteremia, failing outpatient treatment Enterococcus bacteremia secondary to above (positive BC from [facility]) Leukocytosis secondary to above Penicillin allergy causing hives Type II DM - uncontrolled (A1c 10.1%) Diabetic gastroparesis with severe nausea and vomiting postoperatively. HTN HDL GERD Hypokalemia (not POA) Elevated LFT (not POA) Weakness to right hand/arm, dysarthria, mild expressive aphasia - MRI showing CVA (12/25) Constipation - resolved; now with loose stools Morbid Obesity with BMI 43.7 Plan BP still elevated but trending down - monitor today and consider increasing BB dose. Fasting hyperglycemia >200 - increase Lantus from 15U to 17U HS. Also persistently hyperglycemic >200 after meals, even after 5U of insulin was introduced at lunch yesterday. Continue glipizide and restart metformin. Consider increasing NovoLog if metformin doesn't improve postprandial sugars. Encourage activity; continue PT - ambulated 120 feet yesterday. WBC up to 11.4. Continue Flagyl + Rocephin + wound vac. Dr. Richter evaluated yesterday and noted improvement. 12/29/16 11:32 Continue wound VAC along with rocephin, flagyl, vanco. Increased metoprolol to 50 bid and will monitor. Glucose 225-281 yesterday. Lantus was increased and metformin restarted. Change Reglan to oral. 12/30/16 12:05 Pt is not sure if oral Reglan is helpful; continues to have loose stools; consider discontinuing. Wound VAC to be changed today; continue vancomycin, ceftriaxone and flagyl through 01/30/17. We discussed the grim possibility that if her infection does not heal up with current treatment she may require amputation. BP under better control with increased metoprolol but still suboptimal. HR in the 60-70s with increased BB dosing. She is maxed out on lisinopril & amlodipine & has PRN hydralazine available - ? pheo workup. Will discuss with Dr. Davidson. BG also suboptimal with fasting of 185 this morning and all postoprandials elevated, typically 180 or greater. Increase Lantus to 19U; increase breakfast and lunch insulin to 6U and increase supper NovoLog to 7U. Continue PT/OT. Discussed with Dr. Davidson and CM - will ask IRU to re-screen. Continuing to look into discharge options. 12/30/16 16:25 Continue wound VAC along with rocephin, flagyl, vanco. Abx planned until 01/30. BP a little better today with increased metoprolol. Patient not controlled on 3 agents. Has hypokalemia. Check for primary aldosteronism. Aldosterone, renin ordered. Glucose improving. Increase Lantus to 21 units. Encourage patient to be active. Therapy following 12/31/16 IMPRESSION Right diabetic foot ulcer with surrounding cellulitis and osteomyelitis with subsequent enterococcus bacteremia, failing outpatient treatment Enterococcus bacteremia secondary to above (positive BC from [facility]) Leukocytosis secondary to above Penicillin allergy causing hives Type II DM - uncontrolled (A1c 10.1%) Diabetic gastroparesis with severe nausea and vomiting postoperatively. HTN HDL GERD Hypokalemia (not POA) Elevated LFT (not POA) Weakness to right hand/arm, dysarthria, mild expressive aphasia - MRI showing CVA (12/25) Constipation - resolved; now with loose stools Morbid Obesity with BMI >[address] Richter's note reviewed: recommending re-exploration of her right diabetic foot wound late this week. He recommends for her to see a foot/ankle specialist d/t severe Charcot foot and neuropathic osteoarthropathy. continue vancomycin, ceftriaxone and flagyl through 01/30/17. WBC down to normal range. BG under better control. Had elevated reading after breakfast today but pt reports that she ate oatmeal and expected it to increase. She will select a different breakfast item for tomorrow so will hold off on increasing insulin. BP still high on 3 agents. Will discuss with attending. Aldosterone and renin activity were drawn yesterday (both send-outs). CM working on placement options. Pt has been filling out disability/medicaid forms. 01/01/17 13:27 Plan Continue to monitor blood pressure. Currently 144/88. Goal SBP<150-160 Given loose stools will check for C-diff as she has been on antibiotics. Questran as needed to control loose stools Monitor blood sugars Continue with wound management Encourage work with PT and OT for ongoing strengthening 01/02/17- Plan Planning for further wound evaluation by Dr Richter possibly tomorrow 01/03. Continue with wound Vac and antibiotics. Loose stools seem to be improved, Questran as needed. C-Diff was negative on 01/01. Continue to work on BP control, currently on Norvasc 10 milligrams, hydrochlorothiazide 25, Lopressor 50 twice a day, lisinopril 20 twice a day. Monitor renal function and electrolytes Monitor blood sugars Continue with Plavix, aspirin and statin. Given recent stroke Continued work with PT/OT for strengthening given right hand weakness <Cassius Disla - Last Filed: 01/02/17 14:33> - Date 01/02/17 Objective Vital signs: Temperature 96 F L 01/02/17 08:20 Pulse Rate 72 01/02/17 08:20 Respiratory Rate 14 01/02/17 08:20 Blood Pressure 147/92 H 01/02/17 08:20 Pulse Oximetry 97 01/02/17 08:20 Height/Weight/BMI: Height 1.7 m Weight 124.1 kg Body Mass Index 43.7 Results - Labs CBC & Chem 7: 01/02/17 05:33 01/02/17 05:33 Microbiology Results: Microbiology 12/19/16 13:20 Foot, Right, Bone Gram Stain - Final 12/19/16 13:20 Foot, Right, Bone Surgical Culture - Final Coag negative Staphylococcus Corynebacterium species 12/18/16 09:34 Peripheral/Iv Start Blood Culture - Final No Growth After 5 Days 12/18/16 09:35 Peripheral/Iv Start Blood Culture - Final No Growth After 5 Days 12/17/16 04:56 Foot,Right Gram Stain - Final 12/17/16 04:56 Foot,Right Superficial Wound Culture - Final Enterococcus faecalis Streptococcus viridans group Coag negative Staphylococcus Assessment and Plan (1) Osteomyelitis of ankle or foot Current visit: Yes Status: Acute (2) Bacteremia due to Enterococcus Current visit: Yes Status: Acute (3) Diabetes mellitus, insulin dependent (IDDM), uncontrolled Current visit: Yes Status: Chronic (4) HTN (hypertension) Current visit: Yes Status: Chronic (5) Gastroparesis due to DM Current visit: Yes Status: Chronic Assessment and Plan: IMPRESSION Right diabetic foot ulcer with surrounding cellulitis and osteomyelitis with subsequent enterococcus bacteremia, failing outpatient treatment Enterococcus bacteremia secondary to above (positive BC from [facility]) Leukocytosis secondary to above Penicillin allergy causing hives Type II DM - uncontrolled (A1c 10.1%) Diabetic gastroparesis with severe nausea and vomiting postoperatively. HTN HDL GERD Hypokalemia (not POA) Elevated LFT (not POA) Weakness to right hand/arm, dysarthria, mild expressive aphasia - MRI showing CVA (12/25) Constipation - resolved; now with loose stools Morbid Obesity with BMI >40 Have independently interviewed and examined pt. Chart reviewed. Case discussed with CM and my SENIOR COMMUNICATIONS ENGINEER. Care plan developed with my supervision; agree with above. Doing okay today. Was hoping for surgical debridement today, but procedure had to be postponed until tomorrow. Minimal discomfort to foot-keeping her foot elevated which is helping to decrease pain and edema. No f/c. No nausea. Eating okay. Bowels moving. Breathing well. We discussed her mood and overall, she feels it is doing okay. Does report some tension between her and her [id number]; they are looking into counseling with their software support analyst to help (the hospitalization here make current logistics for counseling difficult). Does feel mood better overall now than prior to admission. Lungs: clear bilaterally CV: regular EXT: +1 edema, wound vac in place MSE: awake alert appropriate Plan: Continue with supportive care. Anticipate Sx tomorrow. Active listening provided. BS and BP stable-continue current treatments. Time spent with patient care 25 minutes. Resuscitation Status: Do Not Resuscitate - Time spent with patient Time with patient PN: 25 minutes Hospital Course Summary Disclaimer: The visit summary below is not to be considered part of the above Progress Note.
[2017-01-02] MEDS: INSULIN GLARGINE 100unit/ml INJECTION SQ SCH (20:44)
[2017-01-02] MEDS: LOVASTATIN 40 MG TABLET PO SCH (20:44)
[2017-01-03] MEDS: CEFTRIAXONE 1 G in NS 100 ML IV SCH ×2 (00:02→12:36)
[2017-01-03] MEDS: MetroNIDAZOLE PB 500 MG/100 ML BAG IV SCH ×2 (00:55→12:05)
[2017-01-03] MEDS: PANTOPRAZOLE 40 MG TABLET PO SCH (06:06)
[2017-01-03] MEDS: METOCLOPRAMIDE 5mg TABLET PO SCH ×4 (06:06→22:18)
[2017-01-03] MEDS: SALINE FLUSH 10ml SYRINGE IV PRN (06:07)
[2017-01-03] MEDS: INSULIN ASPART 100unit/ml INJECTION SQ SCH ×3 (09:17→18:11)
[2017-01-03] MEDS: GlipiZIDE 5 MG TABLET PO SCH ×2 (09:19→18:12)
[2017-01-03] MEDS: METFORMIN 1,000 MG TABLET PO SCH ×2 (09:19→18:12)
[2017-01-03] MEDS: MAGNESIUM OXIDE 400 MG TABLET PO SCH (09:20)
[2017-01-03] MEDS: CYANOCOBALAMIN (B-12) 500mcg TABLET PO SCH ×5 (09:20→22:18)
[2017-01-03] MEDS: ENOXAPARIN 40 MG/0.4 ML INJECTION SQ SCH (09:24)
[2017-01-03] MEDS: CLOPIDOGREL 75 MG TABLET PO SCH (09:47)
[2017-01-03] MEDS: LISINOPRIL 20 MG TABLET PO SCH ×2 (09:47→22:18)
[2017-01-03] MEDS: AMLODIPINE 10 MG TABLET PO SCH (09:47)
--- NOTE | 2017-01-03 10:54 | Pharmacy Consult-Antibiotics ---
Pharmacy Consult-Vancomycin - Laboratory Information WBC 7.9 T/MM3 (4.5-11.0) 01/02/17 05:33 BUN 11.0 MG/DL (7-17) 01/02/17 05:33 Creatinine 0.6 MG/DL (0.7-1.2) L 01/02/17 05:33 Vancomycin Trough 18.41 UG/ML (15-20) 01/02/17 05:33 DAY 18 OF VANCOMYCIN THERAPY: Tx for right diabetic foot ulcer, osteomyelitis, cellulitis. Plan is for therapy through 01/30/17. No new labs today. Therapy appears stable at VANCOMYCIN 1500mg IV q8hrs. Last trough level = 18.41 mcg/ml. Therapy range = 15 - 20mcg/ml. Renal fx continues stable. No changes at this time. thank you
[2017-01-03] MEDS ORDERED: LR 1,000 ML IV SCH (11:15)
--- NOTE | 2017-01-03 11:19 | Progress Note ---
Subjective Date: 01/03/17 Subjective: She was seen this morning before her surgery. She denies N/V/D or any new complaints. Tolerating antibiotics without problems. Pain is controlled. Exam Vital Signs: Temperature 98.0 F 01/03/17 11:13 Pulse Rate 74 01/03/17 11:13 Respiratory Rate 16 01/03/17 11:13 Blood Pressure 209/101 H 01/03/17 11:13 Pulse Oximetry 97 01/03/17 11:13 Height/Weight/BMI: Height 1.7 m Weight 124.4 kg Body Mass Index 43.7 - Constitutional Present: no acute distress, well nourished, well developed - Routine HEENT Exam Head: Present: normocephalic, atraumatic Eye: Present: EOMI, PERRL ENT: Present: mucous membranes moist - Routine Neck Exam Present: supple - Routine Respiratory Exam Present: CTA bilaterally. Absent: accessory muscle use - Routine Cardiovascular Exam Present: RRR. Absent: murmur - Routine Abdominal Exam Present: soft, normoactive bowel sounds, non distended. Absent: tenderness - Routine Extremities Exam Present: edema (R foot). Absent: cyanosis, clubbing - Routine Skin Exam Absent: rash - Routine Neurological Exam Present: alert, oriented X3, CN II-XII intact. Absent: motor deficit - Routine Psychiatric Exam Present: normal affect Results - Labs CBC & Chem 7: 01/02/17 05:33 01/02/17 05:33 Microbiology Results: Microbiology 12/19/16 13:20 Foot, Right, Bone Gram Stain - Final 12/19/16 13:20 Foot, Right, Bone Surgical Culture - Final Coag negative Staphylococcus Corynebacterium species 12/18/16 09:34 Peripheral/Iv Start Blood Culture - Final No Growth After 5 Days 12/18/16 09:35 Peripheral/Iv Start Blood Culture - Final No Growth After 5 Days 12/17/16 04:56 Foot,Right Gram Stain - Final 12/17/16 04:56 Foot,Right Superficial Wound Culture - Final Enterococcus faecalis Streptococcus viridans group Coag negative Staphylococcus Impression: Right diabetic foot ulcer with surrounding cellulitis and osteomyelitis of the cuboid bone, s/p I&D 12/19, bone culture with CoNS Enterococcus bacteremia, presumed secondary to skin/musculoskeletal source. (+ BC from 10/16). Leukocytosis Penicillin allergy causing hives Type II DM, IR, poorly controlled Diabetic gastroparesis with severe nausea and vomiting postoperatively. HTN HLD GERD Acute ischemic stroke involving the left middle cerebral artery distribution. Constipation Morbid Obesity with BMI 43.7 Recommendation: Continue Vancomycin, ceftriaxone and flagyl. Planning 6 weeks following debridement, which would go through 01/30/17. Continue wound care. Further debridement planned today. Await surgical findings.
[2017-01-03] MEDS ORDERED: D5LR 1,000 ML IV SCH (11:30)
--- NOTE | 2017-01-03 11:44 | Anesthesia Preoperative Report ---
Anesthesia Preoperative Record - Date and Time Date: 01/03/17 Preoperative Diagnosis: Diabetic wound ulcer,sepsis NPO Since Date: 01/02/17 NPO Since Time: 00:00 Allergies/Adverse Reactions: Allergies Allergy/AdvReac Type Severity Reaction Status Date / Time clindamycin Allergy Verified 12/17/16 04:00 Penicillins Allergy Verified 12/17/16 04:00 tetracycline Allergy Verified 12/17/16 04:00 - Vital Signs Vital Signs: Temperature 98.0 F 01/03/17 11:13 Pulse Rate 74 01/03/17 11:13 Respiratory Rate 16 01/03/17 11:13 Blood Pressure 209/101 H 01/03/17 11:13 Pulse Oximetry 97 01/03/17 11:13 Height and Weight: Height 1.7 m Weight 124.4 kg Body Mass Index 43.7 - Medications Inpatient Medications: Current Medications Acetaminophen (Tylenol) 325 - 650 mg PO Q5H PRN PRN Reason: Discomfort Last Admin: 01/02/17 04:23 Dose: 650 mg Hydrocodone Bitart/Acetaminophen ([place] 7.5/325) 1 tab PO Q6H PRN PRN Reason: Pain Last Admin: 12/23/16 07:28 Dose: 1 tab Amlodipine Besylate (Norvasc) 10 mg PO DAILY [facility] Last Admin: 01/03/17 09:47 Dose: 10 mg Bisacodyl (Dulcolax) 10 mg RECTALLY DAILY PRN PRN Reason: Constipation Last Admin: 12/20/16 15:52 Dose: 10 mg Cholestyramine Resin (Questran Light) 4 g PO Q6H PRN PRN Reason: Diarrhea Clonidine HCl (Catapres) 0.2 mg PO BID PRN PRN Reason: SBP>170 Last Admin: 01/01/17 23:12 Dose: 0.2 mg Clopidogrel Bisulfate (Plavix) 75 mg PO DAILY [facility] Last Admin: 01/03/17 09:47 Dose: 75 mg Cyanocobalamin (Vit. B-12) 1,000 mcg PO 5XD [facility] Last Admin: 01/03/17 09:20 Dose: Not Given Dextrose (D50%W) 1 ml IVP PRN PRN PRN Reason: Hypoglycemia Enoxaparin Sodium (Lovenox) 40 mg SQ DAILY [facility] Last Admin: 01/03/17 09:24 Dose: Not Given Glipizide (Glucotrol) 10 mg PO BIDWM [facility] Last Admin: 01/03/17 09:19 Dose: Not Given Hydralazine HCl (Apresoline) 10 mg PO Q4H PRN Last Admin: 01/01/17 08:07 Dose: 10 mg Hydrochlorothiazide (Hydrodiuril) 25 mg PO WB [facility] Last Admin: 01/03/17 09:47 Dose: 25 mg Ceftriaxone Sodium 1 g/ Sodium (Chloride) 100 mls @ 200 mls/hr IV Q12H [facility] Last Infusion: 01/03/17 00:35 Dose: Infused Metronidazole/Sodium Chloride (Flagyl Iv Premix) 500 mg in 100 mls @ 100 mls/ hr IV Q12H [facility] Last Infusion: 01/03/17 01:56 Dose: Infused Vancomycin HCl 1,500 mg/ (Sodium Chloride) 500 mls @ 250 mls/hr IV Q8H [facility] Last Admin: 01/03/17 06:05 Dose: 250 mls/hr Lactated Ringer's (Lactated Ringers) 1,000 mls @ 75 mls/hr IV .[id number] [facility] Dextrose (Dextrose 5% In Water) 50 mls @ 0 mls/hr IV .Q0M CYNTHIA PRN Reason: Protocol Insulin Aspart (Novolog) 6 unit SQ BIDBL [facility] Last Admin: 01/03/17 09:17 Dose: Not Given Insulin Aspart (Novolog) 7 unit SQ WS [facility] Last Admin: 01/02/17 18:55 Dose: 7 unit Insulin Glargine (Lantus) 21 unit SQ HS [facility] Last Admin: 01/02/17 20:44 Dose: 21 unit Insulin Human Regular (Novolin R) 0 unit SQ SS PRN; Protocol PRN Reason: Hyperglycemia Last Admin: 01/02/17 11:42 Dose: 3 unit Lisinopril (Prinivil) 20 mg PO BID [facility] Last Admin: 01/03/17 09:47 Dose: 20 mg Lovastatin (Mevacor) 40 mg PO [facility] Last Admin: 01/02/17 20:44 Dose: 40 mg Magnesium Hydroxide (Mom) 30 ml PO DAILY PRN PRN Reason: Constipation Last Admin: 12/26/16 11:14 Dose: 30 ml Magnesium Oxide (Magox) 400 mg PO DAILY [facility] Last Admin: 01/03/17 09:20 Dose: Not Given Metformin HCl (Glucophage) 1,000 mg PO BIDWM [facility] Last Admin: 01/03/17 09:19 Dose: Not Given Metoclopramide HCl (Reglan) 5 mg PO [facility] Last Admin: 01/03/17 06:06 Dose: 5 mg Metoprolol Tartrate (Lopressor) 50 mg PO BIDBS [facility] Last Admin: 01/03/17 09:47 Dose: 50 mg Morphine Sulfate (Morphine Sulfate Inj) 1 - 2 mg IVP Q2H PRN PRN Reason: Pain Last Admin: 12/20/16 23:57 Dose: 2 mg Ondansetron HCl (Zofran) 4 mg IVP Q6H PRN PRN Reason: Nausea &/or vomiting Last Admin: 01/01/17 08:29 Dose: 4 mg Pantoprazole Sodium (Protonix Tab) 40 mg PO ACB [facility] Last Admin: 01/03/17 06:06 Dose: 40 mg Polyethylene Glycol (Miralax) 17 gm PO DAILY PRN PRN Reason: Constipation Last Admin: 12/25/16 05:03 Dose: 17 gm Potassium Chloride (K-Dur) 10 meq PO [facility] Last Admin: 01/03/17 09:19 Dose: Not Given Senna/Docusate Sodium (Senna Plus Tablet) 1 tab PO BID PRN PRN Reason: Constipation Last Admin: 12/29/16 20:51 Dose: 1 tab Sodium Chloride (Iv Flush) 10 - 80 ml IV PRN PRN PRN Reason: Flushing Last Admin: 01/03/17 06:07 Dose: 10 ml Sodium Chloride (Normal Saline) 500 ml IV PRN PRN Last Admin: 12/31/16 22:11 Dose: 500 ml Home Medications: Home Medications Medication Instructions Recorded Confirmed Type Amlodipine [Norvasc] 10 mg PO DAILY 12/17/16 12/17/16 History Aspirin [ASA] 325 mg PO 12/17/16 History GlipiZIDE 10 mg BIDWM 12/17/16 12/17/16 History HydroCHLOROthiazide [Hydrodiuril] 1 tab PO WB 12/17/16 12/17/16 History Lovastatin [Mevacor] 40 mg PO HS 12/17/16 12/17/16 History Magnesium Oxide [Magnesium] 1 tab PO DAILY 12/17/16 12/17/16 History Mecobalamin [B-12] 5,000 mcg PO 12/17/16 History Metformin [Glucophage] 1 tab PO BIDWM 12/17/16 12/17/16 History Potassium Gluconate [Potassium] 99 mg PO 12/17/16 History Olga's Wort 12/17/16 History Vit C/Ascorbate Calcium,Sodium 500 mg PO 12/17/16 History [Vitamin C 500 mg/15 ml Liquid] Is Patient on Beta Marlena?: No - Medical History Respiratory: Reports: Sleep Apnea (does not use CPAP) Cardiovascular: Reports: Heart Murmur (asymptomatic), Hypertension Gastrointestional: Reports: Gastroesophageal Reflux Disease (mild), Morbid Obesity Neuro/Musculoskeletal: Reports: Cerebrovascular Accident (one week ago, right sided weekness and speech is slight slurred), Depression, Headaches (migraines) , Other (neuropathy of upper and lower extremeties) Renal/Endocrine: Reports: Diabetes Mellitus Type 2, Other (fatty liver) - Surgical History Cardiac Surgeries/Treatments: DENIES: Pacemaker Reproductive Surgery/Treatment: DENIES: Mastectomy Anesthesia Reactions: None Hx Family Anesthesia Reaction: No History of Motion Sickness: No - Social History Smoking Status: Never smoker Hx Chewing Tobacco Use: No Second Hand Exposure: No Substance Use Type: does not use Alcohol Intake Frequency: does not drink - Pertinent Findings Laboratory: CBC and BMP 01/02/17 05:33 01/02/17 05:33 EKG: Sinus Rhythm - Physical Exam Respiratory Exam: Present: lungs clear Cardiovascular Exam: Present: regular rate and rhythm - Airway Assessment Mallampati Score: II TMD: 3 Fingerbreadths Neck Extension: fair Overall Assessment: may be difficult mask vent, may be difficult intubation - ASA ASA Score: 3 - Plan Anesthesia: General TIVA, MAC - Discussion Discussion: Discussed risks/options/alternatives of anesthesia and questions answered. Patient consents. Nursing pain assessment noted. Present for Discussion: family member Attestation Statement: Prior to the delivery of any anesthetic medication, I examined the patient, developed the plan, obtained the patient's consent and discussed the risk and benefits of the procedure with the patient/guardian. - Additional Information Seen by Anesthesia: Yes
[2017-01-03] MEDS ORDERED: D5W 50 ML IV SCH (11:45)
[2017-01-03] MEDS ORDERED: PROPOFOL 500 MG/50 ML VIAL IV ONE (11:54)
[2017-01-03] MEDS: NS 1,000 ML IV SCH (11:57)
--- NOTE | 2017-01-03 12:44 | General Surgery Procedure Note ---
Date of Procedure: 01/03/17 Surgeon: Rober Alcoholism Worker: Other (CAROLINA John, CWS wound vac application) Postoperative Diagnosis: Love stage 3 diabetic foot ulcer Procedure: Debridement and partial closure of Right Diabetic Foot ulcer on plantar aspect, with application of wound vac Estimated Blood Loss: See Anesthesia Record. Pathology: none sent
--- NOTE | 2017-01-03 13:15 | Anesthesia Postoperative Note ---
- Date and Time Date: 01/03/17 Time: 13:15 - Status Patient Participated in Evaluation: Patient Participated in Person Vital Signs: Temperature 97.9 F 01/03/17 12:49 Pulse Rate 67 01/03/17 13:10 Respiratory Rate 16 01/03/17 13:10 Blood Pressure 150/77 H 01/03/17 13:10 Pulse Oximetry 98 01/03/17 13:10 Respiratory Function: Airway Patent, Regular Respirations Cardiovascular Function: Regular Pulse Mental Status: Alert and Oriented Pain Intensity: 0 Hydration: IV Infusing Complications During Recover: None Apparent - Follow-Up Instructions Instructions: Per Surgeon
--- NOTE | 2017-01-03 13:55 | Operative Note ---
DATE OF SERVICE 01/03/2017 SURGEON Mac Richter MD PREOPERATIVE DIAGNOSIS Gonzalez grade 3 right diabetic foot ulcer. POSTOPERATIVE DIAGNOSIS Gonzalez grade 3 right diabetic foot ulcer. PROCEDURE Exploration of wound involving plantar aspect of foot with additional excisional surgical debridement of subcutaneous tissues, bone and partial delayed primary closure of 9 cm wound. Application of wound VAC. ANESTHESIA TIVA/local BRIEF HISTORY/INDICATIONS Ms. 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 Patient presented with an open wound involving the plantar aspect of the foot. MRI was indicative for osteomyelitis. The patient did undergo initial exploration of the wound with excisional surgical debridement of necrotic subcutaneous tissues, fascia and bone. The patient has been on IV antibiotics for treatment of her osteomyelitis. We have been utilizing negative wound pressure therapy to facilitate healing of the wound. Wound does have good granulation tissue throughout the majority of the wound. There is still a small amount of bone that is present within the depth of the wound. Edges of the wound have become somewhat . It was recommended to the patient that she undergo re-exploration of the wound with additional debridement and partial delayed primary closure. For completeness please refer to notes included in the patient's chart. DESCRIPTION OF PROCEDURE After informed consent was obtained, patient was brought to the operative suite and placed on the table in supine fashion. Right lower extremity was then prepped and draped in sterile fashion. Formal time-out was then completed. The wound upon the plantar aspect of the foot was then explored. I was pleased to see the majority of the wound had good granulation tissue throughout. There was still some bone as stated above that was void of granulation tissue and was exposed. Utilizing a rongeur, this exposed bone was debrided until a minimal amount of bleeding began to occur. Additionally, utilizing sharp surgical curet , there were some residual necrotic subcutaneous tissues that were further debrided. Wound was then irrigated. Attention was then directed towards partial closure of the wound. The anterior and posterior aspects of the edges of the wound were imbricated to one another by placing multiple mattress sutures of #1 Prolene. These mattress sutures were then tied securely resulting in a loose imbrication of the wound edges. Central portion of the wound was left open to facilitate ongoing use of negative wound pressure therapy. Next black foam was then utilized and the wound was "tamazight-fried" by placing strips of black foam between the mattress sutures as well as within the central portion of the wound. Attention was then focused towards completion of application of the wound VAC. Steri-Drape was placed over the black foam and a TRAC pad was attached. The patient was awakened from her anesthetic and sent back to the recovery room once deemed in stable condition. JENNIFER
[2017-01-03] MEDS: NS FLUSH BAG 500ml IV PRN (14:47)
--- NOTE | 2017-01-03 17:53 | Progress Note ---
<Maryam Collazo V - Last Filed: 01/03/17 17:50> - Date 01/03/17 Subjective: Alona is seen today following debridement with closure of wound and replacement of wound VAC. She is resting comfortably without complaints this evening, and tolerated procedure well. Blood pressures this afternoon were mildly elevated in the 160s. Objective Vital signs: Temperature 96.8 F 01/03/17 16:09 Pulse Rate 84 01/03/17 17:15 Respiratory Rate 20 01/03/17 16:09 Blood Pressure 160/90 H 01/03/17 17:15 Pulse Oximetry 97 01/03/17 17:15 Height/Weight/BMI: Height 1.7 m Weight 124.4 kg Body Mass Index 43.7 - Constitutional Present: no acute distress, well nourished, well developed - Routine HEENT Exam Eye: Present: EOMI ENT: Present: mucous membranes moist, dentition normal - Routine Respiratory Exam Present: CTA bilaterally. Absent: wheezes - Routine Cardiovascular Exam Present: RRR, S1, S2. Absent: murmur - Routine Abdominal Exam Present: soft, normoactive bowel sounds, non distended. Absent: tenderness - Routine Extremities Exam Present: edema (foot), pulses intact Comments: wound vac intact - Routine Skin Exam Present: dry, warm - Routine Neurological Exam Present: alert, oriented X3, CN II-XII intact - Routine Lymphatic Exam Lymphatic: Absent: adenopathy - Routine Psychiatric Exam Present: normal affect Results - Labs CBC & Chem 7: 01/02/17 05:33 01/02/17 05:33 Microbiology Results: Microbiology 12/19/16 13:20 Foot, Right, Bone Gram Stain - Final 12/19/16 13:20 Foot, Right, Bone Surgical Culture - Final Coag negative Staphylococcus Corynebacterium species 12/18/16 09:34 Peripheral/Iv Start Blood Culture - Final No Growth After 5 Days 12/18/16 09:35 Peripheral/Iv Start Blood Culture - Final No Growth After 5 Days 12/17/16 04:56 Foot,Right Gram Stain - Final 12/17/16 04:56 Foot,Right Superficial Wound Culture - Final Enterococcus faecalis Streptococcus viridans group Coag negative Staphylococcus Assessment and Plan (1) Diabetes mellitus, insulin dependent (IDDM), uncontrolled Current visit: Yes Status: Chronic (2) HTN (hypertension) Current visit: Yes Status: Chronic (3) Gastroparesis due to DM Current visit: Yes Status: Chronic (4) Osteomyelitis of ankle or foot Current visit: Yes Status: Acute (5) Bacteremia due to Enterococcus Current visit: Yes Status: Acute Assessment and Plan: IMPRESSION Right diabetic foot ulcer with surrounding cellulitis and osteomyelitis with subsequent enterococcus bacteremia, failing outpatient treatment Enterococcus bacteremia secondary to above (positive BC from [facility]) Leukocytosis secondary to above Penicillin allergy causing hives Type II DM - uncontrolled (A1c 10.1%) Diabetic gastroparesis with severe nausea and vomiting postoperatively. HTN HDL GERD Hypokalemia (not POA) Elevated LFT (not POA) Weakness to right hand/arm, dysarthria, mild expressive aphasia - MRI showing CVA (12/25) Constipation - resolved; now with loose stools Morbid Obesity with BMI >40 Plan Continue with current treatment plan on antibiotics. Dr. Flores recommends full 6 weeks of antibiotic therapy through 01/30/17 Continue to work on BP control, currently on Norvasc 10 milligrams, hydrochlorothiazide 25, Lopressor 50 twice a day, lisinopril 20 twice a day. Monitor renal function and electrolytes Monitor blood sugars Continue with Plavix, aspirin and statin. Given recent stroke Continued work with PT/OT for strengthening given right hand weakness Will discuss with case management on Friday regarding discharge plans Hospital Course Summary Disclaimer: The visit summary below is not to be considered part of the above Progress Note. Hospital Course: Plan [place]patient [place] [facility] [place] of diabetic foot ulcer failing outpatient treatment, anticipate greater than 2 midnights of care needed. Vancomycin for antimicrobial coverage. Wound Team consult for help with would care. Will consult Dr Richter to potential debridement. MRI of foot to assess for osteomyelitis. Continue home medications. Monitor sugars - ISS ordered to help with glycemic control. Will consult Diabetic education and dietary. Lovenox 40mg SQ daily with SCD for DVT prevention. Start Protonix 40mg daily due to persistent reflux. Initiate Lisinopril 10mg at night due to HTN and DM. Monitor lab. Discussed code status with patient - requests full resuscitation. Order written. Care to return to Dr Au at time of discharge from [facility]. 12/18/16 Dr Wood BC from [facility] positive. Will have pharmacy dose vancomycin to treat enterococcus as the patient is allergic to penicillin. Repeat blood cultures to rule out persistent enterococcus bacteremia. Await further microbiology results, and meantime we'll discontinue ceftaroline and change to ceftriaxone for gram-negative rods and metronidazole for anaerobes. Wound Team consult for help with would care. Scheduled for wound debridement tomorrow Continue home medications. Monitor sugars - ISS ordered to help with glycemic control. Diabetic education and dietary consulted. Lovenox 40mg SQ daily with SCD for DVT prevention. On Protonix 40mg daily due to persistent reflux. On Lisinopril 10mg at night due to HTN and DM. Monitor lab. Because of persistent cough will check chest x-ray We'll obtain baseline plain films of both feet to rule out foreign body 12/19/16 Continue with IV Rocephin and IV Flagyl for antimicrobial coverage. Surgical debridement and specimen culture were completed by Dr. Richter today. Will work on glycemic control. Continue with oral agents as well as sliding scale insulin Diabetic education and dietary consulted given elevated A1c at time of admission. Given. Acute nausea. Will give IV Zofran and Reglan. May utilize IV morphine and Republic for pain control Monitor blood pressure and continue on home dose of lisinopril. Lovenox 40mg SQ daily with SCD for DVT prevention. Recheck CBC and BMP tomorrow morning to follow blood counts, renal function and electrolytes 12/20/16 Persistent nausea, we'll continue Zofran and Reglan. Recheck lab in the morning including a lipase. Appreciate Dr. Lee's consult. We'll continue vancomycin, metronidazole, and ceftriaxone for treatment of her right diabetic foot ulcer. She may benefit from consultation Dr. Peggy Flores next week to facilitate outpatient follow-up. 12/21/16 Nausea, appears to be slightly better controlled. Continue with Reglan, Zofran and scopolamine patch Persistent nausea, we'll continue Zofran and Reglan. Continue with wound vac care and appreciate Dr Lee orthopedic consultation for wound management. Continue with vancomycin, metronidazole, and ceftriaxone for to microbial coverage. Continue with glycemic management, glipizide, Lantus, sliding scale insulin. Monitor blood pressure and continue on lisinopril and Norvasc - 145/71 this am. Persistent leukocytosis, Recheck CBC and BMP tomorrow morning to follow blood counts, renal function and electrolytes. 12/22/16 Overall, nausea, appears to be slightly better today. Will continue on scheduled Reglan is suspicion nausea may be related to gastroparesis. Continue with scopolamine patch, and Zofran. At this time continue with IV Vanco, Rocephin and IV Flagyl for coverage of gram -negative and anaerobes. This may also be contributing to some of her nausea. Lcuy with management of foot wound as per wound team and Dr. Lee. Monitor Accu-Cheks and continue with metformin, glipizide, Lantus 15 units at at bedtime and sliding scale insulin. Monitor blood pressure. She was borderline elevated this morning. May need to consider increasing lisinopril dose. At this time will continue to monitor. Republic for pain control Lovenox subcutaneous daily for DVT prophylaxis 12/23/16 Continue IV Vanco, Rocephin and IV Flagyl for coverage of gram-negative and anaerobes. WBC persistently elevated at 14. Continue wound vac and wound care. Will increase lisinopril to 10mg nightly to help blood pressure control. Oral potassium given this am as potassium decreased to 3.2. Will recheck in am and check Mg. D/C IVF - weight up from admission. Liver enzymes with slight elevation - hold metformin and lovastatin. Nausea decreasing. Blood sugars stable. Consult with Dr Flores for antibiotic recommendation and course length. 12/24/16 Transient weakness to right hand/arm and slurred speech. ? TIA CT scan of brain not showing any acute bleed or mass. Will check Lipid profile due to DM. Check carotid doppler and Echo. Continue IV Vanco, Rocephin and IV Flagyl for coverage of gram-negative and anaerobes. WBC with decrease to 12.1. Continue wound vac and wound care. Blood pressure still showing elevation. Will increase lisinopril to 20mg nightly. Potassium decreased to 3.1. Oral potassium at noon and evening meal today. Start routine Mirlax for constipation - PRN medications not being used. 12/25/16- Consult to PT/OT for right hand weakness. Continue with ABX, awaiting of recommendations by Dr Flores. ECHO pending. 12/26/16 Appreciate neurology consultation by Dr Saenz. He recommended recheck CT head to rule out hemorrhage. Fortunately this is normal without evidence of intracranial bleeding. He recommends continuing on Lovenox and Plavix. Will work on blood pressure control. Control on Norvasc 10 milligrams and lisinopril 20 milligrams. We will increased the Cymbalta 20 milligrams twice a day and start that now. Will also add hydralazine as needed for persistent systolic blood pressure greater than 170. Dr. Saenz recommends goal blood pressure 150-160 systolic. Mild Hypokalemia will give oral potassium supplementation- 20 MEQ now then continue [address] Flores recommends to continue vancomycin, Rocephin and Flagyl, will likely need 6 weeks. 12/27/16 BP still elevated - will increase BB dose (HR would tolerate an increase). Continue lisinopril and amlodipine. Hydralazine PRN. Decrease frequency of MiraLAX d/t loose stools. Vitamin B12 5000 mcg daily per home dose (reports this helps with neuropathy). Continue secondary prevention for stroke (Plavix, statin); echo pending. Leukocytosis resolved. Continue Flagyl + Rocephin + wound vac. Chemistry panel stable; K up to normal range. Persistently elevated BG >200 yesterday. She's getting routine SSI between 4-7 U. Start regular insulin 5U with meals. Consider endocrinology consult. D/W CM - looking into IRU in [place]. 12/28/16 Assessment Right diabetic foot ulcer with surrounding cellulitis and osteomyelitis with subsequent enterococcus bacteremia, failing outpatient treatment Enterococcus bacteremia secondary to above (positive BC from [facility]) Leukocytosis secondary to above Penicillin allergy causing hives Type II DM - uncontrolled (A1c 10.1%) Diabetic gastroparesis with severe nausea and vomiting postoperatively. HTN HDL GERD Hypokalemia (not POA) Elevated LFT (not POA) Weakness to right hand/arm, dysarthria, mild expressive aphasia - MRI showing CVA (12/25) Constipation - resolved; now with loose stools Morbid Obesity with BMI 43.7 Plan BP still elevated but trending down - monitor today and consider increasing BB dose. Fasting hyperglycemia >200 - increase Lantus from 15U to 17U HS. Also persistently hyperglycemic >200 after meals, even after 5U of insulin was introduced at lunch yesterday. Continue glipizide and restart metformin. Consider increasing NovoLog if metformin doesn't improve postprandial sugars. Encourage activity; continue PT - ambulated 120 feet yesterday. WBC up to 11.4. Continue Flagyl + Rocephin + wound vac. Dr. Richter evaluated yesterday and noted improvement. 12/29/16 11:32 Continue wound VAC along with rocephin, flagyl, vanco. Increased metoprolol to 50 bid and will monitor. Glucose 225-281 yesterday. Lantus was increased and metformin restarted. Change Reglan to oral. 12/30/16 12:05 Pt is not sure if oral Reglan is helpful; continues to have loose stools; consider discontinuing. Wound VAC to be changed today; continue vancomycin, ceftriaxone and flagyl through 01/30/17. We discussed the grim possibility that if her infection does not heal up with current treatment she may require amputation. BP under better control with increased metoprolol but still suboptimal. HR in the 60-70s with increased BB dosing. She is maxed out on lisinopril & amlodipine & has PRN hydralazine available - ? pheo workup. Will discuss with Dr. Davidson. BG also suboptimal with fasting of 185 this morning and all postoprandials elevated, typically 180 or greater. Increase Lantus to 19U; increase breakfast and lunch insulin to 6U and increase supper NovoLog to 7U. Continue PT/OT. Discussed with Dr. Davidson and CM - will ask IRU to re-screen. Continuing to look into discharge options. 12/30/16 16:25 Continue wound VAC along with rocephin, flagyl, vanco. Abx planned until 01/30. BP a little better today with increased metoprolol. Patient not controlled on 3 agents. Has hypokalemia. Check for primary aldosteronism. Aldosterone, renin ordered. Glucose improving. Increase Lantus to 21 units. Encourage patient to be active. Therapy following 12/31/16 IMPRESSION Right diabetic foot ulcer with surrounding cellulitis and osteomyelitis with subsequent enterococcus bacteremia, failing outpatient treatment Enterococcus bacteremia secondary to above (positive BC from [facility]) Leukocytosis secondary to above Penicillin allergy causing hives Type II DM - uncontrolled (A1c 10.1%) Diabetic gastroparesis with severe nausea and vomiting postoperatively. HTN HDL GERD Hypokalemia (not POA) Elevated LFT (not POA) Weakness to right hand/arm, dysarthria, mild expressive aphasia - MRI showing CVA (12/25) Constipation - resolved; now with loose stools Morbid Obesity with BMI >[address] Richter's note reviewed: recommending re-exploration of her right diabetic foot wound late this week. He recommends for her to see a foot/ankle specialist d/t severe Charcot foot and neuropathic osteoarthropathy. continue vancomycin, ceftriaxone and flagyl through 01/30/17. WBC down to normal range. BG under better control. Had elevated reading after breakfast today but pt reports that she ate oatmeal and expected it to increase. She will select a different breakfast item for tomorrow so will hold off on increasing insulin. BP still high on 3 agents. Will discuss with attending. Aldosterone and renin activity were drawn yesterday (both send-outs). CM working on placement options. Pt has been filling out disability/medicaid forms. 01/01/17 13:27 Plan Continue to monitor blood pressure. Currently 144/88. Goal SBP<150-160 Given loose stools will check for C-diff as she has been on antibiotics. Questran as needed to control loose stools Monitor blood sugars Continue with wound management Encourage work with PT and OT for ongoing strengthening 01/02/17- Plan Planning for further wound evaluation by Dr Richter possibly tomorrow 01/03. Continue with wound Vac and antibiotics. Loose stools seem to be improved, Questran as needed. C-Diff was negative on 01/01. Continue to work on BP control, currently on Norvasc 10 milligrams, hydrochlorothiazide 25, Lopressor 50 twice a day, lisinopril 20 twice a day. Monitor renal function and electrolytes Monitor blood sugars Continue with Plavix, aspirin and statin. Given recent stroke Continued work with PT/OT for strengthening given right hand weakness 01/03/17 - surgical debridement with wound closure and replacement of wound VAC by Dr. Richter today. We'll continue with antibiotic course as recommended by Dr. Flores . Will discuss Friday with case management regarding discharge planning <Cassius Disla - Last Filed: 01/03/17 19:19> - Date 01/03/17 Objective Vital signs: Temperature 96.8 F 01/03/17 16:09 Pulse Rate 84 01/03/17 17:15 Respiratory Rate 20 01/03/17 16:09 Blood Pressure 160/90 H 01/03/17 17:15 Pulse Oximetry 97 01/03/17 17:15 Height/Weight/BMI: Height 1.7 m Weight 124.4 kg Body Mass Index 43.7 Results - Labs CBC & Chem 7: 01/02/17 05:33 01/02/17 05:33 Microbiology Results: Microbiology 12/19/16 13:20 Foot, Right, Bone Gram Stain - Final 12/19/16 13:20 Foot, Right, Bone Surgical Culture - Final Coag negative Staphylococcus Corynebacterium species 12/18/16 09:34 Peripheral/Iv Start Blood Culture - Final No Growth After 5 Days 12/18/16 09:35 Peripheral/Iv Start Blood Culture - Final No Growth After 5 Days 12/17/16 04:56 Foot,Right Gram Stain - Final 12/17/16 04:56 Foot,Right Superficial Wound Culture - Final Enterococcus faecalis Streptococcus viridans group Coag negative Staphylococcus Assessment and Plan (1) Osteomyelitis of ankle or foot Current visit: Yes Status: Acute (2) Bacteremia due to Enterococcus Current visit: Yes Status: Acute (3) Diabetes mellitus, insulin dependent (IDDM), uncontrolled Current visit: Yes Status: Chronic (4) HTN (hypertension) Current visit: Yes Status: Chronic (5) Gastroparesis due to DM Current visit: Yes Status: Chronic Assessment and Plan: IMPRESSION Right diabetic foot ulcer with surrounding cellulitis and osteomyelitis with subsequent enterococcus bacteremia, failing outpatient treatment Enterococcus bacteremia secondary to above (positive BC from [facility]) Leukocytosis secondary to above Penicillin allergy causing hives Type II DM - uncontrolled (A1c 10.1%) Diabetic gastroparesis with severe nausea and vomiting postoperatively. HTN HDL GERD Hypokalemia (not POA) Elevated LFT (not POA) Weakness to right hand/arm, dysarthria, mild expressive aphasia - MRI showing CVA (12/25) Constipation - resolved; now with loose stools Morbid Obesity with BMI >40 Have independently interviewed and examined pt. Chart reviewed. Case discussed with my MAILROOM CLERK. Care plan developed with my supervision; agree with above. Doing well this evening. Got through surgery well. Denies pain to her foot. Surgery went well-wound showing improvement. Breathing well. No nausea. Mood and spirits doing well-glad Sx when well, but knows she is not out of the camp yet. Lungs: clear CV: regular AB: soft nt/nd MSE: awake alert appropriate. Plan: Continue with supportive care. Will recheck lab tomorrow. Medically doing well and responding to treatments. Hospital Course Summary Disclaimer: The visit summary below is not to be considered part of the above Progress Note.
[2017-01-03] MEDS: INSULIN GLARGINE 100unit/ml INJECTION SQ SCH (22:16)
[2017-01-03] MEDS: SENNA + DOCUSATE TABLET PO PRN (22:17)
[2017-01-03] MEDS: ACETAMINOPHEN 325 MG TABLET PO PRN (22:17)
[2017-01-03] MEDS: LOVASTATIN 40 MG TABLET PO SCH (22:18)
[2017-01-04] MEDS: HYDROCODONE/APAP 7.5 MG/325 MG TABLET PO PRN (00:09)
[2017-01-04] MEDS: CEFTRIAXONE 1 G in NS 100 ML IV SCH ×2 (00:46→12:09)
[2017-01-04] MEDS ORDERED: FALL RISK - PHARMACY CONSULT XX ONE (01:01)
[2017-01-04] MEDS: MetroNIDAZOLE PB 500 MG/100 ML BAG IV SCH ×2 (01:41→13:36)
[2017-01-04] MEDS: PANTOPRAZOLE 40 MG TABLET PO SCH (06:04)
[2017-01-04] MEDS: METOCLOPRAMIDE 5mg TABLET PO SCH ×4 (06:04→20:20)
[2017-01-04] MEDS: SALINE FLUSH 10ml SYRINGE IV PRN ×2 (06:05→22:29)
[2017-01-04] MEDS: INSULIN ASPART 100unit/ml INJECTION SQ SCH ×3 (09:59→18:44)
[2017-01-04] MEDS: AMLODIPINE 10 MG TABLET PO SCH (10:00)
[2017-01-04] MEDS: GlipiZIDE 5 MG TABLET PO SCH ×2 (10:00→18:44)
[2017-01-04] MEDS: CYANOCOBALAMIN (B-12) 500mcg TABLET PO SCH ×5 (10:00→20:20)
[2017-01-04] MEDS: LISINOPRIL 20 MG TABLET PO SCH ×2 (10:00→20:21)
[2017-01-04] MEDS: METFORMIN 1,000 MG TABLET PO SCH ×2 (10:01→18:44)
[2017-01-04] MEDS: CLOPIDOGREL 75 MG TABLET PO SCH (10:01)
[2017-01-04] MEDS: ENOXAPARIN 40 MG/0.4 ML INJECTION SQ SCH (10:01)
[2017-01-04] MEDS: MAGNESIUM OXIDE 400 MG TABLET PO SCH (10:02)
[2017-01-04] MEDS: NS 1,000 ML IV SCH (12:00)
[2017-01-04] MEDS: INSULIN REGULAR, HUMAN 100 UNIT/ML INJECTION SQ PRN (13:46)
--- NOTE | 2017-01-04 14:12 | Progress Note ---
- Date 01/04/17 Subjective: F/U: Right diabetic foot ulcer with surrounding cellulitis and osteomyelitis with subsequent enterococcus bacteremia, failing outpatient treatment Doing well this afternoon. Denies foot or ankle pain (back a little sore from being on the gurney yesterday). No f/c. Breathing well. Eating well. Stools moving-soft. No ab pain. Urinating well. Sugars stable. Objective Vital signs: Temperature 97.5 F 01/04/17 12:15 Pulse Rate 70 01/04/17 12:15 Respiratory Rate 20 01/04/17 12:15 Blood Pressure 146/90 H 01/04/17 12:15 Pulse Oximetry 96 01/04/17 12:15 Rhythm: Normal Sinus Rhythm Height/Weight/BMI: Height 1.7 m Weight 122 kg Body Mass Index 43.7 - Constitutional Present: well nourished, well developed, morbidly obese, cooperative - Routine HEENT Exam Head: Present: normocephalic, atraumatic Eye: Present: EOMI, PERRL ENT: Present: mucous membranes moist - Routine Respiratory Exam Present: CTA bilaterally. Absent: respiratory distress, wheezes, crackles - Routine Cardiovascular Exam Present: RRR, murmur - Routine Abdominal Exam Present: soft, normoactive bowel sounds, non distended, non tender - Routine Extremities Exam Present: cyanosis, clubbing, edema (+1 BLE ), pulses intact - Routine Skin Exam Present: dry, warm - Routine Neurological Exam Present: alert, oriented X3, CN II-XII intact, moving all extremities, vision grossly intact, hearing grossly intact, normal speech. Absent: altered mental status - Routine Psychiatric Exam Present: normal affect, normal thought process, cooperative, good insight, good judgment. Absent: depressed, anxious, agitated Results - Labs CBC & Chem 7: 01/04/17 04:31 01/04/17 04:31 Microbiology Results: Microbiology 12/19/16 13:20 Foot, Right, Bone Gram Stain - Final 12/19/16 13:20 Foot, Right, Bone Surgical Culture - Final Coag negative Staphylococcus Corynebacterium species 12/18/16 09:34 Peripheral/Iv Start Blood Culture - Final No Growth After 5 Days 12/18/16 09:35 Peripheral/Iv Start Blood Culture - Final No Growth After 5 Days 12/17/16 04:56 Foot,Right Gram Stain - Final 12/17/16 04:56 Foot,Right Superficial Wound Culture - Final Enterococcus faecalis Streptococcus viridans group Coag negative Staphylococcus Assessment and Plan (1) Osteomyelitis of ankle or foot Current visit: Yes Status: Acute (2) Bacteremia due to Enterococcus Current visit: Yes Status: Acute (3) Diabetes mellitus, insulin dependent (IDDM), uncontrolled Current visit: Yes Status: Chronic (4) HTN (hypertension) Current visit: Yes Status: Chronic (5) Gastroparesis due to DM Current visit: Yes Status: Chronic Assessment and Plan: IMPRESSION Right diabetic foot ulcer with surrounding cellulitis and osteomyelitis with subsequent enterococcus bacteremia, failing outpatient treatment Enterococcus bacteremia secondary to above (positive BC from [place] [facility]) Leukocytosis secondary to above Penicillin allergy causing hives Type II DM - uncontrolled (A1c 10.1%) Diabetic gastroparesis with severe nausea and vomiting postoperatively. HTN HDL GERD Hypokalemia (not POA) Elevated LFT (not POA) Weakness to right hand/arm, dysarthria, mild expressive aphasia - MRI showing CVA (12/25) Constipation - resolved; now with loose stools Morbid Obesity with BMI >40 Plan Continue with antibiotic care and wound vac. Sx went well yesterday. Blood pressure and sugars stable with current medications. Potassium normal. Continue with therapies. Medically improving. DVT Prophylaxis: SCD's Resuscitation Status: Do Not Resuscitate - Time spent with patient Time with patient PN: 25 minutes Hospital Course Summary Disclaimer: The visit summary below is not to be considered part of the above Progress Note. Hospital Course: 12/17/16 Inpatient admission Assessment Right diabetic foot ulcer with surrounding cellulitis failing outpatient treatment Leukocytosis Type II DM - uncontrolled Diabetic gastroparesis HTN HDL GERD Morbid Obesity with BMI 43.7 Plan Inpatient admission to [facility] for treatment of diabetic foot ulcer failing outpatient treatment, anticipate greater than 2 midnights of care needed. Vancomycin for antimicrobial coverage. Wound Team consult for help with would care. Will consult Dr Richter to potential debridement. MRI of foot to assess for osteomyelitis. Continue home medications. Monitor sugars - ISS ordered to help with glycemic control. Will consult Diabetic education and dietary. Lovenox 40mg SQ daily with SCD for DVT prevention. Start Protonix 40mg daily due to persistent reflux. Initiate Lisinopril 10mg at night due to HTN and DM. Monitor lab. Discussed code status with patient - requests full resuscitation. Order written. Care to return to Dr Au at time of discharge from [facility]. 12/18/16 Dr Nina MEDINA from [place] [facility] positive. Will have pharmacy dose vancomycin to treat enterococcus as the patient is allergic to penicillin. Repeat blood cultures to rule out persistent enterococcus bacteremia. Await further microbiology results, and meantime we'll discontinue ceftaroline and change to ceftriaxone for gram-negative rods and metronidazole for anaerobes. Wound Team consult for help with would care. Scheduled for wound debridement tomorrow. Continue home medications. Monitor sugars - ISS ordered to help with glycemic control. Diabetic education and dietary consulted. Because of persistent cough will check chest x-ray. We'll obtain baseline plain films of both feet to rule out foreign body. 12/19/16 OP Day - Exploration of right diabetic foot ulceration with excisional surgical debridement of skin, subcutaneous tissues, fascia and bone. Continue with IV Rocephin and IV Flagyl for antimicrobial coverage. Surgical debridement and specimen culture were completed by Dr. Richter today. Will work on glycemic control. Continue with oral agents as well as sliding scale insulin. Diabetic education and dietary consulted given elevated A1c at time of admission. Given acute nausea will give IV Zofran and Reglan. May utilize IV morphine and Whitmer for pain control. 12/20/16 Persistent nausea, we'll continue Zofran and Reglan. Recheck lab in the morning including a lipase. Appreciate Dr. Lee's consult. We'll continue vancomycin, metronidazole, and ceftriaxone for treatment of her right diabetic foot ulcer. She may benefit from consultation Dr. Peggy Flores next week to facilitate outpatient follow-up. 12/21/16 Nausea, appears to be slightly better controlled. Continue with Reglan, Zofran and scopolamine patch Persistent nausea, we'll continue Zofran and Reglan. Continue with wound vac care and appreciate Dr Lee orthopedic consultation for wound management. Continue with vancomycin, metronidazole, and ceftriaxone for to microbial coverage. Continue with glycemic management, glipizide, Lantus, sliding scale insulin. Monitor blood pressure and continue on lisinopril and Norvasc - 145/71 this am. Persistent leukocytosis, Recheck CBC and BMP tomorrow morning to follow blood counts, renal function and electrolytes. 12/22/16 Overall, nausea, appears to be slightly better today. Will continue on scheduled Reglan is suspicion nausea may be related to gastroparesis. Continue with scopolamine patch, and Zofran. At this time continue with IV Vanco, Rocephin and IV Flagyl for coverage of gram -negative and anaerobes. This may also be contributing to some of her nausea. Lucy with management of foot wound as per wound team and Dr. Lee. Monitor Accu-Cheks and continue with metformin, glipizide, Lantus 15 units at at bedtime and sliding scale insulin. Monitor blood pressure. She was borderline elevated this morning. May need to consider increasing lisinopril dose. At this time will continue to monitor. 12/23/16 Continue IV Vanco, Rocephin and IV Flagyl for coverage of gram-negative and anaerobes. WBC persistently elevated at 14. Continue wound vac and wound care. Will increase lisinopril to 10mg nightly to help blood pressure control. Oral potassium given this am as potassium decreased to 3.2. Will recheck in am and check Mg. D/C IVF - weight up from admission. Liver enzymes with slight elevation - hold metformin and lovastatin. Nausea decreasing. Blood sugars stable. Consult with Dr Flores for antibiotic recommendation and course length. 12/24/16 Transient weakness to right hand/arm and slurred speech. ? TIA CT scan of brain not showing any acute bleed or mass. Will check Lipid profile due to DM. Check carotid doppler and Echo. Continue IV Vanco, Rocephin and IV Flagyl for coverage of gram-negative and anaerobes. WBC with decrease to 12.1. Continue wound vac and wound care. Blood pressure still showing elevation. Will increase lisinopril to 20mg nightly. Potassium decreased to 3.1. Oral potassium at noon and evening meal today. Start routine Mirlax for constipation - PRN medications not being used. 12/25/16- Consult to PT/OT for right hand weakness. Continue with ABX, awaiting of recommendations by Dr Flores. ECHO pending. 12/26/16 Appreciate neurology consultation by Dr Saenz. He recommended recheck CT head to rule out hemorrhage. Fortunately this is normal without evidence of intracranial bleeding. He recommends continuing on Lovenox and Plavix. Will work on blood pressure control. Control on Norvasc 10 milligrams and lisinopril 20 milligrams. We will increased the Cymbalta 20 milligrams twice a day and start that now. Will also add hydralazine as needed for persistent systolic blood pressure greater than 170. Dr. Saenz recommends goal blood pressure 150-160 systolic. Mild Hypokalemia will give oral potassium supplementation- 20 MEQ now then continue [address] Flores recommends to continue vancomycin, Rocephin and Flagyl, will likely need 6 weeks. 12/27/16 BP still elevated - will increase BB dose (HR would tolerate an increase). Continue lisinopril and amlodipine. Hydralazine PRN. Decrease frequency of MiraLAX d/t loose stools. Vitamin B12 5000 mcg daily per home dose (reports this helps with neuropathy). Continue secondary prevention for stroke (Plavix, statin); echo pending. Leukocytosis resolved. Continue Flagyl + Rocephin + wound vac. Chemistry panel stable; K up to normal range. Persistently elevated BG >200 yesterday. She's getting routine SSI between 4-7 U. Start regular insulin 5U with meals. D/W CM - looking into IRU in [place]. 12/28/16 BP still elevated but trending down - monitor today and consider increasing BB dose. Fasting hyperglycemia >200 - increase Lantus from 15U to 17U HS. Also persistently hyperglycemic >200 after meals, even after 5U of insulin was introduced at lunch yesterday. Continue glipizide and restart metformin. Consider increasing NovoLog if metformin doesn't improve postprandial sugars. Encourage activity; continue PT - ambulated 120 feet yesterday. WBC up to 11.4. Continue Flagyl + Rocephin + wound vac. Dr. Richter evaluated yesterday and noted improvement. 12/29/16 Continue wound VAC along with rocephin, flagyl, vanco. Increased metoprolol to 50 bid and will monitor. Glucose 225-281 yesterday. Lantus was increased and metformin restarted. Change Reglan to oral. 12/30/16 Pt is not sure if oral Reglan is helpful; continues to have loose stools; consider discontinuing. Wound VAC to be changed today; continue vancomycin, ceftriaxone and flagyl through 01/30/17. We discussed the grim possibility that if her infection does not heal up with current treatment she may require amputation. BP under better control with increased metoprolol but still suboptimal. HR in the 60-70s with increased BB dosing. She is maxed out on lisinopril & amlodipine & has PRN hydralazine available - ? pheo workup. Will discuss with Dr. Davidson. BG also suboptimal with fasting of 185 this morning and all postoprandials elevated, typically 180 or greater. Increase Lantus to 19U; increase breakfast and lunch insulin to 6U and increase supper NovoLog to 7U. Continue PT/OT. Discussed with Dr. Davidson and CM - will ask IRU to re-screen. Continuing to look into discharge options. 12/30/16 Continue wound VAC along with rocephin, flagyl, vanco. Abx planned until 01/30. BP a little better today with increased metoprolol. Patient not controlled on 3 agents. Has hypokalemia. Check for primary aldosteronism. Aldosterone, renin ordered. Glucose improving. Increase Lantus to 21 units. Encourage patient to be active. Therapy following. 12/31/16 Dr. Richter's note reviewed: recommending re-exploration of her right diabetic foot wound late this week. He recommends for her to see a foot/ankle specialist d/t severe Charcot foot and neuropathic osteoarthropathy. continue vancomycin, ceftriaxone and flagyl through 01/30/17. WBC down to normal range. BG under better control. Had elevated reading after breakfast today but pt reports that she ate oatmeal and expected it to increase. She will select a different breakfast item for tomorrow so will hold off on increasing insulin. BP still high on 3 agents. Will discuss with attending. Aldosterone and renin activity were drawn yesterday (both send-outs). CM working on placement options. Pt has been filling out disability/medicaid forms. 01/01/17 Continue to monitor blood pressure. Currently 144/88. Goal SBP<150-160. Given loose stools will check for C-diff as she has been on antibiotics. Questran as needed to control loose stools. Encourage work with PT and OT for ongoing strengthening. Patient wishes to change resuscitative status to DNR. Orders written per her recommendation. 01/02/17 Planning for further wound evaluation by Dr Richter possibly tomorrow 01/03. Continue with wound Vac and antibiotics. Loose stools seem to be improved, Questran as needed. C-Diff was negative on 01/01. Continue to work on BP control, currently on Norvasc 10 milligrams, hydrochlorothiazide 25, Lopressor 50 twice a day, lisinopril 20 twice a day. Monitor renal function and electrolytes. Continue with Plavix, aspirin and statin. Given recent stroke. Continued work with PT/OT for strengthening given right hand weakness. 01/03/17 - OP day: Surgical debridement with wound closure and replacement of wound VAC by Dr. Richter. We'll continue with antibiotic course as recommended by Dr. Flores . Will discuss Friday with case management regarding discharge planning. 01/04/17 Continue with antibiotic care and wound vac. Sx went well yesterday. Blood pressure and sugars stable with current medications. Potassium normal. Continue with therapies. Medically improving.
[2017-01-04] MEDS: LOVASTATIN 40 MG TABLET PO SCH (20:21)
[2017-01-04] MEDS: INSULIN GLARGINE 100unit/ml INJECTION SQ SCH (20:21)
[2017-01-05] MEDS: CEFTRIAXONE 1 G in NS 100 ML IV SCH ×2 (01:08→11:37)
[2017-01-05] MEDS: MetroNIDAZOLE PB 500 MG/100 ML BAG IV SCH ×2 (01:45→12:27)
[2017-01-05] MEDS: PANTOPRAZOLE 40 MG TABLET PO SCH (05:48)
[2017-01-05] MEDS: METOCLOPRAMIDE 5mg TABLET PO SCH ×4 (06:44→20:52)
--- NOTE | 2017-01-05 09:44 | Progress Note ---
<Maryam Collazo V - Last Filed: 01/05/17 09:40> - Date 01/05/17 Subjective: Alona is seen this morning resting in bed. She noted that the top and lateral aspect of the foot is discolored today. Wound Vac remains intact, and she denies having any pain to the foot. BP 151/90. Blood sugars have been well controlled. Alona verbalizes that she does not like cardiac diet. Objective Vital signs: Temperature 97.2 F 01/05/17 08:21 Pulse Rate 78 01/05/17 08:21 Respiratory Rate 16 01/05/17 08:21 Blood Pressure 151/90 H 01/05/17 08:21 Pulse Oximetry 98 01/05/17 08:21 Rhythm: Normal Sinus Rhythm Height/Weight/BMI: Height 1.7 m Weight 122.3 kg Body Mass Index 43.7 - Constitutional Present: no acute distress, well nourished, well developed - Routine HEENT Exam Eye: Present: EOMI ENT: Present: mucous membranes moist, dentition normal - Routine Respiratory Exam Present: CTA bilaterally. Absent: wheezes - Routine Cardiovascular Exam Present: RRR, S1, S2. Absent: murmur - Routine Abdominal Exam Present: soft, normoactive bowel sounds, non distended. Absent: tenderness - Routine Extremities Exam Present: edema (Right foot) - Routine Back/Spine/Pelvis Exam Back/Spine: Present: full ROM - Routine Skin Exam Present: intact, dry, warm - Routine Neurological Exam Present: alert, oriented X3, CN II-XII intact - Routine Lymphatic Exam Lymphatic: Absent: adenopathy - Routine Psychiatric Exam Present: normal affect, cooperative Results - Labs CBC & Chem 7: 01/04/17 04:31 01/04/17 04:31 Microbiology Results: Microbiology 12/19/16 13:20 Foot, Right, Bone Gram Stain - Final 12/19/16 13:20 Foot, Right, Bone Surgical Culture - Final Coag negative Staphylococcus Corynebacterium species 12/18/16 09:34 Peripheral/Iv Start Blood Culture - Final No Growth After 5 Days 12/18/16 09:35 Peripheral/Iv Start Blood Culture - Final No Growth After 5 Days 12/17/16 04:56 Foot,Right Gram Stain - Final 12/17/16 04:56 Foot,Right Superficial Wound Culture - Final Enterococcus faecalis Streptococcus viridans group Coag negative Staphylococcus Assessment and Plan (1) Diabetes mellitus, insulin dependent (IDDM), uncontrolled Current visit: Yes Status: Chronic (2) HTN (hypertension) Current visit: Yes Status: Chronic (3) Gastroparesis due to DM Current visit: Yes Status: Chronic (4) Osteomyelitis of ankle or foot Current visit: Yes Status: Acute (5) Bacteremia due to Enterococcus Current visit: Yes Status: Acute Assessment and Plan: IMPRESSION Right diabetic foot ulcer with surrounding cellulitis and osteomyelitis with subsequent enterococcus bacteremia, failing outpatient treatment Enterococcus bacteremia secondary to above (positive BC from [facility]) Leukocytosis secondary to above Penicillin allergy causing hives Type II DM - uncontrolled (A1c 10.1%) Diabetic gastroparesis with severe nausea and vomiting postoperatively. HTN HDL GERD Hypokalemia (not POA) Elevated LFT (not POA) Weakness to right hand/arm, dysarthria, mild expressive aphasia - MRI showing CVA (12/25) Constipation - resolved; now with loose stools Morbid Obesity with BMI >40 Plan Continue with antibiotic care and wound vac. Blood pressure currently well controlled, 151/90 thsi morning. Goal to keep SBP< 160. BGM remains stable. Patient requests change in diet as she does not like cardiac diet. Overall stable and doing well Hospital Course Summary Disclaimer: The visit summary below is not to be considered part of the above Progress Note. Hospital Course: 12/17/16 Inpatient admission Assessment Right diabetic foot ulcer with surrounding cellulitis failing outpatient treatment Leukocytosis Type II DM - uncontrolled Diabetic gastroparesis HTN HDL GERD Morbid Obesity with BMI 43.7 Plan Inpatient admission to [facility] for treatment of diabetic foot ulcer failing outpatient treatment, anticipate greater than 2 midnights of care needed. Vancomycin for antimicrobial coverage. Wound Team consult for help with would care. Will consult Dr Richter to potential debridement. MRI of foot to assess for osteomyelitis. Continue home medications. Monitor sugars - ISS ordered to help with glycemic control. Will consult Diabetic education and dietary. Lovenox 40mg SQ daily with SCD for DVT prevention. Start Protonix 40mg daily due to persistent reflux. Initiate Lisinopril 10mg at night due to HTN and DM. Monitor lab. Discussed code status with patient - requests full resuscitation. Order written. Care to return to Dr Au at time of discharge from [facility]. 12/18/16 Dr Nina MEDINA from [place] ED positive. Will have pharmacy dose vancomycin to treat enterococcus as the patient is allergic to penicillin. Repeat blood cultures to rule out persistent enterococcus bacteremia. Await further microbiology results, and meantime we'll discontinue ceftaroline and change to ceftriaxone for gram-negative rods and metronidazole for anaerobes. Wound Team consult for help with would care. Scheduled for wound debridement tomorrow. Continue home medications. Monitor sugars - ISS ordered to help with glycemic control. Diabetic education and dietary consulted. Because of persistent cough will check chest x-ray. We'll obtain baseline plain films of both feet to rule out foreign body. 12/19/16 OP Day - Exploration of right diabetic foot ulceration with excisional surgical debridement of skin, subcutaneous tissues, fascia and bone. Continue with IV Rocephin and IV Flagyl for antimicrobial coverage. Surgical debridement and specimen culture were completed by Dr. Richter today. Will work on glycemic control. Continue with oral agents as well as sliding scale insulin. Diabetic education and dietary consulted given elevated A1c at time of admission. Given acute nausea will give IV Zofran and Reglan. May utilize IV morphine and [place] for pain control. 12/20/16 Persistent nausea, we'll continue Zofran and Reglan. Recheck lab in the morning including a lipase. Appreciate Dr. Lee's consult. We'll continue vancomycin, metronidazole, and ceftriaxone for treatment of her right diabetic foot ulcer. She may benefit from consultation Dr. Peggy Flores next week to facilitate outpatient follow-up. 12/21/16 Nausea, appears to be slightly better controlled. Continue with Reglan, Zofran and scopolamine patch Persistent nausea, we'll continue Zofran and Reglan. Continue with wound vac care and appreciate Dr Lee orthopedic consultation for wound management. Continue with vancomycin, metronidazole, and ceftriaxone for to microbial coverage. Continue with glycemic management, glipizide, Lantus, sliding scale insulin. Monitor blood pressure and continue on lisinopril and Norvasc - 145/71 this am. Persistent leukocytosis, Recheck CBC and BMP tomorrow morning to follow blood counts, renal function and electrolytes. 12/22/16 Overall, nausea, appears to be slightly better today. Will continue on scheduled Reglan is suspicion nausea may be related to gastroparesis. Continue with scopolamine patch, and Zofran. At this time continue with IV Vanco, Rocephin and IV Flagyl for coverage of gram -negative and anaerobes. This may also be contributing to some of her nausea. Lucy with management of foot wound as per wound team and Dr. Lee. Monitor Accu-Cheks and continue with metformin, glipizide, Lantus 15 units at at bedtime and sliding scale insulin. Monitor blood pressure. She was borderline elevated this morning. May need to consider increasing lisinopril dose. At this time will continue to monitor. 12/23/16 Continue IV Vanco, Rocephin and IV Flagyl for coverage of gram-negative and anaerobes. WBC persistently elevated at 14. Continue wound vac and wound care. Will increase lisinopril to 10mg nightly to help blood pressure control. Oral potassium given this am as potassium decreased to 3.2. Will recheck in am and check Mg. D/C IVF - weight up from admission. Liver enzymes with slight elevation - hold metformin and lovastatin. Nausea decreasing. Blood sugars stable. Consult with Dr Flores for antibiotic recommendation and course length. 12/24/16 Transient weakness to right hand/arm and slurred speech. ? TIA CT scan of brain not showing any acute bleed or mass. Will check Lipid profile due to DM. Check carotid doppler and Echo. Continue IV Vanco, Rocephin and IV Flagyl for coverage of gram-negative and anaerobes. WBC with decrease to 12.1. Continue wound vac and wound care. Blood pressure still showing elevation. Will increase lisinopril to 20mg nightly. Potassium decreased to 3.1. Oral potassium at noon and evening meal today. Start routine Mirlax for constipation - PRN medications not being used. 12/25/16- Consult to PT/OT for right hand weakness. Continue with ABX, awaiting of recommendations by Dr Flores. ECHO pending. 12/26/16 Appreciate neurology consultation by Dr Saenz. He recommended recheck CT head to rule out hemorrhage. Fortunately this is normal without evidence of intracranial bleeding. He recommends continuing on Lovenox and Plavix. Will work on blood pressure control. Control on Norvasc 10 milligrams and lisinopril 20 milligrams. We will increased the Cymbalta 20 milligrams twice a day and start that now. Will also add hydralazine as needed for persistent systolic blood pressure greater than 170. Dr. Saenz recommends goal blood pressure 150-160 systolic. Mild Hypokalemia will give oral potassium supplementation- 20 MEQ now then continue [address] Flores recommends to continue vancomycin, Rocephin and Flagyl, will likely need 6 weeks. 12/27/16 BP still elevated - will increase BB dose (HR would tolerate an increase). Continue lisinopril and amlodipine. Hydralazine PRN. Decrease frequency of MiraLAX d/t loose stools. Vitamin B12 5000 mcg daily per home dose (reports this helps with neuropathy). Continue secondary prevention for stroke (Plavix, statin); echo pending. Leukocytosis resolved. Continue Flagyl + Rocephin + wound vac. Chemistry panel stable; K up to normal range. Persistently elevated BG >200 yesterday. She's getting routine SSI between 4-7 U. Start regular insulin 5U with meals. D/W CM - looking into IRU in [place]. 12/28/16 BP still elevated but trending down - monitor today and consider increasing BB dose. Fasting hyperglycemia >200 - increase Lantus from 15U to 17U HS. Also persistently hyperglycemic >200 after meals, even after 5U of insulin was introduced at lunch yesterday. Continue glipizide and restart metformin. Consider increasing NovoLog if metformin doesn't improve postprandial sugars. Encourage activity; continue PT - ambulated 120 feet yesterday. WBC up to 11.4. Continue Flagyl + Rocephin + wound vac. Dr. Richter evaluated yesterday and noted improvement. 12/29/16 Continue wound VAC along with rocephin, flagyl, vanco. Increased metoprolol to 50 bid and will monitor. Glucose 225-281 yesterday. Lantus was increased and metformin restarted. Change Reglan to oral. 12/30/16 Pt is not sure if oral Reglan is helpful; continues to have loose stools; consider discontinuing. Wound VAC to be changed today; continue vancomycin, ceftriaxone and flagyl through 01/30/17. We discussed the grim possibility that if her infection does not heal up with current treatment she may require amputation. BP under better control with increased metoprolol but still suboptimal. HR in the 60-70s with increased BB dosing. She is maxed out on lisinopril & amlodipine & has PRN hydralazine available - ? pheo workup. Will discuss with Dr. Davidson. BG also suboptimal with fasting of 185 this morning and all postoprandials elevated, typically 180 or greater. Increase Lantus to 19U; increase breakfast and lunch insulin to 6U and increase supper NovoLog to 7U. Continue PT/OT. Discussed with Dr. Davidson and CM - will ask IRU to re-screen. Continuing to look into discharge options. 12/30/16 Continue wound VAC along with rocephin, flagyl, vanco. Abx planned until 01/30. BP a little better today with increased metoprolol. Patient not controlled on 3 agents. Has hypokalemia. Check for primary aldosteronism. Aldosterone, renin ordered. Glucose improving. Increase Lantus to 21 units. Encourage patient to be active. Therapy following. 12/31/16 Dr. Richter's note reviewed: recommending re-exploration of her right diabetic foot wound late this week. He recommends for her to see a foot/ankle specialist d/t severe Charcot foot and neuropathic osteoarthropathy. continue vancomycin, ceftriaxone and flagyl through 01/30/17. WBC down to normal range. BG under better control. Had elevated reading after breakfast today but pt reports that she ate oatmeal and expected it to increase. She will select a different breakfast item for tomorrow so will hold off on increasing insulin. BP still high on 3 agents. Will discuss with attending. Aldosterone and renin activity were drawn yesterday (both send-outs). CM working on placement options. Pt has been filling out disability/medicaid forms. 01/01/17 Continue to monitor blood pressure. Currently 144/88. Goal SBP<150-160. Given loose stools will check for C-diff as she has been on antibiotics. Questran as needed to control loose stools. Encourage work with PT and OT for ongoing strengthening. Patient wishes to change resuscitative status to DNR. Orders written per her recommendation. 01/02/17 Planning for further wound evaluation by Dr Richter possibly tomorrow 01/03. Continue with wound Vac and antibiotics. Loose stools seem to be improved, Questran as needed. C-Diff was negative on 01/01. Continue to work on BP control, currently on Norvasc 10 milligrams, hydrochlorothiazide 25, Lopressor 50 twice a day, lisinopril 20 twice a day. Monitor renal function and electrolytes. Continue with Plavix, aspirin and statin. Given recent stroke. Continued work with PT/OT for strengthening given right hand weakness. 01/03/17 - OP day: Surgical debridement with wound closure and replacement of wound VAC by Dr. Richter. We'll continue with antibiotic course as recommended by Dr. Flores . Will discuss Friday with case management regarding discharge planning. 01/04/17 Continue with antibiotic care and wound vac. Sx went well yesterday. Blood pressure and sugars stable with current medications. Potassium normal. Continue with therapies. Medically improving. 01/05/17 Plan Continue with antibiotic care and wound vac. Blood pressure currently well controlled, 151/90 thsi morning. Goal to keep SBP< 160. BGM remains stable. Patient requests change in diet as she does not like cardiac diet. Overall stable and doing well <Cassius Disla D - Last Filed: 01/05/17 16:51> - Date 01/05/17 Objective Vital signs: Temperature 98.1 F 01/05/17 15:21 Pulse Rate 68 01/05/17 15:21 Respiratory Rate 16 01/05/17 15:21 Blood Pressure 158/89 H 01/05/17 15:21 Pulse Oximetry 99 01/05/17 15:21 Height/Weight/BMI: Height 1.7 m Weight 122.3 kg Body Mass Index 43.7 Results - Labs CBC & Chem 7: 01/04/17 04:31 01/04/17 04:31 Microbiology Results: Microbiology 12/19/16 13:20 Foot, Right, Bone Gram Stain - Final 12/19/16 13:20 Foot, Right, Bone Surgical Culture - Final Coag negative Staphylococcus Corynebacterium species 12/18/16 09:34 Peripheral/Iv Start Blood Culture - Final No Growth After 5 Days 12/18/16 09:35 Peripheral/Iv Start Blood Culture - Final No Growth After 5 Days 12/17/16 04:56 Foot,Right Gram Stain - Final 12/17/16 04:56 Foot,Right Superficial Wound Culture - Final Enterococcus faecalis Streptococcus viridans group Coag negative Staphylococcus Assessment and Plan (1) Osteomyelitis of ankle or foot Current visit: Yes Status: Acute (2) Bacteremia due to Enterococcus Current visit: Yes Status: Acute (3) Diabetes mellitus, insulin dependent (IDDM), uncontrolled Current visit: Yes Status: Chronic (4) HTN (hypertension) Current visit: Yes Status: Chronic (5) Gastroparesis due to DM Current visit: Yes Status: Chronic Assessment and Plan: IMPRESSION Right diabetic foot ulcer with surrounding cellulitis and osteomyelitis with subsequent enterococcus bacteremia, failing outpatient treatment Enterococcus bacteremia secondary to above (positive BC from [place] [facility]) Leukocytosis secondary to above Penicillin allergy causing hives Type II DM - uncontrolled (A1c 10.1%) Diabetic gastroparesis with severe nausea and vomiting postoperatively. HTN HDL GERD Hypokalemia (not POA) - improved Elevated LFT (not POA) - resolved Weakness to right hand/arm, dysarthria, mild expressive aphasia - MRI showing CVA (12/25) Constipation - resolved; now with loose stools Morbid Obesity with BMI >40 Have independently interviewed and examined pt. Chart reviewed. Case discussed with my EMBEDDED PROCESSOR. Care plan developed with my supervision; agree with above. Doing well overall. No f/c. No foot or leg pain. Does have some increase redness to top of her right foot. Breathing well. No nausea or ab pain. Lungs: clear CV: regular EXT: no edema. Wound vac in place. Plan: Continue with antibiotics and wound vac. Patient working on mobility activities, but not putting weight on right foot as advised. Recheck lab tomorrow. Hospital Course Summary Disclaimer: The visit summary below is not to be considered part of the above Progress Note.
[2017-01-05] MEDS: METFORMIN 1,000 MG TABLET PO SCH ×2 (09:54→18:31)
[2017-01-05] MEDS: CLOPIDOGREL 75 MG TABLET PO SCH (09:54)
[2017-01-05] MEDS: INSULIN ASPART 100unit/ml INJECTION SQ SCH ×3 (09:54→18:31)
[2017-01-05] MEDS: ENOXAPARIN 40 MG/0.4 ML INJECTION SQ SCH (09:54)
[2017-01-05] MEDS: CYANOCOBALAMIN (B-12) 500mcg TABLET PO SCH ×5 (09:55→20:52)
[2017-01-05] MEDS: AMLODIPINE 10 MG TABLET PO SCH (09:55)
[2017-01-05] MEDS: MAGNESIUM OXIDE 400 MG TABLET PO SCH (09:55)
[2017-01-05] MEDS: LISINOPRIL 20 MG TABLET PO SCH ×2 (09:55→20:52)
[2017-01-05] MEDS: GlipiZIDE 5 MG TABLET PO SCH ×2 (09:55→18:31)
[2017-01-05] MEDS: SALINE FLUSH 10ml SYRINGE IV PRN ×3 (09:55→14:47)
[2017-01-05] MEDS: INSULIN REGULAR, HUMAN 100 UNIT/ML INJECTION SQ PRN (11:37)
[2017-01-05] MEDS: NS FLUSH BAG 500ml IV PRN (11:38)
[2017-01-05] MEDS: LOVASTATIN 40 MG TABLET PO SCH (20:53)
[2017-01-05] MEDS: INSULIN GLARGINE 100unit/ml INJECTION SQ SCH (20:53)
[2017-01-06] MEDS: MetroNIDAZOLE PB 500 MG/100 ML BAG IV SCH (00:36)
[2017-01-06] MEDS: CEFTRIAXONE 1 G in NS 100 ML IV SCH ×2 (01:50→12:29)
[2017-01-06] MEDS: METOCLOPRAMIDE 5mg TABLET PO SCH (06:33)
[2017-01-06] MEDS: PANTOPRAZOLE 40 MG TABLET PO SCH (06:33)
[2017-01-06] MEDS: LISINOPRIL 20 MG TABLET PO SCH ×2 (08:33→21:04)
[2017-01-06] MEDS: AMLODIPINE 10 MG TABLET PO SCH (08:34)
[2017-01-06] MEDS: CLOPIDOGREL 75 MG TABLET PO SCH (08:34)
[2017-01-06] MEDS: GlipiZIDE 5 MG TABLET PO SCH ×2 (08:34→18:18)
[2017-01-06] MEDS: METFORMIN 1,000 MG TABLET PO SCH ×2 (08:35→18:19)
[2017-01-06] MEDS: CYANOCOBALAMIN (B-12) 500mcg TABLET PO SCH ×5 (08:35→21:04)
[2017-01-06] MEDS: INSULIN ASPART 100unit/ml INJECTION SQ SCH ×3 (08:35→18:20)
[2017-01-06] MEDS: ENOXAPARIN 40 MG/0.4 ML INJECTION SQ SCH (08:36)
[2017-01-06] MEDS: MAGNESIUM OXIDE 400 MG TABLET PO SCH (08:38)
--- NOTE | 2017-01-06 09:31 | Progress Note ---
Subjective Date: 01/06/17 Subjective: She mentions that she thinks the top of her R foot is more red today. She states she had it down a little more yesterday. Denies any worsening pain (I don't think she has much pain there). Denies N/V. Still having some loose stools. Exam Vital Signs: Temperature 95.7 F L 01/06/17 08:00 Pulse Rate 76 01/06/17 08:00 Respiratory Rate 18 01/06/17 08:00 Blood Pressure 146/85 H 01/06/17 08:00 Pulse Oximetry 96 01/06/17 08:00 Height/Weight/BMI: Height 1.7 m Weight 123.1 kg Body Mass Index 43.7 - Constitutional Present: no acute distress, well nourished, well developed - Routine HEENT Exam Head: Present: normocephalic, atraumatic Eye: Present: EOMI, PERRL ENT: Present: mucous membranes moist - Routine Neck Exam Present: supple - Routine Respiratory Exam Present: CTA bilaterally. Absent: accessory muscle use - Routine Cardiovascular Exam Present: RRR. Absent: murmur - Routine Abdominal Exam Present: soft, normoactive bowel sounds, non distended. Absent: tenderness, rebound, guarding - Routine Extremities Exam Present: edema (R foot). Absent: cyanosis, clubbing Comments: R foot with Charcot changes, VAC on plantar aspect. [place] aspect of foot has moderate, chronic-appearing erythema with some edema and peeling skin over most of her foot. - Routine Skin Exam Present: intact. Absent: rash - Routine Neurological Exam Present: alert, oriented X3, CN II-XII intact - Routine Psychiatric Exam Present: normal affect Results - Labs CBC & Chem 7: 01/06/17 04:11 01/06/17 04:11 Microbiology Results: Microbiology 12/19/16 13:20 Foot, Right, Bone Gram Stain - Final 12/19/16 13:20 Foot, Right, Bone Surgical Culture - Final Coag negative Staphylococcus Corynebacterium species 12/18/16 09:34 Peripheral/Iv Start Blood Culture - Final No Growth After 5 Days 12/18/16 09:35 Peripheral/Iv Start Blood Culture - Final No Growth After 5 Days 12/17/16 04:56 Foot,Right Gram Stain - Final 12/17/16 04:56 Foot,Right Superficial Wound Culture - Final Enterococcus faecalis Streptococcus viridans group Coag negative Staphylococcus Impression: Right diabetic foot ulcer with surrounding cellulitis and osteomyelitis of the cuboid bone, s/p I&D 12/19, bone culture with CoNS, Corynebacterium sp. S/p repeat I&D involving bone on 01/03/17. Enterococcus bacteremia, presumed secondary to skin/musculoskeletal source. (+ BC from 12/16). Leukocytosis Penicillin allergy causing hives Type II DM, IR, poorly controlled Diabetic gastroparesis with severe nausea and vomiting postoperatively. HTN HLD GERD Acute ischemic stroke involving the left middle cerebral artery distribution. Constipation Morbid Obesity with BMI 43.7 Recommendation: Continue Vancomycin, ceftriaxone and flagyl. Will change flagyl to oral. Planning 6 weeks following debridement, which would go through 01/30/17. Continue wound care. She might need her IV antibiotics extended since there was bony debridement on 01/03. I'm not overly optimistic that this infection can be cured, and that she will be able to avoid a BKA.
--- NOTE | 2017-01-06 09:59 | Progress Note ---
<Monae Valdes D - Last Filed: 01/06/17 16:07> - Date 01/06/17 Subjective: Alona was seen after breakfast. She still has a bit of right arm weakness, and her fine motor coordination isn't quite at baseline but overall much improved. Her speech is back to normal and she denies dysphagia. She thinks some of the redness on the bottom of her foot has improved but is worried about the top. She denies CP or SOA. Still having loose stools, 3-4 per day. Denies diarrhea. No abd cramping. Objective Vital signs: Temperature 95.7 F L 01/06/17 08:00 Pulse Rate 77 01/06/17 08:00 Respiratory Rate 18 01/06/17 08:00 Blood Pressure 146/85 H 01/06/17 08:00 Pulse Oximetry 96 01/06/17 08:00 Rhythm: Normal Sinus Rhythm Height/Weight/BMI: Height 1.7 m Weight 123.1 kg Body Mass Index 43.7 - Constitutional Present: no acute distress, well nourished, well developed - Routine HEENT Exam Eye: Absent: conjunctival icterus ENT: Present: mucous membranes moist, oropharynx clear - Routine Respiratory Exam Present: CTA bilaterally - Routine Cardiovascular Exam Present: RRR, S1, S2 - Routine Abdominal Exam Present: soft, normoactive bowel sounds, non distended, non tender - Routine Extremities Exam Present: edema (right foot) - Routine Skin Exam Present: dry, warm, wounds (erythema to right foot improved; wound vac; foot continues to have swelling) - Routine Neurological Exam Present: alert, oriented X3 - Routine Psychiatric Exam Present: normal affect, normal thought process, cooperative Results - Labs CBC & Chem 7: 01/06/17 04:11 01/06/17 13:06 Microbiology Results: Microbiology 12/19/16 13:20 Foot, Right, Bone Gram Stain - Final 12/19/16 13:20 Foot, Right, Bone Surgical Culture - Final Coag negative Staphylococcus Corynebacterium species 12/18/16 09:34 Peripheral/Iv Start Blood Culture - Final No Growth After 5 Days 12/18/16 09:35 Peripheral/Iv Start Blood Culture - Final No Growth After 5 Days 12/17/16 04:56 Foot,Right Gram Stain - Final 12/17/16 04:56 Foot,Right Superficial Wound Culture - Final Enterococcus faecalis Streptococcus viridans group Coag negative Staphylococcus Assessment and Plan (1) Diabetes mellitus, insulin dependent (IDDM), uncontrolled Current visit: Yes Status: Chronic (2) HTN (hypertension) Current visit: Yes Status: Chronic (3) Gastroparesis due to DM Current visit: Yes Status: Chronic (4) Osteomyelitis of ankle or foot Current visit: Yes Status: Acute (5) Bacteremia due to Enterococcus Current visit: Yes Status: Acute Assessment and Plan: IMPRESSION Right diabetic foot ulcer with surrounding cellulitis and osteomyelitis with subsequent enterococcus bacteremia, failing outpatient treatment Enterococcus bacteremia secondary to above (positive BC from [facility]) Leukocytosis secondary to above Penicillin allergy causing hives Type II DM - uncontrolled (A1c 10.1%) Diabetic gastroparesis with severe nausea and vomiting postoperatively. HTN HDL GERD Hypokalemia (not POA) - improved Elevated LFT (not POA) - resolved Weakness to right hand/arm, dysarthria, mild expressive aphasia - MRI showing CVA (12/25) Constipation - resolved; now with loose stools Morbid Obesity with BMI >40 PLAN Continue ceftriaxone, vancomycin, and Flagyl through 01/30/17. Dr. Flores converted Flagyl to to oral. Labs stable. Loose stools (chronic per pt); denies diarrhea. Hold Reglan. Questran PRN. BGM under better control; occ with low fastings in the 70s; decrease Lantus to 20 U HS. D/W attending. DVT Prophylaxis: Lovenox GI Prophylaxis: Protonix Hospital Course Summary Disclaimer: The visit summary below is not to be considered part of the above Progress Note. Hospital Course: 12/17/16 Inpatient admission Assessment Right diabetic foot ulcer with surrounding cellulitis failing outpatient treatment Leukocytosis Type II DM - uncontrolled Diabetic gastroparesis HTN HDL GERD Morbid Obesity with BMI 43.7 Plan Inpatient admission to [facility] for treatment of diabetic foot ulcer failing outpatient treatment, anticipate greater than 2 midnights of care needed. Vancomycin for antimicrobial coverage. Wound Team consult for help with would care. Will consult Dr Richter to potential debridement. MRI of foot to assess for osteomyelitis. Continue home medications. Monitor sugars - ISS ordered to help with glycemic control. Will consult Diabetic education and dietary. Lovenox 40mg SQ daily with SCD for DVT prevention. Start Protonix 40mg daily due to persistent reflux. Initiate Lisinopril 10mg at night due to HTN and DM. Monitor lab. Discussed code status with patient - requests full resuscitation. Order written. Care to return to Dr Au at time of discharge from [facility]. 12/18/16 Dr Nina MEDINA from [facility] positive. Will have pharmacy dose vancomycin to treat enterococcus as the patient is allergic to penicillin. Repeat blood cultures to rule out persistent enterococcus bacteremia. Await further microbiology results, and meantime we'll discontinue ceftaroline and change to ceftriaxone for gram-negative rods and metronidazole for anaerobes. Wound Team consult for help with would care. Scheduled for wound debridement tomorrow. Continue home medications. Monitor sugars - ISS ordered to help with glycemic control. Diabetic education and dietary consulted. Because of persistent cough will check chest x-ray. We'll obtain baseline plain films of both feet to rule out foreign body. 12/19/16 OP Day - Exploration of right diabetic foot ulceration with excisional surgical debridement of skin, subcutaneous tissues, fascia and bone. Continue with IV Rocephin and IV Flagyl for antimicrobial coverage. Surgical debridement and specimen culture were completed by Dr. Richter today. Will work on glycemic control. Continue with oral agents as well as sliding scale insulin. Diabetic education and dietary consulted given elevated A1c at time of admission. Given acute nausea will give IV Zofran and Reglan. May utilize IV morphine and [place] for pain control. 12/20/16 Persistent nausea, we'll continue Zofran and Reglan. Recheck lab in the morning including a lipase. Appreciate Dr. Lee's consult. We'll continue vancomycin, metronidazole, and ceftriaxone for treatment of her right diabetic foot ulcer. She may benefit from consultation Dr. Peggy Flores next week to facilitate outpatient follow-up. 12/21/16 Nausea, appears to be slightly better controlled. Continue with Reglan, Zofran and scopolamine patch Persistent nausea, we'll continue Zofran and Reglan. Continue with wound vac care and appreciate Dr Lee orthopedic consultation for wound management. Continue with vancomycin, metronidazole, and ceftriaxone for to microbial coverage. Continue with glycemic management, glipizide, Lantus, sliding scale insulin. Monitor blood pressure and continue on lisinopril and Norvasc - 145/71 this am. Persistent leukocytosis, Recheck CBC and BMP tomorrow morning to follow blood counts, renal function and electrolytes. 12/22/16 Overall, nausea, appears to be slightly better today. Will continue on scheduled Reglan is suspicion nausea may be related to gastroparesis. Continue with scopolamine patch, and Zofran. At this time continue with IV Vanco, Rocephin and IV Flagyl for coverage of gram -negative and anaerobes. This may also be contributing to some of her nausea. Lucy with management of foot wound as per wound team and Dr. Lee. Monitor Accu-Cheks and continue with metformin, glipizide, Lantus 15 units at at bedtime and sliding scale insulin. Monitor blood pressure. She was borderline elevated this morning. May need to consider increasing lisinopril dose. At this time will continue to monitor. 12/23/16 Continue IV Vanco, Rocephin and IV Flagyl for coverage of gram-negative and anaerobes. WBC persistently elevated at 14. Continue wound vac and wound care. Will increase lisinopril to 10mg nightly to help blood pressure control. Oral potassium given this am as potassium decreased to 3.2. Will recheck in am and check Mg. D/C IVF - weight up from admission. Liver enzymes with slight elevation - hold metformin and lovastatin. Nausea decreasing. Blood sugars stable. Consult with Dr Flores for antibiotic recommendation and course length. 12/24/16 Transient weakness to right hand/arm and slurred speech. ? TIA CT scan of brain not showing any acute bleed or mass. Will check Lipid profile due to DM. Check carotid doppler and Echo. Continue IV Vanco, Rocephin and IV Flagyl for coverage of gram-negative and anaerobes. WBC with decrease to 12.1. Continue wound vac and wound care. Blood pressure still showing elevation. Will increase lisinopril to 20mg nightly. Potassium decreased to 3.1. Oral potassium at noon and evening meal today. Start routine Mirlax for constipation - PRN medications not being used. 12/25/16- Consult to PT/OT for right hand weakness. Continue with ABX, awaiting of recommendations by Dr Flores. ECHO pending. 12/26/16 Appreciate neurology consultation by Dr Saenz. He recommended recheck CT head to rule out hemorrhage. Fortunately this is normal without evidence of intracranial bleeding. He recommends continuing on Lovenox and Plavix. Will work on blood pressure control. Control on Norvasc 10 milligrams and lisinopril 20 milligrams. We will increased the Cymbalta 20 milligrams twice a day and start that now. Will also add hydralazine as needed for persistent systolic blood pressure greater than 170. Dr. Saenz recommends goal blood pressure 150-160 systolic. Mild Hypokalemia will give oral potassium supplementation- 20 MEQ now then continue [address] Flores recommends to continue vancomycin, Rocephin and Flagyl, will likely need 6 weeks. 12/27/16 BP still elevated - will increase BB dose (HR would tolerate an increase). Continue lisinopril and amlodipine. Hydralazine PRN. Decrease frequency of MiraLAX d/t loose stools. Vitamin B12 5000 mcg daily per home dose (reports this helps with neuropathy). Continue secondary prevention for stroke (Plavix, statin); echo pending. Leukocytosis resolved. Continue Flagyl + Rocephin + wound vac. Chemistry panel stable; K up to normal range. Persistently elevated BG >200 yesterday. She's getting routine SSI between 4-7 U. Start regular insulin 5U with meals. D/W CM - looking into IRU in [place]. 12/28/16 BP still elevated but trending down - monitor today and consider increasing BB dose. Fasting hyperglycemia >200 - increase Lantus from 15U to 17U HS. Also persistently hyperglycemic >200 after meals, even after 5U of insulin was introduced at lunch yesterday. Continue glipizide and restart metformin. Consider increasing NovoLog if metformin doesn't improve postprandial sugars. Encourage activity; continue PT - ambulated 120 feet yesterday. WBC up to 11.4. Continue Flagyl + Rocephin + wound vac. Dr. Richter evaluated yesterday and noted improvement. 12/29/16 Continue wound VAC along with rocephin, flagyl, vanco. Increased metoprolol to 50 bid and will monitor. Glucose 225-281 yesterday. Lantus was increased and metformin restarted. Change Reglan to oral. 12/30/16 Pt is not sure if oral Reglan is helpful; continues to have loose stools; consider discontinuing. Wound VAC to be changed today; continue vancomycin, ceftriaxone and flagyl through 01/30/17. We discussed the grim possibility that if her infection does not heal up with current treatment she may require amputation. BP under better control with increased metoprolol but still suboptimal. HR in the 60-70s with increased BB dosing. She is maxed out on lisinopril & amlodipine & has PRN hydralazine available - ? pheo workup. Will discuss with Dr. Davidson. BG also suboptimal with fasting of 185 this morning and all postoprandials elevated, typically 180 or greater. Increase Lantus to 19U; increase breakfast and lunch insulin to 6U and increase supper NovoLog to 7U. Continue PT/OT. Discussed with Dr. Davidson and CM - will ask IRU to re-screen. Continuing to look into discharge options. 12/30/16 Continue wound VAC along with rocephin, flagyl, vanco. Abx planned until 01/30. BP a little better today with increased metoprolol. Patient not controlled on 3 agents. Has hypokalemia. Check for primary aldosteronism. Aldosterone, renin ordered. Glucose improving. Increase Lantus to 21 units. Encourage patient to be active. Therapy following. 12/31/16 Dr. Richter's note reviewed: recommending re-exploration of her right diabetic foot wound late this week. He recommends for her to see a foot/ankle specialist d/t severe Charcot foot and neuropathic osteoarthropathy. continue vancomycin, ceftriaxone and flagyl through 01/30/17. WBC down to normal range. BG under better control. Had elevated reading after breakfast today but pt reports that she ate oatmeal and expected it to increase. She will select a different breakfast item for tomorrow so will hold off on increasing insulin. BP still high on 3 agents. Will discuss with attending. Aldosterone and renin activity were drawn yesterday (both send-outs). CM working on placement options. Pt has been filling out disability/medicaid forms. 01/01/17 Continue to monitor blood pressure. Currently 144/88. Goal SBP<150-160. Given loose stools will check for C-diff as she has been on antibiotics. Questran as needed to control loose stools. Encourage work with PT and OT for ongoing strengthening. Patient wishes to change resuscitative status to DNR. Orders written per her recommendation. 01/02/17 Planning for further wound evaluation by Dr Richter possibly tomorrow 01/03. Continue with wound Vac and antibiotics. Loose stools seem to be improved, Questran as needed. C-Diff was negative on 01/01. Continue to work on BP control, currently on Norvasc 10 milligrams, hydrochlorothiazide 25, Lopressor 50 twice a day, lisinopril 20 twice a day. Monitor renal function and electrolytes. Continue with Plavix, aspirin and statin. Given recent stroke. Continued work with PT/OT for strengthening given right hand weakness. 01/03/17 - OP day: Surgical debridement with wound closure and replacement of wound VAC by Dr. Richter. We'll continue with antibiotic course as recommended by Dr. Flores . Will discuss Friday with case management regarding discharge planning. 01/04/17 Continue with antibiotic care and wound vac. Sx went well yesterday. Blood pressure and sugars stable with current medications. Potassium normal. Continue with therapies. Medically improving. 01/05/17 Continue with antibiotic care and wound vac. Patient requests change in diet as she does not like cardiac diet. 01/06/17 Continue ceftriaxone, vancomycin, and Flagyl through 01/30/17. Dr. Flores converted Flagyl to to oral. Labs stable. Loose stools (chronic per pt); denies diarrhea. Hold Reglan. Questran PRN. BGM under better control; occ with low fastings in the 70s; decrease Lantus to 20 U HS. <Cassius Disla D - Last Filed: 01/06/17 16:16> - Date 01/06/17 Objective Vital signs: Temperature 96.9 F 01/06/17 15:11 Pulse Rate 74 01/06/17 15:11 Respiratory Rate 18 01/06/17 15:11 Blood Pressure 141/82 H 01/06/17 15:11 Pulse Oximetry 99 01/06/17 15:11 Height/Weight/BMI: Height 1.7 m Weight 123.1 kg Body Mass Index 43.7 Results - Labs CBC & Chem 7: 01/06/17 04:11 01/06/17 13:06 Microbiology Results: Microbiology 12/19/16 13:20 Foot, Right, Bone Gram Stain - Final 12/19/16 13:20 Foot, Right, Bone Surgical Culture - Final Coag negative Staphylococcus Corynebacterium species 12/18/16 09:34 Peripheral/Iv Start Blood Culture - Final No Growth After 5 Days 12/18/16 09:35 Peripheral/Iv Start Blood Culture - Final No Growth After 5 Days 12/17/16 04:56 Foot,Right Gram Stain - Final 12/17/16 04:56 Foot,Right Superficial Wound Culture - Final Enterococcus faecalis Streptococcus viridans group Coag negative Staphylococcus Assessment and Plan (1) Diabetes mellitus, insulin dependent (IDDM), uncontrolled Current visit: Yes Status: Chronic (2) HTN (hypertension) Current visit: Yes Status: Chronic (3) Gastroparesis due to DM Current visit: Yes Status: Chronic (4) Osteomyelitis of ankle or foot Current visit: Yes Status: Acute (5) Bacteremia due to Enterococcus Current visit: Yes Status: Acute Assessment and Plan: IMPRESSION Right diabetic foot ulcer with surrounding cellulitis and osteomyelitis with subsequent enterococcus bacteremia, failing outpatient treatment Enterococcus bacteremia secondary to above (positive BC from [facility]) Leukocytosis secondary to above Penicillin allergy causing hives Type II DM - uncontrolled (A1c 10.1%) Diabetic gastroparesis with severe nausea and vomiting postoperatively. HTN HDL GERD Hypokalemia (not POA) - improved Elevated LFT (not POA) - resolved Weakness to right hand/arm, dysarthria, mild expressive aphasia - MRI showing CVA (12/25) Constipation - resolved; now with loose stools Morbid Obesity with BMI >40 Have independently interviewed and examined pt. Chart reviewed. Case discussed with CM and my [employer] DESK [employer]OCIATE. Care plan developed with my supervision; agree with above. Doing well today. No f/c. No foot or leg pain. Eating well. No ab pain or nausea. Breathing well. Lungs: clear CV: regular AB: soft nt/nd +BS Plan: Continue antibiotics and wound vac. Would like Dr Richter to recheck wound prior to discharge. Arrangements made for skilled care at [facility]; likely discharge in near future. Hospital Course Summary Disclaimer: The visit summary below is not to be considered part of the above Progress Note.
[2017-01-06] MEDS ORDERED: INSULIN GLARGINE 100unit/ml INJECTION SQ SCH (10:05)
[2017-01-06] MEDS: SALINE FLUSH 10ml SYRINGE IV PRN ×3 (12:29→22:26)
--- NOTE | 2017-01-06 14:09 | Pharmacy Consult-Antibiotics ---
Pharmacy Consult-Vancomycin - Laboratory Information WBC 6.6 T/MM3 (4.5-11.0) 01/06/17 04:11 BUN 7.0 MG/DL (7-17) 01/06/17 04:11 Creatinine 0.6 MG/DL (0.7-1.2) L 01/06/17 13:06 Vancomycin Trough 19.70 UG/ML (15-20) 01/06/17 13:06 - Consult Information VANCOMYCIN CONSULT: Vancomycin Trough = 19.7 mcg/ml. Today's SCr = 0.6 mg/dl. Will give Vancomycin 1,500 mg IV q8hrs. Will continue to monitor and make adjustments accordingly. Thank you.
[2017-01-06] MEDS: MetroNIDAZOLE 500 MG TABLET PO SCH (18:19)
[2017-01-06] MEDS: LOVASTATIN 40 MG TABLET PO SCH (21:05)
[2017-01-06] MEDS: NS FLUSH BAG 500ml IV PRN (22:26)
[2017-01-07] MEDS: CEFTRIAXONE 1 G in NS 100 ML IV SCH ×2 (00:44→11:31)
[2017-01-07] MEDS: SALINE FLUSH 10ml SYRINGE IV PRN ×5 (00:44→21:54)
[2017-01-07] MEDS: PANTOPRAZOLE 40 MG TABLET PO SCH (05:52)
--- NOTE | 2017-01-07 08:03 | Wound Care Progress Note ---
Wound Management - Patient Status Premedicated Prior to Dressing Change: No - Wound Right Foot Wound Type: Diabetic Foot Ulcer Wound Present on Admission?: Yes Wound Bed Appearance: Beefy Red Aura Wound Appearance: Macerated Tunneling: No Undermining: No Drainage Description: Serosanguineous Drainage Amount: Small Drainage Odor: No Odor Dressing Status: Changed Packing Type: Woundvac Sponge Number of Packing Pieces Removed?: 3 Number of Packing Pieces Placed?: 3 Primary Dressing: Transparent Drape Secondary Dressing: Trac Pad Dressing Change Date: 01/09/17 Dressing Change Time: 14:00 Dressing Change Patient Tolerance: Tolerated Well (Dr Richter in to see pt prior to reapplying vac.)
--- NOTE | 2017-01-07 08:42 | Progress Note ---
DATE 01/06/2017 FINDINGS Ms. Aguirre was seen earlier this afternoon. She was without complaints. OBJECTIVE VITALS: Afebrile. Normotensive. Please refer to EMR. Last recorded vitals include temperature 96.9, pulse 74, respirations 18, blood pressure 141/82. EXTREMITIES: Attention was focused to the right lower extremity. There is some minimal erythema and edema involving the lateral aspect of the right foot. VAC was removed. Skin edges are significantly closer to one another following last week's surgery/partial delayed primary closure. There is good granulation tissue forming within the wound beds. I do not see any evidence for residual necrotic tissue. LABORATORY/RADIOLOGIC EVALUATION The patient had a CBC and CMP obtained today that were essentially within normal limits. ASSESSMENT 46-year-old diabetic female with Gonzalez grade 3 right diabetic foot ulcer. PLAN Continue with ongoing intravenous antibiotics for treatment of her osteomyelitis. I do feel that the foot is improving. There is some slight erythema involving the lateral aspect of the foot but I do not feel that this is significant. VAC was replaced. Will continue with ongoing negative wound pressure therapy to facilitate angiogenesis/healing. MTDD
[2017-01-07] MEDS: INSULIN ASPART 100unit/ml INJECTION SQ SCH ×3 (09:44→18:25)
[2017-01-07] MEDS: ENOXAPARIN 40 MG/0.4 ML INJECTION SQ SCH (09:45)
[2017-01-07] MEDS: METFORMIN 1,000 MG TABLET PO SCH ×2 (09:46→18:24)
[2017-01-07] MEDS: AMLODIPINE 10 MG TABLET PO SCH (09:46)
[2017-01-07] MEDS: CYANOCOBALAMIN (B-12) 500mcg TABLET PO SCH ×5 (09:46→20:57)
[2017-01-07] MEDS: LISINOPRIL 20 MG TABLET PO SCH ×2 (09:46→20:57)
[2017-01-07] MEDS: MAGNESIUM OXIDE 400 MG TABLET PO SCH (09:47)
[2017-01-07] MEDS: CLOPIDOGREL 75 MG TABLET PO SCH (09:47)
[2017-01-07] MEDS: MetroNIDAZOLE 500 MG TABLET PO SCH ×2 (09:47→18:25)
[2017-01-07] MEDS: GlipiZIDE 5 MG TABLET PO SCH ×2 (09:47→18:24)
[2017-01-07] MEDS ORDERED: INSULIN GLARGINE 100unit/ml INJECTION SQ SCH (10:55)
[2017-01-07] MEDS: INSULIN REGULAR, HUMAN 100 UNIT/ML INJECTION SQ PRN (11:31)
--- NOTE | 2017-01-07 14:00 | XRay Report ---
Indication: check picc placement PROCEDURE: XR chest 1V: Encounter: Initial Comparison: December 18, 2016 Findings: PICC line in place with the tip projecting over the mid SVC. The right lateral lung field is excluded from the [id number]. The left lung is clear. No pleural effusion or pneumothorax. The heart size, mediastinal contours and pulmonary vascularity are within normal limits. Impression: New left PICC line tip projecting over the mid SVC. .
[2017-01-07] MEDS ORDERED: ALTEPLASE (Cathflo*) 2mg INJECTION IV ONE (16:14)
--- NOTE | 2017-01-07 18:09 | Progress Note ---
- Date 01/07/17 Subjective: Alona reports that she's doing okay overall. She continues to have a heavy sensation in her right arm at times but weakness has improved progressively. Her speech is better and she thinks she is more aware of some continued mild slurring of speech that other people are. Yesterday evening and through today she is noted a tingling sensation in the anterolateral left thigh like the area is "asleep" without pain or weakness in the left leg. She initially attributed this to not moving around yesterday and thought she had's too much time lying on her left side but expected the numbness to resolve overnight. Otherwise she denies dyspnea, nausea, abdominal pain, fever, or lightheadedness. She is able to transfer but is nonweightbearing on the right lower extremity. 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 Late morning 151, midafternoon 113 Microbiology Results: Microbiology 12/19/16 13:20 Foot, Right, Bone Gram Stain - Final 12/19/16 13:20 Foot, Right, Bone Surgical Culture - Final Coag negative Staphylococcus Corynebacterium species 12/18/16 09:34 Peripheral/Iv Start Blood Culture - Final No Growth After 5 Days 12/18/16 09:35 Peripheral/Iv Start Blood Culture - Final No Growth After 5 Days 12/17/16 04:56 Foot,Right Gram Stain - Final 12/17/16 04:56 Foot,Right Superficial Wound Culture - Final Enterococcus faecalis Streptococcus viridans group Coag negative Staphylococcus - Imaging and Cardiology Chest x-ray Status: image reviewed by me (Limited chest x-ray for evaluation of PICC line was reviewed by myself demonstrating clear left lung field and visualized right lung is also clear. Picc is appropriately placed and there is no evidence of pneumothorax.) Assessment and Plan (1) Osteomyelitis of ankle or foot Current visit: Yes Status: Acute (2) Bacteremia due to Enterococcus Current visit: Yes Status: Acute (3) Ischemic stroke diagnosed during current admission Problem details: Left MCA territory involving watershed areas in the frontal and parietal lobes on MRI; slurred speech, right hand weakness 12/24/16 Current visit: Yes Status: Acute (4) Diabetes mellitus, insulin dependent (IDDM), uncontrolled Problem details: A1c 11.4 on 12/17/16 Current visit: Yes Status: Chronic (5) HTN (hypertension) Current visit: Yes Status: Chronic Assessment and Plan: IMPRESSION Right diabetic foot ulcer with surrounding cellulitis and osteomyelitis with subsequent enterococcus bacteremia, failed outpatient treatment Enterococcus bacteremia secondary to above (positive BC from [place] [facility]) Leukocytosis secondary to above Penicillin allergy causing hives Type II DM - uncontrolled (A1c 10.1%->11.4 on 12/17/16) Diabetic gastroparesis with severe nausea and vomiting postoperatively. HTN HDL GERD Hypokalemia (not POA) - improved Elevated LFT (not POA) - resolved Left MCA ischemic stroke - Weakness of right hand/arm, dysarthria, mild expressive aphasia, MRI showing CVA (12/25) Constipation - resolved; now with loose stools Normocytic anemia Morbid Obesity with BMI >40 Plan Medically stable, blood pressure remains borderline high at times on multiple medications. Heart rate will permit increasing beta nava if necessary. Plan to continue current antibiotics (Rocephin 1 g every 12 hours, vancomycin 1.5 g every 8 hours, and metronidazole 500 mg twice a day po) for total of 6 weeks therapy which will be completed on 01/30/17. PICC line placed to permit antibiotic infusion on discharge to nursing facility. Patient has been accepted to facility in [place] and will tentatively transfer tomorrow after care assessment completed. Fasting blood sugars consistently low, Lantus decreased from 20 units daily at bedtime to 18 units. Patient describes development of loose stools without diarrhea-Lactobacillus initiated. Continue wound care with wound VAC. Neurological symptoms improving, on Plavix and statin. LDL 53. Multiple discussions with case management throughout the day regarding discharge planning. DVT Prophylaxis: Lovenox Resuscitation Status: Do Not Resuscitate Hospital Course Summary Disclaimer: The visit summary below is not to be considered part of the above Progress Note. Hospital Course: 12/17/16 Inpatient admission Assessment Right diabetic foot ulcer with surrounding cellulitis failing outpatient treatment Leukocytosis Type II DM - uncontrolled Diabetic gastroparesis HTN HDL GERD Morbid Obesity with BMI 43.[address] [facility] for treatment of diabetic foot ulcer failing outpatient treatment, anticipate greater than 2 midnights of care needed. Vancomycin for antimicrobial coverage. Wound Team consult for help with would care. Will consult Dr Richter to potential debridement. MRI of foot to assess for osteomyelitis. Continue home medications. Monitor sugars - ISS ordered to help with glycemic control. Will consult Diabetic education and dietary. Lovenox 40mg SQ daily with SCD for DVT prevention. Start Protonix 40mg daily due to persistent reflux. Initiate Lisinopril 10mg at night due to HTN and DM. Monitor lab. Discussed code status with patient - requests full resuscitation. Order written. Care to return to Dr Au at time of discharge from [facility]. 12/18/16 Dr Nina MEDINA from [place] ED positive. Will have pharmacy dose vancomycin to treat enterococcus as the patient is allergic to penicillin. Repeat blood cultures to rule out persistent enterococcus bacteremia. Await further microbiology results, and meantime we'll discontinue ceftaroline and change to ceftriaxone for gram-negative rods and metronidazole for anaerobes. Wound Team consult for help with would care. Scheduled for wound debridement tomorrow. Continue home medications. Monitor sugars - ISS ordered to help with glycemic control. Diabetic education and dietary consulted. Because of persistent cough will check chest x-ray. We'll obtain baseline plain films of both feet to rule out foreign body. 12/19/16 OP Day - Exploration of right diabetic foot ulceration with excisional surgical debridement of skin, subcutaneous tissues, fascia and bone. Continue with IV Rocephin and IV Flagyl for antimicrobial coverage. Surgical debridement and specimen culture were completed by Dr. Richter today. Will work on glycemic control. Continue with oral agents as well as sliding scale insulin. Diabetic education and dietary consulted given elevated A1c at time of admission. Given acute nausea will give IV Zofran and Reglan. May utilize IV morphine and [place] for pain control. 12/20/16 Persistent nausea, we'll continue Zofran and Reglan. Recheck lab in the morning including a lipase. Appreciate Dr. Lee's consult. We'll continue vancomycin, metronidazole, and ceftriaxone for treatment of her right diabetic foot ulcer. She may benefit from consultation Dr. Peggy Flores next week to facilitate outpatient follow-up. 12/21/16 Nausea, appears to be slightly better controlled. Continue with Reglan, Zofran and scopolamine patch Persistent nausea, we'll continue Zofran and Reglan. Continue with wound vac care and appreciate Dr Lee orthopedic consultation for wound management. Continue with vancomycin, metronidazole, and ceftriaxone for to microbial coverage. Continue with glycemic management, glipizide, Lantus, sliding scale insulin. Monitor blood pressure and continue on lisinopril and Norvasc - 145/71 this am. Persistent leukocytosis, Recheck CBC and BMP tomorrow morning to follow blood counts, renal function and electrolytes. 12/22/16 Overall, nausea, appears to be slightly better today. Will continue on scheduled Reglan is suspicion nausea may be related to gastroparesis. Continue with scopolamine patch, and Zofran. At this time continue with IV Vanco, Rocephin and IV Flagyl for coverage of gram -negative and anaerobes. This may also be contributing to some of her nausea. Lucy with management of foot wound as per wound team and Dr. Lee. Monitor Accu-Cheks and continue with metformin, glipizide, Lantus 15 units at at bedtime and sliding scale insulin. Monitor blood pressure. She was borderline elevated this morning. May need to consider increasing lisinopril dose. At this time will continue to monitor. 12/23/16 Continue IV Vanco, Rocephin and IV Flagyl for coverage of gram-negative and anaerobes. WBC persistently elevated at 14. Continue wound vac and wound care. Will increase lisinopril to 10mg nightly to help blood pressure control. Oral potassium given this am as potassium decreased to 3.2. Will recheck in am and check Mg. D/C IVF - weight up from admission. Liver enzymes with slight elevation - hold metformin and lovastatin. Nausea decreasing. Blood sugars stable. Consult with Dr Flores for antibiotic recommendation and course length. 12/24/16 Transient weakness to right hand/arm and slurred speech. ? TIA CT scan of brain not showing any acute bleed or mass. Will check Lipid profile due to DM. Check carotid doppler and Echo. Continue IV Vanco, Rocephin and IV Flagyl for coverage of gram-negative and anaerobes. WBC with decrease to 12.1. Continue wound vac and wound care. Blood pressure still showing elevation. Will increase lisinopril to 20mg nightly. Potassium decreased to 3.1. Oral potassium at noon and evening meal today. Start routine Mirlax for constipation - PRN medications not being used. 12/25/16- Consult to PT/OT for right hand weakness. Continue with ABX, awaiting of recommendations by Dr Flores. ECHO pending. 12/26/16 Appreciate neurology consultation by Dr Saenz. He recommended recheck CT head to rule out hemorrhage. Fortunately this is normal without evidence of intracranial bleeding. He recommends continuing on Lovenox and Plavix. Will work on blood pressure control. Control on Norvasc 10 milligrams and lisinopril 20 milligrams. We will increased the Cymbalta 20 milligrams twice a day and start that now. Will also add hydralazine as needed for persistent systolic blood pressure greater than 170. Dr. Saenz recommends goal blood pressure 150-160 systolic. Mild Hypokalemia will give oral potassium supplementation- 20 MEQ now then continue [address] Flores recommends to continue vancomycin, Rocephin and Flagyl, will likely need 6 weeks. 12/27/16 BP still elevated - will increase BB dose (HR would tolerate an increase). Continue lisinopril and amlodipine. Hydralazine PRN. Decrease frequency of MiraLAX d/t loose stools. Vitamin B12 5000 mcg daily per home dose (reports this helps with neuropathy). Continue secondary prevention for stroke (Plavix, statin); echo pending. Leukocytosis resolved. Continue Flagyl + Rocephin + wound vac. Chemistry panel stable; K up to normal range. Persistently elevated BG >200 yesterday. She's getting routine SSI between 4-7 U. Start regular insulin 5U with meals. D/W CM - looking into IRU in [place]. 12/28/16 BP still elevated but trending down - monitor today and consider increasing BB dose. Fasting hyperglycemia >200 - increase Lantus from 15U to 17U HS. Also persistently hyperglycemic >200 after meals, even after 5U of insulin was introduced at lunch yesterday. Continue glipizide and restart metformin. Consider increasing NovoLog if metformin doesn't improve postprandial sugars. Encourage activity; continue PT - ambulated 120 feet yesterday. WBC up to 11.4. Continue Flagyl + Rocephin + wound vac. Dr. Richter evaluated yesterday and noted improvement. 12/29/16 Continue wound VAC along with rocephin, flagyl, vanco. Increased metoprolol to 50 bid and will monitor. Glucose 225-281 yesterday. Lantus was increased and metformin restarted. Change Reglan to oral. 12/30/16 Pt is not sure if oral Reglan is helpful; continues to have loose stools; consider discontinuing. Wound VAC to be changed today; continue vancomycin, ceftriaxone and flagyl through 01/30/17. We discussed the grim possibility that if her infection does not heal up with current treatment she may require amputation. BP under better control with increased metoprolol but still suboptimal. HR in the 60-70s with increased BB dosing. She is maxed out on lisinopril & amlodipine & has PRN hydralazine available - ? pheo workup. Will discuss with Dr. Davidson. BG also suboptimal with fasting of 185 this morning and all postoprandials elevated, typically 180 or greater. Increase Lantus to 19U; increase breakfast and lunch insulin to 6U and increase supper NovoLog to 7U. Continue PT/OT. Discussed with Dr. Davidson and CM - will ask IRU to re-screen. Continuing to look into discharge options. 12/30/16 Continue wound VAC along with rocephin, flagyl, vanco. Abx planned until 01/30. BP a little better today with increased metoprolol. Patient not controlled on 3 agents. Has hypokalemia. Check for primary aldosteronism. Aldosterone, renin ordered. Glucose improving. Increase Lantus to 21 units. Encourage patient to be active. Therapy following. 12/31/16 Dr. Richter's note reviewed: recommending re-exploration of her right diabetic foot wound late this week. He recommends for her to see a foot/ankle specialist d/t severe Charcot foot and neuropathic osteoarthropathy. continue vancomycin, ceftriaxone and flagyl through 01/30/17. WBC down to normal range. BG under better control. Had elevated reading after breakfast today but pt reports that she ate oatmeal and expected it to increase. She will select a different breakfast item for tomorrow so will hold off on increasing insulin. BP still high on 3 agents. Will discuss with attending. Aldosterone and renin activity were drawn yesterday (both send-outs). CM working on placement options. Pt has been filling out disability/medicaid forms. 01/01/17 Continue to monitor blood pressure. Currently 144/88. Goal SBP<150-160. Given loose stools will check for C-diff as she has been on antibiotics. Questran as needed to control loose stools. Encourage work with PT and OT for ongoing strengthening. Patient wishes to change resuscitative status to DNR. Orders written per her recommendation. 01/02/17 Planning for further wound evaluation by Dr Richter possibly tomorrow 01/03. Continue with wound Vac and antibiotics. Loose stools seem to be improved, Questran as needed. C-Diff was negative on 01/01. Continue to work on BP control, currently on Norvasc 10 milligrams, hydrochlorothiazide 25, Lopressor 50 twice a day, lisinopril 20 twice a day. Monitor renal function and electrolytes. Continue with Plavix, aspirin and statin. Given recent stroke. Continued work with PT/OT for strengthening given right hand weakness. 01/03/17 - OP day: Surgical debridement with wound closure and replacement of wound VAC by Dr. Richter. We'll continue with antibiotic course as recommended by Dr. Flores . Will discuss Friday with case management regarding discharge planning. 01/04/17 Continue with antibiotic care and wound vac. Sx went well yesterday. Blood pressure and sugars stable with current medications. Potassium normal. Continue with therapies. Medically improving. 01/05/17 Continue with antibiotic care and wound vac. Patient requests change in diet as she does not like cardiac diet. 01/06/17 Continue ceftriaxone, vancomycin, and Flagyl through 01/30/17. Dr. Flores converted Flagyl to to oral. Labs stable. Loose stools (chronic per pt); denies diarrhea. Hold Reglan. Questran PRN. BGM under better control; occ with low fastings in the 70s; decrease Lantus to 20 U HS. 01/07/17 Medically stable, blood pressure remains borderline high at times on multiple medications. Heart rate will permit increasing beta nava if necessary. Plan to continue current antibiotics (Rocephin 1 g every 12 hours, vancomycin 1.5 g every 8 hours, and metronidazole 500 mg twice a day po) for total of 6 weeks therapy which will be completed on 01/30/17. PICC line placed to permit antibiotic infusion on discharge to nursing facility. Patient has been accepted to facility in [place] and will tentatively transfer tomorrow after care assessment completed. Fasting blood sugars consistently low, Lantus decreased from 20 units daily at bedtime to 18 units. Patient describes development of loose stools without diarrhea-Lactobacillus initiated. Continue wound care with wound VAC. Neurological symptoms improving, on Plavix and statin. LDL 53.
[2017-01-07] MEDS: LOVASTATIN 40 MG TABLET PO SCH (20:57)
[2017-01-08] MEDS: SALINE FLUSH 10ml SYRINGE IV PRN ×2 (00:05→06:07)
[2017-01-08] MEDS: CEFTRIAXONE 1 G in NS 100 ML IV SCH ×2 (00:05→11:50)
[2017-01-08] MEDS: NS FLUSH BAG 500ml IV PRN (06:06)
[2017-01-08] MEDS: PANTOPRAZOLE 40 MG TABLET PO SCH (06:06)
[2017-01-08] MEDS ORDERED: LACTOBACILLUS (15B cfu) CAPSULE PO SCH (08:00)
--- NOTE | 2017-01-08 08:46 | Progress Note ---
Subjective Date: 01/08/17 Subjective: She reports that she's doing ok. She denies any fevers, chills, N/V or diarrhea. She is transferring to [place] today. Patient was on the commode this morning, so full physical exam was deferred. Exam Vital Signs: Temperature 96 F L 01/08/17 00:00 Pulse Rate 65 01/08/17 00:00 Respiratory Rate 16 01/08/17 00:00 Blood Pressure 138/76 01/08/17 00:00 Pulse Oximetry 98 01/08/17 00:00 Height/Weight/BMI: Height 1.7 m Weight 123 kg Body Mass Index 43.7 - Constitutional Present: no acute distress, well nourished, well developed - Routine HEENT Exam Head: Present: normocephalic Eye: Present: EOMI, PERRL ENT: Present: mucous membranes moist - Routine Neck Exam Present: supple - Routine Extremities Exam Present: edema (R foot) Comments: R foot with Charcot changes, VAC on. - Routine Skin Exam Absent: rash - Routine Neurological Exam Present: alert, oriented X3, CN II-XII intact - Routine Psychiatric Exam Present: normal affect Results - Labs CBC & Chem 7: 01/06/17 04:11 01/08/17 04:17 Microbiology Results: Microbiology 12/19/16 13:20 Foot, Right, Bone Gram Stain - Final 12/19/16 13:20 Foot, Right, Bone Surgical Culture - Final Coag negative Staphylococcus Corynebacterium species 12/18/16 09:34 Peripheral/Iv Start Blood Culture - Final No Growth After 5 Days 12/18/16 09:35 Peripheral/Iv Start Blood Culture - Final No Growth After 5 Days 12/17/16 04:56 Foot,Right Gram Stain - Final 12/17/16 04:56 Foot,Right Superficial Wound Culture - Final Enterococcus faecalis Streptococcus viridans group Coag negative Staphylococcus Impression: Right diabetic foot ulcer with surrounding cellulitis and osteomyelitis of the cuboid bone, s/p I&D 12/19, bone culture with CoNS, Corynebacterium sp. S/p repeat I&D involving bone on 01/03/17. Enterococcus bacteremia, presumed secondary to skin/musculoskeletal source. (+ BC from 12/16). Leukocytosis Penicillin allergy causing hives Type II DM, IR, poorly controlled Diabetic gastroparesis with severe nausea and vomiting postoperatively. HTN HLD GERD Acute ischemic stroke involving the left middle cerebral artery distribution. Constipation Morbid Obesity with BMI 43.7 Recommendation: Continue Vancomycin, ceftriaxone and flagyl. Planning 6 weeks following debridement, which would go through 01/30/17. Continue wound care. She might need her IV antibiotics extended since there was bony debridement on 01/03. I'm not overly optimistic that this infection can be cured, and that she will be able to avoid a BKA. I would recommend checking a weekly CBC with diff, CMP, CRP while on the IV antibiotics, and have these faxed to the Wound clinic ). I'll see her back in follow up there in a few weeks.
[2017-01-08] MEDS: LISINOPRIL 20 MG TABLET PO SCH (09:06)
[2017-01-08] MEDS: MAGNESIUM OXIDE 400 MG TABLET PO SCH (09:07)
[2017-01-08] MEDS: CYANOCOBALAMIN (B-12) 500mcg TABLET PO SCH ×3 (09:07→15:16)
[2017-01-08] MEDS: MetroNIDAZOLE 500 MG TABLET PO SCH (09:07)
[2017-01-08] MEDS: CLOPIDOGREL 75 MG TABLET PO SCH (09:07)
[2017-01-08] MEDS: GlipiZIDE 5 MG TABLET PO SCH (09:07)
[2017-01-08] MEDS: INSULIN ASPART 100unit/ml INJECTION SQ SCH ×2 (09:08→12:25)
[2017-01-08] MEDS: AMLODIPINE 10 MG TABLET PO SCH (09:08)
[2017-01-08] MEDS: METFORMIN 1,000 MG TABLET PO SCH (09:08)
[2017-01-08] MEDS: ENOXAPARIN 40 MG/0.4 ML INJECTION SQ SCH (09:09)
--- NOTE | 2017-01-08 09:20 | Extended Care Facility Orders ---
Admission Orders Admit to:: [facility] Allergies/Adverse Reactions: Allergies clindamycin Allergy (Verified 12/17/16 04:00) Penicillins Allergy (Verified 12/17/16 04:00) tetracycline Allergy (Verified 12/17/16 04:00) Admitting Diagnosis: Diabetic wound ulcer,sepsis Admitting Physician: Tiff Chavez MD Attending Physician: Tiff Chavez MD Code Status: Do Not Resuscitate Anticiapted Length of Stay: greater than 30 days Rehab Potential: good Rehab Prognosis: good Diet: Cardiac Consistent Carbohydrate Diet- May use Facility Protocol or Standing Orders: Yes May have flu vaccine: Yes - Additional Information In Event of Arrest: Do Not Start CPR Referrals: Mayelin Flores MD [Physician] - ( follow-up appointment at [facility]- 01/[address] Flores) Additional Orders: Activity as tolerated. Call PCP is blood pressure is greater than 170 systolic. Check BGM- AC,HS. Will need weekly labs on wednesdays- CBC with Diff, CMP. Faxed to [facility]- [phone]
[2017-01-08 09:24] VITALS: BP 152/97; PULSE 84; RESP 18; TEMP 96.9; O2SAT 100
--- NOTE | 2017-01-08 09:31 | Discharge Summary ---
<Maryam Collazo V - Last Filed: 01/08/17 10:43> Discharge Information Date of admission: 12/17/16 03:15 Anticipated date of discharge: 01/08/17 Attending Physician: Tiff Chavez MD Consults: Mac Richter - Wound care RosaMoi davila - Orthopedics Mayelin Flores-infectious disease AlseouMery goldberg- Neurologist - Discharge Diagnosis (1) Diabetes mellitus, insulin dependent (IDDM), uncontrolled Status: Chronic (2) HTN (hypertension) Status: Chronic (3) Osteomyelitis of ankle or foot Status: Acute (4) Bacteremia due to Enterococcus Status: Acute (5) Ischemic stroke diagnosed during current admission Status: Acute Right diabetic foot ulcer with surrounding cellulitis and osteomyelitis with subsequent enterococcus bacteremia, failed outpatient treatment Enterococcus bacteremia secondary to above (positive BC from [place] [facility]) Leukocytosis secondary to above Penicillin allergy causing hives Type II DM - uncontrolled (A1c 10.1%->11.4 on 12/17/16) Diabetic gastroparesis with severe nausea and vomiting postoperatively. HTN HDL GERD Hypokalemia (not POA) - improved Elevated LFT (not POA) - resolved Left MCA ischemic stroke - Weakness of right hand/arm, dysarthria, mild expressive aphasia, MRI showing CVA (12/25) Constipation - resolved; now with loose stools Normocytic anemia Morbid Obesity with BMI >40 - Procedures Procedures: 12/18/16- Exploration of wound with excisional surgical debridement, and placement of wound VAC by Dr. Richter 01/03/17- surgical debridement with wound closure and replacement of wound VAC by Dr. Richter - Laboratory Labs: 01/06/17 04:11 01/08/17 04:17 - Microbiology Microbiology 12/19/16 13:20 Foot, Right, Bone Gram Stain - Final 12/19/16 13:20 Foot, Right, Bone Surgical Culture - Final Coag negative Staphylococcus Corynebacterium species 12/18/16 09:34 Peripheral/Iv Start Blood Culture - Final No Growth After 5 Days 12/18/16 09:35 Peripheral/Iv Start Blood Culture - Final No Growth After 5 Days 12/17/16 04:56 Foot,Right Gram Stain - Final 12/17/16 04:56 Foot,Right Superficial Wound Culture - Final Enterococcus faecalis Streptococcus viridans group Coag negative Staphylococcus - Radiology Radiology: 12/17-MRI of right foot- Impression: Mid foot ulcer with plantar abscesses and osteomyelitis of the mid foot. Osteomyelitis definitely involves the cuboid bone. There is disorganization of the mid foot with a Lisfranc dislocation. It is difficult to determine how much of the other mid foot signal abnormalities are from the dislocation or could be due to a neuropathic foot or osteomyelitis. 12/18-ultrasound duplex of right lower extremity-IMPRESSION: Dampened waveforms throughout the right lower extremity arteries suggesting a more proximal mild to moderate stenosis in the pelvis. No focal stenosis seen in the leg. 12/18-chest x-ray- Impression: Mild retrocardiac airspace opacity could represent prominent pulmonary vasculature or a small region of acute infiltrate. 12/18-lateral feet X-ray- Impression: Right foot: Findings as above, Left foot: Subacute fracture of the second toe proximal phalanx. 12/24-CT head-no acute intracranial abnormality or hemorrhage 12/25-MRI of the brain- IMPRESSION: 1. Areas of acute infarct predominantly in the left MCA territory involving the frontal and parietal lobes with some areas of watershed ischemia. 2. Area of T1 and T2 hyperintensity which had a hyperdense appearance on recent CT scan. 12/25-carotid Doppler bilaterally-no hemodynamically significant stenosis 12/25-echocardiogram- IMPRESSION 1. Normal cardiac chamber size except for mild left atrial enlargement, measures 4.7 cm. 2. Mild concentric LVH with normal systolic function. 3. Diastolic dysfunction Grade II/IV is present (pseudo-normal pattern). 4. Mitral annular calcification without significant valvular dysfunction. 5. Mild pulmonary hypertension with normal RV size and systolic function. 6. No evidence of intracardiac masses, thrombi, vegetations or shunts. 7. Patient is in sinus rhythm during the study. 8. If cardiac source of embolus is suspected, transesophageal echocardiogram may have a better sensitivity and specificity. 12/26 -repeat CT head- 1. Stable appearance of the noncontrast CT scan of the head again showing no definite acute intracranial process. 2. Mild periventricular white matter chronic small vessel ischemic change. 01/07-chest x-ray- Impression: New left PICC line tip projecting over the mid SVC. History of Present Illness HPI: The pt is a noncompliant diabetic 46 yo with a one month hx of a non-healing wound on the plantar aspect of the right foot. She has a several year hx of the foot having wounds but this wound / ulcer started about a month ago and she has been trying to heal it at home until she says the drainage of yellow and smell became too bad and so she went to her PCP, Dr. Au in [place], [place]. She was placed on Bactrim one week ago DS BID, and came to the ER [facility], to have it evaluated. Hospital Course This is a general summary of the patient's hospital course. For more details refer to the complete medical record. Hospital course: 12/17/16 Inpatient admission Assessment Right diabetic foot ulcer with surrounding cellulitis failing outpatient treatment Leukocytosis Type II DM - uncontrolled Diabetic gastroparesis HTN HDL GERD Morbid Obesity with BMI 43.7 Plan Inpatient admission to [facility] for treatment of diabetic foot ulcer failing outpatient treatment, anticipate greater than 2 midnights of care needed. Vancomycin for antimicrobial coverage. Wound Team consult for help with would care. Will consult Dr Richter to potential debridement. MRI of foot to assess for osteomyelitis. Continue home medications. Monitor sugars - ISS ordered to help with glycemic control. Will consult Diabetic education and dietary. Lovenox 40mg SQ daily with SCD for DVT prevention. Start Protonix 40mg daily due to persistent reflux. Initiate Lisinopril 10mg at night due to HTN and DM. Monitor lab. Discussed code status with patient - requests full resuscitation. Order written. Care to return to Dr Au at time of discharge from [facility]. 12/18/16 Dr Nina MEDINA from [place] ED positive. Will have pharmacy dose vancomycin to treat enterococcus as the patient is allergic to penicillin. Repeat blood cultures to rule out persistent enterococcus bacteremia. Await further microbiology results, and meantime we'll discontinue ceftaroline and change to ceftriaxone for gram-negative rods and metronidazole for anaerobes. Wound Team consult for help with would care. Scheduled for wound debridement tomorrow. Continue home medications. Monitor sugars - ISS ordered to help with glycemic control. Diabetic education and dietary consulted. Because of persistent cough will check chest x-ray. We'll obtain baseline plain films of both feet to rule out foreign body. 12/19/16 OP Day - Exploration of right diabetic foot ulceration with excisional surgical debridement of skin, subcutaneous tissues, fascia and bone. Continue with IV Rocephin and IV Flagyl for antimicrobial coverage. Surgical debridement and specimen culture were completed by Dr. Richter today. Will work on glycemic control. Continue with oral agents as well as sliding scale insulin. Diabetic education and dietary consulted given elevated A1c at time of admission. Given acute nausea will give IV Zofran and Reglan. May utilize IV morphine and [place] for pain control. 12/20/16 Persistent nausea, we'll continue Zofran and Reglan. Recheck lab in the morning including a lipase. Appreciate Dr. Lee's consult. We'll continue vancomycin, metronidazole, and ceftriaxone for treatment of her right diabetic foot ulcer. She may benefit from consultation Dr. Peggy Flores next week to facilitate outpatient follow-up. 12/21/16 Nausea, appears to be slightly better controlled. Continue with Reglan, Zofran and scopolamine patch Persistent nausea, we'll continue Zofran and Reglan. Continue with wound vac care and appreciate Dr Lee orthopedic consultation for wound management. Continue with vancomycin, metronidazole, and ceftriaxone for to microbial coverage. Continue with glycemic management, glipizide, Lantus, sliding scale insulin. Monitor blood pressure and continue on lisinopril and Norvasc - 145/71 this am. Persistent leukocytosis, Recheck CBC and BMP tomorrow morning to follow blood counts, renal function and electrolytes. 12/22/16 Overall, nausea, appears to be slightly better today. Will continue on scheduled Reglan is suspicion nausea may be related to gastroparesis. Continue with scopolamine patch, and Zofran. At this time continue with IV Vanco, Rocephin and IV Flagyl for coverage of gram -negative and anaerobes. This may also be contributing to some of her nausea. Lucy with management of foot wound as per wound team and Dr. Lee. Monitor Accu-Cheks and continue with metformin, glipizide, Lantus 15 units at at bedtime and sliding scale insulin. Monitor blood pressure. She was borderline elevated this morning. May need to consider increasing lisinopril dose. At this time will continue to monitor. 12/23/16 Continue IV Vanco, Rocephin and IV Flagyl for coverage of gram-negative and anaerobes. WBC persistently elevated at 14. Continue wound vac and wound care. Will increase lisinopril to 10mg nightly to help blood pressure control. Oral potassium given this am as potassium decreased to 3.2. Will recheck in am and check Mg. D/C IVF - weight up from admission. Liver enzymes with slight elevation - hold metformin and lovastatin. Nausea decreasing. Blood sugars stable. Consult with Dr Flores for antibiotic recommendation and course length. 12/24/16 Transient weakness to right hand/arm and slurred speech. ? TIA CT scan of brain not showing any acute bleed or mass. Will check Lipid profile due to DM. Check carotid doppler and Echo. Continue IV Vanco, Rocephin and IV Flagyl for coverage of gram-negative and anaerobes. WBC with decrease to 12.1. Continue wound vac and wound care. Blood pressure still showing elevation. Will increase lisinopril to 20mg nightly. Potassium decreased to 3.1. Oral potassium at noon and evening meal today. Start routine Mirlax for constipation - PRN medications not being used. 12/25/16- Consult to PT/OT for right hand weakness. Continue with ABX, awaiting of recommendations by Dr Flores. ECHO pending. 12/26/16 Appreciate neurology consultation by Dr Saenz. He recommended recheck CT head to rule out hemorrhage. Fortunately this is normal without evidence of intracranial bleeding. He recommends continuing on Lovenox and Plavix. Will work on blood pressure control. Control on Norvasc 10 milligrams and lisinopril 20 milligrams. We will increased the Cymbalta 20 milligrams twice a day and start that now. Will also add hydralazine as needed for persistent systolic blood pressure greater than 170. Dr. Saenz recommends goal blood pressure 150-160 systolic. Mild Hypokalemia will give oral potassium supplementation- 20 MEQ now then continue [address] Flores recommends to continue vancomycin, Rocephin and Flagyl, will likely need 6 weeks. 12/27/16 BP still elevated - will increase BB dose (HR would tolerate an increase). Continue lisinopril and amlodipine. Hydralazine PRN. Decrease frequency of MiraLAX d/t loose stools. Vitamin B12 5000 mcg daily per home dose (reports this helps with neuropathy). Continue secondary prevention for stroke (Plavix, statin); echo pending. Leukocytosis resolved. Continue Flagyl + Rocephin + wound vac. Chemistry panel stable; K up to normal range. Persistently elevated BG >200 yesterday. She's getting routine SSI between 4-7 U. Start regular insulin 5U with meals. D/W CM - looking into IRU in [place]. 12/28/16 BP still elevated but trending down - monitor today and consider increasing BB dose. Fasting hyperglycemia >200 - increase Lantus from 15U to 17U HS. Also persistently hyperglycemic >200 after meals, even after 5U of insulin was introduced at lunch yesterday. Continue glipizide and restart metformin. Consider increasing NovoLog if metformin doesn't improve postprandial sugars. Encourage activity; continue PT - ambulated 120 feet yesterday. WBC up to 11.4. Continue Flagyl + Rocephin + wound vac. Dr. Richter evaluated yesterday and noted improvement. 12/29/16 Continue wound VAC along with rocephin, flagyl, vanco. Increased metoprolol to 50 bid and will monitor. Glucose 225-281 yesterday. Lantus was increased and metformin restarted. Change Reglan to oral. 12/30/16 Pt is not sure if oral Reglan is helpful; continues to have loose stools; consider discontinuing. Wound VAC to be changed today; continue vancomycin, ceftriaxone and flagyl through 01/30/17. We discussed the grim possibility that if her infection does not heal up with current treatment she may require amputation. BP under better control with increased metoprolol but still suboptimal. HR in the 60-70s with increased BB dosing. She is maxed out on lisinopril & amlodipine & has PRN hydralazine available - ? pheo workup. Will discuss with Dr. Davidson. BG also suboptimal with fasting of 185 this morning and all postoprandials elevated, typically 180 or greater. Increase Lantus to 19U; increase breakfast and lunch insulin to 6U and increase supper NovoLog to 7U. Continue PT/OT. Discussed with Dr. Davidson and CM - will ask IRU to re-screen. Continuing to look into discharge options. 12/30/16 Continue wound VAC along with rocephin, flagyl, vanco. Abx planned until 01/30. BP a little better today with increased metoprolol. Patient not controlled on 3 agents. Has hypokalemia. Check for primary aldosteronism. Aldosterone, renin ordered. Glucose improving. Increase Lantus to 21 units. Encourage patient to be active. Therapy following. 12/31/16 Dr. Richter's note reviewed: recommending re-exploration of her right diabetic foot wound late this week. He recommends for her to see a foot/ankle specialist d/t severe Charcot foot and neuropathic osteoarthropathy. continue vancomycin, ceftriaxone and flagyl through 01/30/17. WBC down to normal range. BG under better control. Had elevated reading after breakfast today but pt reports that she ate oatmeal and expected it to increase. She will select a different breakfast item for tomorrow so will hold off on increasing insulin. BP still high on 3 agents. Will discuss with attending. Aldosterone and renin activity were drawn yesterday (both send-outs). CM working on placement options. Pt has been filling out disability/medicaid forms. 01/01/17 Continue to monitor blood pressure. Currently 144/88. Goal SBP<150-160. Given loose stools will check for C-diff as she has been on antibiotics. Questran as needed to control loose stools. Encourage work with PT and OT for ongoing strengthening. Patient wishes to change resuscitative status to DNR. Orders written per her recommendation. 01/02/17 Planning for further wound evaluation by Dr Richter possibly tomorrow 01/03. Continue with wound Vac and antibiotics. Loose stools seem to be improved, Questran as needed. C-Diff was negative on 01/01. Continue to work on BP control, currently on Norvasc 10 milligrams, hydrochlorothiazide 25, Lopressor 50 twice a day, lisinopril 20 twice a day. Monitor renal function and electrolytes. Continue with Plavix, aspirin and statin. Given recent stroke. Continued work with PT/OT for strengthening given right hand weakness. 01/03/17 - OP day: Surgical debridement with wound closure and replacement of wound VAC by Dr. Richter. We'll continue with antibiotic course as recommended by Dr. Flores . Will discuss Friday with case management regarding discharge planning. 01/04/17 Continue with antibiotic care and wound vac. Sx went well yesterday. Blood pressure and sugars stable with current medications. Potassium normal. Continue with therapies. Medically improving. 01/05/17 Continue with antibiotic care and wound vac. Patient requests change in diet as she does not like cardiac diet. 01/06/17 Continue ceftriaxone, vancomycin, and Flagyl through 01/30/17. Dr. Flores converted Flagyl to to oral. Labs stable. Loose stools (chronic per pt); denies diarrhea. Hold Reglan. Questran PRN. BGM under better control; occ with low fastings in the 70s; decrease Lantus to 20 U HS. 01/07/17 Medically stable, blood pressure remains borderline high at times on multiple medications. Heart rate will permit increasing beta nava if necessary. Plan to continue current antibiotics (Rocephin 1 g every 12 hours, vancomycin 1.5 g every 8 hours, and metronidazole 500 mg twice a day po) for total of 6 weeks therapy which will be completed on 01/30/17. PICC line placed to permit antibiotic infusion on discharge to nursing facility. Patient has been accepted to facility in [place] and will tentatively transfer tomorrow after care assessment completed. Fasting blood sugars consistently low, Lantus decreased from 20 units daily at bedtime to 18 units. Patient describes development of loose stools without diarrhea-Lactobacillus initiated. Continue wound care with wound VAC. Neurological symptoms improving, on Plavix and statin. LDL 53. 12/08/16- Discharge Alona is seen and examined today prior to discharge. She is feeling good without complaints. Discussed ongoing treatment plan. She will be transferred to [facility] for technician terminal and repeater care. Will have wound care 2 times a week. She will need weekly labs on wednesdays to be faxed to the wound care center. She will continue on oral Flagyl, IV vancomycin and IV Rocephin for a total 6 weeks course, ending 01/30/17. She is scheduled to follow-up at the wound care center on 01/[address] Flores for reevaluation. She is instructed to follow with PCP Dr Cook at [facility] in 1 week. Time spent with patient: discharge greater than 30 minutes Discharge Plan - Med Rec/Dispo Referrals/Follow Up: Lise Cook MD [Physician] - (Follow up in 1 week ) Mayelin Flores MD [Physician] - (Please schedule follow-up appointment at wound care for 01/[address] Flores APPOITMENT ON 10:30.) Mac Richter MD [Physician] - (Appointment with at Wound Care Center on 01-28-17 @ 0930am) Angélica Instructions: Sepsis (GEN), Acute Wound Care (GEN) Additional Instructions: I have independently interviewed and examined patient prior to discharge. Case discussed with CM and my CLINICAL LAB CLERK. Care plan developed with my supervision; agree with above. Doing well this morning. No f/c. Eating well. Breathing well. Denies foot pain. Lungs: clear CV: regular MSE: awake alert appropriate Plan: Medically stable to discharge to nursing care. See orders for details. Non weight bearing on right foot. Continue Antibiotics. Prescriptions: New Acidoph/L.bulg/Bif.b/S.thermop [Bacid Caplet] 2 cap PO BIDWM tablet Bisacodyl Supp [Dulcolax] 10 mg RECTALLY DAILY PRN supp PRN Reason: Constipation Ceftriaxone [Rocephin] 1 g IV Q12H 22 Days vial Clopidogrel [Plavix] 75 mg PO DAILY tablet Hydrocodone/APAP 7.5/325 [[place] 7.5/325] 1 tab PO Q6H PRN #30 tab PRN Reason: Pain Insulin Glargine,Hum.rec.anlog [Lantus] 18 unit SQ HS vial Insulin Aspart [NovoLOG] 6 unit SQ BIDBL vial Metoclopramide [Reglan] 5 mg PO ACHS tablet Metoprolol Tartrate [Lopressor] 50 mg PO BIDBS 22 Days #44 tablet MetroNIDAZOLE [Flagyl] 500 mg PO BIDWM tablet Pantoprazole Tab [Protonix Tab] 40 mg PO ACB tablet Potassium Chloride [K-Dur] 10 meq PO WB tablet Senna + Docusate [Senna Plus Tablet] 1 tab PO BID PRN tablet PRN Reason: Constipation Acetaminophen [Tylenol] 325 - 650 mg PO Q5H PRN tablet PRN Reason: Discomfort Cholestyramine/Aspartame [Cholestyramine Light Packet] 4 g PO Q6H PRN powd.pack PRN Reason: Diarrhea Cyanocobalamin (B-12) [Vit. B-12] 1,000 mcg PO 5XD tablet Insulin Aspart [NovoLOG] 7 unit SQ WS vial Lisinopril [Prinivil] 20 mg PO BID tablet Milk of Magnesia [Mom] 30 ml PO DAILY PRN udc PRN Reason: Constipation PEG 3350 17gm PACKET [Miralax] 17 gm PO DAILY PRN packet PRN Reason: Constipation Vancomycin [Vancocin] 1,500 mg IV Q8H 22 Days vial Continue Lovastatin [Mevacor] 40 mg PO HS HydroCHLOROthiazide [Hydrodiuril] 1 tab PO WB Amlodipine [Norvasc] 10 mg PO DAILY Magnesium Oxide [Magnesium] 1 tab PO DAILY Mecobalamin [B-12] 5,000 mcg PO Vit C/Ascorbate Calcium,Sodium [Vitamin C 500 mg/15 ml Liquid] 500 mg PO Metformin [Glucophage] 1 tab PO BIDWM GlipiZIDE 10 mg BIDWM Aspirin [ASA] 325 mg PO Discontinued Potassium Gluconate [Potassium] 99 mg PO [place] - Disposition 04 To [facility] Home/Facility - Dismissal Complete Discharge Instructions are:: Complete <Cassius Disla - Last Filed: 01/08/17 11:24> Discharge Information Date of admission: 12/17/16 03:15 Attending Physician: Tiff Chavez MD Consults: 12/17/16 Inpatient Diabetic Consult [CONS] Routine Diabetic Diagnosis: E11.65 Uncontrolled T2 DM Diabetic Training: Treat Complications 12/17/16 07:50 Wound [facility] Consult [CONS] Routine 12/17/16 09:49 Dietary Consult [CONS] Routine Comment: Reason For Exam: Uncontrolled DM 12/17/16 10:21 [Physician Consult] [CONS] Routine Consulting Provider: Mac Richter Reason For Exam: Nonhealing diabetic foot wound Ordering Provider has Notified Opal Polisher: No 12/19/16 Milk Drier Consult [Inpatient Diabetic Consult] [CONS] Routine Diabetic Diagnosis: E11.9 Type 2 DM w/o comp Diabetic Training: Other 12/20/16 08:00 Physician Consult [CONS] Routine Consulting Provider: Moi Lee Reason For Exam: 2nd opinion Charcot Foot, ?amputation? Ordering Provider has Notified Opal Polisher: No 12/23/16 14:04 [Physician Consult] [CONS] Routine Consulting Provider: Mayelin Flores Reason For Exam: Diabetic foot wound - antibiotic rec and duration Ordering Provider has Notified Opal Polisher: Yes Comment: notified doctors nurse shin 12/24 80912/25/16 18:04 Dr [Physician Consult] [CONS] Routine Consulting Provider: Mery Saenz Reason For Exam: CVA Ordering Provider has Notified Opal Polisher: Yes Comment: May see am of 12/26/16 - Discharge Diagnosis (1) Diabetes mellitus, insulin dependent (IDDM), uncontrolled Status: Chronic (2) HTN (hypertension) Status: Chronic (3) Osteomyelitis of ankle or foot Status: Acute (4) Bacteremia due to Enterococcus Status: Acute (5) Ischemic stroke diagnosed during current admission Status: Acute - Laboratory Labs: 01/06/17 04:11 01/08/17 04:17 - Microbiology Microbiology 12/19/16 13:20 Foot, Right, Bone Gram Stain - Final 12/19/16 13:20 Foot, Right, Bone Surgical Culture - Final Coag negative Staphylococcus Corynebacterium species 12/18/16 09:34 Peripheral/Iv Start Blood Culture - Final No Growth After 5 Days 12/18/16 09:35 Peripheral/Iv Start Blood Culture - Final No Growth After 5 Days 12/17/16 04:56 Foot,Right Gram Stain - Final 12/17/16 04:56 Foot,Right Superficial Wound Culture - Final Enterococcus faecalis Streptococcus viridans group Coag negative Staphylococcus Hospital Course This is a general summary of the patient's hospital course. For more details refer to the complete medical record.
== END 2017-01-08 16:35 | DRG 987 ==
LOC: SUATTDRO 03:15 → MED 03:15
PROVIDERS: ADMIT Internal Medicine; ATTEND Internal Medicine

== ENCOUNTER 2017-09-03 16:25 | Inpatient (IN) ==
[2017-09-03] MEDS ORDERED: ACETAMINOPHEN 325 MG TABLET PO ONE (16:29)
[2017-09-03] MEDS ORDERED: LEVOFLOXACIN 750 MG TABLET PO ONE (16:29)
[2017-09-03] MEDS ORDERED: NS 1,000 ML IV ONE (16:29)
--- NOTE | 2017-09-03 16:32 | Emergency Department Report ---
General Adult HPI - General Stated complaint: wound / infection Time Seen by Provider: 09/03/17 16:29 Source: patient, EMS Mode of arrival: EMS Limitations: no limitations - History of Present Illness HPI narrative: Patient is a 47-year-old female, resident at custodial in [place]. Patient does have a ulcer on the bottom of her right foot that is being followed in wound clinic, has been on doxycycline for the last 2 months. Patient was seen by Dr. Richter 2 weeks ago. Patient began custodial noticed redness and swelling going up her leg to the knee on the right, and also have noticed a foul smell from the foot for the last few days. Today patient had temperature of 101, so patient was transported to the ER for evaluation and treatment. On arrival patient's temperature is 101.2 alert and oriented 3 vital signs within defined limits. - Related Data Home Medications Medication Instructions Recorded Confirmed HydroCHLOROthiazide [Hydrodiuril] 25 mg PO WB 12/17/16 09/03/17 Lovastatin [Mevacor] 40 mg PO HS 12/17/16 09/03/17 Metformin [Glucophage] 1,000 mg PO BIDWM 12/17/16 09/03/17 Amlodipine [Norvasc] 5 mg PO DAILY 06/10/17 09/03/17 Apixaban [Eliquis] 5 mg PO BID 06/10/17 09/03/17 Cholecalciferol (Vitamin D3) 1,000 unit PO DAILY 06/10/17 09/03/17 [Vitamin D3] Insulin Glargine,Hum.rec.anlog 12 unit SQ HS 06/10/17 09/03/17 [Lantus] Pantoprazole Tab [Protonix Tab] 40 mg PO ACB 06/10/17 09/03/17 glipiZIDE [Glipizide] 10 mg PO BID 06/10/17 09/03/17 Doxycycline [Vibramycin] 100 mg PO BID 08/07/17 09/03/17 Metoclopramide [Reglan] 5 mg PO QID 08/07/17 09/03/17 Oxybutynin Chloride 5 mg PO HS 08/07/17 09/03/17 PEG 3350 17gm PACKET [Miralax] 17 gm PO DAILY 08/07/17 09/03/17 Ascorbate Calcium [Vitamin C] 500 mg PO DAILY 09/03/17 09/03/17 Lisinopril [Prinivil] 20 mg PO HS 09/03/17 09/03/17 Multivitamin with Minerals 1 tab PO NOON 09/03/17 09/03/17 [One-A-Day Maximum Formula] Previous Rx's Medication Instructions Recorded Cyanocobalamin (B-12) [Vit. B-12] 1,000 mcg PO 5XD tab 01/08/17 Insulin Aspart [NovoLOG] 6 unit SQ BIDBL vial 01/08/17 Insulin Aspart [NovoLOG] 7 unit SQ WS vial 01/08/17 Potassium Chloride [K-DUR 10 mEq 10 meq PO WB tab 01/08/17 Tablet] Sotalol [Betapace] 40 mg PO ACBID #60 tab 06/11/17 Allergies Allergy/AdvReac Type Severity Reaction Status Date / Time clindamycin Allergy Severe Hives Verified 09/03/17 16:41 Penicillins Allergy Severe Hives Verified 09/03/17 16:41 tetracycline Allergy Severe Hives Verified 09/03/17 16:41 Review of Systems Constitutional: Reports: fever, chills. Denies: weakness Eyes: Denies: eye pain, eye discharge ENT: Denies: throat pain, dental pain Cardiovascular: Denies: chest pain, palpitations, dyspnea on exertion Respiratory: Denies: cough, dyspnea, wheezes Gastrointestinal: Denies: abdominal pain, nausea, vomiting Genitourinary: Denies: urgency, dysuria, frequency Musculoskeletal: Denies: back pain Integumentary: Reports: erythema, wounds Psychiatric: Denies: anxiety Endocrine: Denies: fatigue Hematological/Lymphatic: Denies: easy bleeding Allergic/Immunologic: Denies: facial swelling PFSH Patient Stated Medical History Cerebrovascular Accident Yes: right sided weakness, 12/23/16 Peripheral Neuropathy Yes Hearing Loss Yes: reports slight hearing loss Other HEENT Yes: RECENT CHANGES IN VISION Cardiac Arrhythmia Yes: HX OF A-Fib Heart Murmur Yes: asymptomatic Hypertension Yes Other Cardiology Yes: ENLARGED HEART Bronchitis Yes Sleep Apnea Yes Diabetes Mellitus Type 1 Yes: With vision issues and lower extremity neuropathy Diabetes Mellitus Type 2 Yes Gastroesophageal Reflux Yes: mild Disease Other GI Yes: gastroporesis Hx Incontinence Yes: slight Hx Renal Disease No Other Musculoskeletal Yes: neuropathy of upper and lower extremeties MRSA Yes Sepsis Yes Depression Yes Painful Menstruation Yes Fibroids Yes Other Reproductive Yes: [facility] Medical History (Last Updated 09/02/17 @ 13:03 by EVELINE Natarajan) Atrial fibrillation (Acute Medical) Chronic GERD (Acute Medical) Diabetes 1.5, managed as type 2 (Acute Medical) High blood pressure (Acute Medical) High cholesterol (Acute Medical) Liver disease (Acute Medical) MRSA cellulitis (Acute Medical) Neuropathy (Acute Medical) Obstructive sleep apnea (Acute Medical) Stroke (Acute Medical) Surgical History: I&D R foot ulcer/osteo 12/19/16, 01/1986 Lt Ulna nerve release Family History: Family History (Last Updated 09/02/17 @ 13:07 by EVELINE Natarajan) Mother Kidney disease Stroke High cholesterol High blood pressure Diabetes Maternal Grandmother Cancer of breast Diabetes Liver disease Maternal Grandfather Emphysema/COPD Heart attack High blood pressure High cholesterol Stroke - Social History Smoking status: Never smoker second hand exposure: No Substance use type: does not use Alcohol intake frequency: does not drink Housing: apartment Household members: none Current occupational status: unemployed 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 Absent: tenderness - Respiratory Respiratory exam: Present: normal lung sounds bilaterally. Absent: respiratory distress, wheezes, stridor - Cardiovascular Cardiovascular exam: Present: regular rate, normal rhythm, normal heart sounds - Abdominal Exam Abdominal exam: Present: soft, normal bowel sounds. Absent: distention, tenderness - Rectal Exam Rectal exam: Present: other (patient does have erythema of the bilateral gluteal region, no skin breakdown) - Extremities Exam Extremities exam: Present: other (patient does have a 1.5 x 3 cm wound on the bottom of her foot, with erythema wrapping around and erythema running up below the knee. Patient has no feeling in the foot) - Back Exam Back exam: Absent: tenderness, muscle spasm, paraspinal tenderness - Skin Skin exam: Present: warm, dry - Neurological Exam Neurological exam: Present: alert, oriented X3 - Psychiatric Psychiatric exam: Present: normal affect, normal mood Medical Decision Making - Medical Records Medical records reviewed: Yes: I reviewed the patient's medical records. - Lab Data Lab results reviewed: Yes: I reviewed the patient's lab results. Result diagrams: 09/03/17 16:39 09/03/17 16:39 - Radiology Data Radiology results reviewed: Yes: I reviewed the patient's radiology results. Chest x-ray: No acute cardiopulmonary findings Disposition Clinical Impression: Cellulitis Qualifiers: Site of cellulitis: extremity Site of cellulitis of extremity: lower extremity Laterality: right Qualified Code(s): L03.115 - Cellulitis of right lower limb Sepsis Qualifiers: Sepsis type: sepsis due to unspecified organism Qualified Code(s): A41.9 - Sepsis, unspecified organism Disposition: Discharged Home, Self-Care Condition: Stable Prescriptions: No Action Lovastatin [Mevacor] 40 mg PO HS HydroCHLOROthiazide [Hydrodiuril] 25 mg PO WB Insulin Aspart [NovoLOG] 6 unit SQ BIDBL vial Potassium Chloride [K-DUR 10 mEq Tablet] 10 meq PO WB tab Amlodipine [Norvasc] 5 mg PO DAILY glipiZIDE [Glipizide] 10 mg PO BID Apixaban [Eliquis] 5 mg PO BID PEG 3350 17gm PACKET [Miralax] 17 gm PO DAILY Oxybutynin Chloride 5 mg PO HS Doxycycline [Vibramycin] 100 mg PO BID Metoclopramide [Reglan] 5 mg PO QID Lisinopril [Prinivil] 20 mg PO HS Ascorbate Calcium [Vitamin C] 500 mg PO DAILY Metformin [Glucophage] 1,000 mg PO BIDWM Cyanocobalamin (B-12) [Vit. B-12] 1,000 mcg PO 5XD tab Insulin Aspart [NovoLOG] 7 unit SQ WS vial Cholecalciferol (Vitamin D3) [Vitamin D3] 1,000 unit PO DAILY Insulin Glargine,Hum.rec.anlog [Lantus] 12 unit SQ HS Pantoprazole Tab [Protonix Tab] 40 mg PO ACB Sotalol [Betapace] 40 mg PO ACBID #60 tab Multivitamin with Minerals [One-A-Day Maximum Formula] 1 tab PO NOON Referrals: Lise Cook MD [Primary Care Provider] - Time of Disposition: 17:17 - Seen By: physician
[2017-09-03] MEDS: SALINE FLUSH 10ml SYRINGE IVF PRN (16:39)
--- OUTSIDE RECORDS SUMMARY | 2017-09-03 16:39 | External Medical Summary ---
[...] Status [place] [address]-59 500 MG Orally September 28, 1 tablet 48-01 Twice a day 2015 with meals Magnesium NDC 46593-69 500 MG Orally 1 tablet 999 Once a day with a meal Cinnamon NDC 95986-94 500 MG Orally not 77-24 defined Vitamin C NDC 84873-26 1000 MG Orally 1 tablet 79-20 Once a day Potassium NDC 75640-44 75 MG Orally 1 tablet 30-60 Once a day Aspirin NDC 95344-35 325 MG Orally 1 tablet 16-78 [place] [address]-75 400 MG Orally not 092 defined Stool Softener NDC 42671-03 250 MG Orally 1 capsule 64-01 Once a day as needed Fish Oil NDC 68563-79 1000 MG Orally 1 capsule 71-40 Once a day Ciprofloxacin HCl NDC 66595-76 500 MG Orally September 28Oct 03, 1 tablet 37-01 Twice a day [address] [place] NDC 68516-70 300 MG Orally 1 capsule 79-26 Once a day Procedures Procedure Coding System Code Date GLUCOSE BLOOD TEST CPT-4 42067 September 29, 2015 CAPILLARY BLOOD DRAW CPT-4 73620 September 29, 2015 URINALYSIS NONAUTO WO SCOPE CPT-4 02171 September 29, 2015 OFFICE VISIT EST PATIENT LEVEL 4 CPT-4 41855 September 29, 2015 URINE CULTURECOLONY COUNT CPT-4 34063 September 29, 2015 COMPLETE CBC WAUTO DIFF WBC CPT-4 43481 September 29, 2015 GLYCOSYLATED HEMOGLOBIN TEST CPT-4 19754 September 29, 2015 ROUTINE VENIPUNCTURE CPT-4 67229 September 29, 2015 COMPREHEN METABOLIC PANEL CPT-4 07776 September 29, 2015 Vital Signs Date/Time: September [...] Hemoglobin A1C - IH ----Hemoglobin A1c 12.5 13800805 4.0 - 6.0 Urinalysis (UA) - IH ----Nitrates neg 20150929 ----Specific [place] 1.025 20150929 ----Urobilirubin 0.2 65584707 0.2 - 1 ----Ketones 40mg 80396267 0 - 0 ----Leukocytes neg 20150929 ----Protein 100mg 86182736 0 - 0 ----pH 5.5 20150929 ----Glucose 500mg 06341469 0 - 0 ----Bilirubin neg 20150929 ----Character cloudy 20150929 ----Blood large 20150929 ----Color yellow 20150929 eGFR ----eGFR >60 94204775 >60 mL/min CBC With Platelet and Differential ----RDW 12.6 99167103 11.5-14.5 % ----MCHC 35.0 75088981 32.0-36.0 g/dL ----MCH 31.3 48908785 27.0-32.0 pg ----MCV 89.2 43104287 82.0-99.0 fL ----HCT 41.4 71124886 37.0-47.0 % ----HGB 14.5 09113526 12.0-18.0 g/dL ----Eosinophils 2 03281208 0-4 % ----RBC 4.64 55739361 4.00-5.20 10*6/uL ----WBC 8.8 74331864 4.8-10.8 K/uL ----Basophils 1 37011740 0-2 % ----Lymphocytes 37 60746840 20-46 % ----Absolute Monocytes 0.42 19721130 0.30-1.00 10*3 ----Monocytes 5 85089617 4-11 % ----Absolute Eosinophils 0.20 66833828 0.00-0.50 10*3 ----Absolute Basophils 0.04 82812141 0.00-0.20 10*3 ----Neutrophils 55 76809955 51-75 % ----Platelet Count 300 53867492 150-400 K/uL ----Immature Granulocytes 0.5 41452866 0.0-1.0 % ----Absolute Neutrophils 4.86 60022651 1.90-7.00 10*3 ----Absolute Lymphocytes 3.21 76252388 0.80-3.30 10*3 ----MPV 11.8 39079179 8.8-14.8 fL Comprehensive Metabolic Panel (CMP) ----Creatinine 0.81 70949451 0.57-1.11 mg/dL ----BUN 13 20150929 7-19 mg/dL ----Sodium 135 37828980 135-144 mEq/L ----Calcium 9.5 10139995 8.9-10.5 mg/dL ----Chloride 100 72429525 99-111 mEq/L ----Potassium 4.0 70233185 3.5-5.2 mEq/L ----Albumin 4.4 21559969 3.5-5.0 g/dL ----CO2 23 74501114 22-31 mEq/L ----Bilirubin Total 0.6 05482010 0.2-1.2 mg/dL ----Protein 7.0 93549100 6.1-7.7 g/dL ----Alkaline Phosphatase 117 41640967 40-150 U/L ----AST (SGOT) 15 93851400 5-34 U/L ----ALT (SGPT) 29 20150929 0-55 U/L ----Globulin 2.6 20150929 1.8-4.0 g/dL ----Glucose 464 20150929 70-99 mg/dL CH ----Anion Gap 12 20150929 3-20 Summary Purpose eClinicalWorks Submission
--- OUTSIDE RECORDS SUMMARY | 2017-09-03 16:39 | External Medical Summary ---
[...] End Date Status Dosage System Date Lovastatin [facility] 16897-85 40 mg Orally Oct 12, 1 tablet 28-06 Once a day 2015 [place] [address]-58 325 MG Orally 1 tablet 16-78 Once a day Potassium [facility] 56798-09 550 MG Orally 1 tablet Gluconate 797 Once a day Ginkgo Biloba [facility] 34031-28 400 MG Orally not defined 092 Metformin HCl [facility] 61822-68 1000 MG Orally Oct 12, 1 tablet 14-01 Twice a day 2015 [place] [address]-16 20 MG Orally Oct 12, 1 tablet 68-01 Once a day at 2016 bedtime Biotin [facility] 43999-94 1000 MCG Orally 1 tablet 900 [place] [address]-57 1000 MCG Orally 5 tablet 17-01 [place] [address]-31 250 MG Orally 1 capsule as 64-01 [place] [address]-52 1000 MG Orally 2 tablets 79-20 Once a day GlipiZIDE [facility] 43263-59 5 MG Orally Once Oct 12, 1 tablet 49-00 a day 2015 [place] [address]-95 500 MG Orally not defined 77-24 Probiotic [facility] 66698-63 Orally not defined [address] [place] [address]-05 500 MG Orally 1 tablet 999 Once a day with a meal [facility] Santos Wort [facility] 16717-48 300 MG Orally 2 capsules 79-26 Once a day Fish Oil [facility] 45945-77 1200 MG Orally 1 capsule 922 Once [...]
--- OUTSIDE RECORDS SUMMARY | 2017-09-03 16:39 | External Medical Summary ---
[...] Date Status Dosage System Date Fish Oil [facility] 39013-92 1200 MG Orally 1 capsule 922 Once a day Ginkgo Biloba [facility] 41722-64 400 MG Orally not defined [address] [place] [address]-08 300 MG Orally 2 capsules 79-26 Once a day Amlodipine [facility] 70022-89 10 MG Orally Jan 15, 1 tablet Besylate - Once a day 2015 Aspirin [facility] 33288-62 325 MG Orally 1 tablet 16-78 [place] [address]-92 1000 MCG Orally 5 tablet 17-01 [place] [address]-42 500 MG Orally 1 tablet 999 Once [place] [address]-30 40 mg Orally Oct 12, 1 tablet 28-06 Once a day 2015 [place] [address]-73 10 MG Orally 1 tablet 50-00 [place] [address]-52 250 MG Orally 1 capsule as 64-01 Once a day needed Vitamin C [facility] 74567-52 1000 MG Orally 2 tablets 79-20 Once a day Lisinopril [facility] 32459-24 40 MG Orally 1 tablet 70-01 Once a day at bedtime Metformin HCl [facility] 90065-14 1000 MG Orally Oct 12, 1 tablet - Twice a day 2015 with meals Potassium [facility] 71745-42 550 MG Orally 1 tablet Gluconate 797 Once a day Biotin [facility] 84231-16 1000 MCG Orally 1 tablet 900 Once a day Procedures Procedure Coding System Code Date OFFICE VISIT EST PATIENT LEVEL 3 CPT-4 49318 Jan 16, 2016 IMMUNIZATION ADMIN CPT-4 08180 Jan 16, 2016 IN-H GLYCOSYLATED HEMOGLOBIN TEST CPT-4 95162 Jan 16, 2016 METABOLIC PANEL TOTAL CA CPT-4 29958 Jan 16, 2016 FLU VACC 4 ANTONIO 3 YRS PLUS IM CPT-4 51746 Jan 16, 2016 ROUTINE VENIPUNCTURE CPT-4 45457 Jan 16, 2016 Vital Signs Date/Time: Jan 16, 2016 BMI 44.61 Index Weight 276.4 lbs Height 5 ft 6 in in Blood Pressure Diastolic 98 mm Hg Blood Pressure Systolic 140 mm Hg Cardiac Monitoring Heart Rate 96 /min Temperature 97.9 F Oximetry 94 % Respiratory Rate 20 /min Results Name Result Date Reference Range Unit Abnormality Flag eGFR ----eGFR >60 [id number] >60 mL/min Venipuncture Hemoglobin A1C - IH ----Hemoglobin A1c 8.0 55029359 4.0 - 6.0 Basic Metabolic Panel (BMP) ----Chloride 103 79183719 99-111 mEq/L ----Potassium 4.1 30436228 3.5-5.2 mEq/L ----Anion Gap 12 18528243 3-20 ----CO2 25 07084898 22-31 mEq/L ----Calcium 9.6 18441871 8.9-10.5 mg/dL ----Sodium 140 36826484 135-144 mEq/L ----BUN 14 09434107 7-19 mg/dL ----Creatinine 0.69 67506312 0.57-1.11 mg/dL ----Glucose 202 08650265 70-99 mg/dL H OTHER-IMMUNIZATION ADMIN Immunizations Vaccine Administration Date *Fluzone, private, 3+ yrs, 0.5mL, quad vial, Jan 16, 2016 Summary Purpose eClinicalWorks Submission
--- OUTSIDE RECORDS SUMMARY | 2017-09-03 16:40 | External Medical Summary ---
[...] Date Status Dosage System Date Ginkgo Biloba [facility] 28365-68 400 MG Orally not defined 092 Fish Oil [facility] 78994-38 1200 MG Orally 1 capsule 922 Once a day Lisinopril [facility] 81294-05 20 MG Orally Oct 12, 1 tablet 68-01 Once a day at 2016 bedtime Biotin [facility] 82446-56 1000 MCG Orally 1 tablet [address] [place] Wort [facility] 85109-15 300 MG Orally 2 capsules 79-26 [place] [address]-37 40 mg Orally Oct 12, 1 tablet 28-06 Once a day 2016 [place] [address]-71 250 MG Orally 1 capsule as 64-01 Once a day needed GlipiZIDE [facility] 43259-02 5 MG Orally Once Oct 12, 1 tablet 49-00 a day 2016 Probiotic [facility] 04696-97 Orally not defined 543 [place] [address]-50 1000 MCG Orally 5 tablet 17-01 [place] [address]-16 550 MG Orally 1 tablet Gluconate 797 Once a day Vitamin C [facility] 64013-58 1000 MG Orally 2 tablets 79-20 Once a day Aspirin [facility] 24575-80 325 MG Orally 1 tablet 16-78 Once a day Magnesium [facility] 70615-03 500 MG Orally 1 tablet 999 Once a day with a meal Cephalexin [facility] 89607-75 500 MG Orally Oct 17, 1 capsule 47-01 Twice a day 2015 Cinnamon [facility] 27431-80 500 MG Orally not defined 77-24 Metformin HCl [facility] 53434-20 1000 MG Orally Oct 12, 1 tablet 14-01 Twice a day 2016 with meals Procedures Procedure Coding System Code Date MICROALBUMIN, SEMIQUANT CPT-4 65145 Oct 13, 2015 OFFICE VISIT EST PATIENT LEVEL 4 CPT-4 51382 Oct 13, 2015 URINALYSIS NONAUTO WO SCOPE CPT-4 06278 Oct 13, 2015 URINE CULTURECOLONY COUNT CPT-4 73833 Oct 13, 2015 Vital Signs Date/Time: Oct [...] - IH ----Nitrates neg 20151013 ----Protein 100mg 18249153 0 - 0 ----Blood small 20151013 ----Glucose 250mg 42782352 0 - 0 ----Bilirubin small 20151013 ----Ketones 15mg 06895197 0 - 0 ----Specific [place] 1.030 20151013 ----pH 5.5 20151013 ----Leukocytes trace 20151013 ----Color yellow 20151013 ----Urobilirubin 0.2 78257376 0.2 - 1 ----Character clear 20151013 Microalbumin ----Creatinine, Urine 300 20151013 ----Microalbum.,U,[place] 150 20151013 om ----Microalb/Creat 30-300 20151013 Ratio Urine Culture ----Urine Culture Source: Urine [id number] Collected: 10/13/15 14:17 Summary Purpose eClinicalWorks Submission
--- OUTSIDE RECORDS SUMMARY | 2017-09-03 16:40 | External Medical Summary ---
[...] Start Date End Date Status Dosage Cephalexin [facility] 28610-923 500 MG Orally Oct 17, capsule 7-01 Twice a day 2015 Results No Known Results Summary Purpose eClinicalWorks Submission
--- OUTSIDE RECORDS SUMMARY | 2017-09-03 16:40 | External Medical Summary ---
[...] Range Unit Abnormality Flag Mammogram, screening bilat (53847, non-Medicare) Colonoscopy Summary Purpose eClinicalWorks Submission
--- OUTSIDE RECORDS SUMMARY | 2017-09-03 16:40 | External Medical Summary ---
[...] End Date Status Dosage System Date Potassium [facility] 09745-04 550 MG Orally 1 tablet Gluconate 797 Once a day GlipiZIDE [facility] 66541-62 10 MG Orally Oct 12, 1 tablet 50-00 Once a day 2015 Stool Softener [facility] 74428-88 250 MG Orally 1 capsule as 64-01 Once a day needed Magnesium [facility] 97809-48 500 MG Orally 1 tablet 999 Once a day with a meal Vitamin B-12 [facility] 55302-56 1000 MCG Orally 5 tablet 17-01 Once a day Vitamin C [facility] 39083-21 1000 MG Orally 2 tablets 79-20 Once a day Lisinopril [facility] 75253-61 40 mg Orally Oct 12, 1 tablet 70-01 Once a day at 2016 bedtime Aspirin [facility] 75472-47 325 MG Orally 1 tablet 16-[address] [place] [address]-69 300 MG Orally 2 capsules 79-26 Once a day Lovastatin [facility] 49036-47 40 mg Orally Aug 12, 1 tablet 28-06 Once a day 2015 with a meal Metformin HCl [facility] 58650-22 1000 MG Orally Aug 12, 1 tablet 14-01 Twice a day 2015 with meals Cinnamon NDC 97258-80 500 MG Orally not defined 77-24 Fish Oil [facility] 38353-72 1200 MG Orally 1 capsule 922 Once a day Lisinopril [facility] 29751-56 40 MG Orally Oct 12, 1 tablet 70-01 Once a day at 2016 bedtime Ginkgo Biloba [facility] 92418-22 400 MG Orally not defined 092 Biotin [facility] 84507-34 1000 MCG Orally 1 tablet 900 Once a day Amlodipine [facility] 54851-71 5 MG Orally Once Dec 12, 1 tablet Besylate -22 a day at bedtime 2015 Procedures Procedure Coding System Code Date OFFICE VISIT EST PATIENT LEVEL 3 CPT-4 72870 Dec 13, 2015 Vital Signs Date/Time: Dec [...]
--- OUTSIDE RECORDS SUMMARY | 2017-09-03 16:40 | External Medical Summary ---
[...] Start Date End Date Status Dosage Lisinopril [facility] 32622-503 20 MG Orally Once Dec 12, 2 tablets 8-01 a day at bedtime 2015 Results No Known Results Summary Purpose eClinicalWorks Submission
--- OUTSIDE RECORDS SUMMARY | 2017-09-03 16:40 | External Medical Summary ---
[...] End Date Status Dosage System Date Potassium [facility] 14010-77 550 MG Orally 1 tablet Gluconate 797 Once a day GlipiZIDE [facility] 93594-65 10 MG Orally Oct 12, 1 tablet 50-00 Once a day 2015 Stool Softener [facility] 03560-89 250 MG Orally 1 capsule as 64-01 Once a day needed Magnesium [facility] 16926-24 500 MG Orally 1 tablet 999 Once a day with a meal Vitamin B-12 [facility] 53121-60 1000 MCG Orally 5 tablet 17-01 Once a day Vitamin C [facility] 68231-19 1000 MG Orally 2 tablets 79-20 Once a day Lisinopril [facility] 41347-20 40 mg Orally Oct 12, 1 tablet 70-01 Once a day at 2016 bedtime Aspirin [facility] 35702-73 325 MG Orally 1 tablet 16-[address] [place] [address]-51 300 MG Orally 2 capsules 79-26 Once a day Lovastatin [facility] 60481-48 40 mg Orally Aug 12, 1 tablet 28-06 Once a day 2015 with a meal Metformin HCl [facility] 75494-02 1000 MG Orally Aug 12, 1 tablet 14-01 Twice a day 2015 with meals Cinnamon NDC 39706-28 500 MG Orally not defined 77-24 Fish Oil [facility] 09864-65 1200 MG Orally 1 capsule 922 Once a day Lisinopril [facility] 64109-39 40 MG Orally Oct 12, 1 tablet 70-01 Once a day at 2016 bedtime Ginkgo Biloba [facility] 64795-96 400 MG Orally not defined 092 Biotin [facility] 05223-39 1000 MCG Orally 1 tablet 900 Once a day Amlodipine [facility] 96229-66 5 MG Orally Once Dec 12, 1 tablet Besylate -22 a day at bedtime 2015 Procedures Procedure Coding System Code Date OFFICE VISIT EST PATIENT LEVEL 3 CPT-4 92296 Dec 13, 2015 Vital Signs Date/Time: Dec [...]
[2017-09-03] MEDS: LEVOFLOXACIN PB 750 MG/150 ML BAG IV SCH (16:50)
[2017-09-03] MEDS ORDERED: VANCOMYCIN - PHARMACY CONSULT MC ONE (17:58)
[2017-09-03 18:07] VITALS: BMI 43.7
[2017-09-03] MEDS: NS 1,000 ML IV SCH (18:30)
[2017-09-03] MEDS ORDERED: BISACODYL 10 MG SUPPOSITORY RECTALLY PRN (18:35)
--- NOTE | 2017-09-03 18:40 | History & Physical Report ---
History of Present Illness Date: 09/03/17 Chief complaint: sepsis HPI: Pt brought in to ED b/c nursing staff at [facility] noted infection to her chronic wound. She started having chills/shaking today. H/o + BC 12/16 treated with IV atbx completed 02.12.17. Right diabetic foot ulcer with surrounding cellulitis and osteomyelitis of the cuboid bone, s/p I&D 12/19/16, bone culture with CoNS. S/p repeat I&D involving bone on 01/03/17. Chronic wound R plantar foot. Wound culture 06/17/17 with mod growth MRSA, mod growth Corynebacterium, mod growth E. faecalis. Seen by Dr. Flores 08/13 with rec to stay on doxy for another month. Sees Dr. Richter in wound clinic. Has no pain d/t neuropathy. C/o vaginal bleeding x 6 wks. Usually has menses q 3 mos. Last period started 6 wks ago - bright red bleeding and "hasn't let up." Pt thinks she is perimenopausal. Has h/o DUB for most of her life. Based on hirsutism and report of abnl menses, pt likely has PCOS. Hgb in ER 10.8. Review of Systems All systems PM: 10-point ROS was reviewed, no additional remarkable complaints except (infection of chronic diabetic foot wound - redness and warmth, neuropathy, nausea, fever/chills, vag bleeding x 6 wks.) Past Medical History Medical History: Medical History (Last Updated 09/02/17 @ 13:03 by EVELINE Natarajan) Atrial fibrillation Chronic GERD Diabetes 1.5, managed as type 2 High blood pressure High cholesterol Liver disease MRSA cellulitis Neuropathy Obstructive sleep apnea Stroke Surgical History: I&D R foot ulcer/osteo 12/19/16, 01/1986 Lt Ulna nerve release Family History: Family History (Last Updated 09/02/17 @ 13:07 by EVELINE Natarajan) Mother Kidney disease Stroke High cholesterol High blood pressure Diabetes Maternal Grandmother Cancer of breast Diabetes Liver disease Maternal Grandfather Emphysema/COPD Heart attack High blood pressure High cholesterol Stroke Family History: As Above - Social History Smoking status: Former smoker (quit in 12/17 - states she was never a heavy smoker) Substance use type: does not use Alcohol intake frequency: other (rare) Housing: [facility] Current occupational status: disabled Social history: PCP Dr Cook [facility] Cardio - Amirani Medications Home Medications Medication Instructions Recorded Confirmed Type HydroCHLOROthiazide [Hydrodiuril] 25 mg PO WB 12/17/16 09/03/17 History Lovastatin [Mevacor] 40 mg PO HS 12/17/16 09/03/17 History Metformin [Glucophage] 1,000 mg PO BIDWM 12/17/16 09/03/17 History Cyanocobalamin (B-12) [Vit. B-12] 1,000 mcg PO 5XD tab 01/08/17 09/03/17 Rx Insulin Aspart [NovoLOG] 6 unit SQ BIDBL vial 01/08/17 09/03/17 Rx Insulin Aspart [NovoLOG] 7 unit SQ WS vial 01/08/17 09/03/17 Rx Potassium Chloride [K-DUR 10 mEq 10 meq PO WB tab 01/08/17 09/03/17 Rx Tablet] Amlodipine [Norvasc] 5 mg PO DAILY 06/10/17 09/03/17 History Apixaban [Eliquis] 5 mg PO BID 06/10/17 09/03/17 History Cholecalciferol (Vitamin D3) 1,000 unit PO DAILY 06/10/17 09/03/17 History [Vitamin D3] Insulin Glargine,Hum.rec.anlog 12 unit SQ HS 06/10/17 09/03/17 History [Lantus] Pantoprazole Tab [Protonix Tab] 40 mg PO ACB 06/10/17 09/03/17 History glipiZIDE [Glipizide] 10 mg PO BID 06/10/17 09/03/17 History Sotalol [Betapace] 40 mg PO ACBID #60 tab 06/11/17 09/03/17 Rx Doxycycline [Vibramycin] 100 mg PO BID 08/07/17 09/03/17 History Metoclopramide [Reglan] 5 mg PO QID 08/07/17 09/03/17 History Oxybutynin Chloride 5 mg PO HS 08/07/17 09/03/17 History PEG 3350 17gm PACKET [Miralax] 17 gm PO DAILY 08/07/17 09/03/17 History Ascorbate Calcium [Vitamin C] 500 mg PO DAILY 09/03/17 09/03/17 History Lisinopril [Prinivil] 20 mg PO HS 09/03/17 09/03/17 History Multivitamin with Minerals 1 tab PO NOON 09/03/17 09/03/17 History [One-A-Day Maximum Formula] Allergies Allergy/AdvReac Type Severity Reaction Status Date / Time clindamycin Allergy Severe Hives Verified 09/03/17 16:41 Penicillins Allergy Severe Hives Verified 09/03/17 16:41 tetracycline Allergy Severe Hives Verified 09/03/17 16:41 Exam Vital Signs: Temperature 102.8 F H 09/03/17 17:58 Pulse Rate 116 H 09/03/17 17:58 Respiratory Rate 20 09/03/17 17:58 Blood Pressure 133/83 09/03/17 17:58 Pulse Oximetry 96 09/03/17 17:58 Height/Weight/BMI: Height 1.7 m Weight 126.7 kg Body Mass Index 43.7 - Constitutional Present: no acute distress, well nourished, well developed, morbidly obese - Routine HEENT Exam Head: Present: normocephalic, atraumatic Eye: Present: EOMI (R eye deviates laterally), PERRL ENT: Present: mucous membranes moist, oropharynx clear Comments: hirsutism - chin - Routine Neck Exam Present: supple. Absent: lymphadenopathy, thyromegaly - Routine Respiratory Exam Present: CTA bilaterally. Absent: wheezes - Routine Cardiovascular Exam Present: RRR, murmur - Routine Abdominal Exam Present: soft, normoactive bowel sounds. Absent: tenderness, distended - Routine Extremities Exam Present: normal capillary refill Comments: open wound on plantar surface of R foot with surrounding swelling and redness extending to the ankle on the lateral side of the foot. Charcot deformity. R shoulder - Lacks abduction beyond approx 70 degrees - Routine Skin Exam Present: dry, warm - Routine Neurological Exam Present: alert, oriented X3, CN II-XII intact - Routine Psychiatric Exam Present: normal affect, cooperative Results - Labs CBC & Chem 7: 09/03/17 16:39 09/03/17 16:39 Assessment and Plan Assessment and Plan: Assessment Sepsis - (tachy, fever, leukocytosis. Source: skin. Nl lactate) Diabetic foot ulcer with cellulitis (w/ previous osteomyelitis in cuboid bone) Dysfunctional uterine bleeding - likely PCOS and perimenopausal Normocytic anemia Paroxysmal Atrial fibrillation - Eliquis HTN H/o ischemic CVA High cholesterol PAD Diabetes, Type 2, IR Diabetic gastroparesis Diabetic Neuropathy Charcot foot arthropathy, R foot Frozen shoulder, R (Jeovany) Liver disease Chronic GERD H/o MRSA cellulitis Obstructive sleep apnea Morbid obesity with BMI 43.7 Plan Admit, IP. Stay expected to exceed two overnights given her sepsis and comorbidities. Levaquin given in ER. Start vancomycin. BC's drawn in ER. CBC in am to follow blood counts. Procal in am. Consult Dr. Richter and wound clinic for foot ulcer. MRI R foot ordered. Accuchecks to monitor BS's. Check A1c and TSH with am labs. Continue DM meds. Hold metformin if pt needs to be NPO. (Lactate nl) 1L NS bolused in ER. NS 125ml/hr for maintenance. Consider [employer] consult for DUB vs trial of Provera. Follow hgb. Pt likely not bleeding heavily given hgb of 10.8 after reportedly bleeding for 6 wks. If stable, can be followed up on OP basis. Pantoprazole for GERD and GI ppx Eliquis for PAF and VTE ppx DNR Dr. Cook - PCP. Reviewed labs/imaging from ER, previous specialist notes. Discussed case with Dr. Disla. DVT Prophylaxis: SCD's - Physician Narrative Physician: Cassius Disla MD Narrative: Date: 09/03/17 Time: 1957 Have independently interviewed and examined pt. Chart reviewed. Case discussed with ED physician and my PA. Care plan developed with my supervision; agree with above. Presents to ED secondary to shaking chills and temp elevations. Has chronic wound to right foot-on doxycycline for the last 2 months or so. [facility] and at [facility] where she lives. Notice increased drainage from foot on 09/01/17. Had chills that evening but thought was due to her shower and not getting all dried off. Report CBC done which was normal. This morning started to have shaking chills. Not able to eat lunch-shaking too much, but also no appetite. Shakes continued and nursing found temp elevation. Not having increase pain to foot (but reports very little sensation to feet). Breathing well. Bowels stable. No urinary symptoms. Heart has been stable. Does report persistent vaginal bleeding over past 6 weeks. Evaluated in ED. Temp with elevation. HR elevated. WBC elevated. Encouragingly, BP maintained and lactic acid not elevated. With showing evidence for sepsis with most likely source her foot, admitted to [facility] for further care and evaluation. Lungs; clear CV: regular AB: soft nt/nd EXT: erythema on anterior R leg, open wound on bottom on right foot. MSE: awake alert appropriate Plan: Inpatient admission to [facility] for treatment of sepsis secondary to cellulitis , concern for worsening osteomyelitis of leg. Levaquin given in ED. Will start Vancomycin for coverage base on prior cultures and sensitivities (reviewing those, Levaquin not likely to add anything). Can continue doxycycline. Will check MRI of foot due to concern for osteo. Consult with Dr Richter for wound care. Monitor lab. Hospital Course Summary Disclaimer: The visit summary below is not to be considered part of the above Progress Note. Hospital Course: 09/03/17 Admit, IP. Stay expected to exceed two overnights given her sepsis and comorbidities. Levaquin given in ER. Start vancomycin. BC's drawn in ER. CBC in am to follow blood counts. Procal in am. Consult Dr. Richter and wound clinic for foot ulcer. MRI R foot ordered. Accuchecks to monitor BS's. Check A1c and TSH with am labs. Continue DM meds. Hold metformin if pt needs to be NPO. (Lactate nl) 1L NS bolused in ER. NS 125ml/hr for maintenance. Consider [employer] consult for DUB vs trial of Provera. Follow hgb. Pt likely not bleeding heavily given hgb of 10.8 after reportedly bleeding for 6 wks. Pantoprazole for GERD and GI ppx Eliquis for PAF and VTE ppx DNR Dr. Cook - PCP. Reviewed labs/imaging from ER, previous specialist notes. Discussed case with Dr. Disla.
[2017-09-03] MEDS ORDERED: METOCLOPRAMIDE 5mg TABLET PO SCH (21:00)
[2017-09-03] MEDS: APIXABAN 5 MG TABLET PO SCH (22:10)
[2017-09-03] MEDS: INSULIN GLARGINE 100unit/ml INJECTION SQ SCH (22:10)
[2017-09-03] MEDS: LOVASTATIN 40 MG TABLET PO SCH (22:10)
[2017-09-03] MEDS: LISINOPRIL 20 MG TABLET PO SCH (22:10)
[2017-09-04] MEDS: NS 1,000 ML IV SCH ×2 (05:10→18:49)
[2017-09-04] MEDS: PANTOPRAZOLE 40 MG TABLET PO SCH ×2 (06:32→06:49)
[2017-09-04] MEDS: SOTALOL 80 MG TABLET PO SCH ×2 (06:34→17:03)
[2017-09-04] MEDS: METOCLOPRAMIDE 5mg TABLET PO SCH ×4 (06:51→22:46)
--- NOTE | 2017-09-04 07:04 | Pharmacy Consult-Antibiotics ---
Pharmacy Consult-Vancomycin - Laboratory Information WBC 11.7 T/MM3 (4.5-11.0) H 09/04/17 04:59 BUN 14.0 MG/DL (7-17) 09/04/17 04:59 Creatinine 0.8 mg/dL (0.7-1.2) 09/04/17 04:59 Procalcitonin 0.10 NG/ML 09/04/17 04:59 VANCOMYCIN THERAPY: 47 yo [facility] pt with Rt Diabetic Foot ulcer with surrounding cellulitis / osteomyelitis of cuboid bone. Culture on 06/17 of MRSA, Corynebacterium, E. Faecalis. Outpatient Therapy of Doxycycline. Received Vancomycin 1gm IV last night at 1930. Will continue Vancomycin 1500mg IV q8hr, starting this am. This gives calculated trough of 16.5 mcg/ml. Target trough = 15-20 mcg/ml Will check levels prior to tomorrow am dose. Thank you
--- NOTE | 2017-09-04 07:36 | XRay Report ---
Indication: fever, rule out pneumonia PROCEDURE: XR chest 1V: Encounter: Initial Comparison: January 07, 2017 FINDINGS: The lungs are clear. There is no abnormal airspace opacity, pleural effusion or pneumothorax identified. The heart size, pulmonary vasculature and mediastinum are within normal limits. No significant skeletal abnormality is seen. IMPRESSION: No acute cardiopulmonary abnormality. .
[2017-09-04] MEDS: APIXABAN 5 MG TABLET PO SCH ×2 (09:10→22:47)
[2017-09-04] MEDS: METFORMIN 1,000 MG TABLET PO SCH ×2 (09:11→17:04)
[2017-09-04] MEDS: GlipiZIDE 5 MG TABLET PO SCH ×2 (09:11→17:03)
[2017-09-04] MEDS: ASCORBIC ACID 500 MG TABLET PO SCH (09:11)
[2017-09-04] MEDS: AMLODIPINE 5 MG TABLET PO SCH (09:11)
[2017-09-04] MEDS: CYANOCOBALAMIN (B-12) 500mcg TABLET PO SCH (09:12)
[2017-09-04] MEDS: POLYETHYL GLYCOL 3350 17gm PACKET PO SCH (09:12)
[2017-09-04] MEDS: INSULIN ASPART 100unit/ml INJECTION SQ SCH ×3 (09:31→18:51)
--- NOTE | 2017-09-04 09:56 | General Surgery Consult Note ---
Consult date: 09/04/17 Attending Physician: Cassius Disla MD [facility] Patient Stated Medical History Cerebrovascular Accident Yes: right sided weakness, 12/23/16 Migraine Yes Peripheral Neuropathy Yes Dental Problems Yes Hearing Loss Yes: reports slight hearing loss Other HEENT Yes: RECENT CHANGES IN VISION Cardiac Arrhythmia Yes: HX OF A-Fib Heart Murmur Yes: asymptomatic Hypertension Yes Myocardial Infarction Yes Sleep Apnea Yes Diabetes Mellitus Type 2 Yes Gastroesophageal Reflux Yes: mild Disease Other GI Yes: gastroporesis Hx Incontinence Yes: slight Hx Urinary Tract Infection Yes Anemia Yes Other Musculoskeletal Yes: neuropathy of upper and lower extremeties MRSA Yes Sepsis Yes Depression Yes Painful Menstruation Yes Fibroids Yes Irregular Menses Yes Menorrhagia Yes Other Reproductive Yes: [facility] Medical History (Last Reviewed 09/04/17 @ 07:19 by Keron Thayer MD) Atrial fibrillation (Acute Medical) Chronic GERD (Acute Medical) Diabetes 1.5, managed as type 2 (Acute Medical) High blood pressure (Acute Medical) High cholesterol (Acute Medical) Liver disease (Acute Medical) MRSA cellulitis (Acute Medical) Neuropathy (Acute Medical) Obstructive sleep apnea (Acute Medical) Stroke (Acute Medical) Surgical History: I&D R foot ulcer/osteo 12/19/16,. surgical R foot diabet ulcer debridement and placement of wound vac 01/03/2017 Rober. 01/1986 Lt Ulna nerve release Family History: Family History (Last Reviewed 09/04/17 @ 07:20 by Keron Thayer MD) Father Progressive supranuclear palsy Mother Kidney disease Stroke High cholesterol High blood pressure Diabetes Maternal Grandmother Cancer of breast Diabetes Liver disease Maternal Grandfather Emphysema/COPD Heart attack High blood pressure High cholesterol Stroke - Social History Smoking status: Former smoker second hand exposure: No Substance use type: does not use Alcohol intake frequency: other Housing: [facility]entiary Household members: none Current occupational status: disabled 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 B-12] 1,000 mcg PO 5XD tab 01/08/17 09/03/17 Rx Insulin Aspart [NovoLOG] 6 unit SQ BIDBL vial 01/08/17 09/03/17 Rx Insulin Aspart [NovoLOG] 7 unit SQ WS vial 01/08/17 09/03/17 Rx Potassium Chloride [K-DUR 10 mEq 10 meq PO WB tab 01/08/17 09/03/17 Rx Tablet] Amlodipine [Norvasc] 5 mg PO DAILY 06/10/17 09/03/17 History Apixaban [Eliquis] 5 mg PO BID 06/10/17 09/03/17 History Cholecalciferol (Vitamin D3) 1,000 unit PO DAILY 06/10/17 09/03/17 History [Vitamin D3] Insulin Glargine,Hum.rec.anlog 12 unit SQ HS 06/10/17 09/03/17 History [Lantus] Pantoprazole Tab [Protonix Tab] 40 mg PO ACB 06/10/17 09/03/17 History glipiZIDE [Glipizide] 10 mg PO BID 06/10/17 09/03/17 History Sotalol [Betapace] 40 mg PO ACBID #60 tab 06/11/17 09/03/17 Rx Doxycycline [Vibramycin] 100 mg PO BID 08/07/17 09/03/17 History Metoclopramide [Reglan] 5 mg PO QID 08/07/17 09/03/17 History Oxybutynin Chloride 5 mg PO HS 08/07/17 09/03/17 History PEG 3350 17gm PACKET [Miralax] 17 gm PO DAILY 08/07/17 09/03/17 History Ascorbate Calcium [Vitamin C] 500 mg PO DAILY 09/03/17 09/03/17 History Lisinopril [Prinivil] 20 mg PO HS 09/03/17 09/03/17 History Multivitamin with Minerals 1 tab PO NOON 09/03/17 09/03/17 History [One-A-Day Maximum Formula] Allergies Allergy/AdvReac Type Severity Reaction Status Date / Time clindamycin Allergy Severe Hives Verified 09/03/17 16:41 Penicillins Allergy Severe Hives Verified 09/03/17 16:41 tetracycline Allergy Severe Hives Verified 09/03/17 16:41 Review of Systems 10-point ROS: negative except for HPI and the following: - General General: Present: fever, chills - Gastrointestinal Gastrointestinal: Present: other (gastroperesis) - Musculoskeletal Musculoskeletal: Present: back pain, joint pain - Neurological Neurological: Present: muscle weakness - Endocrine Endocrine: Present: diabetes - Vital Signs Last Vital Signs Temp 95.5 F L 09/04/17 07:43 Pulse 66 09/04/17 07:43 Resp 18 09/04/17 07:43 BP 105/57 09/04/17 07:43 Pulse Ox 98 09/04/17 07:43 - Laboratory Result Diagrams: 09/04/17 04:59 09/04/17 04:59 General Surgery Results - Results Labs: 09/04/17 04:59 09/04/17 04:59
--- NOTE | 2017-09-04 10:54 | Progress Note ---
- Date 09/04/17 Subjective: Alona had a rough night - n/v, f/c all night long. Currently, her stomach has calmed down and she's no longer nauseated. She doesn't complain of pain. She denies SOA. Urine has been tinted red per nursing reports but UA done on admit only showed trace occult blood. Objective Vital signs: Temperature 95.5 F L 09/04/17 07:43 Pulse Rate 66 09/04/17 07:43 Respiratory Rate 18 09/04/17 07:43 Blood Pressure 105/57 09/04/17 07:43 Pulse Oximetry 98 09/04/17 07:43 Height/Weight/BMI: Height 1.7 m Weight 125.9 kg Body Mass Index 43.7 - Constitutional Present: well nourished, well developed, obese - Routine HEENT Exam Head: Present: normocephalic Eye: Present: PERRL. Absent: conjunctival icterus, scleral injection ENT: Present: mucous membranes moist, oropharynx clear - Routine Respiratory Exam Present: CTA bilaterally - Routine Cardiovascular Exam Present: RRR, S1, S2 - Routine Abdominal Exam Present: soft, normoactive bowel sounds, non distended, non tender - Routine Extremities Exam Absent: calf tenderness - Routine Musculoskeletal Exam Musculoskeletal: Present: other (Charcot foot) - Routine Skin Exam Present: warm, wounds (open wound on plantar surface of R foot with surrounding swelling; erythema appears to have improved) - Routine Neurological Exam Present: alert, oriented X3, normal speech - Routine Psychiatric Exam Present: normal thought process, cooperative Results - Labs CBC & Chem 7: 09/04/17 04:59 09/04/17 04:59 Assessment and Plan (1) Osteomyelitis of ankle or foot Current visit: No Status: Acute Assessment and Plan: Assessment Sepsis - (tachy, fever, leukocytosis. Source: skin. Nl lactate) Diabetic foot ulcer with cellulitis (w/ previous osteomyelitis in cuboid bone) Dysfunctional uterine bleeding - likely PCOS and perimenopausal Normocytic anemia Paroxysmal Atrial fibrillation - Eliquis HTN H/o ischemic CVA High cholesterol PAD Diabetes, Type 2, IR Diabetic gastroparesis Diabetic Neuropathy Charcot foot arthropathy, R foot Frozen shoulder, R (Jeovany) Liver disease Chronic GERD H/o MRSA cellulitis Obstructive sleep apnea Morbid obesity with BMI 43.7 Plan WBC improved to 11.7; fever/chills persist. Continue Vanco; doxy. Dr. Richter consulted - formal recommendations pending. Consider [employer] consult regarding DUB. Hgb 10.2 Hgb A1c <6%; continue NovoLOG, Metformin PT is tachy associated with fever. BP low-normal. Oral intake poor. Cont NS. D/W Dr. Disla. DVT Prophylaxis: Eliquis GI Prophylaxis: Protonix - Time spent with patient Time with patient PN: 25 minutes - Physician Narrative Physician: Cassius Disla MD Narrative: Date: 09/04/17 Time: 1640 Rough night (chills/shakes/nausea) but feeling better this afternoon. Appetite still with decrease, but able to take more in. Breathing well. No chest pain. Urinating well-much more frequent with IVF. Lungs: decreased, no crackles/wheeze/distress CV: regular AB: soft nt/nd MSE : awake alert appropriate MRI of foot - interval improvement - not seeing prior osteo Plan: Continue with vancomycin and doxycycline for coverage. Encouraging that MRI showing improvements. Dr Richter to see for wound care. Decrease IVF. Monitor lab. Continue with supportive care. Hospital Course Summary Disclaimer: The visit summary below is not to be considered part of the above Progress Note. Hospital Course: 09/03/17 Admit, IP. Stay expected to exceed two overnights given her sepsis and comorbidities. Levaquin given in ER. Start vancomycin. BC's drawn in ER. CBC in am to follow blood counts. Procal in am. Consult Dr. Richter and wound clinic for foot ulcer. MRI R foot ordered. Accuchecks to monitor BS's. Check A1c and TSH with am labs. Continue DM meds. Hold metformin if pt needs to be NPO. (Lactate nl) 1L NS bolused in ER. NS 125ml/hr for maintenance. Consider [employer] consult for DUB vs trial of Provera. Follow hgb. Pt likely not bleeding heavily given hgb of 10.8 after reportedly bleeding for 6 wks. Pantoprazole for GERD and GI ppx. Eliquis for PAF and VTE ppx DNR/ Dr. Cook - PCP. 09/04/17 WBC improved to 11.7; fever/chills persist. Continue Vancomycin and doxycycline for antibiotic coverage. Dr. Richter consulted - formal recommendations pending. Consider [employer] consult regarding DUB. Hgb 10.2 Hgb A1c <6%; continue NovoLOG, Metformin PT is tachy associated with fever. BP low-normal. Cont NS.
[2017-09-04] MEDS ORDERED: SALINE FLUSH 10ml SYRINGE ONE (11:25)
[2017-09-04] MEDS ORDERED: GADOTERIDOL 279.3mg/ml - 5ml vial IVP ONE (11:26)
--- NOTE | 2017-09-04 12:40 | Magnetic Resonance Report ---
Indication: R diabetic infected foot ulcer PROCEDURE: MR foot RT wo/w con: Encounter: Initial Comparison: December 17, 2016 Technique: Multiplanar multisequence MR imaging of the right foot was performed with and without contrast. Contrast: 25 mL ProHance Findings: Disorganization and destruction in the midfoot is again seen consistent with a neuropathic foot. The prior areas of mid foot edema seen on the comparison have largely resolved. Lisfranc dislocation is redemonstrated. The flexor and extensor tendons are grossly intact. Edema throughout the foot musculature, a common finding in diabetics. Plantar ulcer in the midfoot region. No rim-enhancing abscess appreciated. No abnormal bone marrow enhancement seen. Impression: Interval resolution of the prior regions of osteomyelitis. No definite MR evidence of acute osteomyelitis. .
[2017-09-04] MEDS: MULTI-VITAMIN + MINERAL TABLET PO SCH (12:43)
[2017-09-04] MEDS: LEVOFLOXACIN PB 750 MG/150 ML BAG IV SCH (17:02)
[2017-09-04] MEDS: ACETAMINOPHEN 325 MG TABLET PO PRN (20:13)
--- NOTE | 2017-09-04 20:32 | Consultation ---
DATE OF CONSULTATION 09/04/2017 FINDINGS Mrs. Aguirre is a 47-year-old female whom I was asked to see this evening as a result of her right diabetic foot ulcer with associated cellulitis. Mrs. Aguirre is known to my surgical/wound care practice. It has been a few weeks, however, since I have seen Mrs. Aguirre. Mrs. Aguirre informs me that over the last couple of weeks she has begun to notice that her right foot has begun to "swell and become puffy." Patient states that a few days ago they began to notice that there was some "redness" beginning to form upon her anterior tibial surface. The patient states that yesterday she had developed chills. She contributed this to having "wet hair" and lying down in bed. She then, however, was found to be febrile in nature. As a result of the above circumstances the patient has been admitted to our facility for further care. This evening, Mrs. Aguirre was in good spirits. She did not appear to be in acute distress. PAST MEDICAL HISTORY, PAST SURGICAL HISTORY, MEDICATIONS, ALLERGIES, SOCIAL HISTORY, FAMILY HISTORY, REVIEW OF SYSTEMS Performed by my nurse practitioner, Ru Cedillo APRN. PHYSICAL EXAMINATION GENERAL: Mrs. Aguirre is a 47-year-old female who, as stated above, did not appear to be in acute distress this evening. VITAL SIGNS: T-max 102.8 upon admission. Current vitals include temperature 97.3, pulse 68, respirations 20, blood pressure 133/66, SAO2 98% room air. HEENT: Normocephalic. Pupils are equally round and react to light and accommodation. NECK: Supple without lymphadenopathy. CHEST: Clear to auscultation bilaterally. HEART: Regular rate and rhythm. Normal S1 and S2 without gallops, murmurs or clicks. ABDOMEN: Palpation of the abdomen reveals it to be soft and nontender. I do not appreciate any evidence for hepatosplenomegaly nor abnormal masses. EXTREMITIES: Attention was focused to the right foot. One can see a component of erythema about 6-7 cm in diameter involving the right anterior tibial surface. 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 There is marked deformity present. Attention was focused to the plantar aspect of her foot where the patient has a known diabetic foot ulcer. The ulcer itself is about 2 cm in length and about 8 mm to 1 cm in width. There is no purulent drainage coming forth from the wound base. There is good granulation tissue within the wound base itself. Palpation surrounding the wound did not result in any expression of purulent material from the wound base itself. There was some induration noted. Foot was quite warm to the touch. NEURO: Cranial nerves II-XII grossly intact. Patient is without focal motor or sensory deficits. LABORATORY/RADIOGRAPHIC EVALUATION/REVIEW OF PATIENT'S CHART The patient was admitted yesterday and her white count was found to be elevated at 15.1. It did have a left shift with 77% neutrophils. Today her white count is decreased to 11.7. Left shift has resolved. Blood cultures have been obtained and are negative to date. The patient did undergo an MRI of her right foot today. MRI fortunately revealed interval resolution of prior regions of osteomyelitis. There was no definite MRI evidence for acute osteomyelitis. The patient has known Lisfranc dislocation. There was no evidence for any type of underlying abscess. No abnormal bone marrow enhancement seen. ASSESSMENT 47-year-old female with right diabetic foot ulcer who presents with associated cellulitis and sepsis. Patient fortunately without evidence for recurrent osteomyelitis upon MRI. PLAN I agree with current management of this patient. The patient has been placed on broad-spectrum antibiotics consisting of vancomycin and doxycycline. Will continue with ongoing broad-spectrum antibiotic coverage. Hopefully the patient 's cellulitis will begin to dissipate. At this point in time there does not appear to be any need for surgical intervention. There is no evidence for a necrotizing soft tissue infection or underlying abscess. Will write dressing orders to be placed to right diabetic foot ulcer consisting of Silver Aquacel and Allevyn foam dressing. Tomorrow may proceed with bedside debridement to further assess the wound bed. [facility]
[2017-09-04] MEDS: INSULIN GLARGINE 100unit/ml INJECTION SQ SCH (22:45)
[2017-09-04] MEDS: LOVASTATIN 40 MG TABLET PO SCH (22:46)
[2017-09-04] MEDS: LISINOPRIL 20 MG TABLET PO SCH (22:47)
[2017-09-05] MEDS: ACETAMINOPHEN 325 MG TABLET PO PRN ×2 (03:10→08:52)
[2017-09-05] MEDS: PANTOPRAZOLE 40 MG TABLET PO SCH (06:44)
[2017-09-05] MEDS: METOCLOPRAMIDE 5mg TABLET PO SCH ×5 (06:45→20:56)
[2017-09-05] MEDS: SOTALOL 80 MG TABLET PO SCH ×2 (06:45→17:03)
[2017-09-05] MEDS: METFORMIN 1,000 MG TABLET PO SCH ×2 (08:51→17:03)
[2017-09-05] MEDS: GlipiZIDE 5 MG TABLET PO SCH ×2 (08:52→17:03)
[2017-09-05] MEDS: INSULIN ASPART 100unit/ml INJECTION SQ SCH ×3 (09:46→18:22)
[2017-09-05] MEDS: POLYETHYL GLYCOL 3350 17gm PACKET PO SCH (09:46)
[2017-09-05] MEDS: AMLODIPINE 5 MG TABLET PO SCH (09:47)
[2017-09-05] MEDS: CYANOCOBALAMIN (B-12) 500mcg TABLET PO SCH (09:47)
[2017-09-05] MEDS: APIXABAN 5 MG TABLET PO SCH ×2 (09:47→20:56)
[2017-09-05] MEDS: ASCORBIC ACID 500 MG TABLET PO SCH (09:47)
--- NOTE | 2017-09-05 11:42 | Progress Note ---
- Date 09/05/17 Subjective: Alona was resting in bed. She c/o right shoulder pain, which has been ongoing x months. She was dx with frozen shoulder. She also c/o coccyx pain d/t pressure sore. Between these 2 areas, she didn't sleep much last night. Her foot does not hurt. She does not want to take anything other than Tylenol for pain. She states that n/v has resolved and she's been able to eat/drink ok. She denies abd pain or nausea. No SOA or chest pain. Objective Vital signs: Temperature 98 F 09/05/17 07:45 Pulse Rate 92 09/05/17 07:45 Respiratory Rate 16 09/05/17 07:45 Blood Pressure 128/69 09/05/17 07:45 Pulse Oximetry 96 09/05/17 07:45 Height/Weight/BMI: Height 1.7 m Weight 129 kg Body Mass Index 43.7 - Constitutional Present: no acute distress, well nourished, well developed, obese - Routine HEENT Exam Head: Present: normocephalic Eye: Present: PERRL. Absent: conjunctival icterus, scleral injection - Routine Respiratory Exam Present: CTA bilaterally - Routine Cardiovascular Exam Present: RRR, S1, S2, murmur (2/6) - Routine Abdominal Exam Present: soft, normoactive bowel sounds, non tender, distended (slight) - Routine Extremities Exam Present: no edema Comments: charcot foot - right - Routine Skin Exam Present: dry, warm Comments: dressing to right foot - Routine Neurological Exam Present: alert, oriented X3, normal speech - Routine Psychiatric Exam Present: cooperative. Absent: normal affect (flat) Results - Labs CBC & Chem 7: 09/05/17 04:38 09/05/17 04:38 Assessment and Plan (1) Osteomyelitis of ankle or foot Current visit: No Status: Acute Assessment and Plan: Assessment Sepsis - (tachy, fever, leukocytosis. Source: skin. Nl lactate) Diabetic foot ulcer with cellulitis (w/ previous osteomyelitis in cuboid bone) Dysfunctional uterine bleeding - likely PCOS and perimenopausal Hypomagnesemia Normocytic anemia Paroxysmal Atrial fibrillation - Eliquis HTN H/o ischemic CVA High cholesterol PAD Diabetes, Type 2, IR Diabetic gastroparesis Diabetic Neuropathy Charcot foot arthropathy, R foot Frozen shoulder, R ([place]) Liver disease Chronic GERD H/o MRSA cellulitis Obstructive sleep apnea Morbid obesity with BMI 43.7 Plan WBC now in normal range at 10.2. CRP actually increased from 29 to 59. No fever since 0030 on 09/04. Cont vanco/doxy, wound care per Dr. Richter: Silver Aquacel and Allevyn foam dressing. Mg low at 1.3 - IV mg ordered. K stable. BGM under control - as PO increases, may need to increase insulin doses. DC IVF. Tachycardia resolved and BP improved. D/W Dr. Disla. DVT Prophylaxis: Eliquis GI Prophylaxis: Protonix Resuscitation Status: Do Not Resuscitate - Time spent with patient Time with patient PN: 25 minutes - Physician Narrative Physician: Cassius Disla MD Narrative: Date: 09/05/17 Time: 1653 Have independently interviewed and examined pt. Chart reviewed. Cased discussed with my ROVING TECHNICIAN. Care plan developed with my supervision; agree with above. Rough night-couldn't sleep secondary to tailbone pain and pain to arm. Does note less fever/chills. Decreasing edema to her leg during this hospitalization (report not up as much). Nausea decreasing. Appetite with gradual increase. Breathing well. Lungs: clear bilaterally CV: regular AB: soft nt BS decreased MSE: awake alert appropriate Plan: Will continue with antibiotic therapy. WBC decreasing, patient improving clinically. May stop IVF. Monitor lab. Continue wound care and supportive care. Hospital Course Summary Disclaimer: The visit summary below is not to be considered part of the above Progress Note. Hospital Course: 09/03/17 Admit, IP. Stay expected to exceed two overnights given her sepsis and comorbidities. Levaquin given in ER. Start vancomycin. BC's drawn in ER. CBC in am to follow blood counts. Procal in am. Consult Dr. Richter and wound clinic for foot ulcer. MRI R foot ordered. Accuchecks to monitor BS's. Check A1c and TSH with am labs. Continue DM meds. Hold metformin if pt needs to be NPO. (Lactate nl) 1L NS bolused in ER. NS 125ml/hr for maintenance. Consider PACKAGING MECHANIC consult for DUB vs trial of Provera. Follow hgb. Pt likely not bleeding heavily given hgb of 10.8 after reportedly bleeding for 6 wks. Pantoprazole for GERD and GI ppx. Eliquis for PAF and VTE ppx DNR/ Dr. Cook - PCP. 09/04/17 WBC improved to 11.7; fever/chills persist. Continue Vancomycin and doxycycline for antibiotic coverage. Dr. Richter consulted - formal recommendations pending. Consider PACKAGING MECHANIC consult regarding DUB. Hgb 10.2 Hgb A1c <6%; continue NovoLOG, Metformin PT is tachy associated with fever. BP low-normal. Cont NS. 09/05/17 WBC now in normal range at 10.2. CRP actually increased from 29 to 59. No fever since 0030 on 09/04. Cont vanco/doxy, wound care per Dr. Richter: Silver Aquacel and Allevyn foam dressing. Mg low at 1.3 - IV mg ordered. K stable. BGM under control - as PO increases, may need to increase insulin doses. DC IVF. Tachycardia resolved and BP improved.
[2017-09-05] MEDS: MAGNESIUM SULFATE 1gm PREMIX 1 GM/100 ML BAG IV SCH ×2 (12:11→13:43)
[2017-09-05] MEDS: MULTI-VITAMIN + MINERAL TABLET PO SCH (12:59)
--- NOTE | 2017-09-05 15:15 | Pharmacy Consult-Antibiotics ---
Pharmacy Consult-Vancomycin - Laboratory Information WBC 10.2 T/MM3 (4.5-11.0) 09/05/17 04:38 BUN 14.0 MG/DL (7-17) 09/05/17 04:38 Creatinine 0.8 mg/dL (0.7-1.2) 09/05/17 04:38 Procalcitonin 0.10 NG/ML 09/04/17 04:59 Vancomycin Trough 22.61 ug/mL (15-20) H* 09/05/17 08:36 - Consult Information Vancomycin: day 3 goal trough range= 15 to 20 mcg/ml trough level = 22.6 mcg/ml Vancomycin dose adjusted to Vanco 2 gm IV q12h Pharmacy will monitor and adjust. Thank you, Aaliyah Mcdonald [facility]
[2017-09-05] MEDS: LEVOFLOXACIN PB 750 MG/150 ML BAG IV SCH (17:03)
[2017-09-05] MEDS: SALINE FLUSH 10ml SYRINGE IVF PRN (17:05)
[2017-09-05] MEDS: NS FLUSH BAG 500ml IV PRN (17:11)
--- NOTE | 2017-09-05 18:49 | Progress Note ---
DATE OF SERVICE 09/05/2017 FINDINGS Mrs. Aguirre was seen on afternoon rounds. She states she is feeling slightly better. She does state that she has been "extremely tired today." PHYSICAL EXAM VITAL SIGNS: Afebrile, normotensive. Last recorded vitals include temperature 98.0, pulse 70, respirations 20, blood pressure 147/71, SAO2 100% on room air. HEENT: Normocephalic. Pupils are equally round and react to light and accommodation. CHEST: Clear to auscultation bilaterally. HEART: Regular rate and rhythm. Normal S1 and S2 without gallops, murmurs or clicks. EXTREMITIES: Attention was focused to her right lower extremity. She still continues to have an area of erythema overlying the anterior tibial surface. The skin itself continues to be somewhat warm to the touch. The wound upon the plantar aspect of the right foot remains stable. No fluctuance is noted upon palpation. ASSESSMENT 47-year-old female with history for Gonzalez grade 3 right diabetic foot ulcer with recent development of cellulitis involving right lower extremity with sepsis. PLAN CBC was obtained today and her white count is on a downward trend to 10.2 from 15,000 on admission. BMP was obtained and found to be without marked abnormalities. CRP remains elevated at 59.3. Blood cultures remain to be negative to date. Will continue with current care of broad-spectrum antibiotics. The patient remains without a surgical process at this time. Hopefully the patient's cellulitis will dissipate and resolve over the course of the upcoming weekend. JIMD
[2017-09-05] MEDS: LISINOPRIL 20 MG TABLET PO SCH (20:56)
[2017-09-05] MEDS: LOVASTATIN 40 MG TABLET PO SCH (20:56)
[2017-09-05] MEDS ORDERED: DEXTROSE 50% INJ 50ml VIAL IV ONE (23:37)
[2017-09-05] MEDS: DEXTROSE 50% INJ 50ml VIAL IV ONE (23:38)
[2017-09-06] MEDS: ACETAMINOPHEN 325 MG TABLET PO PRN ×2 (00:01→22:17)
[2017-09-06] MEDS: INSULIN GLARGINE 100unit/ml INJECTION SQ SCH (00:05)
[2017-09-06] MEDS: DEXTROSE 50% INJ 50ml VIAL IV ONE (00:45)
[2017-09-06] MEDS: D5NS 1,000 ML IV SCH ×2 (01:30→20:08)
[2017-09-06] MEDS: PANTOPRAZOLE 40 MG TABLET PO SCH (06:11)
[2017-09-06] MEDS: SOTALOL 80 MG TABLET PO SCH ×2 (06:11→17:45)
[2017-09-06] MEDS: METOCLOPRAMIDE 5mg TABLET PO SCH ×4 (06:14→22:17)
[2017-09-06] MEDS: GlipiZIDE 5 MG TABLET PO SCH (09:25)
[2017-09-06] MEDS: METFORMIN 1,000 MG TABLET PO SCH (09:25)
[2017-09-06] MEDS: AMLODIPINE 5 MG TABLET PO SCH (09:25)
[2017-09-06] MEDS: ASCORBIC ACID 500 MG TABLET PO SCH (09:26)
[2017-09-06] MEDS: CYANOCOBALAMIN (B-12) 500mcg TABLET PO SCH (09:26)
[2017-09-06] MEDS: APIXABAN 5 MG TABLET PO SCH ×2 (09:59→22:16)
[2017-09-06] MEDS: INSULIN ASPART 100unit/ml INJECTION SQ SCH ×3 (09:59→20:25)
--- NOTE | 2017-09-06 11:56 | Progress Note ---
DATE OF SERVICE 09/06/2017 FINDINGS Mrs. Aguirre was seen this morning on rounds. She states that she has not been experiencing much in the way of pain to her right foot. She states that she did "have to get up to go to the bathroom a lot last night." PHYSICAL EXAM VITAL SIGNS: The patient did run fever last evening at 100.9. Temperature this morning was 100, pulse 77, respirations 12, blood pressure 129/59, SAO2 96 % on room air. HEENT: Normocephalic. Pupils are equally round and react to light and accommodation. CHEST: Clear to auscultation bilaterally. HEART: Regular rate and rhythm. Normal S1 and S2 without gallops, murmurs or clicks. EXTREMITIES: Attention was focused to the right foot. There is a stable wound involving the plantar aspect of the right mid foot. There is good granulation tissue within the wound bed. There is no necrotic material present. There is no purulent drainage present. No periwound erythema. No induration surrounding the wound itself. Upon visualization the patient continues to have an erythematous-appearing rash involving the anterior tibial surface. The skin overlying this area of erythema remains to be warm to the touch. LABORATORY/RADIOGRAPHIC EVALUATION Patient had a CBC today and white count was 8.9. Hemoglobin stable at 8.8. BMP obtained and found to be essentially within normal limits. ASSESSMENT 47-year-old female with right diabetic foot ulcer with associated cellulitis and associated sepsis. Patient without MRI evidence for osteomyelitis. Currently patient with Gonzalez grade 2 right diabetic foot ulcer. PLAN Agree with current management of this patient with ongoing broad-spectrum antibiotics given her cellulitis and sepsis. Patient without need for surgical intervention. No evidence for necrotizing soft tissue infection or underlying abscess. Will continue to follow along in the patient's care. JENNIFER
[2017-09-06] MEDS: NS 1,000 ML IV SCH (12:00)
[2017-09-06] MEDS: POLYETHYL GLYCOL 3350 17gm PACKET PO SCH (12:17)
[2017-09-06] MEDS: MULTI-VITAMIN + MINERAL TABLET PO SCH (12:32)
[2017-09-06] MEDS: MAGNESIUM SULFATE 1gm PREMIX 1 GM/100 ML BAG IV SCH ×2 (13:32→15:12)
--- NOTE | 2017-09-06 14:57 | Progress Note ---
- Date 09/06/17 Subjective: Complains of chronic, uncontrolled pain but is afraid to become addicted to narcotics. Had low sugars overnight, necessitating D10, off now. Objective Vital signs: Temperature 100 F 09/06/17 07:35 Pulse Rate 77 09/06/17 07:35 Respiratory Rate 12 09/06/17 07:35 Blood Pressure 129/59 09/06/17 07:35 Pulse Oximetry 96 09/06/17 07:35 Height/Weight/BMI: Height 5 ft 7 in Weight 129.9 kg Body Mass Index 43.7 - Constitutional Present: no acute distress - Routine Respiratory Exam Present: CTA bilaterally - Routine Cardiovascular Exam Present: RRR - Routine Abdominal Exam Present: soft, non distended, non tender - Routine Extremities Exam Present: edema Comments: edema of right foot - Routine Skin Exam Comments: Ulceration to plantar aspect of right foot with some drainage and surrounding erythema. - Routine Neurological Exam Present: alert, oriented X3, CN II-XII intact Results - Labs CBC & Chem 7: 09/06/17 04:00 09/06/17 04:00 Assessment and Plan (1) Osteomyelitis of ankle or foot Current visit: No Status: Acute Assessment and Plan: Assessment Sepsis - (tachy, fever, leukocytosis. Source: skin. Nl lactate) - present on admission Diabetic foot ulcer with cellulitis (w/ previous osteomyelitis in cuboid bone) Dysfunctional uterine bleeding - likely PCOS and perimenopausal Hypomagnesemia Normocytic anemia Paroxysmal Atrial fibrillation - Eliquis HTN H/o ischemic CVA High cholesterol PAD Diabetes, Type 2, IR Diabetic gastroparesis Diabetic Neuropathy Charcot foot arthropathy, R foot Frozen shoulder, R ([place]) Liver disease Chronic GERD H/o MRSA cellulitis Obstructive sleep apnea Morbid obesity with BMI 43.7 Plan WBC now in normal range at 10.2. CRP actually increased from 29 to 59. No fever since 0030 on 09/04. Cont vanco/doxy, wound care per Dr. Richter: Silver Aquacel and Allevyn foam dressing. Fever this morning to 100.9 as well as hypoglycemia- broaden ATBX to vanco and merrem - h/o MRSA, enterococcus, and corynebacterium in wound Replace mag again today Monitor blood sugars - hold glipizide, metformin, lantus, and novolog and use ISS for now. Hbg trending down, continue to monitor. - Physician Narrative Narrative: Date: 09/06/17 Time: 1448 Hospital Course Summary Disclaimer: The visit summary below is not to be considered part of the above Progress Note. Hospital Course: 09/03/17 Admit, IP. Stay expected to exceed two overnights given her sepsis and comorbidities. Levaquin given in ER. Start vancomycin. BC's drawn in ER. CBC in am to follow blood counts. Procal in am. Consult Dr. Richter and wound clinic for foot ulcer. MRI R foot ordered. Accuchecks to monitor BS's. Check A1c and TSH with am labs. Continue DM meds. Hold metformin if pt needs to be NPO. (Lactate nl) 1L NS bolused in ER. NS 125ml/hr for maintenance. Consider OIL SPRAYING MACHINE OPERATOR consult for DUB vs trial of Provera. Follow hgb. Pt likely not bleeding heavily given hgb of 10.8 after reportedly bleeding for 6 wks. Pantoprazole for GERD and GI ppx. Eliquis for PAF and VTE ppx DNR/ Dr. Cook - PCP. 09/04/17 WBC improved to 11.7; fever/chills persist. Continue Vancomycin and doxycycline for antibiotic coverage. Dr. Richter consulted - formal recommendations pending. Consider OIL SPRAYING MACHINE OPERATOR consult regarding DUB. Hgb 10.2 Hgb A1c <6%; continue NovoLOG, Metformin PT is tachy associated with fever. BP low-normal. Cont NS. 09/05/17 WBC now in normal range at 10.2. CRP actually increased from 29 to 59. No fever since 0030 09/04. Cont vanco/doxy, wound care per Dr. Richter: Silver Aquacel and Allevyn foam dressing. Mg low at 1.3 - IV mg ordered. K stable. BGM under control - as PO increases, may need to increase insulin doses. DC IVF. Tachycardia resolved and BP improved. 09/06/17 WBC now in normal range at 10.2. CRP actually increased from 29 to 59. No fever since 0030 on 09/04. Cont vanco/doxy, wound care per Dr. Richter: Silver Aquacel and Allevyn foam dressing. Fever this morning to 100.9 as well as hypoglycemia- broaden ATBX to vanco and merrem - h/o MRSA, enterococcus, and corynebacterium in wound Replace mag again today Monitor blood sugars - hold glipizide, metformin, lantus, and novolog and use ISS for now. Hbg trending down, continue to monitor.
[2017-09-06] MEDS: MEROPENEM 500 MG in NS 50 ML IV SCH (17:09)
[2017-09-06] MEDS: LEVOFLOXACIN PB 750 MG/150 ML BAG IV SCH (17:46)
[2017-09-06] MEDS: LISINOPRIL 20 MG TABLET PO SCH (22:16)
[2017-09-06] MEDS: LOVASTATIN 40 MG TABLET PO SCH (22:17)
[2017-09-07] MEDS: MEROPENEM 500 MG in NS 50 ML IV SCH ×3 (01:00→17:49)
[2017-09-07] MEDS: SOTALOL 80 MG TABLET PO SCH ×2 (06:51→17:48)
[2017-09-07] MEDS: METOCLOPRAMIDE 5mg TABLET PO SCH ×4 (06:55→21:13)
[2017-09-07] MEDS: PANTOPRAZOLE 40 MG TABLET PO SCH (06:55)
[2017-09-07] MEDS: D5NS 1,000 ML IV SCH (07:44)
[2017-09-07] MEDS: CYANOCOBALAMIN (B-12) 500mcg TABLET PO SCH ×2 (09:27→14:59)
[2017-09-07] MEDS: ASCORBIC ACID 500 MG TABLET PO SCH (09:27)
[2017-09-07] MEDS: AMLODIPINE 5 MG TABLET PO SCH (09:27)
[2017-09-07] MEDS: APIXABAN 5 MG TABLET PO SCH ×2 (09:28→21:13)
[2017-09-07] MEDS: POLYETHYL GLYCOL 3350 17gm PACKET PO SCH (09:29)
[2017-09-07] MEDS: NS FLUSH BAG 500ml IV PRN (09:32)
--- NOTE | 2017-09-07 09:55 | Pharmacy Consult-Antibiotics ---
Pharmacy Consult-Vancomycin - Laboratory Information WBC 10.1 T/MM3 (4.5-11.0) 09/07/17 08:06 BUN 10.0 MG/DL (7-17) 09/07/17 08:06 Creatinine 0.8 mg/dL (0.7-1.2) 09/07/17 08:06 Procalcitonin 0.10 NG/ML 09/04/17 04:59 Vancomycin Trough 22.50 ug/mL (15-20) H* 09/07/17 08:05 - Consult Information VANCOMYCIN CONSULT: Vancomycin Trough = 22.5 mcg/ml. Previous dose hung 1.5 hours late. Today's SCr = 0.8 mg/dl. Will give Vancomycin 1,750 mg IV q12hrs. Will continue to monitor and make adjustments accordingly. Thank you.
[2017-09-07] MEDS: INSULIN ASPART 100unit/ml INJECTION SQ SCH ×4 (12:01→21:13)
[2017-09-07] MEDS: MULTI-VITAMIN + MINERAL TABLET PO SCH (12:02)
--- NOTE | 2017-09-07 12:38 | Progress Note ---
- Date 09/07/17 Subjective: Alona is seen today in follow up. Reports that the peripheral neuropathy is worse- usually controlled on 5,000 mcg of B12- reports worse since on lower doses here. Is requesting increase in dose. Ongoing vaginal bleeding per nurses notes. Ongoing fever- TMax 101.8. No other acute concern reported. Objective Vital signs: Temperature 97.5 F 09/07/17 12:00 Pulse Rate 70 09/07/17 12:00 Respiratory Rate 14 09/07/17 12:00 Blood Pressure 126/58 09/07/17 12:00 Pulse Oximetry 95 09/07/17 12:00 Height/Weight/BMI: Height 1.7 m Weight 128.9 kg Body Mass Index 43.7 - Constitutional Present: no acute distress, morbidly obese, disheveled, cooperative - Routine HEENT Exam Head: Present: normocephalic, atraumatic Eye: Present: EOMI, PERRL ENT: Present: mucous membranes moist - Routine Respiratory Exam Present: CTA bilaterally, diminished air movement. Absent: rales, rhonchi, wheezes - Routine Cardiovascular Exam Present: RRR, S1, S2, no murmur - Routine Abdominal Exam Present: soft, normoactive bowel sounds, non distended, non tender - Routine Extremities Exam Present: edema, pulses intact, tenderness - Routine Musculoskeletal Exam Musculoskeletal: Present: limited range of motion - Routine Skin Exam Present: erythema (Right mid-calf to foot. ), dry, warm, wounds (Right foot. ) - Routine Neurological Exam Present: alert, oriented X3, moving all extremities - Routine Psychiatric Exam Present: cooperative, depressed Results - Labs CBC & Chem 7: 09/07/17 08:06 09/07/17 08:06 - Impressions Reviewed. Assessment and Plan (1) Osteomyelitis of ankle or foot Current visit: No Status: Acute Assessment and Plan: Assessment Sepsis - (tachy, fever, leukocytosis. Source: skin. Nl lactate) - present on admission Diabetic foot ulcer with cellulitis (w/ previous osteomyelitis in cuboid bone) *h/o MRSA, enterococcus, and corynebacterium in wound Dysfunctional uterine bleeding - likely PCOS and perimenopausal Hypomagnesemia Normocytic anemia Paroxysmal Atrial fibrillation - Eliquis HTN H/o ischemic CVA High cholesterol PAD Diabetes, Type 2, IR Diabetic gastroparesis Diabetic Neuropathy Charcot foot arthropathy, R foot Frozen shoulder, R ([place]) Liver disease Chronic GERD H/o MRSA cellulitis Obstructive sleep apnea Morbid obesity with BMI 43.7 Plan 09/07/17 Leukocytosis continues to improve. She does remain febrile-TMax 101.6 . Continue Vanco, Merrem. Past cx reviewed. MRI does show that osteo is better. Pain remains an issue. Surgery/wound team following. It appears that BG is better, but I don't see current accuchecks (confirmed order in place). Continue to hold both PO meds and insulin for now. Will increase B12 to 5,000units- assess Iron panel and ferritin to see if that needs to be replaced as well. Recheck mag level today post replacement. Assess pelvic sono due to dysfunctional uterine bleeding. May need OP SHOPPING INSPECTOR Follow up if abnormal. Patient does have ENEDINA, but is not wearing CPAP consistently per nursing notes. Continue supportive care. DNR status. I have seen and evaluated the patient independent of the midlevel above. Remained febrile overnight despite broadening of ATBX - done per prior cultures. However, eyrthema around wound does look slightly improved. Blood sugar at 1500 was 192, otherwise, none were recorded. 104 in am labs. Reporting irregular periods, has been having bleeding on and off during this stay. Gen: Alert and oriented X 3. NAD CV: RRR without murmur Lungs: diminished in bases Abd: soft, NT, ND, + BS Ext: bilateral LE edema, + pulses, right foot with wound on plantar aspect with minimal purulent drainage and lessening surrounding erythema Neuro: no focal signs. Continue broad spectrum ATBX for now with wound care. Workup for anemia ordered for am - iron panel, B12 Oral B12 increased to home dose Pelvic US ordered for workup of irregular periods. DVT Prophylaxis: Eliquis GI Prophylaxis: Protonix Resuscitation Status: Do Not Resuscitate - Physician Narrative Narrative: Date: 09/07/17 Time: 1235 Hospital Course Summary Disclaimer: The visit summary below is not to be considered part of the above Progress Note. Hospital Course: 09/03/17 Admit, IP. Stay expected to exceed two overnights given her sepsis and comorbidities. Levaquin given in ER. Start vancomycin. BC's drawn in ER. CBC in am to follow blood counts. Procal in am. Consult Dr. Richter and wound clinic for foot ulcer. MRI R foot ordered. Accuchecks to monitor BS's. Check A1c and TSH with am labs. Continue DM meds. Hold metformin if pt needs to be NPO. (Lactate nl) 1L NS bolused in ER. NS 125ml/hr for maintenance. Consider SHOPPING INSPECTOR consult for DUB vs trial of Provera. Follow hgb. Pt likely not bleeding heavily given hgb of 10.8 after reportedly bleeding for 6 wks. Pantoprazole for GERD and GI ppx. Eliquis for PAF and VTE ppx DNR/ Dr. Cook - PCP. 09/04/17 WBC improved to 11.7; fever/chills persist. Continue Vancomycin and doxycycline for antibiotic coverage. Dr. Richter consulted - formal recommendations pending. Consider SHOPPING INSPECTOR consult regarding DUB. Hgb 10.2 Hgb A1c <6%; continue NovoLOG, Metformin PT is tachy associated with fever. BP low-normal. Cont NS. 09/05/17 WBC now in normal range at 10.2. CRP actually increased from 29 to 59. No fever since 0030 on 09/04. Cont vanco/doxy, wound care per Dr. Richter: Silver Aquacel and Allevyn foam dressing. Mg low at 1.3 - IV mg ordered. K stable. BGM under control - as PO increases, may need to increase insulin doses. DC IVF. Tachycardia resolved and BP improved. 09/06/17 WBC now in normal range at 10.2. CRP actually increased from 29 to 59. No fever since 0030 09/04. Cont vanco/doxy, wound care per Dr. Richter: Silver Aquacel and Allevyn foam dressing. Fever this morning to 100.9 as well as hypoglycemia- broaden ATBX to vanco and merrem - h/o MRSA, enterococcus, and corynebacterium in wound Replace mag again today Monitor blood sugars - hold glipizide, metformin, lantus, and novolog and use ISS for now. Hbg trending down, continue to monitor. 09/07/17 Leukocytosis continues to improve. She does remain febrile. Continue Vanco, Merrem. Past cx reviewed. MRI does show that osteo is better. Pain remains an issue. Surgery/wound team following. It appears that BG is better, but I don't see current accuchecks (confirmed order in place). Continue to hold both PO meds and insulin for now. Will increase B12 to 5,000units- assess Iron panel and ferritin to see if that needs to be replaced as well. Recheck mag level today post replacement. Assess pelvic sono due to dysfunctional uterine bleeding. May need OP SHOPPING INSPECTOR Follow up if abnormal. Patient does have ENEDINA, but is not wearing CPAP consistently per nursing notes. Continue supportive care. DNR status.
[2017-09-07] MEDS ORDERED: ACETAMINOPHEN 500 MG TABLET PO SCH (17:00)
[2017-09-07] MEDS: LOVASTATIN 40 MG TABLET PO SCH (21:13)
[2017-09-07] MEDS: LISINOPRIL 20 MG TABLET PO SCH (21:13)
[2017-09-08] MEDS: SALINE FLUSH 10ml SYRINGE IVF PRN ×2 (00:17→17:23)
[2017-09-08] MEDS: MEROPENEM 500 MG in NS 50 ML IV SCH ×3 (02:32→17:21)
[2017-09-08] MEDS: SOTALOL 80 MG TABLET PO SCH ×2 (06:25→17:21)
[2017-09-08] MEDS: PANTOPRAZOLE 40 MG TABLET PO SCH (06:26)
[2017-09-08] MEDS: METOCLOPRAMIDE 5mg TABLET PO SCH ×4 (06:26→21:11)
--- NOTE | 2017-09-08 07:44 | Ultrasound Report ---
Indication: DUB PROCEDURE: US pelvic non-ob w transvag: Encounter: Initial Comparison: None Technique: Grayscale and color Doppler sonographic pelvic imaging was performed. FINDINGS: Transvaginal and transabdominal pelvic imaging was performed. The uterus measures 12.6 x 5.6 x 7.9 cm. The parenchyma is heterogeneous with a 2.5 cm myometrial fibroid in the right fundal area.. The endometrial stripe measures 8 mm in thickness. There is no evidence of focal endometrial mass. Small amount of fluid in the endometrial canal. Small nabothian cyst. Right ovary was not seen. The left ovary appears grossly normal and measures 3.7 x 2.4 x 2.9 cm. There are no abnormal adnexal masses detected. Normal Doppler flow to the left ovary. No free fluid. IMPRESSION: Uterine fibroid. There is a preliminary report by virtual radi[facility]. .
[2017-09-08] MEDS: ASCORBIC ACID 500 MG TABLET PO SCH (09:07)
[2017-09-08] MEDS: AMLODIPINE 5 MG TABLET PO SCH (09:07)
[2017-09-08] MEDS: APIXABAN 5 MG TABLET PO SCH ×2 (09:07→21:02)
[2017-09-08] MEDS: POLYETHYL GLYCOL 3350 17gm PACKET PO SCH (09:08)
[2017-09-08] MEDS: CYANOCOBALAMIN (B-12) 500mcg TABLET PO SCH (09:08)
[2017-09-08] MEDS: INSULIN ASPART 100unit/ml INJECTION SQ SCH ×4 (09:10→18:33)
--- NOTE | 2017-09-08 09:41 | Progress Note ---
DATE 09/07/2017 FINDINGS Alona this morning was without complaints. OBJECTIVE VITALS: Afebrile. Normotensive. Last recorded vitals include temperature 97.6 , pulse 68, respirations 18, blood pressure 129/64, SaO2 98% on room air. CHEST: Clear to auscultation bilaterally. HEART: Regular rate and rhythm. Normal S1, S2, without gallops, murmurs or clicks. EXTREMITIES: Attention was focused to the right lower extremity. She still has an erythematous-appearing rash involving the right anterior tibial surface. The rash itself, however, is not as pronounced. Palpation of the skin does reveal decreasing warmth, i.e., the skin is not is warm as noted yesterday on rounds. Wound upon the plantar aspect of the right foot remains stable. ASSESSMENT 47-year-old diabetic female with Gonzalez grade 2 right diabetic foot ulcer with associated cellulitis and sepsis. Patient improving with antibiotic therapy. PLAN Continue with current care. The patient does appear to be improving with current antibiotic therapy. The patient remains to be without a surgical process at this time. JENNIFER
[2017-09-08] MEDS ORDERED: FLEET PHOSPHO - SODA ENEMA 133ml PR PRN (10:53)
--- NOTE | 2017-09-08 10:58 | Progress Note ---
- Date 09/08/17 Subjective: F/U: Sepsis, Diabetic foot ulcer with cellulitis Doing okay. No f/c. Not reporting pain or itching to feel. Swelling doing well with elevation. Eating well-no nausea or vomiting. No stool-notes some ab cramping and bloating. Urinating well. Breathing stable. Objective Vital signs: Temperature 95.8 F L 09/08/17 07:21 Pulse Rate 64 09/08/17 07:21 Respiratory Rate 18 09/07/17 23:45 Blood Pressure 129/56 09/08/17 07:21 Pulse Oximetry 95 09/08/17 07:21 Height/Weight/BMI: Height 1.7 m Weight 127.2 kg Body Mass Index 43.7 - Constitutional Present: well nourished, well developed, average body habitus, morbidly obese, cooperative - Routine HEENT Exam Head: Present: normocephalic, atraumatic Eye: Present: EOMI, PERRL ENT: Present: mucous membranes moist (No thrush) - Routine Respiratory Exam Present: CTA bilaterally. Absent: prolonged expiratory phase, respiratory distress, rhonchi, stridor, wheezes, crackles - Routine Cardiovascular Exam Present: RRR, no murmur - Routine Abdominal Exam Present: soft, normoactive bowel sounds, non distended, non tender - Routine Extremities Exam Present: edema (Trace BLE), pulses intact. Absent: cyanosis, clubbing - Routine Musculoskeletal Exam Musculoskeletal: Present: no clubbing or cyanosis - Routine Skin Exam Present: dry, warm, wounds (Covered) - Routine Neurological Exam Present: alert, oriented X3, CN II-XII intact, moving all extremities, vision grossly intact, hearing grossly intact, normal speech. Absent: motor deficit, altered mental status - Routine Psychiatric Exam Present: normal affect, normal thought process, cooperative Results - Labs CBC & Chem 7: 09/08/17 04:59 09/08/17 04:59 Assessment and Plan (1) Osteomyelitis of ankle or foot Current visit: No Status: Acute Assessment and Plan: Assessment Sepsis - (tachy, fever, leukocytosis. Source: skin. Nl lactate) - present on admission Diabetic foot ulcer with cellulitis (w/ previous osteomyelitis in cuboid bone) H/O MRSA, enterococcus, and corynebacterium in wound Dysfunctional uterine bleeding - likely PCOS and perimenopausal Uterine fibroid Hypomagnesemia (Not POA) Normocytic anemia Paroxysmal Atrial fibrillation - Eliquis HTN H/o ischemic CVA High cholesterol PAD Diabetes, Type 2, IR Diabetic gastroparesis Diabetic Neuropathy Charcot foot arthropathy, R foot Frozen shoulder, R ([place]) Liver disease Chronic GERD H/o MRSA cellulitis Obstructive sleep apnea Constipation Morbid obesity with BMI 43.7 Plan Continue with Vancomycin and Meripenum for wound and skin coverage - clinical and biochemical improvement. Blood sugars increasing - will start meal time insulin at 4 units and restart Lantus at 8 units; hold oral agents. Increase bowel output - will have nursing give Fleets enema to help. Recheck CBC in am due to resolving sepsis and anemia. Check CMP in am due to medications. Check CRP in am due to cellulitis. Time spent with patient care 25 minutes. Case discussed with nursing. DVT Prophylaxis: Eliquis Resuscitation Status: Do Not Resuscitate - Time spent with patient Time with patient PN: 25 minutes - Physician Narrative Physician: Cassius Disla MD Narrative: Date: 09/08/17 Time: 1054 Hospital Course Summary Disclaimer: The visit summary below is not to be considered part of the above Progress Note. Hospital Course: 09/03/17 Admit, IP. Stay expected to exceed two overnights given her sepsis and comorbidities. Levaquin given in ER. Start vancomycin. BC's drawn in ER. CBC in am to follow blood counts. Procal in am. Consult Dr. Richter and wound clinic for foot ulcer. MRI R foot ordered. Accuchecks to monitor BS's. Check A1c and TSH with am labs. Continue DM meds. Hold metformin if pt needs to be NPO. (Lactate nl) 1L NS bolused in ER. NS 125ml/hr for maintenance. Consider APPLICATION SECURITY SPECIALIST consult for DUB vs trial of Provera. Follow hgb. Pt likely not bleeding heavily given hgb of 10.8 after reportedly bleeding for 6 wks. Pantoprazole for GERD and GI ppx. Eliquis for PAF and VTE ppx DNR/ Dr. Cook - PCP. 09/04/17 WBC improved to 11.7; fever/chills persist. Continue Vancomycin and doxycycline for antibiotic coverage. Dr. Richter consulted - formal recommendations pending. Consider APPLICATION SECURITY SPECIALIST consult regarding DUB. Hgb 10.2 Hgb A1c <6%; continue NovoLOG, Metformin PT is tachy associated with fever. BP low-normal. Cont NS. 09/05/17 WBC now in normal range at 10.2. CRP actually increased from 29 to 59. No fever since 0030 on 09/04. Cont vanco/doxy, wound care per Dr. Richter: Silver Aquacel and Allevyn foam dressing. Mg low at 1.3 - IV mg ordered. K stable. BGM under control - as PO increases, may need to increase insulin doses. DC IVF. Tachycardia resolved and BP improved. 09/06/17 WBC now in normal range at 10.2. CRP actually increased from 29 to 59. No fever since 0030 on 09/04. Cont vanco/doxy, wound care per Dr. Richter: Silver Aquacel and Allevyn foam dressing. Fever this morning to 100.9 as well as hypoglycemia- broaden ATBX to vanco and merrem - h/o MRSA, enterococcus, and corynebacterium in wound Replace mag again today Monitor blood sugars - hold glipizide, metformin, Lantus, and NovoLog and use ISS for now. Hbg trending down, continue to monitor. 09/07/17 Leukocytosis continues to improve. She does remain febrile. Continue Vanco, Merrem. Past cx reviewed. MRI does show that osteo is better. Pain remains an issue. Surgery/wound team following. It appears that BG is better, but I don't see current accuchecks (confirmed order in place). Continue to hold both PO meds and insulin for now. Will increase B12 to 5,000units - assess Iron panel and ferritin to see if that needs to be replaced as well. Recheck mag level today post replacement. Assess pelvic sono due to dysfunctional uterine bleeding. May need OP APPLICATION SECURITY SPECIALIST Follow up if abnormal. Patient does have ENEDINA, but is not wearing CPAP consistently per nursing notes. 09/08/17 Continue with Vancomycin and Meripenum for wound and skin coverage - clinical and biochemical improvement. Blood sugars increasing - will start meal time insulin at 4 units and restart Lantus at 8 units; hold oral agents. Increase bowel output - will have nursing give Fleets enema to help.
[2017-09-08] MEDS: NS 1,000 ML IV SCH (11:22)
[2017-09-08] MEDS: MULTI-VITAMIN + MINERAL TABLET PO SCH (13:07)
[2017-09-08] MEDS: NS FLUSH BAG 500ml IV PRN (13:09)
[2017-09-08] MEDS: LISINOPRIL 20 MG TABLET PO SCH (21:00)
[2017-09-08] MEDS: INSULIN GLARGINE 100unit/ml INJECTION SQ SCH (21:00)
[2017-09-08] MEDS: LOVASTATIN 40 MG TABLET PO SCH (21:01)
[2017-09-09] MEDS: MEROPENEM 500 MG in NS 50 ML IV SCH ×3 (01:38→16:02)
[2017-09-09] MEDS: SOTALOL 80 MG TABLET PO SCH ×2 (06:03→17:43)
[2017-09-09] MEDS: METOCLOPRAMIDE 5mg TABLET PO SCH ×4 (06:03→21:00)
[2017-09-09] MEDS: PANTOPRAZOLE 40 MG TABLET PO SCH (06:03)
[2017-09-09] MEDS: APIXABAN 5 MG TABLET PO SCH ×2 (09:03→21:00)
[2017-09-09] MEDS: ASCORBIC ACID 500 MG TABLET PO SCH (09:03)
[2017-09-09] MEDS: AMLODIPINE 5 MG TABLET PO SCH (09:03)
[2017-09-09] MEDS: INSULIN ASPART 100unit/ml INJECTION SQ SCH ×3 (09:04→18:08)
[2017-09-09] MEDS: POLYETHYL GLYCOL 3350 17gm PACKET PO SCH (09:04)
[2017-09-09] MEDS: SALINE FLUSH 10ml SYRINGE IVF PRN ×4 (09:05→22:45)
[2017-09-09] MEDS: CYANOCOBALAMIN (B-12) 500mcg TABLET PO SCH (09:05)
--- NOTE | 2017-09-09 11:09 | Pharmacy Consult-Antibiotics ---
Pharmacy Consult-Vancomycin - Laboratory Information WBC 10.6 T/MM3 (4.5-11.0) 09/09/17 05:57 BUN 13.0 MG/DL (7-17) 09/09/17 05:57 Creatinine 0.6 mg/dL (0.7-1.2) L 09/09/17 05:57 Procalcitonin 0.10 NG/ML 09/04/17 04:59 Vancomycin Trough 19.43 ug/mL (15-20) 09/09/17 10:02 - Consult Information VANCOMYCIN CONSULT: Vancomycin Trough = 19.43 mcg/ml. Today's SCr = 0.6 mg/dl. Renal function stable, monitor closely. Will continue to give Vancomycin 1,750 mg IV q12hrs. Will continue to monitor and make adjustments accordingly. Thank you.
[2017-09-09] MEDS: MULTI-VITAMIN + MINERAL TABLET PO SCH (11:20)
--- NOTE | 2017-09-09 13:05 | Progress Note ---
- Date 09/09/17 Subjective: F/U: Sepsis, Diabetic foot ulcer with cellulitis Doing okay. Did have good bowel movement yesterday. Nursing was about to provide suppository when bowels moved on there own. Has had several stools since. No ab pain or bloating. Appetite varies. Breathing stable. No f/c. Urine output stable. Objective Vital signs: Temperature 97.1 F 09/09/17 08:39 Pulse Rate 68 09/09/17 08:39 Respiratory Rate 18 09/09/17 08:39 Blood Pressure 121/65 09/09/17 08:39 Pulse Oximetry 97 09/09/17 08:39 Height/Weight/BMI: Height 1.7 m Weight 125 kg Body Mass Index 43.7 - Constitutional Present: well nourished, well developed, morbidly obese, cooperative - Routine HEENT Exam Head: Present: normocephalic, atraumatic Eye: Present: EOMI, PERRL ENT: Present: mucous membranes moist (No thrush) - Routine Respiratory Exam Present: decreased breath sounds. Absent: rales, respiratory distress, rhonchi , stridor, wheezes, crackles - Routine Cardiovascular Exam Present: RRR, no murmur - Routine Abdominal Exam Present: soft, normoactive bowel sounds, non distended, non tender - Routine Extremities Exam Present: edema (Trace BLE), pulses intact. Absent: cyanosis, clubbing - Routine Skin Exam Present: erythema (Essentially resolved on RLE), dry, warm, wounds (Covered) - Routine Neurological Exam Present: alert, oriented X3, CN II-XII intact, moving all extremities, vision grossly intact, hearing grossly intact, normal speech. Absent: motor deficit, altered mental status - Routine Psychiatric Exam Present: normal affect, normal thought process, cooperative Results - Labs CBC & Chem 7: 09/09/17 05:57 09/09/17 05:57 Microbiology Results: Microbiology 09/03/17 16:43 Peripheral/Iv Start Blood Culture - Final No Growth After 5 Days 09/03/17 16:39 Peripheral/Iv Start Blood Culture - Final No Growth After 5 Days Assessment and Plan (1) Osteomyelitis of ankle or foot Current visit: No Status: Acute Assessment and Plan: Assessment Sepsis - (tachy, fever, leukocytosis. Source: skin. Nl lactate) - present on admission Diabetic foot ulcer with cellulitis (w/ previous osteomyelitis in cuboid bone) H/O MRSA, enterococcus, and corynebacterium in wound Dysfunctional uterine bleeding - likely PCOS and perimenopausal Uterine fibroid Hypomagnesemia (Not POA) Normocytic anemia Paroxysmal Atrial fibrillation - Eliquis HTN H/o ischemic CVA High cholesterol PAD Diabetes, Type 2, IR Diabetic gastroparesis Diabetic Neuropathy Charcot foot arthropathy, R foot Frozen shoulder, R ([place]) Liver disease Chronic GERD H/o MRSA cellulitis Obstructive sleep apnea Constipation Morbid obesity with BMI 43.7 Plan Clinically improving. Erythema to RLE resolving. Wound stable. Lab stable. Bowel function improved. Continue with Vancomycin and Meropenem for wound and skin coverage. Recheck CBC in am due to resolving sepsis and anemia. Check CMP in am due to medications. Possible discharge tomorrow if continues to do well. Time spent with patient care 25 minutes. Case discussed with nursing. DVT Prophylaxis: Eliquis Resuscitation Status: Do Not Resuscitate - Time spent with patient Time with patient PN: 25 minutes - Physician Narrative Physician: Cassius Disla MD Narrative: Date: 09/09/17 Time: 1302 Hospital Course Summary Disclaimer: The visit summary below is not to be considered part of the above Progress Note. Hospital Course: 09/03/17 Admit, IP. Stay expected to exceed two overnights given her sepsis and comorbidities. Levaquin given in ER. Start vancomycin. BC's drawn in ER. CBC in am to follow blood counts. Procal in am. Consult Dr. Richter and wound clinic for foot ulcer. MRI R foot ordered. Accuchecks to monitor BS's. Check A1c and TSH with am labs. Continue DM meds. Hold metformin if pt needs to be NPO. (Lactate nl) 1L NS bolused in ER. NS 125ml/hr for maintenance. Consider CONCAVING MACHINE OPERATOR consult for DUB vs trial of Provera. Follow hgb. Pt likely not bleeding heavily given hgb of 10.8 after reportedly bleeding for 6 wks. Pantoprazole for GERD and GI ppx. Eliquis for PAF and VTE ppx DNR/ Dr. Cook - PCP. 09/04/17 WBC improved to 11.7; fever/chills persist. Continue Vancomycin and doxycycline for antibiotic coverage. Dr. Rober consulted - formal recommendations pending. Consider CONCAVING MACHINE OPERATOR consult regarding DUB. Hgb 10.2 Hgb A1c <6%; continue NovoLOG, Metformin PT is tachy associated with fever. BP low-normal. Cont NS. 09/05/17 WBC now in normal range at 10.2. CRP actually increased from 29 to 59. No fever since 0030 on 09/04. Cont vanco/doxy, wound care per Dr. Richter: Silver Aquacel and Allevyn foam dressing. Mg low at 1.3 - IV mg ordered. K stable. BGM under control - as PO increases, may need to increase insulin doses. DC IVF. Tachycardia resolved and BP improved. 09/06/17 WBC now in normal range at 10.2. CRP actually increased from 29 to 59. No fever since 0030 on 09/04. Cont vanco/doxy, wound care per Dr. Richter: Silver Aquacel and Allevyn foam dressing. Fever this morning to 100.9 as well as hypoglycemia- broaden ATBX to vanco and merrem - h/o MRSA, enterococcus, and corynebacterium in wound Replace mag again today Monitor blood sugars - hold glipizide, metformin, Lantus, and NovoLog and use ISS for now. Hbg trending down, continue to monitor. 09/07/17 Leukocytosis continues to improve. She does remain febrile. Continue Vanco, Merrem. Past cx reviewed. MRI does show that osteo is better. Pain remains an issue. Surgery/wound team following. It appears that BG is better, but I don't see current accuchecks (confirmed order in place). Continue to hold both PO meds and insulin for now. Will increase B12 to 5,000units - assess Iron panel and ferritin to see if that needs to be replaced as well. Recheck mag level today post replacement. Assess pelvic sono due to dysfunctional uterine bleeding. May need OP CONCAVING MACHINE OPERATOR Follow up if abnormal. Patient does have ENEDINA, but is not wearing CPAP consistently per nursing notes. 09/08/17 Continue with Vancomycin and Meropenem for wound and skin coverage - clinical and biochemical improvement. Blood sugars increasing - will start meal time insulin at 4 units and restart Lantus at 8 units; hold oral agents. Increase bowel output - will have nursing give Fleets enema to help. 09/09/17 Clinically improving. Erythema to RLE resolving. Wound stable. Lab stable. Bowel function improved. Continue with Vancomycin and Meropenem for wound and skin coverage.
--- NOTE | 2017-09-09 20:49 | Progress Note ---
DATE OF SERVICE 09/09/2017 FINDINGS Ms. Aguirre was seen on evening rounds. She was in good spirits. PHYSICAL EXAM VITAL SIGNS: Afebrile, normotensive. Current vitals include temperature 96.9, pulse 64, respirations 18, blood pressure 131/78, SAO2 96% on room air. HEENT: Normocephalic. Pupils are equally round and react to light and accommodation. CHEST: Clear to auscultation bilaterally. HEART: Regular rate and rhythm. Normal S1 and S2 without gallops, murmurs or clicks. EXTREMITIES: Attention was focused to the right lower extremity. The prior erythematous rash involving the right anterior tibial surface has completely resolved. No visible abnormalities were noted. Swelling/edema involving the right foot is also improved. Skin is no longer warm to touch overlying the anterior tibial surface. Wound bed is stable involving the plantar aspect of the right foot. ASSESSMENT 47-year-old female with history for Gonzalez grade 2 right diabetic foot ulcer. Patient with development of associated cellulitis and sepsis that has resolved with antibiotic therapy. Patient making marked improvement. PLAN I do believe the patient could likely be discharged to home in the near future given resolution of her cellulitis. Patient is stable from a surgical standpoint. JENNIFER
[2017-09-09] MEDS: LISINOPRIL 20 MG TABLET PO SCH (21:00)
[2017-09-09] MEDS: LOVASTATIN 40 MG TABLET PO SCH (21:00)
[2017-09-09] MEDS: INSULIN GLARGINE 100unit/ml INJECTION SQ SCH (21:00)
[2017-09-09] MEDS: NS FLUSH BAG 500ml IV PRN (22:45)
[2017-09-10 00:04] VITALS: O2SAT 95
[2017-09-10] MEDS: MEROPENEM 500 MG in NS 50 ML IV SCH ×2 (01:05→08:59)
[2017-09-10] MEDS: PANTOPRAZOLE 40 MG TABLET PO SCH (06:38)
[2017-09-10] MEDS: SOTALOL 80 MG TABLET PO SCH (06:38)
[2017-09-10] MEDS: METOCLOPRAMIDE 5mg TABLET PO SCH ×2 (06:38→11:52)
[2017-09-10] MEDS: SALINE FLUSH 10ml SYRINGE IVF PRN ×2 (09:00→11:52)
[2017-09-10 09:03] VITALS: BP 138/83; PULSE 65; RESP 16; TEMP 96.8
[2017-09-10] MEDS: AMLODIPINE 5 MG TABLET PO SCH (09:44)
[2017-09-10] MEDS: ASCORBIC ACID 500 MG TABLET PO SCH (09:45)
[2017-09-10] MEDS: POLYETHYL GLYCOL 3350 17gm PACKET PO SCH (09:45)
[2017-09-10] MEDS: CYANOCOBALAMIN (B-12) 500mcg TABLET PO SCH (09:45)
[2017-09-10] MEDS: INSULIN ASPART 100unit/ml INJECTION SQ SCH ×2 (09:45→14:35)
[2017-09-10] MEDS: APIXABAN 5 MG TABLET PO SCH (09:46)
--- NOTE | 2017-09-10 10:49 | Progress Note ---
- Date 09/10/17 Subjective: F/U: Sepsis, Diabetic foot ulcer with cellulitis Doing well this morning. No f/c. Leg edema and erythema resolved. Eating well. Bowels moving well. Breathing well. Feeling much improved in general. Objective Vital signs: Temperature 96.8 F 09/10/17 09:02 Pulse Rate 65 09/10/17 09:02 Respiratory Rate 16 09/10/17 09:02 Blood Pressure 138/83 09/10/17 09:02 Pulse Oximetry 95 09/10/17 09:02 Height/Weight/BMI: Height 1.7 m Weight 122.7 kg Body Mass Index 43.7 - Constitutional Present: no acute distress, well nourished, well developed, morbidly obese, cooperative - Routine HEENT Exam Head: Present: normocephalic, atraumatic Eye: Present: EOMI, PERRL ENT: Present: mucous membranes moist - Routine Respiratory Exam Present: CTA bilaterally. Absent: rales, respiratory distress, rhonchi, stridor , wheezes, crackles - Routine Cardiovascular Exam Present: RRR, no murmur - Routine Abdominal Exam Present: soft, normoactive bowel sounds, non distended, non tender. Absent: guarding - Routine Extremities Exam Present: edema (Trace), pulses intact. Absent: cyanosis, clubbing - Routine Skin Exam Present: intact, dry, warm, wounds (Covered) - Routine Neurological Exam Present: alert, oriented X3, CN II-XII intact, moving all extremities, vision grossly intact, hearing grossly intact, normal speech. Absent: motor deficit, altered mental status - Routine Psychiatric Exam Present: normal affect, normal thought process, cooperative Results - Labs CBC & Chem 7: 09/09/17 05:57 09/09/17 05:57 Microbiology Results: Microbiology 09/03/17 16:43 Peripheral/Iv Start Blood Culture - Final No Growth After 5 Days 09/03/17 16:39 Peripheral/Iv Start Blood Culture - Final No Growth After 5 Days Assessment and Plan (1) Osteomyelitis of ankle or foot Current visit: No Status: Acute Assessment and Plan: Assessment Sepsis - (tachy, fever, leukocytosis. Source: skin. Nl lactate) - present on admission Diabetic foot ulcer with cellulitis (w/ previous osteomyelitis in cuboid bone) H/O MRSA, enterococcus, and corynebacterium in wound Dysfunctional uterine bleeding - likely PCOS and perimenopausal Uterine fibroid Hypomagnesemia (Not POA) Normocytic anemia Paroxysmal Atrial fibrillation - Eliquis HTN H/o ischemic CVA High cholesterol PAD Diabetes, Type 2, IR Diabetic gastroparesis Diabetic Neuropathy Charcot foot arthropathy, R foot Frozen shoulder, R ([place]) Liver disease Chronic GERD H/o MRSA cellulitis Obstructive sleep apnea Constipation Morbid obesity with BMI 43.7 Plan Doing well. No f/c. Erythema resolved. Wound stable. Will discharge to [facility]. Continue with doxycycline for wound coverage as prior to admission. Continue wound care of Silver Aquacel and Allevyn foam dressing as per Dr Richtre. Continue f/u with Wound Clinic as prior to admission. F/U Dr Cook in 1 week. See orders for details. Time spent with patient care and discharge greater than 30 minutes. DVT Prophylaxis: Eliquis Resuscitation Status: Do Not Resuscitate - Physician Narrative Physician: Cassius Disla MD Narrative: Date: 09/10/17 Time: 1034 Hospital Course Summary Disclaimer: The visit summary below is not to be considered part of the above Progress Note. Hospital Course: 09/03/17 Admit, IP. Stay expected to exceed two overnights given her sepsis and comorbidities. Levaquin given in ER. Start vancomycin. BC's drawn in ER. CBC in am to follow blood counts. Procal in am. Consult Dr. Richter and wound clinic for foot ulcer. MRI R foot ordered. Accuchecks to monitor BS's. Check A1c and TSH with am labs. Continue DM meds. Hold metformin if pt needs to be NPO. (Lactate nl) 1L NS bolused in ER. NS 125ml/hr for maintenance. Consider [employer] consult for DUB vs trial of Provera. Follow hgb. Pt likely not bleeding heavily given hgb of 10.8 after reportedly bleeding for 6 wks. Pantoprazole for GERD and GI ppx. Eliquis for PAF and VTE ppx DNR/ Dr. Cook - PCP. 09/04/17 WBC improved to 11.7; fever/chills persist. Continue Vancomycin and doxycycline for antibiotic coverage. Dr. Richter consulted - formal recommendations pending. Consider [employer] consult regarding DUB. Hgb 10.2 Hgb A1c <6%; continue NovoLOG, Metformin PT is tachy associated with fever. BP low-normal. Cont NS. 09/05/17 WBC now in normal range at 10.2. CRP actually increased from 29 to 59. No fever since 0030 on 09/04. Cont vanco/doxy, wound care per Dr. Richter: Silver Aquacel and Allevyn foam dressing. Mg low at 1.3 - IV mg ordered. K stable. BGM under control - as PO increases, may need to increase insulin doses. DC IVF. Tachycardia resolved and BP improved. 09/06/17 WBC now in normal range at 10.2. CRP actually increased from 29 to 59. No fever since 0030 on 09/04. Cont vanco/doxy, wound care per Dr. Richter: Silver Aquacel and Allevyn foam dressing. Fever this morning to 100.9 as well as hypoglycemia- broaden ATBX to vanco and merrem - h/o MRSA, enterococcus, and corynebacterium in wound Replace mag again today Monitor blood sugars - hold glipizide, metformin, Lantus, and NovoLog and use ISS for now. Hbg trending down, continue to monitor. 09/07/17 Leukocytosis continues to improve. She does remain febrile. Continue Vanco, Merrem. Past cx reviewed. MRI does show that osteo is better. Pain remains an issue. Surgery/wound team following. It appears that BG is better, but I don't see current accuchecks (confirmed order in place). Continue to hold both PO meds and insulin for now. Will increase B12 to 5,000units - assess Iron panel and ferritin to see if that needs to be replaced as well. Recheck mag level today post replacement. Assess pelvic sono due to dysfunctional uterine bleeding. May need OP [employer] Follow up if abnormal. Patient does have ENEDINA, but is not wearing CPAP consistently per nursing notes. 09/08/17 Continue with Vancomycin and Meropenem for wound and skin coverage - clinical and biochemical improvement. Blood sugars increasing - will start meal time insulin at 4 units and restart Lantus at 8 units; hold oral agents. Increase bowel output - will have nursing give Fleets enema to help. 09/09/17 Clinically improving. Erythema to RLE resolving. Wound stable. Lab stable. Bowel function improved. Continue with Vancomycin and Meropenem for wound and skin coverage. 09/10/17 Doing well. No f/c. Erythema resolved. Wound stable. Will discharge to [facility]. Continue with doxycycline for wound coverage as prior to admission. Continue wound care of Silver Aquacel and Allevyn foam dressing as per Dr Richter. Continue f/u with Wound Clinic as prior to admission. F/U Dr Cook in 1 week. See orders for details.
--- NOTE | 2017-09-10 11:03 | Extended Care Facility Orders ---
Admission Orders Admit to:: [facility] Allergies/Adverse Reactions: Allergies clindamycin Allergy (Severe, Verified 09/03/17 16:41) Hives Penicillins Allergy (Severe, Verified 09/03/17 16:41) Hives tetracycline Allergy (Severe, Verified 09/03/17 16:41) Hives Admitting Diagnosis: Sepsis, foot wound infection, cellulitis - improved Admitting Physician: Cassius Disla MD Attending Physician: Dr Cook Code Status: Do Not Resuscitate Rehab Potential: fair Rehab Prognosis: fair Diet: No added salt, no concentrated sweets Wound/Incision Care: Continue wound care of Silver Aquacel and Allevyn foam dressing as per Dr Richter. May use Facility Protocol or Standing Orders: Yes May have flu vaccine: Yes Evaluations/Treatment: as needed Mcfp Certification: I certify that SNF services are required to be given on an Inpatient basis because of the patients need for nursing home care on a continuing basis for the condition(s) for which he/she received inpatient hospital services prior to his/her transfer to the SNF. SNF inpatient care is necessary for the following reasons Indication for Mcfp: Not Applicable - Additional Information In Event of Arrest: Do Not Start CPR Resident is Aware of Diagnosis: Yes Referrals: Lise Cook MD [Primary Care Provider] - 1 Week (Hospital follow up - cellulitis of right lower ext. ) Additional Orders: Continue wound care. Continue follow up with wound center as prior to hospitalization.
[2017-09-10] MEDS: MULTI-VITAMIN + MINERAL TABLET PO SCH (14:35)
--- NOTE | 2017-09-10 19:20 | Discharge Summary ---
Discharge Information Date of admission: 09/03/17 17:39 Anticipated date of discharge: 09/10/17 Attending Physician: Cassius Disla MD Primary care physician: Lise Cook MD Consults: Physician Consult: Mac Richter Reason For Exam: Wound infection [facility] Consult Reason for consultation: Chronic foot wound - Discharge Diagnosis (1) Osteomyelitis of ankle or foot Status: Acute Discharge diagnosis Sepsis - (tachy, fever, leukocytosis. Source: skin. Nl lactate) - present on admission Associated conditions and complication Diabetic foot ulcer with cellulitis (w/ previous osteomyelitis in cuboid bone) H/O MRSA, enterococcus, and corynebacterium in wound Dysfunctional uterine bleeding - likely PCOS and perimenopausal Uterine fibroid Hypomagnesemia (Not POA) Normocytic anemia Paroxysmal Atrial fibrillation - Eliquis HTN H/o ischemic CVA High cholesterol PAD Diabetes, Type 2, IR Diabetic gastroparesis Diabetic Neuropathy Charcot foot arthropathy, R foot Frozen shoulder, R ([place]) Liver disease Chronic GERD H/o MRSA cellulitis Obstructive sleep apnea Constipation Morbid obesity with BMI 43.7 - Laboratory Labs: Admit Lab 09/03/17 16:39 WBC 15.1 H Hgb 10.8 L Hct 32.1 L MCV 91.5 Plt Count 233 Neutrophils % (Manual) 77.0 H Band Neutrophils % 1.0 Lymphocytes % (Manual) 18.0 L Monocytes % (Manual) 2.0 Eosinophils % (Manual) 2.0 Admit Lab 09/03/17 16:39 Sodium 141 Potassium 4.1 Chloride 106 Carbon Dioxide 22 Anion Gap 13 BUN 15.0 Creatinine 0.7 GFR Calculation 89 BUN/Creatinine Ratio 21 Glucose 87 Calculated Osmolality 271 Calcium 9.7 Total Bilirubin 0.50 AST 33 ALT 31 Alkaline Phosphatase 64 C-Reactive Protein 29.2 H Total Protein 6.4 Albumin 4.1 Globulin 2.3 L Albumin/Globulin Ratio 1.8 Plasma Lactate 1.3 Laboratory Tests 09/04/17 04:59 Hemoglobin A1c 5.4 TSH 1.83 Laboratory Tests 09/08/17 04:59 Iron 55 TIBC 316 % Saturation 17 09/09/17 05:57 09/09/17 05:57 - Microbiology Microbiology 09/03/17 16:43 Peripheral/Iv Start Blood Culture - Final No Growth After 5 Days 09/03/17 16:39 Peripheral/Iv Start Blood Culture - Final No Growth After 5 Days - Radiology Radiology: Date of Exam: 09/03/17 Type of Exam: XR chest 1V FINDINGS: The lungs are clear. There is no abnormal airspace opacity, pleural effusion or pneumothorax identified. The heart size, pulmonary vasculature and mediastinum are within normal limits. No significant skeletal abnormality is seen. IMPRESSION: No acute cardiopulmonary abnormality. Date of Exam: 09/04/17 Type of Exam: MR foot RT wo/w con Findings: Disorganization and destruction in the midfoot is again seen consistent with a neuropathic foot. The prior areas of mid foot edema seen on the comparison have largely resolved. Lisfranc dislocation is redemonstrated. The flexor and extensor tendons are grossly intact. Edema throughout the foot musculature, a common finding in diabetics. Plantar ulcer in the midfoot region. No rim-enhancing abscess appreciated. No abnormal bone marrow enhancement seen. Impression: Interval resolution of the prior regions of osteomyelitis. No definite MR evidence of acute osteomyelitis. Date of Exam: 09/07/17 Type of Exam: US pelvic non-ob w transvag FINDINGS: Transvaginal and transabdominal pelvic imaging was performed. The uterus measures 12.6 x 5.6 x 7.9 cm. The parenchyma is heterogeneous with a 2.5 cm myometrial fibroid in the right fundal area.. The endometrial stripe measures 8 mm in thickness. There is no evidence of focal endometrial mass. Small amount of fluid in the endometrial canal. Small nabothian cyst. Right ovary was not seen. The left ovary appears grossly normal and measures 3.7 x 2.4 x 2.9 cm. There are no abnormal adnexal masses detected. Normal Doppler flow to the left ovary. No free fluid. IMPRESSION: Uterine fibroid. History of Present Illness HPI: Pt brought in to ED b/c nursing staff at [facility] noted infection to her chronic wound. She started having chills/shaking today. H/o + BC 12/16 treated with IV atbx completed 02.12.17. Right diabetic foot ulcer with surrounding cellulitis and osteomyelitis of the cuboid bone, s/p I&D 12/19/16, bone culture with CoNS. S/p repeat I&D involving bone on 01/03/17. Chronic wound R plantar foot. Wound culture 06/17/17 with mod growth MRSA, mod growth Corynebacterium, mod growth E. faecalis. Seen by Dr. Flores 08/13 with rec to stay on doxy for another month. Sees Dr. Richter in wound clinic. Has no pain d/t neuropathy. C/o vaginal bleeding x 6 wks. Usually has menses q 3 mos. Last period started 6 wks ago - bright red bleeding and "hasn't let up." Pt thinks she is perimenopausal. Has h/o DUB for most of her life. Based on hirsutism and report of abnl menses, pt likely has PCOS. Hgb in ER 10.8. For complete details of the H&P refer to that document. Objective Vital signs: Temperature 96.8 F 09/10/17 09:02 Pulse Rate 65 09/10/17 09:02 Respiratory Rate 16 09/10/17 09:02 Blood Pressure 138/83 09/10/17 09:02 Pulse Oximetry 95 09/10/17 09:02 Height/Weight/BMI: Height 1.7 m Weight 122.7 kg Body Mass Index 43.7 Hospital Course This is a general summary of the patient's hospital course. For more details refer to the complete medical record. Hospital course: 09/03/17 Admit, IP. Stay expected to exceed two overnights given her sepsis and comorbidities. Levaquin given in ER. Start vancomycin. BC's drawn in ER. CBC in am to follow blood counts. Procal in am. Consult Dr. Richter and wound clinic for foot ulcer. MRI R foot ordered. Accuchecks to monitor BS's. Check A1c and TSH with am labs. Continue DM meds. Hold metformin if pt needs to be NPO. (Lactate nl) 1L NS bolused in ER. NS 125ml/hr for maintenance. Consider [employer] consult for DUB vs trial of Provera. Follow hgb. Pt likely not bleeding heavily given hgb of 10.8 after reportedly bleeding for 6 wks. Pantoprazole for GERD and GI ppx. Eliquis for PAF and VTE ppx DNR/ Dr. Cook - PCP. 09/04/17 WBC improved to 11.7; fever/chills persist. Continue Vancomycin and doxycycline for antibiotic coverage. Dr. Richter consulted - formal recommendations pending. Consider [employer] consult regarding DUB. Hgb 10.2 Hgb A1c <6%; continue NovoLOG, Metformin PT is tachy associated with fever. BP low-normal. Cont NS. 09/05/17 WBC now in normal range at 10.2. CRP actually increased from 29 to 59. No fever since 0030 on 09/04. Cont vanco/doxy, wound care per Dr. Richter: Silver Aquacel and Allevyn foam dressing. Mg low at 1.3 - IV mg ordered. K stable. BGM under control - as PO increases, may need to increase insulin doses. DC IVF. Tachycardia resolved and BP improved. 09/06/17 WBC now in normal range at 10.2. CRP actually increased from 29 to 59. No fever since 0030 on 09/04. Cont vanco/doxy, wound care per Dr. Richter: Silver Aquacel and Allevyn foam dressing. Fever this morning to 100.9 as well as hypoglycemia- broaden ATBX to vanco and merrem - h/o MRSA, enterococcus, and corynebacterium in wound Replace mag again today Monitor blood sugars - hold glipizide, metformin, Lantus, and NovoLog and use ISS for now. Hbg trending down, continue to monitor. 09/07/17 Leukocytosis continues to improve. She does remain febrile. Continue Vanco, Merrem. Past cx reviewed. MRI does show that osteo is better. Pain remains an issue. Surgery/wound team following. It appears that BG is better, but I don't see current accuchecks (confirmed order in place). Continue to hold both PO meds and insulin for now. Will increase B12 to 5,000units - assess Iron panel and ferritin to see if that needs to be replaced as well. Recheck mag level today post replacement. Assess pelvic sono due to dysfunctional uterine bleeding. May need OP [employer] Follow up if abnormal. Patient does have ENEDINA, but is not wearing CPAP consistently per nursing notes. 09/08/17 Continue with Vancomycin and Meropenem for wound and skin coverage - clinical and biochemical improvement. Blood sugars increasing - will start meal time insulin at 4 units and restart Lantus at 8 units; hold oral agents. Increase bowel output - will have nursing give Fleets enema to help. 09/09/17 Clinically improving. Erythema to RLE resolving. Wound stable. Lab stable. Bowel function improved. Continue with Vancomycin and Meropenem for wound and skin coverage. 09/10/17 Doing well. No f/c. Erythema resolved. Wound stable. Will discharge to [facility]. Continue with doxycycline for wound coverage as prior to admission. Continue wound care of Silver Aquacel and Allevyn foam dressing as per Dr Richter. Continue f/u with Wound Clinic as prior to admission. F/U Dr Cook in 1 week. See orders for details. Time spent with patient: discharge greater than 30 minutes Resuscitation Status: Do Not Resuscitate Discharge Plan - Discharge Disposition Discharge Date: 09/10/17 Disposition: 04 To [facility] Home/Facility *Condition: Stable Reason For Visit (Visit label in EMR): Sepsis, foot wound infection - Discharge Medications *Discharge Medications: New Bisacodyl Supp [Dulcolax] 10 mg RECTALLY DAILY PRN suppositor PRN Reason: Constipation GlipiZIDE [Glucotrol] 10 mg PO ACBID30 tab Continue Lovastatin [Mevacor] 40 mg PO HS HydroCHLOROthiazide [Hydrodiuril] 25 mg PO WB Insulin Aspart [NovoLOG] 6 unit SQ BIDBL vial Potassium Chloride [K-DUR 10 mEq Tablet] 10 meq PO WB tab Amlodipine [Norvasc] 5 mg PO DAILY Apixaban [Eliquis] 5 mg PO BID PEG 3350 17gm PACKET [Miralax] 17 gm PO DAILY Oxybutynin Chloride 5 mg PO HS Doxycycline [Vibramycin] 100 mg PO BID Metoclopramide [Reglan] 5 mg PO QID Lisinopril [Prinivil] 20 mg PO HS Ascorbate Calcium [Vitamin C] 500 mg PO DAILY Metformin [Glucophage] 1,000 mg PO BIDWM Insulin Aspart [NovoLOG] 7 unit SQ WS vial Cholecalciferol (Vitamin D3) [Vitamin D3] 1,000 unit PO DAILY Insulin Glargine,Hum.rec.anlog [Lantus] 12 unit SQ HS Pantoprazole Tab [Protonix Tab] 40 mg PO ACB Sotalol [Betapace] 40 mg PO ACBID #60 tab Multivitamin with Minerals [One-A-Day Maximum Formula] 1 tab PO NOON Changed Cyanocobalamin (B-12) [Vit. B-12] 1,000 mcg PO DAILY #0 tab glipiZIDE [Glipizide] 10 mg PO BIDWM #0 - Discharge Packet/Instructions *Diet: No added salt, no concentrated sweets *Activity: As tolerated. Elevate LE when at rest. *Pain Management/Treatment: Continue prior pain medicaitons *Wound Care: Continue wound care of Silver Aquacel and Allevyn foam dressing as per Dr Richter. *Expected Signs/Symptoms: Gradual improvement of leg wound with wound treatment. *Notify Physician if: Temp > 100.4. Fever/Chills. *During Business Hours Contact: Nursing staff at [facility]. *After Business Hours Contact: Nursing staff at [facility]. *Pending Lab/Results: No Pending Lab - Referrals/Follow Up *Referrals/Follow Up: Lise Cook MD [Primary Care Provider] - 1 Week (Hospital follow up - cellulitis of right lower ext. ) - Patient Handouts Patient Handouts: Wound Infection (GEN), Sepsis (GEN) - Dismissal Complete Discharge Instructions are:: Complete Physician Narrative - Narrative Physician: Cassius Disla MD Attestation Narrative: Date: 09/10/17 Time: 6 I have independently interviewed and examined patient prior to discharge. See my progress note for details. Medically stable for discharge.
== END 2017-09-10 14:43 | DRG 872 ==
LOC: ED 16:25 → EDHOLD 17:39 → SUATTDRO 17:39 → MED 17:45
PROVIDERS: ADMIT Hospitalist; ATTEND Hospitalist